=== PATIENT | male | born 1955 | race Caucasian/White ===

== ENCOUNTER 2023-06-10 07:20 | Emergency (ER) | payer MEDICAID, SELFPAY ==
[2023-06-10 07:29] VITALS: BP 186/93; PULSE 102; RESP 18; TEMP 36.7; O2SAT 97
--- NOTE | 2023-06-10 07:30 | ECG_ITS ---
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
--- NOTE | 2023-06-10 07:30 | XR_ITS ---
The [address] [address] Patient Name: TSERING NAVARRO MRN: [id number] date: 1955 Sex: M Assigned Patient Location: ER Current Patient Location: ED.MAIN Accession/Order Number: [id number] Exam Date: 06/10/2023 07:36 Report Date: 06/10/2023 07:55 At the request of: MAGI COFFEY Procedure: XR chest 1V Exam: Radiographs: XR chest 1V Reason for exam: Chest pain Comparison: Chest CT dated 04/20/2021 XR/XR chest 1V IMPRESSION: Bilateral shoulder arthroplasties. Chest is otherwise unremarkable. Electronically authenticated by: ABDELRAHMAN MACDONALD Date: 06/10/2023 07:55
--- NOTE | 2023-06-10 07:30 | ED.CHESTPAI1 ---
HPI - Chest Pain General Chief Complaint: Chest Pain Stated Complaint: chest pain Time Seen by Provider: 06/10/23 07:30 History of Present Illness HPI narrative: pt presents emergency department complaining of chest pain for the last 3 days. He states his been waking up in a sweat in the last 2 nights and started vomiting last night. He denies any hematemesis. He denies any abdominal pain, shortness of breath, diarrhea, constipation. He denies any cough, runny nose, or sore throat. Patient states he feels very thirsty and just wants some Thing for her nausea. He states he has vomited 2 times. He is a poor historian. He denies any trauma. Related Data Home Medications Medication Instructions Recorded Confirmed atorvastatin 80 mg tablet 80 mg PO DAILY 06/10/23 06/10/23 diclofenac sodium 75 mg 75 mg PO BID 06/10/23 06/10/23 tablet,delayed release fenofibrate 160 mg tablet 160 mg PO DAILY 06/10/23 06/10/23 metformin 500 mg tablet 500 mg PO BID 06/10/23 06/10/23 pioglitazone 30 mg tablet 30 mg PO BID 06/10/23 06/10/23 Previous Rx's Medication Instructions Recorded hydrocodone 5 mg-acetaminophen 325 1 tab PO Q6H PRN pain 5 days #10 06/10/23 mg tablet tabs ondansetron HCl 4 mg tablet 4 mg PO Q8H PRN nausea and 06/10/23 vomiting 4 days #10 tabs Allergies Allergy/AdvReac Type Severity Reaction Status Date / Time No Known Drug Allergies Allergy Verified 06/10/23 07:32 Review of Systems ROS Status of ROS 10 or more systems reviewed and unremarkable except as noted in history and below PFSH [facility] Social History Smoking status: Former smoker Exam Narrative Exam Narrative: Nurses notes and vital signs reviewed and patient is not hypoxic. General: Nontoxic, in pain, no distress. Skin: Warm, dry, no pallor noted. No Rash Head: Normocephalic, atraumatic. Neck: Supple, non-tender. Eye: Pupils are equal, round and EOMI. No scleral icterus. Ears, Nose, Mouth, and Throat: TM clear, no posterior oropharynx erythema or nasal mucosal hypertrophy, uvula is mid-line Oral mucosa is moist Cardiovascular: Regular Rate and Rhythm without murmur, gallop or rub. Respiratory: No accessory muscle use or respiratory distress. Lungs are clear to auscultation, no wheezing, rales or rhonchi Chest Wall: no tenderness Back: No midline thoracic or lumbar vertebral tenderness. No CVA tenderness Musculoskeletal: normal ROM, no calf or popliteal tenderness, no lower extremity edema/swelling GI: Obese,Abdomen is soft, non-distended. Normal bowel sounds. Golf size umbilical hernia. Epigastric tenderness to palpation. No rebound, guarding, or rigidity noted. Neurological: A&O x4. No cranial nerve dysfunction observed. No truncal ataxia. Moves all extremities. Psychiatric: Cooperative and interactive. anxious Constitutional Vital Signs, click to edit/add: Last Vital Signs Temp 98.0 F 06/10/23 07:29 Pulse 78 06/10/23 09:48 Resp 18 06/10/23 09:48 BP 150/71 H 06/10/23 09:48 Pulse Ox 98 06/10/23 09:48 O2 Del Method Room Air 06/10/23 07:47 Course Vital Signs Vital signs: Vital Signs Temperature 98.0 F 06/10/23 07:29 Pulse Rate 102 H 06/10/23 07:29 Respiratory Rate 18 06/10/23 07:29 Blood Pressure 186/93 H 06/10/23 07:29 Pulse Oximetry 97 06/10/23 07:29 Oxygen Delivery Method Room Air 06/10/23 07:29 Temperature 98.0 F 06/10/23 07:29 Pulse Rate 78 06/10/23 09:48 Respiratory Rate 18 06/10/23 09:48 Blood Pressure 150/71 H 06/10/23 09:48 Pulse Oximetry 98 06/10/23 09:48 Oxygen Delivery Method Room Air 06/10/23 07:47 MDM - Chest Pain MDM Narrative Medical decision making narrative: Patient is a poor historian and he cannot provide me with a history other than he has no ALLERGIES. Previous admission records were reviewed and patient was admitted on March 2020 after he was here with the same presentation. At that time he had acute pancreatitis. pt was given morphine, Zofran, and normal saline. Patient's symptoms have completely resolved. He remained asymptomatic. Patient is tolerating by mouth. Given a prescription for Zofran and [place]. The discussed the CT scan findings SO was cystic lesion which the patient states she's had issues with his right hip for years. Patient does not have any signs of infection. He will follow up with Dr. Parish regarding this findings for a referral to ortho. At this time the patient is without objective evidence of an acute process requiring hospitalization or inpatient management. The patient has remained hemodynamically stable. No additional indication for emergent studies at this time. I answered all questions. Discussed discharge instructions including standard anticipatory guidance and what should prompt a return to the emergency department, including if they get worse are not getting better or develops any new or concerning symptoms. I've given them specific time frame in which to follow-up, and who to follow-up with. The patient demonstrates understanding. Patient is nontoxic and stable for discharge with outpatient follow-up. This note was created with the assistance of a speech recognition program. Although the intention is to generate documents that actually reflects the content of the visit, no guarantees can be provided that every mistake has been identified and corrected by editing. Lab Data Attestation: I reviewed the patient's lab results. Labs: Lab Results 06/10/23 06/10/23 06/10/23 Range/Units 07:41 07:42 08:46 WBC 9.9 (4.0-11.0) 10^3/uL RBC 5.28 (4.70-6.10) 10^6/uL Hgb 16.1 (14.0-18.0) g/dL Hct 46.2 (42.0-54.0) % MCV 87.5 (80.0-94.0) fL MCH 30.5 (25.9-34.0) pg MCHC 34.8 (29.9-35.2) g/dL RDW 12.6 (11.0-15.0) % Plt Count 215 (150-450) 10^3/uL MPV 9.8 (9.5-13.5) fL Neut % (Auto) 91.4 H (43.0-75.0) % Lymph % (Auto) 5.0 L (20.5-60.0) % [place] % (Auto) 2.3 (1.7-12.0) % Eos % (Auto) 0.5 L (0.9-7.0) % Baso % (Auto) 0.5 (0.2-2.0) % Neut # (Auto) 9.0 H (1.4-6.5) 10^3/uL Lymph # (Auto) 0.5 L (1.2-3.8) 10^3/uL [place] # (Auto) 0.2 L (0.3-0.8) 10^3/uL Eos # (Auto) 0.1 (0.0-0.7) 10^3/uL Baso # (Auto) 0.1 (0.0-0.1) 10^3/uL Abs Immat Gran (auto) 0.03 (0.00-0.03) 10^3/uL Imm/Tot Granulo (auto) 0.3 (0.0-0.5) % PT 9.8 (9.0-11.6) sec INR <0.93 APTT 23.2 (22.3-36.2) sec Sodium 131 L (136-145) mmol/L Potassium 4.2 (3.5-5.1) mmol/L Chloride 95 L (98-107) mmol/L Carbon Dioxide 23.4 (21.0-32.0) mmol/L Anion Gap 16.8 BUN 17.0 (7.0-18.0) mg/dL Creatinine 1.03 (0.70-1.30) mg/dL Est GFR ( Amer) >60 (>=60) Est GFR (Non-Af Amer) >60 (>=60) BUN/Creatinine Ratio 16.5 Glucose 255 H (74-106) mg/dL Calcium 9.7 (8.5-10.1) mg/dL Total Bilirubin 0.7 (0.2-1.0) mg/dL AST 15 (15-37) U/L ALT 29 (16-63) U/L Alkaline Phosphatase 114 (46-116) U/L Troponin I High Sens 5.6 (4.0-76.1) pg/mL NT-Pro-B Natriuret Pep 87.0 (<=900.0) pg/mL Total Protein 7.5 (6.4-8.2) g/dL Albumin 3.6 (3.4-5.0) g/dL Globulin 3.9 g/dL Albumin/Globulin Ratio 0.9 Lipase 161.0 (73.0-393.0) U/L Urine Color Lt. yellow (YELLOW) Urine Clarity Clear (CLEAR) Urine pH 5.5 (5.0-9.0) Ur Specific [place] 1.015 (1.005-1.025) Urine Protein Negative (NEG/TRACE) mg/dL Urine Glucose (UA) >=1000 A (NEGATIVE) mg/dL Urine Ketones Trace A (NEGATIVE) mg/dL Urine Occult Blood Negative (NEGATIVE) Urine Nitrite Negative (NEGATIVE) Urine Bilirubin Negative (NEGATIVE) Urine Urobilinogen 0.2 (0.2-1.0) EU/dL Ur Leukocyte Esterase Negative (NEGATIVE) Ethanol Quant <3 mg/dL POC Glucose 261 H (74-106) mg/dL 06/10/23 Range/Units 09:45 WBC (4.0-11.0) 10^3/uL RBC (4.70-6.10) 10^6/uL Hgb (14.0-18.0) g/dL Hct (42.0-54.0) % MCV (80.0-94.0) fL MCH (25.9-34.0) pg MCHC (29.9-35.2) g/dL RDW (11.0-15.0) % Plt Count (150-450) 10^3/uL MPV (9.5-13.5) fL Neut % (Auto) (43.0-75.0) % Lymph % (Auto) (20.5-60.0) % [place] % (Auto) (1.7-12.0) % Eos % (Auto) (0.9-7.0) % Baso % (Auto) (0.2-2.0) % Neut # (Auto) (1.4-6.5) 10^3/uL Lymph # (Auto) (1.2-3.8) 10^3/uL [place] # (Auto) (0.3-0.8) 10^3/uL Eos # (Auto) (0.0-0.7) 10^3/uL Baso # (Auto) (0.0-0.1) 10^3/uL Abs Immat Gran (auto) (0.00-0.03) 10^3/uL Imm/Tot Granulo (auto) (0.0-0.5) % PT (9.0-11.6) sec INR APTT (22.3-36.2) sec Sodium (136-145) mmol/L Potassium (3.5-5.1) mmol/L Chloride (98-107) mmol/L Carbon Dioxide (21.0-32.0) mmol/L Anion Gap BUN (7.0-18.0) mg/dL Creatinine (0.70-1.30) mg/dL Est GFR ( Amer) (>=60) Est GFR (Non-Af Amer) (>=60) BUN/Creatinine Ratio Glucose (74-106) mg/dL Calcium (8.5-10.1) mg/dL Total Bilirubin (0.2-1.0) mg/dL AST (15-37) U/L ALT (16-63) U/L Alkaline Phosphatase (46-116) U/L Troponin I High Sens 7.4 (4.0-76.1) pg/mL NT-Pro-B Natriuret Pep (<=900.0) pg/mL Total Protein (6.4-8.2) g/dL Albumin (3.4-5.0) g/dL Globulin g/dL Albumin/Globulin Ratio Lipase (73.0-393.0) U/L Urine Color (YELLOW) Urine Clarity (CLEAR) Urine pH (5.0-9.0) Ur Specific [place] (1.005-1.025) Urine Protein (NEG/TRACE) mg/dL Urine Glucose (UA) (NEGATIVE) mg/dL Urine Ketones (NEGATIVE) mg/dL Urine Occult Blood (NEGATIVE) Urine Nitrite (NEGATIVE) Urine Bilirubin (NEGATIVE) Urine Urobilinogen (0.2-1.0) EU/dL Ur Leukocyte Esterase (NEGATIVE) Ethanol Quant mg/dL POC Glucose (74-106) mg/dL ECG Data Attestation: I personally reviewed and interpreted this ECG as follows: Heart Score History: Slightly/Non-Suspicious ECG: Normal Age: >65 years Risk Factors: 1 or 2 Risk Factors Troponin: <Normal Limit Total Heart Score Recommendations & Risks:: 3 Discharge Plan Discharge Chief Complaint: Chest Pain Clinical Impression: Psoas mass, Chest pain, Vomiting Patient Disposition: Home, Self-Care Time of Disposition Decision: 10:26 Condition: Good Mode of Transportation: Private Vehicle Prescriptions / Home Meds: New ondansetron HCl 4 mg tablet 4 mg PO Q8H PRN (Reason: nausea and vomiting) 4 Days Qty: 10 0RF hydrocodone-acetaminophen 5-325 mg tablet 1 tab PO Q6H PRN (Reason: pain) 5 Days Qty: 10 0RF No Action atorvastatin 80 mg tablet 80 mg PO DAILY fenofibrate 160 mg tablet 160 mg PO DAILY metformin 500 mg tablet 500 mg PO BID pioglitazone 30 mg tablet 30 mg PO BID diclofenac sodium 75 mg tablet,delayed release (DR/EC) 75 mg PO BID Instructions: Chest Pain (ED), Acute Nausea and Vomiting (ED) Stand Alone Forms: Portal Instructions Referrals: Kip Parish MD [Primary Care Provider] - 1 week Discharge Date/Time: 06/10/23 10:46
--- NOTE | 2023-06-10 07:41 | CT_ITS ---
The [address] [address] Patient Name: TSERING NAVARRO MRN: [id number] date: 1955 Sex: M Assigned Patient Location: ER Current Patient Location: .MAIN Accession/Order Number: [id number] Exam Date: 06/10/2023 08:15 Report Date: 06/10/2023 09:04 At the request of: MAGI COFFEY Procedure: CT abdomen pelvis w con EXAM: CT abdomen pelvis w con HISTORY: n/v/abd pain, hernia COMPARISON: PET/CT 10/18/2020. TECHNIQUE: Axial postcontrast CT imaging of the abdomen and pelvis was performed with coronal and sagittal reformats. This CT exam was performed using one or more of the following dose reduction techniques: Automated exposure control, adjustment of the MA and/or kV according to patient size, or use of iterative reconstruction technique. FINDINGS: LOWER CHEST: Mediastinum/ras: Within normal limits. Heart/vessels: Heart size within normal limits. No pericardial effusion. Pleura: No pleural effusions. Lungs: Mild dependent atelectasis. ABDOMEN/PELVIS: Liver: Mild hepatomegaly with diffuse hepatic steatosis. Gallbladder/biliary: Within normal limits. Spleen: Within normal limits. Pancreas: Within normal limits. Adrenals: Within normal limits. Kidneys: No radiopaque calculi or hydronephrosis. Bilateral fluid attenuating cystic lesions are present the largest involving the inferior pole of the left kidney being partially exophytic measuring 3.5 cm with layering hyperdense material which is grossly stable from prior when allowing for differences in technique. No aggressive features are seen. Less than 5 mm nonobstructing left renal stone.. Peritoneum: Within normal limits. Mesentery: Within normal limits. Extraperitoneum: Within normal limits. Gastrointestinal tract: No bowel obstruction. Normal caliber appendix in the right lower quadrant. Colonic diverticulosis without adjacent inflammatory changes. Anterior to the descending/sigmoid colonic junction partially calcified presumed epiploic appendages are present unchanged in appearance from 10/18/2020. Ureters: Within normal limits. Bladder: Within normal limits. Reproductive System: Within normal limits. Vascular: Atherosclerotic calcification of the abdominal aorta and branch vessels without aneurysm. MSK: There is decreasing size of mixed fat and soft tissue attenuating lesion involving the right iliopsoas abscess at the level of the femoral head with the fat-containing portion mildly heterogeneous in appearance measuring approximately 2.3 x 1.4 x 4.3 cm. Slightly more laterally and there is a fluid attenuating collection/lesion measuring approximately 2.5 x 2.3 x 11.2 cm. This was likely present in 2019 but has significantly increased in size or to prior although remains well-circumscribed. No FDG uptake was seen on prior PET/CT. CT/CT abdomen pelvis w con IMPRESSION: 1. No acute intra-abdominal/pelvic process. 2. Abnormality involving the right iliopsoas musculature at the level of the femoral head with area of heterogeneous fat and slightly more laterally elongated fluid attenuating lesion. This was present on prior PET/CT from 10/18/2020 but has significantly increased in size although no overtly aggressive features are seen. Please note there is no FDG uptake in this location on prior PET/CT. Continued attention on follow-up is recommended. If clinically warranted MR of the right hip with wide [id number] with and without contrast could be performed for further evaluation. 3. Colonic diverticulosis. 4. Multiple renal cysts. 5. Nonobstructing left renal calculus. 6. Hepatomegaly with diffuse hepatic steatosis. 7. Electronically authenticated by: JONEL CHEN Date: 06/10/2023 09:04
[2023-06-10 07:44] LABS: Glucometer 261 mg/dL (74-106)
[2023-06-10 07:46] VITALS: PULSE 102
[2023-06-10 07:47] VITALS: O2SAT 96
[2023-06-10 07:51] LABS: Basophils Absolute Auto 0.1 10^3/uL (0.0-0.1); Basophils Percent Auto 0.5 % (0.2-2.0); Eosinophils Absolute Auto 0.1 10^3/uL (0.0-0.7); Eosinophils Percent Auto 0.5 % (0.9-7.0); Hematocrit 46.2 % (42.0-54.0); Hemoglobin 16.1 g/dL (14.0-18.0); Immature Granulocytes Abs Auto 0.03 10^3/uL (0.00-0.03); Immature Granulocytes Pct Auto 0.3 % (0.0-0.5); Lymphocytes Absolute Auto 0.5 10^3/uL (1.2-3.8); Mean Corpuscular HGB Conc 34.8 g/dL (29.9-35.2); Mean Corpuscular Hemoglobin 30.5 pg (25.9-34.0); Mean Corpuscular Volume 87.5 fL (80.0-94.0); Mean Platelet Volume 9.8 fL (9.5-13.5); Monocytes Absolute Auto 0.2 10^3/uL (0.3-0.8); Monocytes Percent Auto 2.3 % (1.7-12.0); Neutrophils Percent Auto 91.4 % (43.0-75.0); Platelet Count 215 10^3/uL (150-450); Red Blood Count 5.28 10^6/uL (4.70-6.10); Red Cell Distribution Width 12.6 % (11.0-15.0); White Blood Count 9.9 10^3/uL (4.0-11.0)
[2023-06-10] MEDS: MORPHINE SULFATE 4 MG/ML VIAL IV (07:57)
[2023-06-10] MEDS: ONDANSETRON PF 4 MG/2 ML VIAL IV (07:57)
[2023-06-10] MEDS: 0.9 % SODIUM CHLORIDE 1,000 ML 1000 ML IV (07:57)
[2023-06-10 08:02] LABS: Alanine Aminotransferase 29 U/L (16-63); Albumin Globulin Ratio 0.9; Albumin Level 3.6 g/dL (3.4-5.0); Alkaline Phosphatase 114 U/L (46-116); Anion Gap 16.8; Aspartate Amino Transferase 15 U/L (15-37); BUN Creatinine Ratio 16.5; Bilirubin Total 0.7 mg/dL (0.2-1.0); Calcium 9.7 mg/dL (8.5-10.1); Carbon Dioxide 23.4 mmol/L (21.0-32.0); Chloride 95 mmol/L (98-107); Estimated GFR (African America >60 (>=60); Estimated GFR (Non-African Ame >60 (>=60); Globulin 3.9 g/dL; Glucose 255 mg/dL (74-106); Potassium 4.2 mmol/L (3.5-5.1); Sodium 131 mmol/L (136-145); Total Protein 7.5 g/dL (6.4-8.2)
[2023-06-10 08:03] LABS: Partial Thromboplastin Time 23.2 sec (22.3-36.2); Prothrombin Time 9.8 sec (9.0-11.6)
[2023-06-10 08:11] LABS: Troponin I High Sensitivity 5.6 pg/mL (4.0-76.1)
[2023-06-10 08:12] LABS: Ethanol <3 mg/dL
--- NOTE | 2023-06-10 08:31 | PC.NURSE ---
In to assess patient, pt out of bed, all chest leads off and patient attempting to drink water from the sink. Education provided to patient numerous times to not eat or drink anything. Patient states uderstanding.
[2023-06-10 08:40] LABS: INR <0.93
[2023-06-10 08:53] LABS: Bilirubin Urine NEGATIVE (NEGATIVE); Blood Urine NEGATIVE (NEGATIVE); Clarity Urine CLEAR (CLEAR); Color Urine LT. YELLOW (YELLOW); Glucose Urine UA >=1000 mg/dL (NEGATIVE); Ketones Urine TRACE mg/dL (NEGATIVE); Leukocyte Esterase Urine NEGATIVE (NEGATIVE); Nitrite Urine NEGATIVE (NEGATIVE); Protein Urine NEGATIVE (NEG/TRACE); Specific Gravity Urine 1.015 (1.005-1.025); Urobilinogen Urine 0.2 EU/dL (0.2-1.0); pH Urine 5.5 (5.0-9.0)
[2023-06-10 08:54] LABS: Urine Microscopic Indicated NO
[2023-06-10 09:48] VITALS: BP 150/71; PULSE 78; RESP 18; O2SAT 98
[2023-06-10 10:09] LABS: Troponin I High Sensitivity 7.4 pg/mL (4.0-76.1)
== END 2023-06-10 10:46 | disposition home or self-care (01) ==
PROVIDERS: Emergency Provider Emergency Medicine; PCP Family Medicine
DX: R07.9 Chest pain, unspecified (principal); R11.10 Vomiting, unspecified; M62.89 Other specified disorders of muscle; Z79.899 Other long term (current) drug therapy; Z79.84 Long term (current) use of oral hypoglycemic drugs; Z87.891 Personal history of nicotine dependence
CPT/HCPCS: 36415; 71045; 74177; 80053; 80320; 81003; 83690; 83880; 84484; 85025; 85610; 85730; 93005; 96374; 96375; 99285; Q9967

== ENCOUNTER 2023-07-30 07:36 | Outpatient (OUT) | payer MEDICARE, MEDICAID, SELFPAY ==
--- NOTE | 2023-07-30 07:42 | MR_ITS ---
The [address] [address] Patient Name: TSERING NAVARRO MRN: [id number] date: 1955 Sex: M Assigned Patient Location: MRI Current Patient Location: MRI Accession/Order Number: [id number] Exam Date: 07/30/2023 08:04 Report Date: 07/30/2023 10:21 At the request of: OSWALDO MARS Procedure: MR hip RT wo con EXAMINATION: MR hip RT wo con HISTORY: Mass R22.9 COMPARISON: CT abdomen pelvis 06/10/2023, 03/23/2020 TECHNIQUE: A comprehensive examination was performed utilizing a variety of imaging planes and imaging parameters to optimize visualization of suspected pathology. Images were performed without contrast. FINDINGS: FEMORAL HEAD: Narrowing of the superior aspect of the right hip joint space with [id number] contact. Degenerative osteophytes along the rim of the right femoral head. No fracture or bone lesion. ACETABULUM: No fracture or significant arthropathy. OTHER BONES: Normal appearance of the visualized portion of the pelvis. LABRUM: No visible tear. EFFUSIONS: None. No synovitis or loose bodies. BURSAE: No evidence of iliopsoas or trochanteric bursitis. TENDONS: Unremarkable gluteus tendons, iliopsoas tendon, and hamstring origin. MUSCLES: Thin-walled elongated fluid collection within the right iliopsoas muscle, 13.5 cm in length by 3.9 cm in diameter which appears to extend from/involve a very thin layer of fluid between the right iliac bone and the iliacus muscle. The distal extent of the fluid collection is at the level of the lesser trochanter of the right femur. A second small similar-appearing fluid collection is present within the medial aspect of the right iliopsoas muscle, 6.3 cm in length by 1.7 cm in diameter. Between the 2 fluid collections is a fatty mass suggestive of a lipoma. OTHER: Moderate size fat filled right inguinal hernia without bowel involvement or strangulation. Slightly prominent prostate. MR/MR hip RT wo con IMPRESSION: 1. Nonspecific thin-walled, overall benign-appearing but atypical simple fluid collections (2) within the right iliopsoas muscle extending from within pelvis into upper thigh of uncertain etiology. The 2 fluid collections are suspected to connect connect at the level of the iliac bone and iliacus muscle and involve the thin layer of fluid between the bone and muscle. 2. 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 3. Marked narrowing of the right hip. Joint space compatible with degenerative joint disease. Electronically authenticated by: IRAJ MENDEZ Date: 07/30/2023 10:21
--- NOTE | 2023-07-30 07:47 | XR_ITS ---
The [address] [address] Patient Name: TSERING NAVARRO MRN: [id number] date: 1955 Sex: M Assigned Patient Location: MRI Current Patient Location: MRI Accession/Order Number: [id number] Exam Date: 07/30/2023 07:55 Report Date: 07/30/2023 08:40 At the request of: OSWALDO MARS Procedure: XR foreign body eye EXAMINATION: XR foreign body eye HISTORY: Foreign Body Eye COMPARISON: No relevant comparison available. FINDINGS: ORBITS: Negative for a metallic foreign body. OTHER: Negative. XR/XR foreign body eye IMPRESSION: 1. No metallic foreign body within the orbits. Electronically authenticated by: IRAJ MENDEZ Date: 07/30/2023 08:40
[2023-07-30 08:00] LABS: Estimated GFR (African America >60 (>=60); Estimated GFR (Non-African Ame >60 (>=60)
== END 2023-07-30 07:37 | disposition home or self-care (01) ==
LOC: MRI 07:37
PROVIDERS: PCP Family Medicine; Visit Provider Family Medicine
DX: R22.9 Localized swelling, mass and lump, unspecified (principal)
CPT/HCPCS: 36415; 70030; 73721; 82565

== ENCOUNTER 2023-08-20 13:35 | Outpatient (OUT) | payer MEDICARE, MEDICAID, SELFPAY ==
--- NOTE | 2023-08-20 13:48 | MR_ITS ---
The [address] [address] Patient Name: TSERING NAVARRO MRN: [id number] date: 1955 Sex: M Assigned Patient Location: MRI Current Patient Location: MRI Accession/Order Number: [id number] Exam Date: 08/20/2023 14:00 Report Date: 08/22/2023 12:54 At the request of: OSWALDO MARS Procedure: MR hip RT wo/w con HISTORY: The patient was found to have a large ovoid signal abnormality in the region of the right iliopsoas bursa/iliopsoas muscle of the right hip on prior studies. Evaluate for possible mass. MRI RIGHT HIP WITHOUT AND WITH CONTRAST 08/20/2023. COMPARISON: PET/CT scan 10/18/2020, CT scan abdomen and pelvis 06/10/2023 and MRI right hip without contrast 07/30/2023. TECHNIQUE: Multiplanar, multisequence MRI images of the pelvis and right hip were obtained prior to and following the intravenous administration of gadolinium. FINDINGS: There are degenerative changes again seen of the visualized lower lumbar spine and severe degenerative changes of the sacroiliac joints. There are also moderate degenerative changes again seen of the pubic symphysis and mild to moderate degenerative changes of the left hip joint. There is a stable small right inguinal hernia containing fat. There are severe degenerative changes again seen of the right hip joint with high-grade chondromalacia, severe joint space narrowing and a [id number] appearance. There is moderate subchondral bone marrow edema again seen in the anterosuperior aspect of the acetabulum and the superolateral aspect of the right femoral head. There is an associated large right hip joint effusion again seen with a probable moderate underlying synovitis. No trochanteric or iliopsoas bursitis is seen. There is a similar appearance of a large amount of mildly loculated fluid signal intensity throughout the right iliopsoas bursa along the anterior aspect of the right hip extending deep to the iliacus muscle when compared to the prior MRI of 07/30/2023. There is evidence of mild peripheral and septal enhancement of this fluid. However, there is no focal nodular soft tissue enhancement in this region. There is a similar appearance of a small amount of fatty infiltration involving the iliopsoas muscles along the anterior aspect of the hip joints bilaterally. MR/MR hip RT wo/w con IMPRESSION: 1. 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 2. When compared to the recent MRI of the right hip of 07/30/2023 there is a similar appearance of a large amount of fluid signal intensity throughout the right iliopsoas bursa and there is mild peripheral and septal enhancement of this fluid. This is most compatible with a large iliopsoas bursitis and is probably secondary to communication of the right hip joint fluid with the iliopsoas bursa. This does not represent a mass. 3. There are degenerative changes again seen of the visualized lower lumbar spine and severe degenerative changes of the sacroiliac joints. Electronically authenticated by: OSWALDO TORIBIO Date: 08/22/2023 12:54
== END 2023-08-20 13:36 | disposition home or self-care (01) ==
LOC: MRI 13:36
PROVIDERS: PCP Family Medicine; Visit Provider Family Medicine
DX: R22.9 Localized swelling, mass and lump, unspecified (principal); M16.11 Unilateral primary osteoarthritis, right hip; M25.451 Effusion, right hip
CPT/HCPCS: 73723; A9575

== ENCOUNTER 2023-10-09 13:11 | Outpatient (OUT) | payer MEDICARE, MEDICAID, SELFPAY ==
--- NOTE | 2023-10-09 | CONS_ITS ---
CONSULTATION DATE: ??10/09/2023 TO:? Dr. Parish and Dr. Rowley CHIEF COMPLAINT:? Includes severe right hip pain. HISTORY OF PRESENT ILLNESS:? Review of systems, past medical/surgical history were obtained and documented on the health questionnaire and is available upon request. Patient is a 67-year-old male, reports having this pain for many years; however, over the last five months, he reports his pain has dramatically increased to the point it has altered his quality of life, level of functioning and at times his sleep pattern.? He rates the pain as being exacerbated with standing and walking and performing transitioning maneuvers.? He feels most comfortable in the semi- recumbent position.? He denies any change in bowel or bladder habits or new sensorimotor change in the lower extremities.? 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 Currently, the patient?s pain regimen includes Tylenol Arthritis medicine and the use of marijuana to help control some of his symptomatology from his pain. EXAMINATION:? Notable for patient having no clinical radiculopathy or myelopathy involving his lower extremities.? Patient has exquisitely positive right sided FABERs sign and a fair amount of myofascial spasm involving the adductor muscles of his right lower extremity, as well as a myofascial spasm of the lumbar paravertebral muscles.? IMPRESSION:? Our impression is patient appears to have chronic pain secondary to osteoarthrosis, degenerative joint disease of the right hip.? At the current time, he wants to avoid hip replacement. RECOMMENDATIONS:? I have asked him to reconsider and, in the interim, I have placed him on baclofen, 10 mg pills, one pill t.i.d. as tolerated and to initiate aquatic therapy.? We will not be in a position to prescribe the patient any type of opioid therapy secondary to his concomitant marijuana use.? He is to follow up via telephone in one week?s time to update us on his response to our change in medication.? We will see the patient back in the office in approximately 4-6 weeks? time. As part of providing excellent, safe, comprehensive care, the following was completed at our patient's visit: 1. A medication reconciliation and review to ensure accurate knowledge of current/active medications, including asking our patients to inform us about any [id number] medications or herbal remedies/nutritional supplements/alternative remedies. 2. A review to specifically ensure our patients have had annual screening for: elevated body mass index (BMI, see intake chart for exact total), tobacco use, screening for depression, and screening for unhealthy alcohol use.? When screening is concerning, patients are provided with education and the specific recommendation to discuss the concerning health issue and treatment options with their primary care provider. MINI
== END 2023-10-09 13:12 | disposition home or self-care (01) ==
LOC: PM 13:11
PROVIDERS: PCP Family Medicine; Visit Provider Anesthesiology Pain Medicine
DX: M16.11 Unilateral primary osteoarthritis, right hip (principal); M25.551 Pain in right hip
CPT/HCPCS: G0463

== ENCOUNTER 2023-10-16 13:11 | Outpatient (RCR) | payer MEDICARE, MEDICAID, SELFPAY | END 2023-11-04 09:00 | disposition home or self-care (01) | LOC: PT 13:11 | PROVIDERS: PCP Family Medicine; Visit Provider Anesthesiology Pain Medicine | DX: M25.551 Pain in right hip (principal) | CPT/HCPCS: 97110; 97113; 97140; 97161 ==

== ENCOUNTER 2023-11-05 09:24 | Outpatient (RCR) | payer MEDICARE, MEDICAID, SELFPAY | END 2024-02-09 11:57 | disposition home or self-care (01) | LOC: PT 09:24 | PROVIDERS: PCP Family Medicine; Visit Provider Anesthesiology Pain Medicine | DX: M25.551 Pain in right hip (principal) | CPT/HCPCS: 97110; 97112; 97113; 97116; 97140 ==

== ENCOUNTER 2023-11-20 09:01 | Outpatient (OUT) | payer MEDICARE, MEDICAID, SELFPAY ==
--- OUTSIDE RECORDS SUMMARY | 2023-11-20 09:07 | XMS_ITS | CCD ---
Author Name Unknown Address [address] [place] [address] Organization [facility] Care Team Providers Care [employer] Name Role Phone MADISYN, DR CHACON Admitting Unavailable HOY, DR CHACON Attending Unavailable HOY, DR CHACON Primary Care Unavailable HOY, DR CHACON Admitting Unavailable HOY, DR CHACON Attending Unavailable HOY, DR CHACON Primary Care Unavailable HOY, DR CHACON Consulting Unavailable HOY, DR CHACON Admitting Unavailable HOY, DR CHACON Attending Unavailable HOY, DR CHACON Primary Care Unavailable HOLDENY, DR CHACON Consulting Unavailable Problems Active Problems Problem Classification Problem Date Documented Da te Episodic/Chronic Diabetes mellitus without complication (1 source) Type 2 diabetes mellitus without complications; Translations: [TYPE 2 DM WITHOUT COMPLICATIONS] Onset: 01-05-2022 Chronic Disorders of lipid metabolism (1 source) Hyperlipidemia, unspecified; Translations: [HYPERLIPIDEMIA UNSPECIFIED] Onset: 01-05-2022 Chronic Viral infection (4 sources) COVID-19; Translations: [COVID-19] Onset: 10-13-2021 Past or Other Problems Problem Classification Problem Date Documented Da te Episodic/Chronic Immunizations and screening for infectious disease (1 source) Encounter for immunization; Translations: [ENCOUNTER FOR IMMUNIZATION] Onset: 10-18-2021 Episodic Malaise and fatigue (1 source) Other fatigue; Translations: [OTHER FATIGUE] Onset: 01-05-2022 Episodic Other screening for suspected conditions (not mental disorders or infectious disease) (1 source) Encounter for screening for malignant neoplasm of prostate; Translations: [ENC SCREEN MALIG NEOPLASM PROSTATE] Onset: 01-05-2022 Episodic Results Test Name Value Interpretation Reference Range Facility CBC AUTO DIFFon 12-28-2021 BASO # 0.1 103/ul Normal 0.0-0.1 [facility] Comment on above: Performed By: #### C #### [facility] [address] [place] [address] Dr. Talia Davalos Basophils/100 WBC (Bld) 0.9 % Normal 0.2-2.0 [facility] Comment on above: Performed By: #### C BC #### [facility] [address] [place] [address] Dr. Talia Davalos EO # 0.2 103/ul Normal 0.0-0.7 [facility] Comment on above: Performed By: #### C BC #### [facility] [address] [place] [address] Dr. Talia Davalos Eosinophils/100 WBC (Bld) 2.9 % Normal 0.9-7.0 [facility] Comment on above: Performed By: #### C BC #### [facility] [address] [place] [address] Dr. Talia Davalos Erythrocyte distribution width (RBC) [Ratio] 13.8 % Normal 11.0-15.0 [facility] Comment on above: Performed By: #### C BC #### [facility] [address] [place] [address] Dr. Talia Davalos Hematocrit (Bld) [Volume fraction] 41.7 % Critically low 42.0-54.0 [facility] Comment on above: Performed By: #### C BC #### [facility] [address] [place] [address] Dr. Talia Davalos Hemoglobin (Bld) [Mass/Vol] 14.2 g/dL Normal 14.0-18.0 [facility] Comment on above: Performed By: #### C BC #### [facility] [address] [place] [address] Dr. Talia Davalos IG # 0.03 10e3/ul Normal 0.00-0.03 [facility] Comment on above: Performed By: #### C BC #### [facility] [address] [place] [address] Dr. Talia Davalos IG % 0.4 % Normal 0.0-0.5 [facility] Comment on above: Performed By: #### C BC #### [facility] [address] [place] [address] Dr. Talia Davalos LYMPH # 1.7 103/ul Normal 1.2-3.8 [facility] Comment on above: Performed By: #### C BC #### [facility] [address] [place] [address] Dr. Talia Davalos Lymphocytes/100 WBC (Bld) 25.7 % Normal 20.5-60.0 [facility] Comment on above: Performed By: #### C BC #### [facility] [address] [place] [address] Dr. Talia Davalos MANUAL DIFF REQ NO Normal [facility] Comment on above: Performed By: #### C BC #### [facility] [address] [place] [address] Dr. Talia Davalos MCH (RBC) [Entitic mass] 30.5 pg Normal 25.9-34.0 [facility] Comment on above: Performed By: #### C BC #### [facility] [address] [place] [address] Dr. Talia Davalos MCHC (RBC) [Mass/Vol] 34.1 g/dL Normal 29.9-35.2 [facility] Comment on above: Performed By: #### C BC #### [facility] [address] [place] [address] Dr. Talia Davalos MCV (RBC) [Entitic vol] 89.7 fL Normal 80.0-94.0 [facility] Comment on above: Performed By: #### C BC #### [facility] [address] [place] [address] Dr. Talia Davalos MONO # 0.4 103/ul Normal 0.3-0.8 [facility] Comment on above: Performed By: #### C BC #### [facility] [address] [place] [address] Dr. Talia Davalos Monocytes/100 WBC (Bld) 6.2 % Normal 1.7-12.0 [facility] Comment on above: Performed By: #### C BC #### [facility] [address] [place], [place] [id number] Dr. Talia Davalos NEUT # 4.3 103/ul Normal 1.4-6.5 [facility] Comment on above: Performed By: #### C BC #### [facility] [address] [place] [address] Dr. Talia Davalos Neutrophils/100 WBC (Bld) 63.9 % Normal 43.0-75.0 [facility] Comment on above: Performed By: #### C BC #### [facility] [address] [place] [address] Dr. Talia Davalos Platelet mean volume (Bld) [Entitic vol] 9.6 fL Normal 9.5-13.5 [facility] Comment on above: Performed By: #### C BC #### [facility] [address] [place] [address] Dr. Talia Davalos PLT 257 103/ul Normal 150-450 [facility] Comment on above: Performed By: #### C BC #### [facility] [address] [place] [address] Dr. Talia Davalos RBC 4.65 106/ul Critically low 4.70-6.10 [facility] Comment on above: Performed By: #### C BC #### [facility] [address] [place] [address] Dr. Talia Davalos WBC 6.8 103/ul Normal 4.0-11.0 [facility] Comment on above: Performed By: #### C BC #### [facility] [address] [place] [address] Dr. Talia Davalos DIRECT LDLon 12-28-2021 Cholesterol in LDL [Mass/Vol] 73 mg/dL Normal [facility] Comment on above: Performed By: #### D LDL, T7, TSH, CMP, LIPID #### [facility] [address] [place] [address] Dr. Talia Davalos DLDL NORMAL SEE BELOW Normal [facility] Comment on above: Result Comment: <100 mg/dl OPTIMAL 100 - 129 mg/dl NEAR OR ABOVE OPTIMAL 130 - 159 mg/dl BORDERLINE HIGH 160 - 189 mg/dl HIGH >190 mg/dl VERY HIGH Performed By: #### D LDL, T7, TSH, CMP, LIPID #### [facility] [address] [address] [address] Talia Davalos FREE THYROXINE INDEX T7on FTI 1.97 Normal [facility] Comment on above: Performed By: #### D LDL, T7, TSH, CMP, LIPID #### [facility] [address] [address] [address] Talia Davalos T3U 34.0 % Normal 23.5-40.5 [facility] Comment on above: Performed By: #### D LDL, T7, TSH, CMP, LIPID #### [facility] [address] [address] [address] Talia Davalos T4 [Mass/Vol] 5.80 ug/dL Normal 5.53-11.00 [facility] Comment on above: Performed By: #### D LDL, T7, TSH, CMP, LIPID #### [facility] [address] [address] [address] Talia Davalos LIPID PROFILEon 12-28-2021 CHOL-HDL RATIO NORM SEE BELOW Normal [facility] Comment on above: Result Comment: 3.3 - 4.4 LOW RISK 4.4 - 7.1 AVERAGE RISK 7.1 - 11.0 MODERATE RISK >11.0 HIGH RISK Performed By: #### D LDL, T7, TSH, CMP, LIPID #### [facility] [address] [address] [address] Talia Davalos Cholesterol [Mass/Vol] 254 mg/dL Critically high <=200 [facility] Comment on above: Performed By: #### D LDL, T7, TSH, CMP, LIPID #### [facility] [address] [address] [address] Talia Davalos Cholesterol in HDL [Mass/Vol] 32 mg/dL Normal [facility] Comment on above: Performed By: #### D LDL, T7, TSH, CMP, LIPID #### [facility] [address] [address] [address] Talia Davalos Cholesterol.total/Cho lesterol in HDL [Mass ratio] 7.9 {ratio} Normal [facility] Comment on above: Performed By: #### D LDL, T7, TSH, CMP, LIPID #### [facility] [address] [address] [address] Talia Davalos HDL NORMAL > or = 60 mg/dl - LO W CARDIOVASCULAR RISK <40 mg/dl - HIGH CARDIOVASCULAR RISK Normal [facility] Comment on above: Performed By: #### D LDL, T7, TSH, CMP, LIPID #### [facility] [address] [address] [address] Talia Davalos Triglyceride [Mass/Vol] 1026 mg/dL Critically high <=150 [facility] Comment on above: Performed By: #### D LDL, T7, TSH, CMP, LIPID #### [facility] [address] [place] [address] Dr. Talia Davalos PROF 14(COMP METB)on 022 Albumin [Mass/Vol] 3.5 g/dL Normal 3.5-5.0 [facility] Comment on above: Performed By: #### D LDL, T7, TSH, CMP, LIPID #### [facility] [address] [place] [address] Dr. Talia Davalos Albumin/Globulin [Mass ratio] 0.9 {ratio} Normal [facility] Comment on above: Performed By: #### D LDL, T7, TSH, CMP, LIPID #### [facility] [address] [place] [address] Dr. Talia Davalos ALP [Catalytic activity/Vol] 125 U/L Normal 38-126 [facility] Comment on above: Performed By: #### D LDL, T7, TSH, CMP, LIPID #### [facility] [address] [place] [address] Dr. Talia Davalos ALT [Catalytic activity/Vol] 33 U/L Normal 21-72 [facility] Comment on above: Performed By: #### D LDL, T7, TSH, CMP, LIPID #### [facility] [address] [address] [address] Talia Davalos Anion gap [Moles/Vol] 15.3 mmol/L Normal [facility] Comment on above: Performed By: #### D LDL, T7, TSH, CMP, LIPID #### [facility] [address] [place] [address] Dr. Talia Davalos AST [Catalytic activity/Vol] 15 U/L Critically low 17-59 [facility] Comment on above: Performed By: #### D LDL, T7, TSH, CMP, LIPID #### [facility] [address] [place] [address] Dr. Talia Davalos Bilirubin [Mass/Vol] 0.7 mg/dL Normal 0.2-1.3 [facility] Comment on above: Performed By: #### D LDL, T7, TSH, CMP, LIPID #### [facility] [address] [place] [address] Dr. Talia Davalos Calcium [Mass/Vol] 8.9 mg/dL Normal 8.4-10.2 [facility] Comment on above: Performed By: #### D LDL, T7, TSH, CMP, LIPID #### [facility] [address] [place] [address] Dr. Talia Davalos Chloride [Moles/Vol] 103 mmol/L Normal 98-107 [facility] Comment on above: Performed By: #### D LDL, T7, TSH, CMP, LIPID #### [facility] [address] [place] [address] Dr. Talia Davalos CO2 [Moles/Vol] 24.1 mmol/L Normal 22.0-30.0 [facility] Comment on above: Performed By: #### D LDL, T7, TSH, CMP, LIPID #### [facility] [address] [place] [address] Dr. Talia Davalos Creatinine [Mass/Vol] 0.84 mg/dL Normal 0.66-1.25 [facility] Comment on above: Performed By: #### D LDL, T7, TSH, CMP, LIPID #### [facility] [address] [place] [address] Dr. Talia Davalos EGFR-AF EMIRATI >60 Normal >=60 [facility] Comment on above: Performed By: #### D LDL, T7, TSH, CMP, LIPID #### [facility] [address] [address] [address] Talia Davalos EGFR-NON AF EMIRATI >60 Normal >=60 [facility] Comment on above: Performed By: #### D LDL, T7, TSH, CMP, LIPID #### [facility] [address] [address] [address] Talia Davalos Globulin (S) [Mass/Vol] 3.9 g/dL Normal [facility] Comment on above: Performed By: #### D LDL, T7, TSH, CMP, LIPID #### [facility] [address] [address] [address] Talia Davalos Glucose [Mass/Vol] 199 mg/dL Critically high 74-106 T [facility] Comment on above: Performed By: #### D LDL, T7, TSH, CMP, LIPID #### [facility] [address] [address] [address] Talia Davalos Potassium [Moles/Vol] 4.4 mmol/L Normal 3.4-5.0 [facility] Comment on above: Performed By: #### D LDL, T7, TSH, CMP, LIPID #### [facility] [address] [address] [address] Talia Davalos Protein [Mass/Vol] 7.4 g/dL Normal 6.1-8.2 [facility] Comment on above: Performed By: #### D LDL, T7, TSH, CMP, LIPID #### [facility] [address] [address] [address] Talia Davalos Sodium [Moles/Vol] 138 mmol/L Normal 137-145 [facility] Comment on above: Performed By: #### D LDL, T7, TSH, CMP, LIPID #### [facility] [address] [address] [address] Talia Davalos Urea nitrogen [Mass/Vol] 12.0 mg/dL Normal 9.0-20.0 [facility] Comment on above: Performed By: #### D LDL, T7, TSH, CMP, LIPID #### [facility] [address] [address] [address] Talia Davalos Urea nitrogen/Creatinine [Mass ratio] 14.3 mg/mg Normal [facility] Comment on above: Performed By: #### D LDL, T7, TSH, CMP, LIPID #### [facility] [id number] Talia Davalos TSHon 12-28-2021 TSH 0.785 uIU/mL Normal 0.470-4.680 [facility] Comment on above: Performed By: #### D LDL, T7, TSH, CMP, LIPID #### [facility] [address] [address] [address] Talia Davalos TSH RANGE SEE BELOW Normal [facility] Comment on above: Result Comment: <0.3 4 UIU/ml HYPERTHYROID 0.34-5.60 UIU/ml EUTHYROID >5.60 UIU/ml HYPOTHYROID Performed By: #### D LDL, T7, TSH, CMP, LIPID #### [facility] [address] [address] [address] Talia Davalos Coding Summary.on 07-04-2021 Coding Summary. CD:[id number] Gh 0bWw+PGhlYWQ+FU0NIJJxL 80giSIokW0QS6yUBK8GLRG HTJTAKL9NIA9dvFL9QGqoV 2VybiAv LsykgSHkFJ91STs7GAI6lV rvVKojxB3ykCEoD6j0VuWt WI38tA45HKalUGPaLlD5Kh ZpbjsgbWFy D6cwOyKfpPPpWfa+PHRhYm xlIHdpZHRoPScxMDAlJyBz hMjoAW3fQq9qOVBbEVUuoF xhcHNlOiBj g7nxQFWfONqmME8cpVnhV6 QiuXN7MOEae1k0Tw61eJW+ QUHiYVE2nLwgLOgnf904Fy Rdi7kuQVC8 iAIdLWqzXFL6O98nn1G9DK LoCWUtOHX5cWH7tT5geMtl owjjG1YvcFJpXmR3KQN1rH WmiQ5snUzh difcbI7lGep+R21OVX9NHX JFBL4WSkz4B4DzXxidgAA+ QM21NZMxXH83gPFbrFOdf1 jyrMm8JrDe CDFiNSX5lNqzHFhsy4WnWA LhS08ogUFxp2R0ZQTgvUpf vLNqHkLffUO7bF1rSXbqbc tqb8nevvei Bncra3xaur36rV38J46lLK mdZYFlTIL8AIIvCRSumOkm zh7htP7rQr7+IXzam0cvt0 qiqWk6LtUd TZRhqmTmeCpvBNG0o9QuUt 49V9XqiUdmc6CrSbj6jo19 nESgb7B9dNZ9MBhzBSCdnH 9bBAedNhS6 DCKuIqDtaS29dPSfSHqvBq 6ktMtpiCodDT9qXRJqvsyf RRTbmC0vIAInjHXikSstXP 4wNTBpbjtm x744ZdBmFYS3OKPldDVrE3 ResY9cCsUxQWZoWKYfA7Sy jLJyBTvuC234YPjpTbL3JA NxojFzY3Kb MCCmpOrmGdK5g8P2Ad0Ak6 BhnguzSIT2GIlrCRG7TyUv JrPaFoC6B6DwOwl6ZTPaeD hwHY0oF3Lv AQZcwyxeptlrdNU6TRJfPU JugN74cSOhDNudHe6xs9X6 j267ZSSxOXSvgH98Qt6cxJ ogMTBwdCBU nQ0rankrx8jzvhfrJhSfIT GmNFz2ZEf6SVRpxQghNxEb XAP3WrY8UIM1mGVibB5naP leqgbhcR5b Oyc+Y37noN1eTYG3FLD0my peODBslpAnEB58GN96W2Le PjwvdGFibGU+PGRpdiBzdH nqBS6lFjQk i6wpb3PgKVetI3XzNJAlKJ ktXum4XRQbOYB9wSH9bY3y QZZqNAaat9I4kTG5Z9Vsis Ivmg7qn2xh RMUnLIfaG87efPUrm7T6LY QtmQM1UEPauDjjHnMhgG61 Oyc+OLYmrSksl3EiLhagn9 ksz5bewIn6 TnMxLLFqqzCmqWniJKZ3w8 MgJa36E45pJXorTXCmSXIf AQGdNZAnsRhxex7alZ1fJj 8+PGNvbCB3 jER1dP1fZWVzZtS4LXzwT5 46IhOtvWHhHpddt1hfd8ej vTa0ZnEcNQQfvmMpbSgkSK Q6d2VdXj13 P41gDRzgMVPjWFDoCDRpBB BfdWfhso4hyZ9mIv0+PC9j p4vdxw71wZ28oMB+PHRkIH N6pMcfUYgu YPRvxT8mXNaaIiH2PUNxCr SumP06wMObGFomCh0muZip aVdxUM6zGGLtmcgcl144Ta Rmp3ezRXNu oPAfHFslBKL2E91kq2L6VI EsRKQjFZD7kXW3aF1ebBai bjogbGVmdDsgdmVydGljYW oiDLdvK061 IHRvcDsnPlBhdGllbnQgTm VgIIh1N0UvBed2NGIdlEdl KC6omYDaFYebBy0qdHyekG wqFB1pPIXv uchha381TyLhg5pmUUBpkF TpVDchSRA7Z13it5S8NCMq LTZqSLG8yOI7iW3kaEyaan ogbGVmdDsg ofDkwVyuIMwiTTtyF478DW RvcDsnPkJpcnRoIERhdGU6 BB46BP97rBJpw6U7mNS9U9 BhZGRpbmct fqvbyGQ2SVHoKRAizZ97Ye 7jiQdmUc6bZHMtBSN6OWJz pUPyD7ZccN9eEvCqFNGkOU IoO0MyiVOl JNhvE289EOccKrB8XSEbbb XgP7NiYEFizYrnBhE9r5P1 Co9FZ0F1VX32SS28dGTjj0 D4tLK6F2Ra WVOokmsgqljkuXB4AIOdDQ OhjZ24Ba1zzBnrSi3fSNQy OUU2BZJrgIYaO0MvxY6vPz AjMDAwMDAw J1EokVHtVUvcE480LCjiSe H7JTJycfXjP7VuUREqsDpx MdR4s6M3Es0WHCq5IQ31FE 18sVIjo8X0 fGO1E2JwCYAbcjeukahyqE N7RIHdLGGhqF44Wi0vnHcy Aj0pCWFjPEF6BFFjmDJwE7 BowY5oIgLj EXYbYXPyQ9PikXSeVEhqU7 00LYclFlT9MYPdxtSlG7Jx BBTlwUcxCbH9x1T9Se1XKA OyRK15FWC4 kMF5VQ53XN82T2AqStyhlO FibGU+PHRhYmxlIHdpZHRo ULxqHFQlLmKifPfwIK5dRu 9yZGVyLWNv gVxmyCWpCbXfp6xwDBTxXU wiOX6raUshD9GslWR8TFCs l0w8Lo62H13kQ1RgzCT+PG IxkWB7kHC8 dQ2sDzRxJsN5PGnjA027Iz SfeCZjIwtjx3pab4wpiBx2 RuV0RFKyjnCyyXbeIJT0l1 NgOb40X16m IHdpZHRoPSIxNSUiIHZhbG dhzm4isB5tHf7+PGNvbCB3 vTY5lG2eZhPkOdQ6SWsfY2 49InRvcCIv Qajgh0cuf4lujYl5XnVqCX BkdtHfnSoxWRD1g0PbWy60 P9NnpUebt9RjZul7cu03tY Ufo1E4vEH1 L4SkRXKrflznvUNyaDpxPB 4tBYGetttoXHXipB6rZKQr I8b4VmGnIiP2XVyfO3Vabw R7XNDloXHt WGafZDI5F94kx2S3NTTdLV BiKOI8zFQ1lX5ttFctnfqw bGVmdDsgdmVydGljYWwtYW hoD806OOBy tObkJQShiN2eJLEqqJZptJ ouKG9vYMEdwkhhLuJEHKCY IIkbRzYWHX1YWJjbtPF+PH IrJZG0wWgk CBqqEGHibH2eVYKzD0f4Oj XlVxD2CAwkP4MgNTNgkvmr Cb40bI9tTnMtZwP8HNweL1 IxztX8BCFe aTTkSGwyOAW5K40qk1J0XB UwMVVgLQM7iAC0mH8grBel bjogbGVmdDsgdmVydGljYW xfWQbcC699 LJFwjQajErKrFwMpPcB9MN c7V6PaGwx8UYRsjPmnDH1t zNLlHVwfMz0lbZuyhMufNG 4wNTBpbjtw ITVuzU0wGIUkbZZlrAljXC 8sUOKkrxzjp406PlAyRFE1 RZVwlBGnG6AseS6sSeTcPO PxAXVpK8Ci aHDoFAgoM809PAggCiT8AN ZnbdTqB5NnSSUrwZltHsZ3 z2J1Bo03PyMFJJOzurclqY Q+PHRkIHN0 tIsvYYwpAPGztU1cCAXkN4 z5MrFvHmZ7ZVxmU1PuTCYa dsprCi37rN2kMhXkNaC3YG zcB3GkddU0 RJZlyHWlVDhcAHK9G48au7 N3PCRoJODcJPR4tEX6dR9w bGlnbjogbGVmdDsgdmVydG ljYWwtYWxp M123PVTftBccJe0rePD1B4 EyVig3ZHPwoFptXL1tbONa XHrmMh4izBocnTroDW9eOM BpbjtwYWRk rV4eJOVroYAkrNwyRG0kZU Dllcnwb547RcViUQK8HZXe qLCrP5RkrT0qKzYuSEJpDM VpF7VeiXAy UXgfE587CRldWzL5SXZzfr LuR7EaBPCzlPahSmB6a9E1 Fx4ZnrSokDeyfqQ3W0XdBc wvdHI+PC90 PIZlKI80zNIqsYAsm9kraE t5GvTjAGEqGKM4wImbOGxa o9KlGACgG75nqDVcx5R4ZB NvbGxhcHNl BbKdaIG4tJ9vEEjezksmp1 bouogaUslct6zhad91tH15 T66rAIihBLQeIZVzABSnBH NkhYkkox3q uT7yLq7+YWSwwXO4mOO1qF 2ePxApSeG9KDwlE268MsNk rDAoXkylj4qor8bpvFb2Mw IwJSIgdmFs fVxjAHT1k1AdNa79C20qSF dpZHRoPSIyMCUiIHZhbGln jy1fsN5eZe8+PK5bk9xbqe 43jM93dNI+ NJFgKIZ4vNevTJczVISqfI 7cYRbvAkW0ZAEqFoCpwI16 uLYuEGfrEc2ixQztoFrnLE 4wNTBpbjtm v926ZxLwe0ylQJXjaSIkIR bbRMY1P52nn7J4YZXyDBMt VKU3eDG5dS7qiMmjinpotL VmdDsgdmVy oHlwKGgnIPosC522MNLpcQ ykPxGbkLPhH9rmaoWPAR6j OjwvdGQ+QYLtAVU5bIouCC wzMSCadF7k MIDjE4l9DwVeEbR0DTjoH7 PoncP2XRHfxXGkRXOcuIHO tX7cpssol1cqvoxuInNaZM MdBBs7TGj8 EFKpqDfqUlCpPNL8ZyQ8WY F6tUWlcK1ujVrpvhxxtE0j Oyc+RklOOjwvdGQ+PHRkIH Z3zCpgTSeg OIFnrK3lDIQyZ7c2SgTgSv F1LFwbA7SdlkX9BFQzoHDr HCXvfAFLkI3yaorap3zdal ogIzAwMDAw SOr4GIk5BOVkbMtiUmKhWY P6AaE0CGF4bJCbcH3obBzl owclgR3fSgr+TVJOOjwvdG Q+PHRkIHN0 wQpwETjpTDItzR5uBHReG3 l3PbXjOtT1TNjdQ9CbklI5 MFSxoENtCDPcuHEAzR1mwr pya9gnvjmw EtWxROYrZPx6OYp3WAPzmO qhXtJdQOT3JwR8ITX0oVYv aF7rfKuqjkgjhX7cIsx+UG W5ZHG7VL37 WS08O0GcNbykeVRywYA+PH RhYmxlIHdpZHRoPScxMDAl NxBpvUejFI3hJx3pDIKhRQ NvbGxhcHNl OiBj (more content not included)... Normal [facility] IntraOperative Documentson 0 07-01-2021 IntraOperative Documents [id number] Normal [facility] Main OR Intraoperative Recor don 06-29-2021 Main OR Intraoperative Record IntraOp Document Type FT Summary Primary Physician: Rafa Macedo DO Finalized Date/Time: 06/29/21 09:25:56 Pt. Name: RIGO NAVARRO/Sex: 1955 Male Med Rec #: [id number] Physician: Rafa Macedo DO Financial #: [id number] Pt. Type: I Room/Bed: Admit/Disch: 06/22/21 10:51:15 - 06/23/21 12:40:00 Institution: Case Times FT Entry 1 Patient Times In Room 06/22/21 12:43:00 Out Room 06/22/21 15:47:00 Procedure Times Start 06/22/21 13:25:00 Stop 06/22/21 15:35:00 Anesthesia Times Start 06/22/21 12:43:00 Stop 06/22/21 15:47:00 Block Timeout w/ 06/22/21 12:30:00 Anesthesia Last Modified By: Danika RN, Mckenna Mercado 06/22/21 15:51:41 General Comments: 06/29/21 chart opened for charge review per Murphy Magallon RN. [place] Case Attendance FT Entry 1 Entry 2 Entry 3 Case Attendee Mikey DIRECTOR EMERGENCY, Shad Macedo DO, Rafa Oliver [employer]TAIN, FA, Menssandra K Role Performed Anesthesiologist Surgeon - Primary SA - Clerk Carrier Account Support Rep Time In 06/22/21 12:43:00 06/22/21 12:43:00 06/22/21 12:43:00 Time Out 06/22/21 15:32:00 06/22/21 15:47:00 06/22/21 15:47:00 Procedure SHOULDER TOTAL SHOULDER TOTAL SHOULDER TOTAL ARTHROPLASTY(Left) ARTHROPLASTY(Left) ARTHROPLASTY(Left) Comments Supervised by Dr Boo Last Modified By: Danika RN, Mckenna Garnica RN, Mckenna Garnica RN, Mckenna Mercado 06/22/21 15:51:44 06/22/21 15:51:44 06/22/21 15:51:44 Entry 4 Entry 5 Entry 6 Case Attendee Lidia [employer], Imani Pereira RN, Sandhya Role Performed Scrub - Primary Staff - Other Staff - Other Time In 06/22/21 12:43:00 06/22/21 12:43:00 06/22/21 12:43:00 Time Out 06/22/21 15:47:00 06/22/21 15:47:00 06/22/21 14:57:00 Procedure SHOULDER TOTAL SHOULDER TOTAL SHOULDER TOTAL ARTHROPLASTY(Left) ARTHROPLASTY(Left) ARTHROPLASTY(Left) Comments Third scrub Second scrub Last Modified By: Danika RN, Mckenna D Mckenna Garnica RN, RN, Tracy D 06/22/21 15:51:44 06/22/21 15:51:44 06/22/21 15:51:44 Entry 7 Entry 8 Case Attendee Mckenna Garnica RN, JR, DO, Nicholas J Role Performed Glass Cutter Hand - Primary Anesthesiologist of Record Time In 06/22/21 12:43:00 06/22/21 15:30:00 Time Out 06/22/21 15:47:00 06/22/21 15:47:00 Procedure SHOULDER TOTAL SHOULDER TOTAL ARTHROPLASTY(Left) ARTHROPLASTY(Left) Comments Last Modified By: Mckenna Garnica RN, RN, Tracy D 06/22/21 15:51:44 06/22/21 15:51:44 General Comments: Enmanuel Maldonado and Rehana Monteiro Arthrex Reps were present for the procedure./Dani Murcia and Willard Uriaser Reps were present for the procedure./Dani TRIMBLEgear lapper Protocols FT Pre-Care Text: Implements protective measures prior to operative or invasive procedure, confirms identity before the operative or invasive procedure, verifies operative procedure, surgical site, and laterality Entry 1 Procedure(s) SHOULDER TOTAL Patient Identity Birthday, ID Band ARTHROPLASTY(Left) Verified (select at Check, Patient least 2): Participation Consents / H and P Anesthesia Consent, Operative Site Present Verified HandP, Surgery/Procedure Marking Verified Consent Surgical Site Yes Laterality Verified Yes Verified Procedure Verified Yes Correct Patient Yes Position Verified Availability Equipment, Implant, Prep Dry Yes Verified (If Medication Applicable) PreOp Antibiotic Yes Time Out Shad Jensen CRNA, Given Participants Rafa Macedo DO, [place] [employer], FA, Peter K, Lidia [employer]TAIN, Jarod Foster Rachel L, Hord RN, Danika Arthur RN, Tracy D Time Out Complete 06/22/21 13:24:00 Outcomes Met? Yes Last Modified By: Mckenna Garnica RN 06/22/21 13:25:15 Post-Care Text: The patient is free from signs and symptoms of injury caused by extraneous objects Allergy Information FT Pre-Care Text: Verifies allergies Entry 1 Allergies Reviewed? Yes Allergies Reviewed Self/Patient With Outcomes Met? Yes Last Modified By: Mckenna Garnica RN 06/22/21 12:23:32 Post-Care Text: The patient received appropriate medication(s) safely administered during the perioperative period Surgical Procedures FT Entry 1 Procedure Description Procedure SHOULDER TOTAL Modifiers Left ARTHROPLASTY Surgeon Description LEFT TOTAL SHOULDER ARTHROPLASTY Primary Procedure Yes Primary Surgeon Rafa Macedo DO Start 06/22/21 13:25:00 Stop 06/22/21 15:35:00 Anesthesia Type General Surgical Service Orthopedics Wound Class 1 - Clean Last Modified By: Mckenna Garnica RN 06/22/21 15:52:11 General Case Data FT Pre-Care Text: Classifies surgical wound, implements aseptic technique, initiates traffic control Entry 1 Case Information OR OR 4 FT Case Level Level 6 Wound Class 1 - Clean Specialty Orthopedics ASA Class 3 Preop Diagnosis DEGENERATIVE JOINT Postop Same As Preop Yes DISEASE LEFT SHOULDER Postop Diagnosis DEGENERATIVE JOINT Outcomes Met? Yes DISEASE LEFT SHOULDER Last Modified By: Mckenna Garnica RN 08 (more content not included)... [facility] Consent for Anesthesiaon Consent for Anesthesia [id number]#1. 00CD:127 [facility] Consent for Procedure/Surger yon 06-24-2021 Consent for Procedure/Surgery [id number]#1. 00CD:127 [facility] Discharge Instructionson Discharge Instructions [id number]#1. 00CD:127 [facility] IntraOperative Documentson 0 06-24-2021 IntraOperative Documents [id number]#1. 00CD:127 [facility] IntraOperative Documents [id number]#1. 00CD:127 [facility] Preoperative Documentson Preoperative Documents [id number]#1. 00CD:127 [facility] Preoperative Documents [id number]#1. 00CD:127 [facility] Auto Diffon 06-23-2021 Basophils/100 WBC (Bld) 0.2 % Normal 0.0-2.0 [facility] Comment on above: Order Comment: Order Added by Discern Expert. Performed By: #### 2 738331, 44589629, 1015350, 8488705, 1404893, 5581745 ####[facility] [address] [place] [address] Basophils/Leukocytes Auto (Bld) [Pure # fraction] 0.0 E9/L Normal 0.0-0.2 [facility] Comment on above: Order Comment: Order Added by Duane Expert. Performed By: #### 2 223281, 50346221, 9215563, 7255536, 3241233, 7931925 ####[address] [place] [address] Eosinophils/100 WBC (Bld) 0.2 % Normal 0.0-8.0 [facility] Comment on above: Order Comment: Order Added by Discern Expert. Performed By: #### 2 359937, 48323068, 7410853, 1253694, 7485182, 1407631 ####[address] [address] Eosinophils/Leukocyte s Auto (Bld) [Pure # fraction] 0.0 E9/L Normal 0.0-0.5 [facility] Comment on above: Order Comment: Order Added by Duane Expert. Performed By: #### 2 325893, 24935422, 7953680, 3387051, 9086844, 3898858 ####[facility] [address] [place] [address] Lymphocytes/100 WBC (Bld) 11.6 % Low 14.0-50.0 [facility] Comment on above: Order Comment: Order Added by Duane Expert. Performed By: #### 2 546014, 87689610, 8747382, 9154857, 9137125, 5366747 ####[address] [address] Lymphocytes/Leukocyte s Auto (Bld) [Pure # fraction] 1.4 E9/L Normal 1.0-4.0 [facility] Comment on above: Order Comment: Order Added by Discern Expert. Performed By: #### 2 088225, 99544287, 5538078, 8347697, 6499037, 5528798 ####[facility] [address] [place] [address] Monocytes/100 WBC (Bld) 7.6 % Normal 4.0-14.0 [facility] Comment on above: Order Comment: Order Added by Discern Expert. Performed By: #### 2 135143, 42545328, 7949362, 2200262, 3453959, 6014243 ####[address] [place] [address] Monocytes/Leukocytes Auto (Bld) [Pure # fraction] 0.9 E9/L Normal 0.2-1.0 [facility] Comment on above: Order Comment: Order Added by Discern Expert. Performed By: #### 2 552614, 68300568, 2418854, 4603528, 4170965, 5842642 ####[address] [place] [address] Neutrophils/100 WBC (Bld) 80.4 % High 36.0-75.0 [facility] Comment on above: Order Comment: Order Added by Discern Expert. Performed By: #### 2 150085, 21586599, 3362672, 2687218, 1307244, 7449265 ####[facility] [address] [place] [address] Neutrophils/Leukocyte s Auto (Bld) [Pure # fraction] 9.6 E9/L High 2.0-7.5 [facility] Comment on above: Order Comment: Order Added by Discern Expert. Performed By: #### 2 783366, 35837374, 9091673, 6595480, 1651218, 7502329 ####[facility] [address] [place] [address] BUNon 06-23-2021 Urea nitrogen [Mass/Vol] 17 mg/dL Normal 5-21 [facility] Comment on above: Performed By: #### 2 748442, 12829858, 3725064, 6010592, 8080268, 2398907 #### [facility] [address] [place] [address] CBC w/ Auto Diffon Erythrocyte distribution width (RBC) [Ratio] 13.7 % Normal 10.9-14.2 [facility] Comment on above: Performed By: #### 2 323206, 38675952, 6782712, 7233656, 5434005, 2821299 ####[facility] [address] [place] [address] Hematocrit (Bld) [Volume fraction] 39.6 % Normal 37.7-49.0 [facility] Comment on above: Performed By: #### 2 036978, 40519860, 0564484, 9291040, 7937610, 5789468 ####[address] [place] [address] Hemoglobin (Bld) [Mass/Vol] 13.4 g/dL Low 13.5-17.5 [facility] Comment on above: Performed By: #### 2 507685, 81172388, 0695722, 8294932, 0404706, 3034794 ####[facility] [address] [place] [address] MCH (RBC) [Entitic mass] 30.6 pg Normal 27.0-34.0 [facility] Comment on above: Performed By: #### 2 624238, 48889644, 2466385, 9523673, 8866668, 6964802 ####[facility] [address] [place] [address] MCHC (RBC) [Mass/Vol] 33.8 g/dL Normal 31.4-36.0 [facility] Comment on above: Performed By: #### 2 245270, 30574559, 8987209, 0049528, 7254808, 7157721 ####[facility] [address] [place] [address] MCV (RBC) [Entitic vol] 90.7 fL Normal 80.0-100.0 [facility] Comment on above: Performed By: #### 2 821212, 65938161, 1857418, 6633712, 1855611, 5400767 ####[facility] [address] [place] [address] Platelet mean volume (Bld) [Entitic vol] 8.5 fL Normal 6.4-10.8 [facility] Comment on above: Performed By: #### 2 839316, 22710385, 2479313, 9654884, 6091032, 2234389 ####[facility] [address] [place] [address] Platelets (Bld) [#/Vol] 275.0 E9/L Normal 150.0-500.0 [facility] Comment on above: Performed By: #### 2 403948, 66205694, 0741214, 9370416, 7118505, 4058892 ####[address] [address] RBC (Bld) [#/Vol] 4.4 E12/L Normal 4.3-5.9 [facility] Comment on above: Performed By: #### 2 308872, 18694032, 8084879, 7434941, 7153403, 0958832 ####[address] [address] WBC corrected for nucl RBC Auto (Bld) [#/Vol] 11.9 E9/L High 4.0-11.0 [facility] Comment on above: Performed By: #### 2 914548, 78927825, 8789734, 5831454, 1794059, 9525197 ####[address] [place] [address] Capillary Glucose POCon - Glucose [Mass/Vol] 174 mg/dL High 55-99 [facility] Comment on above: Result Comment: Yoly lashanda Meter Performed By: #### 2 [id number] #### [facility] [address] [place] [address] Glucose [Mass/Vol] 221 mg/dL High 55-99 [facility] Comment on above: Result Comment: Yoly lashanda Meter Performed By: #### 2 52392547 #### [facility] [address] [place] [address] Glucose [Mass/Vol] 173 mg/dL High 55-99 [facility] Comment on above: Result Comment: Yoly lashanda Meter Performed By: #### 2 15588237 ####[facility] [address] [place] [address] Creatinineon 06-23-2021 Creatinine [Mass/Vol] 0.9 mg/dL Normal 0.5-1.3 [facility] Comment on above: Performed By: #### 2 795628, 35150378, 1480023, 9262093, 2267277, 2597368 #### [facility] [address] [place] [address] Inpatient Patient Summaryon 06-23-2021 Inpatient Patient Summary [id number] [facility] Clinical Discharge Instructions PERSON INFORMATION Name: RIGO NAVARRO [facility]#:[id number] PHYSICIANS Admitting Physician: Rafa Macedo DO Attending Physician: Rafa Macedo DO PCP: Oswaldo Parish MD Discharge Diagnosis: Degenerative arthritis of left shoulder region Comment: PATIENT EDUCATION INFORMATION Instructions: Post Op Patient Instructions - FT (CUSTOM); Deshawn Macedo - Shoulder Replacement (Custom) Medication Leaflets: Follow up: With: Address: When: Rafa Macedo [id number] [facility] (1) 07/05/2021 2:30 PM Type Location Start [facility] Cardiology Follow Up (FT) FT.Cardiology Clinic 12/20/2021 1:30 PM 12/20/2021 1:45 PM Confirmed MEDICATION LIST New Medications [id number], [address], [place] [id number], [phone] acetaminophen-oxycodon e (Percocet 325 mg-5 mg Tab) 1-2 tab(s) Oral q4hr; as needed as needed for pain. Refills: 0. docusate (Colace 100 mg Cap) 1 Capsules By Mouth 2 times a day as needed for constipation. Refills: 0. Medications to Continue with No Changes Other Medications aspirin (aspirin 81 mg oral tablet) 1 Tablets By Mouth every day. atorvastatin (atorvastatin 80 mg Tab) 1 Tablets By Mouth every day. diclofenac (Diclofenac 75mg Tab-DR) 75 Milligram By Mouth every day. insulin detemir (Levemir 100 units/mL Injection-Insulin) 18 Units Subcutaneous every day. metformin (metformin 500 mg oral tablet) 1 Tablets By Mouth 2 times a day. pioglitazone (pioglitazone 30 mg Tab) 1 Tablets By Mouth every day. Comment: [facility] Interdisciplinary Note - Remington e Manageron 06-23-2021 Interdisciplinary Note - Silviculturist Elective surgery H/P: deshawn macedo Profit: done PIS (OBS/IN): IP 06/22 1100 Chgs: D/C: VTE: 5 lovenox - done MCG: +IP total shoulder arthroplasty Tele: private ICU: na >2mn: >23hrs <72hrs Insurance: tejal ROONEY (tests): na Readmit: na MM: done: travis, dc, mm [facility] Comment on above: Result Comment: Elec tronically Signed By: John LEN, Za\.br\Date and Time Signed: 06/23/21 16:20 EDT Interdisciplinary Note - Silviculturist CRM spoke with patient in room. Patient is alert and oriented and participates in discharge planning. No family in room. Patient white board updated, and CRM contact information provided. Discussed CRM read Dr Remington flores who saw patient earlier today and he will be discharged home today. Patient verified PCP, insurance and DME. Patient lives with and children and denies any needs at discharge. will transport at discharge. RN was in room and aware of plan. [facility] Comment on above: Result Comment: Elec tronically Signed By: Delilah Mcfarland RN\.br\Date and Time Signed: 06/23/21 09:58 EDT Lytes[place] 06-23-2021 Anion gap [Moles/Vol] 14 mmol/L Normal 6-16 [facility] Comment on above: Performed By: #### 2 554207, 51987944, 6242118, 2872323, 5814711, 4050842 #### [facility] [address] [place] [address] Chloride [Moles/Vol] 102 mmol/L Normal 101-111 [facility] Comment on above: Performed By: #### 2 717085, 37898431, 5093233, 4772125, 5493386, 3190791 #### [facility] [address] [place] [address] CO2 [Moles/Vol] 22 mmol/L Normal 21-31 [facility] Comment on above: Performed By: #### 2 509250, 82626037, 9179496, 3506941, 7311941, 5682770 #### [facility] [address] [place] [place] [address] Potassium [Moles/Vol] 3.9 mmol/L Normal 3.5-5.3 [facility] Comment on above: Performed By: #### 2 975667, 50952545, 5086760, 1134188, 1861753, 7083690 #### [facility] [address] [place] [place] [address] Sodium [Moles/Vol] 134 mmol/L Low 135-145 [facility] Comment on above: Performed By: #### 2 592261, 24447320, 7505737, 7672433, 2309213, 9045441 #### [facility] [address] [place] [address] Main OR PACU II Recordon Main OR PACU II Record PACU Phase II Document Type FT Summary Primary Physician: Rafa Macedo DO Finalized Date/Time: 06/23/21 13:49:30 Pt. Name: RIGO NAVARRO/Sex: 1955 Male Med Rec #: [id number] Physician: Rafa Macedo DO Financial #: [id number] Pt. Type: I Room/Bed: [address] [address] [address] Admit/Disch: 06/22/21 10:51:15 - 06/23/21 12:40:00 Institution: Case Times PACU II FT Pre-Care Text: Identifies barriers to communication and implements measures to provide psychological support and determines knowledge level Develops individualized plan of care, and ensures continuity of care Maintains patient's dignity and privacy, and maintains patient confidentiality Identifies and reports philosophical, cultural, and spiritual beliefs and values Identifies individual values and wishes concerning care administers prescribed antibiotic therapy and immunizing agents as ordered, Evaluates postoperative tissue perfusion Implements thermoregulation measures, and monitors body temperature Evaluates postoperative respiratory status Evaluates postoperative cardiac status Evaluates postoperative neurological status Assesses pain control, collaborated in initiating patient-controlled analgesia and implements alternative methods of pain control Verifies allergies, administers prescribed medications and solutions, evaluates response to medications Entry 1 In PACU II 06/22/21 16:30:00 Discharge from PACU 06/23/21 12:40:00 II Outcomes Met? Yes Last Modified By: Yeni Edmonds RN 06/23/21 13:49:29 Post-Care Text: The patient demonstrates knowledge of the expected response to the operative or invasive procedure The patient's care is consistent with the individualized perioperative plan of care The patient's right to privacy is maintained The patient's value system, lifestyle, ethnicity, and culture are considered, respected, and incorporated into the perioperative plan of care The patient participates in decisions affecting his or her perioperative plan of care. The patient is free from signs and symptoms of infection The patient has wound/tissue perfusion consistent with or improved from baseline levels established preoperatively The patient is at or returning to normothermia at the conclusion of the immediate postoperative period The patient's respiratory function is consistent with or improved from baseline levels established preoperatively The patient's cardiovascular status is consistent with or improved from baseline levels established preoperatively The patient's neurological status is consistent with or improved from baseline levels established preoperatively The patient demonstrates and/or reports adequate pain control throughout the perioperative period The patient received appropriate medication(s), safely administered during the perioperative period Finalized By: Yeni Edmonds RN Document Signatures Signed By: Yeni Edmonds RN 06/23/21 13:49 Normal [facility] Outpatient Surgery Discharge Instructionon 06-23-2021 Outpatient Surgery Discharge Instruction [address] [address] Patient Discharge Instructions PERSON INFORMATION Name: RIGO NAVARRO Date of : 1955 Current Date: 06/23/2021 07:31:17 PHYSICIANS Admitting Physician: Rafa Macedo DO Discharge Diagnosis: Degenerative arthritis of left shoulder region RIGO NAVARRO has been given the following list of follow-up instructions, prescriptions, and patient education materials: Wound Care Instructions: Remove dressing as instructed Additional Instructions: May remove dressing 7-10 days after surgery and apply new bandage IF UNABLE TO CONTACT YOUR PHYSICIAN AND YOU FEEL IT IS AN EMERGENCY, GO TO THE NEAREST EMERGENCY ROOM OR CALL 911 I, RAMONRIGO BURGER, have received the attached patient education materials/instructions and have verbalized understanding: May we do a follow up call? Yes No I was present when discharge instructions were given Patient Signature Date Clinican/Nurse Signature ___ Date Follow up: With: Address: When: Rafa Macedo [address] [place] [address] Business (1) 07/05/2021 2:30 PM Type Location Start [facility] Cardiology Follow Up (FT) FT.Cardiology Clinic 12/20/2021 1:30 PM 12/20/2021 1:45 PM Confirmed Pharmacy Information: You may receive a survey from [employer] asking you to rate your care experience. Your feedback is important and will help us understand what we do well and how we can improve the quality of care we provide to you, your loved ones and our community. It?s an honor to serve you. Thank you for choosing [facility] HERE ARE THE MEDICATION CHANGES THAT OCCURRED DURING YOUR HOSPITAL STAY New Medications [id number], [address], [place] [id number], [phone] acetaminophen-oxycodon e (Percocet 325 mg-5 mg Tab) 1-2 tab(s) Oral q4hr; as needed as needed for pain. Refills: 0. docusate (Colace 100 mg Cap) 1 Capsules By Mouth 2 times a day as needed for constipation. Refills: 0. Medications to Continue with No Changes Other Medications aspirin (aspirin 81 mg oral tablet) 1 Tablets By Mouth every day. atorvastatin (atorvastatin 80 mg Tab) 1 Tablets By Mouth every day. diclofenac (Diclofenac 75mg Tab-DR) 75 Milligram By Mouth every day. insulin detemir (Levemir 100 units/mL Injection-Insulin) 18 Units Subcutaneous every day. metformin (metformin 500 mg oral tablet) 1 Tablets By Mouth 2 times a day. pioglitazone (pioglitazone 30 mg Tab) 1 Tablets By Mouth every day. PATIENT EDUCATION INFORMATION Instructions: [place], [place] [facility] DISCHARGE INSTRUCTIONS: SHOULDER REPLACEMENT MEDICATIONS You will be given a prescription for pain medication. This should be taken with food as needed. This may cause stomach upset, dizziness, and possible constipation. Please notify the office if you have any medication allergies to this type of medication or if any problems develop with the medication. DRESSING CHANGES Leave your bandage in place until your follow up visit. The bandage is waterproof, so you may shower it home. Any increase in pain, temperature over 101 degrees, redness, or drainage should be reported to the office prior to your first office visit. ACTIVITY You may continue to progress activity as comfortably tolerated with your opposite arm. You may begin to use your elbow, wrist, and hand as directed in physical therapy. You should only remove your sling for bathing and to perform range of motion exercises for the hand, wrist, and elbow. Do not actively move your shoulder Continue to ice the shoulder several times per day until follow up. ANESTHESIA PRECAUTIONS You should not operate a vehicle, automobile, bicycle or motorcycle, machinery, or power tools, make any important decisions, or drink alcohol for 24 hours. It may be beneficial to have a responsible adult remain with you for your first 24 hours after surgery. You may be drowsy and light-headed. DRIVING Driving is legal, however, if you are involved in an accident, you must be able to prove that you maintained full control of your vehicle. For this reason, it is advised that you do not drive until your strength returns. PROBLEMS You should notify the office for any persistent or heavy bleeding, temperature above 101, redness, swelling, or drainage from the operative site, severe pain at the operative site, or the development of persistent vomiting. Rafa Macedo, DO [facility] (more content not included)... Normal [facility] Patient Education - Texton 0 06-23-2021 Patient Education - Text [place], [place] [facility] DISCHARGE INSTRUCTIONS: SHOULDER REPLACEMENT MEDICATIONS You will be given a prescription for pain medication. This should be taken with food as needed. This may cause stomach upset, dizziness, and possible constipation. Please notify the office if you have any medication allergies to this type of medication or if any problems develop with the medication. DRESSING CHANGES Leave your bandage in place until your follow up visit. The bandage is waterproof, so you may shower it home. Any increase in pain, temperature over 101 degrees, redness, or drainage should be reported to the office prior to your first office visit. ACTIVITY You may continue to progress activity as comfortably tolerated with your opposite arm. You may begin to use your elbow, wrist, and hand as directed in physical therapy. You should only remove your sling for bathing and to perform range of motion exercises for the hand, wrist, and elbow. Do not actively move your shoulder Continue to ice the shoulder several times per day until follow up. ANESTHESIA PRECAUTIONS You should not operate a vehicle, automobile, bicycle or motorcycle, machinery, or power tools, make any important decisions, or drink alcohol for 24 hours. It may be beneficial to have a responsible adult remain with you for your first 24 hours after surgery. You may be drowsy and light-headed. DRIVING Driving is legal, however, if you are involved in an accident, you must be able to prove that you maintained full control of your vehicle. For this reason, it is advised that you do not drive until your strength returns. PROBLEMS You should notify the office for any persistent or heavy bleeding, temperature above 101, redness, swelling, or drainage from the operative site, severe pain at the operative site, or the development of persistent vomiting. Rafa Macedo DO [facility] [address] [place] [address] Reviewed: [facility] Progress Note-Physicianon Progress Note-Physician Patient: RIGO NAVARRO Age: 65 years Sex: Male : 1955 Associated Diagnoses: None Author: Rafa Macedo DO POD 1 s/p L TSA pain controlled, dajuan po, no CP/SOB, no dizziness L UE: dressing dry, flex/ext fingers/thumb/wrist well, brisk cap refill post op xrays reviewed yesterday, prosthesis in satisfactory position WBC 11.9 Hgb 13.4 Hct 39.6 Plt 275 Plan: - D/C home Objective Vital Signs 06/23/2021 6:56 EDT Heart Rate Monitored 76 bpm Respiratory Rate 18 br/min Systolic Blood Pressure 133 mmHg Diastolic Blood Pressure 82 mmHg SpO2 94 % Normal [facility] Comment on above: Result Comment: Elec tronically Signed By: Rafa Macedo DO\.br\Date and Time Signed: 06/23/21 07:27 EDT eGFRon 06-23-2021 GFR/1.73 sq M.predicted among blacks MDRD (S/P/Bld) [Vol rate/Area] mL/min/{1.73_m2} Normal >=59 [facility] Comment on above: Order Comment: Order added by Discern Expert. Result Comment: eGFR is race adjusted. AA=. Performed By: #### 2 654365, 85953200, 5273508, 8233856, 2616744, 7153286 ####[facility] [address] [place] [address] GFR/1.73 sq M.predicted among non-blacks MDRD (S/P/Bld) [Vol rate/Area] mL/min/{1.73_m2} Normal >=59 [facility] Comment on above: Order Comment: Order added by Discern Expert. Result Comment: Cleaning Attendant melina kidney disease could be indicated at eGFR's of less than 60 mL/min/1.73m2. Kidney failure is indicated at less than 15 mL/min/1.73m2. Performed By: #### 2 680750, 90701833, 4835864, 7408590, 4427835, 9429738 ####[facility] [address] [place] [address] Capillary Glucose POCon 06-05 Glucose [Mass/Vol] 214 mg/dL High 55-99 [facility] Comment on above: Result Comment: Kali hood RN/ Performed By: #### 2 [id number] #### [facility] [address] [place] [address] Glucose [Mass/Vol] 228 mg/dL High 55-99 [facility] Comment on above: Result Comment: No C overage Given Notified RN/ Performed By: #### 2 [id number] ####[facility] [address] [place] [address] Glucose [Mass/Vol] 153 mg/dL High 55-99 [facility] Comment on above: Result Comment: Yoly pyle Meter Performed By: #### 2 [id number] #### [facility] [address] [place] [address] Consent for Treatmenton 06-05 Consent for Treatment [id number] 0CD:127 Normal [facility] H&P Updateon 06-22-2021 H&P Update [id number] 0CD:127 Normal [facility] Main OR PACU I Recordon 06-05 Main OR PACU I Record PACU Phase I Docum ent Type FT Summary Primary Physician: Rafa Macedo DO Finalized Date/Time: 06/22/21 16:55:00 Pt. Name: RIGO NAVARRO./Sex: 1955 Male Med Rec #: [id number] Physician: Rafa Macedo DO Financial #: [id number] Pt. Type: A Room/Bed: [facility] Admit/Disch: 06/22/21 10:51:15 - Institution: Case Times PACU I FT Pre-Care Text: Identifies barriers to communication and implements measures to provide psychological support Develops individualized plan of care, and ensures continuity of care Maintains patient's dignity and privacy, and maintains patient confidentiality Identifies and reports philosophical, cultural, and spiritual beliefs and values Identifies individual values and wishes concerning care Implements aseptic technique, and administers prescribed antibiotic therapy and immunizing agents as ordered Evaluates postoperative tissue perfusion Implements thermoregulation measures, and monitors body temperature Evaluates postoperative respiratory status Evaluates postoperative cardiac status Evaluates postoperative neurological status Assesses pain control, collaborated in initiating patient-controlled analgesia and implements alternative methods of pain control Verifies allergies, administers prescribed medications and solutions, evaluates response to medications Entry 1 In PACU I 06/22/21 15:49:00 Discharge from PACU 06/22/21 16:28:00 I Outcomes Met? Yes Last Modified By: Sangita TRIMBLE, Iza 06/22/21 16:50:09 Post-Care Text: The patient demonstrates knowledge of the expected response to the operative or invasive procedure The patient's care is consistent with the individualized perioperative plan of care The patient's right to privacy is maintained The patient's value system, lifestyle, ethnicity, and culture are considered, respected, and incorporated into the perioperative plan of care The patient participates in decisions affecting his or her perioperative plan of care The patient is free from signs and symptoms of infection The patient has wound/tissue perfusion consistent with or improved from baseline levels established preoperatively The patient is at or returning to normothermia at the conclusion of the immediate postoperative period The patient's respiratory function is consistent with or improved from baseline levels established preoperatively The patient's cardiovascular status is consistent with or improved from baseline levels established preoperatively The patient's cardiovascular status is consistent with or improved from baseline levels established preoperatively The patient demonstrates and/or reports adequate pain control throughout the perioperative period The patient received appropriate medication(s), safely administered during the perioperative period Acuity Level PACU I FT Entry 1 Start Time 06/22/21 15:49:00 Stop Time 06/22/21 16:28:00 Acuity Level Acuity Level I Last Modified By: Iza Quesada RN 06/22/21 16:50:24 Finalized By: Iza Quesada RN Document Signatures Signed By: Iza Quesada RN 06/22/21 16:55 Normal [facility] Main OR Preoperative Recordo n 06-22-2021 Main OR Preoperative Record PreOp Document Type FT Summary Primary Physician: Rafa Macedo DO Finalized Date/Time: 06/22/21 13:52:43 Pt. Name: RIGO NAVARRO/Sex: 1955 Male Med Rec #: [id number] Physician: Rafa Macedo DO Financial #: [id number] Pt. Type: A Room/Bed: [place] [address] Admit/Disch: 06/22/21 10:51:15 - Institution: Case Times PreOp FT Pre-Care Text: Verifies consent for planned procedure, identifies individual values and wishes concerning care, includes family members in perioperative teaching Entry 1 Patient Times. In Pre Surgery 06/22/21 11:00:00 Out Pre Surgery 06/22/21 12:30:00 Outcomes Met? Yes Last Modified By: Mckenna Garnica RN 06/22/21 13:52:33 Post-Care Text: The patient participates in decisions affecting his or her perioperative plan of care Finalized By: Mckenna Garnica RN Document Signatures Signed By: Mckenna Garnica RN 06/22/21 13:52 Normal [facility] Monitor Recordon 06-22-2021 Monitor Record [id number]. 00CD:127 Normal [facility] Operative Reporton Operative Report Patient: RIGO NAVARRO Age: 65 years Sex: Male : 1955 Associated Diagnoses: None Author: Rafa Macedo DO DATE OF SURGERY: 06/22/2021 SURGEON: Rafa Macedo D.O. DRAGGER: Peter Oliver CFA PREOPERATIVE DIAGNOSES: Advanced glenohumeral osteoarthrosis, left shoulder POSTOPERATIVE DIAGNOSIS: Advanced glenohumeral osteoarthrosis, left shoulder OPERATION: 1. Left anatomic total shoulder arthroplasty 2. Biceps tenodesis, left shoulder ANESTHESIA: General + regional block ANESTHESIOLOGIST: Rico Boo D.O. and Shad Jensen CRNA IMPLANTS USED: 1. Eclipse humeral head 49/18 with size 47 trunion and large cage screw 2. Tornier Aequalis cortiloc 25 degree augmented glenoid, size medium 3. Arthrex Eclipse SpeedScap repair system with FiberTak anchors x 3 and 3.9 mm PEEK Swivelock anchors x 2 OPERATIVE INDICATIONS: Rigo is a 65-year-old fzdvx-secc-mrxlfwwg male who has had persistent pain in his left shoulder despite numerous conservative measures. His pain affects his ADLs, ability to sleep at night, and quality of life. He was initially scheduled to undergo arthroplasty last year, however, surgery had to be delayed due to poorly controlled diabetes. His hemoglobin A1c has decreased over time and he was deemed to be a much better surgical candidate. He agreed to proceed with the above procedure after discussion of risks, benefits, complications, alternatives and expectations. Please see office notes for further details. PROCEDURE: The correct operative site was identified and marked in the Preoperative Holding Area. The patient was administered intravenous antibiotics in accordance with SCIP protocol. He was also given 1 gm of intravenous tranexamic acid approximately fifteen minutes prior to the incision. He was transported to the Regional Block Room and administered a regional anesthetic nerve block by the anesthesiologist. He was then taken to the Operating Room and placed supine on the operating room table. He was administered general anesthetic. After adequate anesthesia was obtained, he was placed into the beach chair position with the head of the table elevated approximately 45 degrees. The head was secured in the padded michel and all bony prominences were well padded. Cesar catheter was inserted by the nursing staff prior to positioning. Pneumatic sequential stockings were placed on the legs. Surgical time-out was performed with all required personnel present. The left upper extremity was then prepped and draped in the usual sterile fashion. The arm was draped free and placed on a sterile padded Olguin stand. A deltopectoral approach was utilized. Incision was made beginning at the tip of the coracoid process extending distally towards the deltoid insertion. The incision was well away from her previous surgical incision at the mid arm. Dissection was carried down through the subcutaneous layers. Hemostasis was achieved along the way with Bovie electrocautery and Aquamantys. The cephalic vein was identified and perforating branches into the pectoralis were cauterized with the Bovie. The deltopectoral interval was then opened and the cephalic vein was retracted laterally with the deltoid muscle. The conjoined tendon was identified and the fascia just lateral to the tendon was opened. A retractor was then placed to gently retract the conjoined tendon. A Singleton elevator was used to release subdeltoid adhesions. A Garcia retractor was then placed superiorly to retract the deltoid. The upper portion of the pectoralis major was released with the Bovie for approximately 1 cm to improve exposure. The bicipital groove was localized and the sheath was opened. The biceps tendon was sutured to the upper portion of the pectoralis major tendon with #2 fiberwire suture to complete the tenodesis. The tendon was transected above the tenodesis site and released proximally. The circumflex vessels at the inferior border of the subscapularis were cauterized with the Bovie and the Aquamantys. A subscapularis peel was then performed by releasing the subscapularis directly off the lesser tuberosity with the Bovie electrocautery. The subscapularis was then tagged with a #2 FiberWire suture. The arm was externally rotated and adducted as capsule was released inferiorly along the humeral neck. There was a large glenohumeral joint effusion present and the fluid was suctioned. The fluid appeared benign. Large osteophytes at the inferior aspect of the humeral head were then resected with an osteotome and a rongeur. The greater tuberosity was inspected and the supraspinatus and infraspinatus were intact. The humeral head resection guide was then placed and a munira was made with the Bovie along the position for the desired cut. The guide was set at 132.5 degrees. This was along the anatomic neck of the humerus. The humeral head cut was then made (more content not included)... Normal [facility] Comment on above: Result Comment: Elec tronically Signed By: Rafa Macedo DO\.br\Date and Time Signed: 06/22/21 16:46 EDT Operative Report Patient: RIGO NAVARRO Age: 65 years Sex: Male : 1955 Associated Diagnoses: None Author: Rico Boo Jr., DO Postoperative Information Date/ Time: 06/22/2021 12:30:00 Preoperative Diagnosis: Acute postoperative pain.. Postoperative Diagnosis: Acute postoperative pain. Procedure: Left interscalene nerve block. Anesthesia Method: Local, Monitored anesthesia care. Performed by: Rico Boo Jr., DO. Medications: Midazolam 2 mg. Complications: None. Notes: The patient was interviewed and examined prior to the planned operation. Anesthesia options were discussed including peripheral nerve block of the brachial plexus in the interscalene region for postoperative analgesia. This discussion included a description of the procedure, risks and benefits, as well as alternatives to the block. The patients questions were addressed and the patient elected to proceed with preoperative interscalene administration of local anesthetic agent. After receiving sedative medication, the patient remained awake and able to interact in a meaningful way throughout the procedure in spite of sedation. The patient was placed in the inclined recumbent position and monitored with continuous pulse oximetry, non-invasive blood pressure, and electrocardiography. Following time-out, the patient's pertinent anatomic landmarks were identified before the procedure. The lateral neck and upper shoulder were prepped with ChloraPrep and sterilely draped. A 22 gauge x 50 mm Stimuplex needle was introduced under ultrasonic gudance with the stimulator attached and operating. The patient was questioned intermittently and reported no paresthesias. Loss of twitch was observed at 0.3 mA. With intermittent attempts for aspiration of blood, a total of 17 cc 0.25% Bupivacaine with epinephrine was slowly introduced around the nerve. No signs or symptoms of intravascular injection were elicited during the procedure. The injection demonstrated a positive Nilesh test. The patient tolerated the procedure well. The patient was then induced for general anesthesia and preparations for the proposed operation continued.. Normal [facility] Comment on above: Result Comment: Elec tronically Signed By: Rico Boo Jr., DO\.br\Date and Time Signed: 06/22/21 13:11 EDT Progress Note-Physicianon Progress Note-Physician Patient: RIGO NAVARRO Age: 65 years Sex: Male : 1955 Associated Diagnoses: None Author: Rico Boo Jr., DO Postoperative Information Post Operative Note: Post Anesthesia Care Unit. Anesthetic utilized: General. Health Status Allergies: Allergic Reactions (Selected) No Known Allergies Problem list: All Problems OA (osteoarthritis) of shoulder / SNOMED CT 532402660 / Confirmed Diabetes / SNOMED CT 653195295 / Confirmed Smoker / SNOMED CT 854574448 / Confirmed Added secondary to documentation in Social History. Resolved: Hypercholesteremia / SNOMED CT 91660620 Physical Examination Vital Signs 06/22/2021 16:42 EDT Temperature Oral 36.4 DegC Heart Rate Monitored 77 bpm Respiratory Rate 18 br/min Systolic Blood Pressure 169 mmHg HI Diastolic Blood Pressure 93 mmHg HI Blood Pressure Location Right arm Mean Arterial Pressure, Monitered 119 mmHg SpO2 96 % BP/Pulse Patient Position Supine 06/22/2021 16:28 EDT Temperature Temporal Artery 36.1 DegC LOW Heart Rate Monitored 59 bpm LOW Respiratory Rate Monitored 15 br/min Systolic Blood Pressure 156 mmHg HI Diastolic Blood Pressure 85 mmHg Blood Pressure Location Right arm SpO2 93 % 06/22/2021 16:19 EDT Heart Rate Monitored 58 bpm LOW Respiratory Rate Monitored 14 br/min Systolic Blood Pressure 147 mmHg HI Diastolic Blood Pressure 79 mmHg Blood Pressure Location Right arm SpO2 90 % 06/22/2021 16:10 EDT SpO2 94 % 06/22/2021 16:04 EDT Heart Rate Monitored 56 bpm LOW Respiratory Rate Monitored 19 br/min Systolic Blood Pressure 149 mmHg HI Diastolic Blood Pressure 79 mmHg Blood Pressure Location Right arm SpO2 95 % 06/22/2021 15:59 EDT Heart Rate Monitored 55 bpm LOW Respiratory Rate Monitored 25 br/min Systolic Blood Pressure 167 mmHg HI Diastolic Blood Pressure 82 mmHg Blood Pressure Location Right arm SpO2 95 % 06/22/2021 15:54 EDT Heart Rate Monitored 54 bpm LOW Respiratory Rate Monitored 16 br/min Systolic Blood Pressure 167 mmHg HI Diastolic Blood Pressure 86 mmHg Blood Pressure Location Right arm SpO2 93 % 06/22/2021 15:49 EDT Temperature Temporal Artery 36 DegC LOW Heart Rate Monitored 57 bpm LOW Respiratory Rate Monitored 18 br/min Systolic Blood Pressure 168 mmHg HI Diastolic Blood Pressure 84 mmHg Blood Pressure Location Right arm SpO2 93 % Pain assessment: Pain Assessment 06/22/2021 16:42 EDT Preliminary Pain Scale 0 06/22/2021 16:42 EDT Pain Symptoms Self Report No, able to self report Patient Preferred Pain Tool Numeric rating Numeric Pain Scale 0 = No pain Numeric Pain Score 0 06/22/2021 16:26 EDT Pain Symptoms Self Report No, able to self report 06/22/2021 16:04 EDT Pain Symptoms Self Report No, able to self report , Controlled. General: Alert and oriented, No acute distress, No nausea. Adequate hydration.. Respiratory: Adequate air exchange.. Cardiovascular: stable. Neurologic: Normal sensory. Review / Management Condition: Stable. Assessment Anesthetic outcome No anesthetic complications noted. Plan Transfer/ Discharge: Condition stable. Normal [facility] Comment on above: Result Comment: Elec tronically Signed By: Rico Boo Jr., DO\.br\Date and Time Signed: 06/22/21 19:01 EDT Progress Note-Physician Patient: RIGO NAVARRO Age: 65 years Sex: Male : 1955 Associated Diagnoses: None Author: Rico Boo Jr., DO Preoperative Information Time patient last ate or drank:=== (NPO since midnight) Anesthesia history: Patient History: No prior problems with anesthesia.. Re-eval prior to induction: Inital eval reviewed: No significant interval change, Surgical H&P documented and on chart. Surgical consent signed and on chart.. Anesthesia results Review of Systems Cardiovascular: Negative except as documented in history of present illness. Respiratory: Negative. Neurologic: Negative. Health Status Allergies: Allergic Reactions (Selected) No Known Allergies, Allergies (1) Active Reaction No Known Allergies None Documented Current medications: (Selected) Inpatient Medications Ordered HYDROmorphone 1 mg/mL injectable solution: 0.4 mg = 0.4 mL, Injection, IV Push, q4min PRN Pain for 5 dose(s), Stop date Limited # of times, Routine, Start date 06/22/21 10:48:00 EDT, 06/22/21 10:48:00 EDT Lactated Ringers IV Nellie 1000 mL 1,000 mL: 1,000 mL, IV, 100 mL/hr, Routine, Start date 06/22/21 10:48:00 EDT, 10 hour(s), Total volume (mL): 1,000, 113 kg, 2.38, m2 Lactated Ringers IV Nellie 1000 mL 1,000 mL: 1,000 mL, IV, 150 mL/hr, Routine, Start date 06/22/21 11:00:00 EDT, 6.7 hour(s), Total volume (mL): 1,000, 113 kg, 2.38, m2 Phenergan 25 mg/mL Injection: 12.5 mg = 0.5 mL, Injection, IV Push, q2min PRN Other (see comment) for 2 dose(s), Stop date Limited # of times, Routine, Start date 06/22/21 10:48:00 EDT, 06/22/21 10:48:00 EDT cefazolin additive + premix generic diluent 100 mL: 2 gram = 100 mL, Soln-IV, IV Piggyback, PREOP, Routine, Start date 06/22/21 11:00:00 EDT, 200 mL/hr, Infuse over 30 minute(s) tranexamic acid additive + premix generic diluent 100 mL: 1,000 mg = 100 mL, Soln-IV, IV Piggyback, Once, Stop date 06/22/21 11:00:00 EDT, Routine, Start date 06/22/21 11:00:00 EDT, 400 mL/hr, Infuse over 15 minute(s) Documented Medications Documented Diclofenac 75mg Tab-DR: 75 mg, Oral, Daily, Inflammation Levemir 100 units/mL Injection-Insulin: 18 unit(s), SubCutaneous, Daily, Blood glucose aspirin 81 mg oral tablet: 81 mg = 1 tab(s), Oral, Daily, Blood Thinner atorvastatin 80 mg Tab: 80 mg = 1 tab(s), Oral, Daily, High cholesterol metformin 500 mg oral tablet: 500 mg = 1 tab(s), Oral, BID, Blood glucose pioglitazone 30 mg Tab: 30 mg = 1 tab(s), Oral, Daily, High blood sugar Histories Past Medical History: No active or resolved past medical history items have been selected or recorded. Family History: Liver cancer Sister Procedure history: Arthroplasty of right shoulder (2455133035). Retention of foreign object in a patient after surgery or other procedure ([id number]). Comments: 06/28/2020 11:33 EDT - Joel TRIMBLE, Brenda foreign object out of neck and left upper arm Stripping of vein left lower leg to left arm ([id number]). Social History Social & Psychosocial Habits Alcohol 06/28/2020 Risk Assessment: Denies Alcohol Use Substance Abuse 06/09/2021 Risk Assessment: High Risk 06/09/2021 Use: Current Type: Marijuana Frequency: Several times per day Comment: to help with pain. Marijuana Gummie per patient - 06/09/2021 12:52 - Yeni Edmonds RN Tobacco 06/09/2021 Risk Assessment: Denies Tobacco Use Comment: former - 06/09/2021 12:52 - Yeni Edmonds RN Physical Examination Airway: Mallampati classification: II (soft palate, fauces, uvula visible). Respiratory: Lungs are clear to auscultation. Cardiovascular: Regular rhythm. Review / Management Results review: Lab results 06/09/2021 13:11 EDT WBC 9.5 E9/L RBC 4.9 E12/L Hgb 15.1 gm/dL Hct 43.7 % MCV 89.2 fL MCH 30.7 pg MCHC 34.4 gm/dL RDW 13.4 % Platelet 301.0 E9/L MPV 8.3 fL Glucose Random 171 mg/dL BUN 14 mg/dL Creatinine 0.9 mg/dL eGFR >60 mL/min/1.73 m2 eGFR AA >60 mL/min/1.73 m2 Sodium Lvl 139 mmol/L Potassium Lvl 4.3 mmol/L Chloride 105 mmol/L CO2 23 mmol/L AGAP 15 mEq/L UA Spec Desc Clean Catch UA Color Yellow UA Clarity Clear UA Spec Grav >=1.030 UA pH 5.5 UA Protein 1+ UA Glucose 3+ UA Ketones Negative UA Bili Negative UA Blood Negative UA Nitrite Negative UA Urobilinogen 0.2 EU/dL UA Leuk Est Negative UA RBC 0-3 /HPF UA Squam Epithelial 0-2 /HPF UA WBC 0-5 /HPF UA Bacteria 1+ /HPF UA Mucous 2+ . Chest x-ray results * Final Report * Reason For Exam PST POWERSCRIBE REPORT IMPRESSION: NO ACTIVE LUNG DISEASE. EXAM: XR Chest 2 Views CLINICAL HISTORY: Shortness of breath PST COMPARISONS: 10/07/2020 FINDINGS: The heart, mediastinum and pulmonary vasculature are within normal limits. Visualized lung lee are clear. Bones unremarkable. Signature Line FINAL REPORT Dictated: 06/10/2021 3:49 pm Jennifer MAXWELL, Mundo Kaiser Signed (Electronic Signature): 06/10/2021 3:49 pm Signed by: Maddie (more content not included)... Normal [facility] Comment on above: Result Comment: Elec tronically Signed By: Rico Boo Jr., DO\.br\Date and Time Signed: 06/22/21 10:50 EDT UA With Cult Reflexon 2020 Bacteria LM Ql (Urine sed) TRACE Normal Trace [facility] Comment on above: Performed By: #### 1 [id number] ####[facility] [address] [place] [address] Bilirubin Ql (U) Negative Normal Negative [facility] Comment on above: Performed By: #### 1 [id number] ####[facility] [address] [place] [address] Clarity (U) CLEAR Normal Clear [facility] Comment on above: Performed By: #### 1 [id number] ####[facility] [address] [place] [address] Color (U) YELLOW Normal Yellow [facility] Comment on above: Performed By: #### 1 [id number] ####[facility] [address] [place] [address] Crystals LM Ql (Urine sed) Present Normal [facility] Comment on above: Performed By: #### 1 [id number] ####[place] [address] [place] [address] Epithelial cells.squamous LM.HPF (Urine sed) [#/Area] 0-2 Normal 0-2 [facility] Comment on above: Performed By: #### 1 [id number] ####[facility] [address] [place] [address] Glucose Test strip (U) [Mass/Vol] 1+ Abnormal Negative [facility] Comment on above: Performed By: #### 1 [id number] ####[address] [address] Hemoglobin Ql (U) 1+ Abnormal Negative [facility] Comment on above: Performed By: #### 1 [id number] ####[address] [address] Ketones (U) [Mass/Vol] Negative Normal Negative [facility] Comment on above: Performed By: #### 1 [id number] ####[address] [address] Belt.plasma/Lithiu m.RBC (Bld) [Mass ratio] 0-3 Normal 0-3 [facility] Comment on above: Performed By: #### 1 [id number] ####[facility] [address] [place] [address] Nitrite Ql (U) Negative Normal Negative [facility] Comment on above: Performed By: #### 1 [id number] ####[address] [address] pH (U) 6.0 [pH] Invalid Interpretation Code 5.0-9.0 [facility] Comment on above: Performed By: #### 1 [id number] ####[address] [address] Protein (U) [Mass/Vol] 2+ Abnormal Negative [facility] Comment on above: Performed By: #### 1 [id number] ####[facility] [address] [place] [address] Specific gravity (U) [Rel density] >=1.030 Invalid Interpretation Code 1.005-1.030 [facility] Comment on above: Performed By: #### 1 [id number] ####[facility] [address] [place] [address] Type of Urine collection method Cesar Normal [facility] Comment on above: Performed By: #### 1 [id number] ####[address] [place] [address] Urobilinogen Qn (U) 0.2 {Redd'U}/dL Normal 0.0-1.0 [facility] Comment on above: Performed By: #### 1 [id number] ####[place] [address] WBC Auto Ql (U) Negative Normal Negative [facility] Comment on above: Performed By: #### 1 [id number] ####[address] [address] WBC LM.HPF (Urine sed) [#/Area] 0-5 Normal 0-5 [facility] Comment on above: Performed By: #### 1 [id number] ####[address] [address] XR Shoulder Complete Lefton 06-22-2021 XR Shoulder Complete Left Exam Date/Time: 06/22/2021 16:19 EDT Reason for Exam: Post Op Report IMPRESSION: STATUS POST HUMERAL HEAD REPLACEMENT. CLINICAL HISTORY: Post Op COMPARISON: NONE. FINDINGS: 2 views of the left shoulder demonstrate the patient to be status post humeral head replacement. The bones are in anatomic alignment. There is no acute fracture or subluxation. There are expected postoperative changes including air in the subcutaneous soft tissues. FINAL REPORT Dictated: 06/22/2021 4:31 pm Hugo Bo MD, V. Signed (Electronic Signature): 06/22/2021 4:31 pm Signed by: Hugo Bo MD, V. Transcribed by: PONCHO Technologist: VICENTE Chapman [facility] Coding Summary.on 06-21-2021 Coding Summary. CD:[id number] Gh 0bWw+PGhlYWQ+WO8YIHAkJ 31rjRUzhM1RY1tECZ2KWAK WQJXEGI9VYV2zoDJ8XBjfJ 2VybiAv EwjgmLGfVM78DNh9ZGJ9bA dbORfctI5bdVJaU0g7IbKg GH61rV96HVmwPORoOpO4Rd ZpbjsgbWFy J5juOmZjnBPqShr+PHRhYm xlIHdpZHRoPScxMDAlJyBz bTqcUL3zEp6yCOEhBPDonE xhcHNlOiBj n9hhNTKaJPhzKM7mwOpiH0 WwbFR5OGZdj6f4Hv11rJY+ JQIjIWN5uGyoKUhcb327Hg Rzg1mzEUM4 vPRpIMnxACH7T32eq5B5BH YdNWMfAHF8wCC9dL1csYck dubzH3FslHCsYxC8BXI1kZ IzoI1qwHql inrkgJ7hAix+J92GHA2NYA VFXV7MGqo1W1AaImctxHD+ MS31PFOjOH87vKKqgGZso0 weeWz3MeMv VYYeJNX4aHtnQBgdh6NvWH YsV01dmGKns4K0LYEwqKwb bXStDkPyrGI2jQ7fYHaovs qhm4cyzobz Cbddb5dnhg99oN71Z81cJQ oaVKDyWWM8IOIhVPSvlQub dg9scM4vQu0+RIioz1xwh2 xhsHx1LrNz QWHburWprEckRIZ0v2MeHw 61S2XesHmmf2HfNxo6cv98 uICps1F1iYQ3TBrpCOHdaH 1jUJqmTtJ9 ESXrVuKqxV53sSOfXVqbEy 8byPakvOsiIL6xFURoxjgh VXQjpX1dCHVcrUIbbDmwZH 4wNTBpbjtm y424KhGbBWI4MIQfjLZmA0 UluO7aArSjANJgTMXdX7Gk nLMhBBgaA768RUvoHoP9QA GdywBtC8Li SAJriVuyXpV0i5L6Oz9Wt9 QtgcisOTS5VLlgHBY6MyB6 CmYaDhQ7M2PqNnn5MTXimN ijLQ2gV4Tb PVDonvjnxkyysDJ1COSsVC RslA91kFEcXGfnGm8qk8F4 k159CEJdBPYvzV67Lo9icJ ogMTBwdCBU qP8phzcaq2dnqaosUmGyQX RxXXz0KNe0CBPzoAfoYyFc LIB3NwT3EUB8uFYgmL2vcX vkojcdrK2d Oyc+K49flR8bKCA7XBJ8mz xaTYYmylSbMM93SF68J5Lh PjwvdGFibGU+PGRpdiBzdH opVH8fUnJi g0nsz2OwMXvhO5TiKOHyYW ouZkp0LULhDOL9vZR0pJ6s WGXnCQxfn9O3fTD8K3Oawo Gbpd2en1zc CTDlFCwzY79etTLdr5R9QZ HzsFB8JVXirAhwFlTwfC06 Oyc+SECuzTrgl9UiWjxsx0 jdh7famWo1 BxKzESCqxqKcjSviBNN7h4 BmGg88K37eIHkmROTaXDEm ERAjZDPwmDfzag2guF3oQr 8+PGNvbCB3 kQP2gV8iTUOnWmS0ZQmlA2 11RvVjbLUuTektj3guc3om qXo3ThQpDITpojQbjCeyMM Y9s1NcDw40 S69sVTjdKAOsTKJdOQIqMK SrwQujir2zbM0uJg9+PC9j x7bdgj19eC43vBB+PHRkIH P3nSvkGBcu KPXrfQ2tTEdoVwO6FGTnJr TfyU92yTWfACrtNc2vbWyn wLymMP3jJZMgofyea926Mx Lrb1anPUMa pMSzKMbfZFH8Y72pb0X4RL EqEASbPPQ3dVP0iW0jmZuh bjogbGVmdDsgdmVydGljYW jfTTotO518 IHRvcDsnPlBhdGllbnQgTm QiKTb4P5RvMjl1OTRahKhd BN9btMLrXGfeHh4ykZtciW mkEY8zOWHj qkwzo484LnMsr2kgLUNzyR VgOTqbDAV1N68sx2Y0SGAu ULByZPH5fDV3vA7cuQwtfe ogbGVmdDsg bnHwwHbcOCcfWCosA647KO RvcDsnPkJpcnRoIERhdGU6 NY47UE58zPMie2P5qNU9M2 BhZGRpbmct yaqowKE8ZOUuLFQzzO15Qf 9joCkaCm7uIWVkMSB2LHNu mTLjS7KhbC7mPuDuOJMxZS PfF7KgmKAx HYmcX431ZObvKqZ8JXFczo EiE5DlJXDjnKnfBfL1o1X4 Cx8MT2V2GP10XM89oTMnx6 I1rUC1A4Wo BOGorzryidhsrOV2OTJcSD PitX13Ai4inPntLl3zGAXg HPD8HCTchGQnD4EyvM9iFx AjMDAwMDAw V6CfuIAeFAohR022WPcqKw C0AXLsyhZpT5OkUIUvcDpi PlL9e2I1Wp3XFWm1JD24RC 89bSZuc7X2 qQF7K9SxJPMqrdezpvpelQ N6MFZqMCBpjR40Sj4qdJdq Fb0gHYOuBLE7HSLqaJUgX4 CrjB6vJwNt VLTeLCAkZ9CeqJXkWLwlZ5 62RCmyMrO8SWOlohDdX1Ss GRWepCatJkO9b8F4Td0XPZ FgBJ38NGO7 zKC6DA23YH42R9EeXmfarL FibGU+PHRhYmxlIHdpZHRo MRjqZDCyByRwxSwyBG9gSb 9yZGVyLWNv yEhwtLYjGzIpr3wwEQApHG khNH2puCcfY5LkuZA7FPFv d1m4Dp61Q52fK5RgmSO+PG GqgNS7nNK0 hK9rZhHcToL4WPdcX057Fc AycMEzTwvoe1hpi8oxbQp8 DvH3QHSbyfJkeGjdCUS2q2 FdJj00X26w IHdpZHRoPSIxNSUiIHZhbG ncwn9shI8lSk7+PGNvbCB3 sGW5jM7cKiKbIcU0CKsyM4 49InRvcCIv Xudsx7lrv3uaeAr7RpUtMB TneqRevCgvTKK9h7KfLi42 K2TpyTdlo8AqAjq4wg64gH Ogt7G0bFH4 T6FzFSCqlwcfpEIhkDdbZB 1iPJEryqgxDOHouU8hALDq G2l0LzTjRgH7GJuzM9Hcep G7WTJqvDYs UDufWEU5C34fi0U0IHUdWC JzQHM9cUP4lE4hxOmdxero bGVmdDsgdmVydGljYWwtYW dqD806KSIg kPrrAXIiqY4zOGGjpKFxfT gmGO7aKFBlzgqnBpGSDEFU IZgdFaOFGI3ZMMsauZE+PH XuOJZ9bNmw EKzwBDOweJ7sUTVoT8s2Hj ZiDbG0SHyrK3JfEEMginyr Mw32pP9oFrFuUrN3FXfkF5 ScawI1MHYa eRMgRVdyJWB1K03gu9P9PS KrSPZhFJA7nVU1pS3fgBqi bjogbGVmdDsgdmVydGljYW hbSLvrT085 ZLFmpVucHjZjMdTsEtO9BN y1F1BcBov6UERbkRbiRF3a hDTsBPemAg3rbEaioKwwSI 4wNTBpbjtw YYYzsV1gGXDwtZJkaJusRX 2pLKTgkpaci464VuIpNJC9 GAHoyQRyP0ZupK7oOaGfXF RgKYRaZ9Hq vXQrWQijN144UJgkEfE2AC KlfsRcS9YuEELcdCcdZmS2 q9R1Zb70RlCBFETlfzszbH Q+PHRkIHN0 mGhnITptWFMmuZ2kNAFfS6 x1XbPwAlJ5SUpdT5EfSXOa txtkXf13hI0yAiKaDrC9IX wfG9EgfoM8 RTQcmLGoLChbKBK9Z98vv4 B4PCKdDHGcEGX9vJE3qT9b bGlnbjogbGVmdDsgdmVydG ljYWwtYWxp C361HBHmcThoXv7zcVD2A3 YlCka4BFPvhBmlSY5muRYh PMxqAa3uqCpncMgzYM1cAO BpbjtwYWRk qQ3vLLImhFDfkLuxGA9jAT Uaxlplt983OhOxKKV5YMWz hRIcK6BqiQ3gBxWcAICzIJ YpC9KkfXCn KGbyH286DUolGbR7VUCgbp HgH9CpNILztZyuFjO0u0H5 Ii6PeDSqELPtQC70MI00BG 23O2SbMgzf dGFibGU+PHRhYmxlIHdpZH OaQOzeYHRiCoMyrOlzUT6d Cm3sNRYnFQIpdYcbmVLtXq Par2wjFEIt YDtfWM7oyAusI5YxsIZ0PX Vkp7b5Sh49S85wJ5FrpBM+ LIMmnJF9oOA8iL1hZvXvEn U0ZLgeX748 GiHhhQHaRemao8ewp0djyR r1RuMuCBLyluBpzVwcVRK1 j8SuZm67B71kARoqZFNaKM IyMCUiIHZh aSfhmh6ftE6wWb8+PGNvbC V4fBO6cL2gZsTtArF0KGjp Y233VpEupAFnWyqiX04oG8 JvdXA+PHRy Zoo0MRFjmOmjKX7akNErOE rlIy9kEHW2FkGfMgKmGHvg O2LpUFHjxjentqzqkQG4FX PqPTSyfJ73 Jj3fsGdrOc3tNXAtTKX7SH AsdXHkP9PvqB8bLfZrYVAy XTRsN6TmzIAsFWjfM459GU wfExS4GZFa fdPmF0PdQODouLvtYoI1s0 E1Pg5DsQhytDGoJA6mDaZg AHf3K3LbAuz2FFHxcJkfVF 0ncGFkZGlu Yn1ojTphgStrDY1nVFMfjn gtj875BiLox2xpTQNigZEt CPhnRRX4X09bv5S5TBDnTC ErBVN6cQK7 nN1qgDlwpyqnwBOnyEbwhk SxzNseBLoyBWyoQ796CCWo aXulNqOINye7C2FvSia0JP HhzKnxRE9g vBGoGDurLi5nuIzkfMugTM 3rHSIbttfwi153MmDbr5wk ZITizTCwGJlpZAK6T30yj6 P4QVPqMFWl QPX5fQT8mP8cfAtpuqtypB VmdDsgdmVydGljYWwtYWxp O141HBIbcRnsPr4ROrg8Q3 PlTap5GRUt tDzcXA4thZBrZPfhBo8znJ lfkIacUB8pOTOjhhefr187 OfMbu7moISTvcCChZJeeNX T0T32ny9V1 ZHMsBLJrRLF1yEK7fP7cuZ lnbjogbGVmdDsgdmVydGlj SRbzETnqM048OYWclQbdUx BheWVyOjwv dGQ+WM60af49P6JuXbwbPn x1QANuMCN3kNQ3vR4cPNNo MQmlr7K2pTY1V0RgqaTplj 5mc3evIZDv ZTog (more content not included)... Normal [facility] Consent for Procedure/Surger yon 06-21-2021 Consent for Procedure/Surgery [id number]#[id number]:127 [facility] Outside Recordson 06-21-2021 Outside Records [id number]#1. 00CD:127 [facility] Coding Summary.on 06-16-2021 Coding Summary. CD:[id number] Gh 0bWw+PGhlYWQ+XG1SVATiS 72eiOAjtL9DQ3oPKI6DBOY IKWIOHH5JFY1avXP3SJdsR 2VybiAv YgvpzRDcBV38PGc1QMC0wP agTYuwvD0vrFDwP5p2AvYe GF18xH16LYduYUAjLvC5Aa ZpbjsgbWFy N1qaGyCwyVKxEcl+PHRhYm xlIHdpZHRoPScxMDAlJyBz sHymHI3lRo7uPWFvIQUjaA xhcHNlOiBj t5xyRUToRItzRW9qmNitH9 ZhgUE1WDJmv3o9Fo96yRH+ CYLyXSR4mZdrUHppj774Fg Wqy6pqYZE7 pSVdVMaaJUN0K54wm2A8IY UzQOAdXBA1dPQ0wC8udBlb lahzD2MviJCmVlS6ESE4oD WplJ0qbSac whkklY1fGat+K79FKD6GTE YSPR1NSzg7O0ToGxcsqZS+ BO31EHGlWP42cTJaaHPim9 cirCa4HdZb NCJbLWW9dQjqGZybv9PoSB LaP49tvBEbr0X5LDYuvWkg rYSpDwYqiFS7vX6cEPcpja rin8uwxpky Icmtm0uuxc21qU52T37uUM prAORlJIP0DOLeCINlpRly zi2ovP1wNj1+QJces3vka8 xllAy3BfCg USUodlBrqTccRYB0n5IiJg 44L8LksVrnf6WaHmh9pv55 yZMcw0V1rJZ6VWvhQSUenO 3bXQvfSsJ1 GPPxFaSgqC25qDDjLMovPi 4lbHcmpAvlMQ5oGZMwaecl FYFuuA3zMHMxdMClyGblAE 4wNTBpbjtm e406KxFgSIU3CQWtcYEdG4 VxkP4xNwEtDMLgEAEgP1Cj dNHtADomA512ICahNkM8TQ QtulIqH4Vu FUFdsAwhUjA3s6Y4Me5Rv2 ClgkfxXBT2JVzxJPU7CmOj WjBtJhP3M8XqRtj5BZGsuV pnVK4iT5Iz IPVajdfsztjawOE1QUZiKQ KmzC32kEAfHNuzUb9yr7G7 z933LGKcHJQfqY22It8gdH ogMTBwdCBU jU8zgdogr7awjrpuShQwHQ LpFVm3NZw3DRHkoCfaKgCb UWV2XuL1JYN7sAMgrZ0irU qfbhkvfJ7i Oyc+M04yiM5eJGH8FSI8ia pyYYJtjeHhAI84SH49S0Zj PjwvdGFibGU+PGRpdiBzdH ofUR6sKfIi n4uah3LaNDumW6IyAPLgJY jeMrg2XSFhGKD0qAQ6eJ8h WYLmECzpf6G5kDV1W6Ckdp Jpcp3sy2gp NWMlTSwwN49dhLEzh6Z7GT PciKD9XWZicLttAjNwaU10 Oyc+QXYkiMrhx0PhHfbzg3 qql8nqtRf3 RoGqPMFdoaZrqAtoPMY9b4 KwOt01U73eJXvrWHOsTSFz BGZjBYQerQnwyt6qjI9hEu 8+PGNvbCB3 rLW4oK3jSSQyMtC5HDlnH7 57MoHahZYrXlyaz6zrx0ci pZs1BpDiSTDaeoLzsMluIW L1w6CiId84 K16eETikDNFaUPEpGVTfKI SpaKfxdi2qnP5wZi8+PC9j b9oywk29tO25fRU+PHRkIH L9cCqzXXio LFJcyF7gPAhhQlM9FTCgMa UnhM78sSRtYJmpKj6ktJin uZlkKP1mJQWfcbhse762Li Pwf7ktSKHd dTQdFDcgDYQ1X51pj0Y8UY OxWFKfZKY2sGA7mL1leVze bjogbGVmdDsgdmVydGljYW nwIPkfH443 IHRvcDsnPlBhdGllbnQgTm MdOFp4J2DbUpd0VFGjyLpo SH5icOTqRXfbXa1psBmrxP qeTT8gRYRa wyfey752WyQvm9paPRVqbW IoZYxsRSG0R22uz2W2DDHv TOVvDZQ3sCH8nX5zoFueif ogbGVmdDsg ifOftDezSOjjHTnxR542II RvcDsnPkJpcnRoIERhdGU6 II04EQ87tCHmx6S6kLT3E8 BhZGRpbmct qxepsBO8MNFhCXDceQ64Ff 4mnFnzJm0aSEErACB2UJHt gVXaO8JmsH5wVlYbEJVgMF OhS9QasXFe VXqjH806HGznIrA1HAQgca EkH0BzOTBdoEswBvM9b3A7 Kt8AH2R5BY69FC35oLYga3 Y0vZZ1E4To OXYvfxcjebjurGP2XEKjEF WlbR85Zo3xtTcaRf1pMEOf IMO7HULdaOBlF8TzvW9lTl AjMDAwMDAw D7PasFMzPByvK769URbjYk I1TPZnzgIrE7YjKLEvvQuy SsZ6n1G8Sh7YZQe7NM56JB 51zFYiu7X6 bNO9V3XiNRBudhruhiaweX Z8UPYaUPEwaS74Iv7qkUsh Qd5uFTQwMHC7ZRWibXAnA3 FqaZ1lXhXb UTHbRRCwS1EnzZDaBWvyD9 35REkoUaX9TOCevbWtK0Wl VIYsiIbyXwK3i8A4Go6TZZ QjYF02LAE7 rQU4LQ59PG73L6DhMoinhC FibGU+PHRhYmxlIHdpZHRo DOcoDRXxYtCeuSuvPL3uSt 9yZGVyLWNv iRgreFLeOvGdt0eiSHVoWE iuYW8sdHfzD9XstEQ6ZJIz p6g9Jo15R25xA9BmxXW+PG StoUQ6nXA0 sL2qCsIyJpP0ACtxB582Hs PemQNqAzafs9owm9bxkZx9 SjF2IRPefhEooJxiDYW0t8 AlMl84V89c IHdpZHRoPSIxNSUiIHZhbG wxff0xiY8oXe8+PGNvbCB3 qLD0eQ4nDjUfQnT8LWlrO0 49InRvcCIv Rfvhs9ocv7sqzUx4WmGnVJ PrijQxlUonBFF5r2VmMj75 X0XcsXaos2KzDfk4cq62qZ Gva7M7bZW0 B4NuRWPfjttneVAywQoiCZ 5dKYTdxdcwKDCcuT3aCXSl N4f2RmSdVkV1ITghG4Tlui B2CQRokPGq GXkwCWX0F33sa5C0QGOpGA RuKMF5xKQ7mX9mhGkwmadz bGVmdDsgdmVydGljYWwtYW lqG463WDNs tEnlVLWdjI1rOJLxgXQhwZ myJE9zGSHogzucPcVMSBPF HMazCrGBZN3SYUaibXE+PH QqZHH5yOdu KSdlNYGhzS2cJEAmV0p9Wm PkUpN3YQzqD8BgSZOosmul Di92zB8kGoPkWuK4VFdxJ4 PzdnW5LFSm kGUiRTjbOXI8T05sw2Q9VI QuBEFbCPM2mME5qQ5jeAdc bjogbGVmdDsgdmVydGljYW swWUeaZ456 RZBihJvzAnLzXsRsVgO2HM t6I6JwFek4BURzpZdhKR0q jZHeNFslSm9znMfolDjtPX 4wNTBpbjtw PPTxdI2tDMNvaAQmaIheTT 5kAICqzxfvl576YsJdSVY7 XJYarSQjQ8ReuT0uFmTeHZ MhDTVaI5Mb mSCgLWrbJ874UQxkRbJ6DT MqvdPmS6YjHOGhhCceNmO4 m9C2Ou95FhPNYLFlwsiwnY Q+PHRkIHN0 cCohVHclEBLbqX4gLBXyN2 b9LcImAmR6CMjyY4QjEEKc zobxVp32mS9zFfStSwY6TO yoQ5RqtzK1 MKFsjLWqYUrdSYT7S70rb9 P0RELlYOLaUDB2pVD4xA3a bGlnbjogbGVmdDsgdmVydG ljYWwtYWxp L071GYFbdMnvLm2roPH7R1 JiPja6VGKmoLtoXE6kxBTk UIltXf5qxBgdfXmqNH9dPA BpbjtwYWRk cY5kBVMrnAYiiWvgNM5uPV Kkmuwdm470FeOyZLO9BBEu kQCnY6QmpW9wBiEiUYPjPT SmX4AlgNOz SJmrK961ANjhDsG8JLNbpc TsM1WlVQFqnMfrPeQ1k9W1 Dx7RmWPxSHAhRA35NR90PD 68X1AsQujl dGFibGU+PHRhYmxlIHdpZH LoAQofDWEzYoUjxLqqPZ3g Ko5qFRAeSIMsaBxznWCeFy Fct9ppMYYe WLsuOD9lwJjnZ2YnpXZ8VV Ock7s5Vf81G09uM0XcmHM+ DFGsvKI2sXR5wG4tCvAhYr H1JBqhQ819 JuKnsMIbPfhqq4cxq1wxdC p4LcEoLEReqoPkhBxsABL0 s0LhIc21X36jRWhiKBHcYA IyMCUiIHZh sIhorq8gvU1pLp7+PGNvbC N5vRZ6pV0nJaFiEcS2ZCvd F293KqMipEAqEanxM55lS2 JvdXA+PHRy Mvo4KHQwoZswYU9vmFJnGT akLb0rQEK3BlHnVjIfGWqr U9WuDWBuspiuvfapnRB6GU HnOHCwbQ56 Ge2yzNaiIp4xWVDxWLJ6ZE CqaDQpT8PsyN4uCgFaDYQy YDVjT2GinLFgCAynY830HG vbRsL7GFWq tjLlD2AbMZMxyPffPyD3b6 J3Tb9JvIqjkLQsNR3sEcGg OTo9S5GmIqx9YVCfnEbaZA 0ncGFkZGlu Pt9ukBqpfTaxXL5mCGZcxq tri985YmRug1xcXFEmeTRt VYohQPP3G36mp6H5ZQYeWE YmVZL6gPE3 lL7yvGnfgcfsiHJyrUnyln VecYlaKIqzKYtfR353LGTr vVcpPvPIJew9Z5UgWew2BR ZynMchZC1c xLRaZPsoLs7icNkmcPnvXC 9nPQFbpxgoq488QnWrl5vq LLAajJThFSxaCZB3U94lt6 P0WOOrOVUb TLK4aXD9kK3roSfsnhvpdU VmdDsgdmVydGljYWwtYWxp P929YXCvuLwqGy3LXqs9U5 ZjJaf0HBXn jIdkOI2chVYjRXjtBw6ezT ifmJfkVI4kNORysqhvb533 TeZog7hwJFWdyWMjFQopJL L5K55zm3F4 AIOxSOTsGKZ9mJE0tQ0bxG lnbjogbGVmdDsgdmVydGlj YEplVMbkO369NCZvoNptFu BheWVyOjwv dGQ+WD09aq30C9OxAavbNq b4OEWmLNF3kRN5wH3iIOKs UHeab0D1dTP3N4SssyBlsu 9ea6xfXVAg ZTog (more content not included)... Normal [facility] Consent for Treatmenton 06-05 Consent for Treatment [id number]#[id number] 0CD:127 Normal [facility] Heart and Vascular Office/Cl inic Noteon 06-15-2021 Heart and Vascular Office/Clinic Note History of Present Illness Patient is a very pleasant 65-year-old gentleman with a history of hyperlipidemia, diabetes, previous [id number] smoker quit around 5 years ago, referred to us by Dr. Parish (PCP) from [place] for preoperative stratification for upcoming left shoulder surgery on 06/22/2021. Apparently his PCP had ordered an echo, lipids and a stress test at another facility, however they have not been done yet. Patient reports that he had a heart catheterization done at [facility] he believes several years ago around 2019 and was told he had nonobstructive coronary disease but no stents. He denies any chest pain, angina, shortness of breath or dyspnea on exertion. He underwent right shoulder surgery without any preoperative stratification and did well. He now needs left shoulder surgery and is here for preoperative stratification. In our office today his blood pressure was 113/76 and pulse is 90 and regular. Physical exam is as below. Previous EKG dated 06/28/2020 shows normal sinus rhythm, normal axis, normal intervals, no evidence of previous myocardial infarction. EKG dated 06/15/2021 shows normal sinus rhythm, normal axis, normal intervals, no evidence of previous myocardial infarction. Review of Systems Constitutional: no fever, no sweats, no weakness Skin: no rash, no lesions, nobruising/petechiae ENMT: no sore throat, no congestion, no hoarseness Respiratory: no shortness of breath, no cough, no orthopnea, no wheezing Cardiovascular: no chest pain, no palpitations, no edema Gastrointestinal: no nausea, no vomiting, no diarrhea, no GI bleeding Genitourinary: no anuria/oliguria no hematuria Musculoskeletal: no back pain, no trauma Neurologic: no headache, no dizziness, no numbness, no weakness Psychiatric: no sleeping problems, no irritability, no anxiety/depression. Heme/Lymph: no bleeding tendency, no bruising tendency Allergy/Immunologic: no recurrent infections, no impaired immunity Additional ROS info: Except as noted in the above Review of Systems and in the History of Present Illness all other systems have been reviewed and are negative or noncontributory. Physical Exam General: alert, no acute distress Skin: warm, dry intact Head: atraumatic, normocephalic Neck: Trachea midline, no JVD, no bruit Eye: normal conjunctiva, sclera clear ENMT: oral mucosa moist Cardiovascular: regular rate and rhythm, nomurmur normal peripheral perfusion Respiratory: Lungs CTA, respirations non labored Chest wall: no deformity. Gastrointestinal: soft, non distended, no tenderness, no guarding. Back: No tenderness, Normal ROM, Normal alignment. Extremities: no edema, no deformity, no trauma Neurological: oriented x 4, LOC appropriate for agesensation equal & normal bilaterally, speech normal Psychiatric: cooperative, affect appropriate for age, normal judgement, normal psychiatric thoughts. Assessment/Plan 1. Preoperative for stratification: Patient has several risk factors for coronary occlusive disease including his age, previous smoking, diabetes, and hyperlipidemia. He reportedly had a catheterization done at [facility] in 2019 and had no stents placed and has remained asymptomatic since that time. I recommended obtaining those records from [facility] to go over those results. In addition up it appears the patient has been set up to undergo an echocardiogram and a stress test at [facility] by his PCP, but this has not yet taken place. Unfortunately without reviewing his stress test or his echocardiogram prior to his surgery scheduled for 06/22/2021, I am unable to render an opinion as to the risk for surgery. I am somewhat confused as to why his preoperative stratification has taken place in this somewhat convoluted way. I will defer to his PCP Dr. Parish to go over his stress test and his echocardiogram and render an opinion about his cardiac or stratification. We look forward to reviewing his echo and stress test which may be evaluated by one of my colleagues prior to his surgery, but without seeing the patient, it is difficult to render a low risk designation. Would recommend the patient's LDL be less than 70 given his diabetes. He will continue his Lipitor. 2. Return office in 6 months with Sonal and in [address] Loo. Thank you very much for the opportunity to participate in the cardiac care of your patient. Follow-up No qualifying data available Problem List/Past Medical History Ongoing Smoker Historical No qualifying data Procedure/Surgical History Arthroplasty of right shoulder, Retention of foreign object in a patient after surgery or other procedure, Stripping of vein. Medications aspirin 81 mg oral tablet, 81 mg= 1 tab(s), Oral, Daily atorvastatin 80 mg Tab, 80 mg= 1 tab(s), Oral, Daily Diclofenac 75mg Tab-DR, 75 mg, Oral, Daily Levemir 100 units/mL Injection-Insulin, 18 unit(s), SubCutaneous, Daily metformin 500 mg oral tablet, 500 mg= 1 tab(s), Oral, BID pioglitazon (more content not included)... Normal [facility] Comment on above: Result Comment: Elec tronically Signed By: Eze MAXWELL, Faisal Kaiser\.br\Date and Time Signed: 06/15/21 15:34 EDT [facility] 06-13-2021 Outside Labs [id number] CD:127 Normal [facility] CT Upper Extremity w/o Contr ast Lefton 06-10-2021 CT Upper Extremity w/o Contrast Left Exam Date/Time: 06/09/2021 13:48 EDT Reason for Exam: DJD LEFT SHOULDER Report IMPRESSION: ADVANCED GLENOHUMERAL OSTEOARTHRITIS. STABLE 8 MM PULMONARY NODULE. FOLLOW-UP CT OF THE CHEST IN 6 MONTHS RECOMMENDED. EXAMINATION: CT Upper Extremity w/o Contrast Left HISTORY: Degenerative joint disease of the left shoulder TECHNIQUE: Multiple contiguous axial images were obtained of the left shoulder without contrast utilizing Tornier protocol . Multiplanar reformats were obtained. COMPARISON: CT chest 10/07/[address] shoulder 06/28/2020 FINDINGS: Advanced degenerative changes of the glenohumeral joint including areas of full-thickness cartilage loss, subcortical cyst formation, remodeling of the glenoid, and marginal osteophyte formation of the medial humeral head. Mild degenerative changes of the acromioclavicular joint. No large full-thickness rotator cuff tear identified by CT. Trace joint effusion. 8 mm left lung apex pulmonary nodule. This is stable when compared to prior CT chest from March 28, 2020. All CT scans at this facility use dose modulation, iterative reconstruction, and/or weight based dosing when appropriate to reduce radiation dose to as low as reasonably achievable. FINAL REPORT Dictated: 06/10/2021 4:51 pm Art Magaña DO Signed (Electronic Signature): 06/10/2021 4:51 pm Signed by: Art Magaña DO Transcribed by: PONCHO Technologist: RAMONA Normal [facility] XR Chest 2 Viewson XR Chest 2 Views Exam Date/Time: 06/09/2021 13:29 EDT Reason for Exam: PST Report IMPRESSION: NO ACTIVE LUNG DISEASE. EXAM: XR Chest 2 Views CLINICAL HISTORY: Shortness of breath PST COMPARISONS: 10/07/2020 FINDINGS: The heart, mediastinum and pulmonary vasculature are within normal limits. Visualized lung lee are clear. Bones unremarkable. FINAL REPORT Dictated: 06/10/2021 3:49 pm Mundo Rodriguez MD Signed (Electronic Signature): 06/10/2021 3:49 pm Signed by: Mundo Rodriguez MD Transcribed by: PONCHO Technologist: KETAN Normal [facility] BUNon 06-09-2021 Urea nitrogen [Mass/Vol] 14 mg/dL Normal 5-21 [facility] Comment on above: Performed By: #### 2 [id number] #### [facility] [address] [place] [address] CBC w/Indiceson 06-09-2021 Erythrocyte distribution width (RBC) [Ratio] 13.4 % Normal 10.9-14.2 [facility] Comment on above: Performed By: #### 2 [id number] #### [facility] [address] [place] [address] Hematocrit (Bld) [Volume fraction] 43.7 % Normal 37.7-49.0 [facility] Comment on above: Performed By: #### 2 [id number] #### [facility] [address] [place] [address] Hemoglobin (Bld) [Mass/Vol] 15.1 g/dL Normal 13.5-17.5 [facility] Comment on above: Performed By: #### 2 [id number] #### [facility] [address] [place] [address] MCH (RBC) [Entitic mass] 30.7 pg Normal 27.0-34.0 [facility] Comment on above: Performed By: #### 2 [id number] #### [facility] [address] [place] [address] MCHC (RBC) [Mass/Vol] 34.4 g/dL Normal 31.4-36.0 [facility] [place] Comment on above: Performed By: #### 2 [id number] #### [facility] [address] [place] [address] MCV (RBC) [Entitic vol] 89.2 fL Normal 80.0-100.0 [facility] Comment on above: Performed By: #### 2 [id number] #### [facility] [address] [place] [address] Platelet mean volume (Bld) [Entitic vol] 8.3 fL Normal 6.4-10.8 [facility] Comment on above: Performed By: #### 2 [id number] #### [facility] [address] [place] [address] Platelets (Bld) [#/Vol] 301.0 E9/L Normal 150.0-500.0 [facility] Comment on above: Performed By: #### 2 [id number] #### [facility] [address] [place] [address] RBC (Bld) [#/Vol] 4.9 E12/L Normal 4.3-5.9 [facility] Comment on above: Performed By: #### 2 [id number] #### [facility] [address] [place] [address] WBC corrected for nucl RBC Auto (Bld) [#/Vol] 9.5 E9/L Normal 4.0-11.0 [facility] Comment on above: Performed By: #### 2 [id number] #### [facility] [address] [place] [address] Consent for Treatmenton Consent for Treatment [id number] 1080 [id number] Normal [facility] Creatinineon 06-09-2021 Creatinine [Mass/Vol] 0.9 mg/dL Normal 0.5-1.3 [facility] [place] Comment on above: Performed By: #### 2 [id number] #### [facility] [address] [place] [address] Glucoseon 06-09-2021 Glucose [Mass/Vol] 171 mg/dL Normal 55-199 [facility] Comment on above: Performed By: #### 2 [id number] #### [facility] [address] [place] [address] Lyteson 06-09-2021 Anion gap [Moles/Vol] 15 mmol/L Normal 6-16 [facility] [place] Comment on above: Performed By: #### 2 [id number] #### [facility] [address] [place] [address] Chloride [Moles/Vol] 105 mmol/L Normal 101-111 [facility] Comment on above: Performed By: #### 2 [id number] #### [facility] [address] [place] [address] CO2 [Moles/Vol] 23 mmol/L Normal 21-31 [facility] Comment on above: Performed By: #### 2 [id number] #### [facility] [address] [place] [address] Potassium [Moles/Vol] 4.3 mmol/L Normal 3.5-5.3 [facility] [place] Comment on above: Performed By: #### 2 [id number] #### [facility] [address] [place] [address] Sodium [Moles/Vol] 139 mmol/L Normal 135-145 [facility] Comment on above: Performed By: #### 2 [id number] #### [facility] [address] [place] [address] UA With Cult Reflexon 2020 Bacteria LM Ql (Urine sed) 1+ /HPF Abnormal Trace [facility] Comment on above: Performed By: #### 1 [id number] ####[facility] [address] [place] [address] Bilirubin Ql (U) Negative Normal Negative [facility] Comment on above: Performed By: #### 1 [id number] ####[facility] [address] [place] [address] Clarity (U) CLEAR Normal Clear [facility] Comment on above: Performed By: #### 1 [id number] ####[facility] [address] [place] [address] Color (U) YELLOW Normal Yellow [facility] Comment on above: Performed By: #### 1 [id number] ####[facility] [address] [place] [address] Epithelial cells.squamous LM.HPF (Urine sed) [#/Area] 0-2 Normal 0-2 [facility] Comment on above: Performed By: #### 1 [id number] ####[facility] [address] [place] [address] Glucose Test strip (U) [Mass/Vol] 3+ Abnormal Negative [facility] Comment on above: Performed By: #### 1 [id number] ####[address] [address] Hemoglobin Ql (U) Negative Normal Negative [facility] Comment on above: Performed By: #### 1 [id number] ####[address] [address] Ketones (U) [Mass/Vol] Negative Normal Negative [facility] Comment on above: Performed By: #### 1 [id number] ####[address] [address] Belt.plasma/Lithiu m.RBC (Bld) [Mass ratio] 0-3 Normal 0-3 [facility] Comment on above: Performed By: #### 1 [id number] ####[address] [address] Mucus Ql (Urine sed) 2+ Normal [facility] Comment on above: Performed By: #### 1 [id number] ####[address] [address] Nitrite Ql (U) Negative Normal Negative [facility] Comment on above: Performed By: #### 1 [id number] ####[address] [address] pH (U) 5.5 [pH] Invalid Interpretation Code 5.0-9.0 [facility] Comment on above: Performed By: #### 1 [id number] ####[address] [address] Protein (U) [Mass/Vol] 1+ Abnormal Negative [facility] Comment on above: Performed By: #### 1 [id number] ####[facility] [address] [place] [address] Specific gravity (U) [Rel density] >=1.030 Invalid Interpretation Code 1.005-1.030 [facility] Comment on above: Performed By: #### 1 [id number] ####[facility] [address] [place] [address] Type of Urine collection method Clean Catch Normal [facility] Comment on above: Performed By: #### 1 [id number] ####[facility] [address] [place] [address] Urobilinogen Qn (U) 0.2 {Redd'U}/dL Normal 0.0-1.0 [facility] Comment on above: Performed By: #### 1 [id number] ####[facility] [id number] [place] [id number] WBC Auto Ql (U) Negative Normal Negative [facility] Comment on above: Performed By: #### 1 [id number] ####[facility] [address] [place] [address] WBC LM.HPF (Urine sed) [#/Area] 0-5 Normal 0-5 [facility] Comment on above: Performed By: #### 1 [id number] ####[facility] [address] [place] [address] eGFRon 06-09-2021 GFR/1.73 sq M.predicted among blacks MDRD (S/P/Bld) [Vol rate/Area] mL/min/{1.73_m2} Normal >=59 [facility] Comment on above: Order Comment: Order added by Discern Expert. Result Comment: eGFR is race adjusted. AA=. Performed By: #### 2 [id number] #### [facility] [address] [place] [address] GFR/1.73 sq M.predicted among non-blacks MDRD (S/P/Bld) [Vol rate/Area] mL/min/{1.73_m2} Normal >=59 [facility] Comment on above: Order Comment: Order added by Discern Expert. Result Comment: Cleaning Attendant melina kidney disease could be indicated at eGFR's of less than 60 mL/min/1.73m2. Kidney failure is indicated at less than 15 mL/min/1.73m2. Performed By: #### 2 [id number] #### [facility] [address] [place] [address] Physician Orderon 06-01-2021 Physician Order [id number]#1. 00CD:127 Normal [facility] Pre-Certification Formon Pre-Certification Form [id number]#1. 00CD:127 [facility] Physician Orderon 05-31-2021 Physician Order [id number]#1. 00CD:127 [facility] Encounters Encounter Date Encounter Type Care Provider Facility Start: 01-07-[address] OSWALDO PARISH Facility :[facility] Start: 01-05-2022 Encounter for genera l adult medical examination without abnormal findings DR OSWALDO PARISH [facility] Start: 12-28-2021 End: 12-28-[address] OSWALDO PARISH Facility:[facility] Start: 12-28-2021 End: 12-28-2021 Encounter for general adult medical examination without abnormal findings DR OSWALDO PARSIH Facility:[facility] Start: 10-13-2021 End: 10-13-[address] OSWALDO PARISH Facility:[facility] Procedures Date Procedure Procedure Detail Performing Clinician Start: 12-28-[address] LINNETTE PARISH Comment on above: Performed By: #### P SAD #### [facility] [place] [facility] [address] [place], [place] [address] Dr. Talia Davalos Payers Date Payer Category Payer Medicaid [id number] 1957 Self-pay 1957 Unknown [id number] 1957 Unknown [id number] 1955 Unknown [id number] 1955 Unknown [id number] [id number] 1955 Unknown [id number] [id number] [id number] Clinical Note 05-24-2022 Note Date & Type Note Facility 05-24-2022 Note - From: Rose Sandhu To: HV - Administrative; Sent: 06/15/2021 15:35:32 EDT Show up: 05/15/2022 15:35:00 EDT Subject: 12 mnonth follow up Due Date/Time: 06/15/2022 15:35:00 EDT Reminder/Recall 12 month follow up with Dr. Loo (June 2022) Attempted to call patient to schedule annual follow up, no answer and unable to leave message. [facility] Discharge summary note 06-23-2021 Note Date & Type Note Facility 06-23-2021 Note Patient: TUNG NAVARRO Age: 65 years Sex: Male : 1955 Associated Diagnoses: None Author: Rafa Macedo DO Discharge Information Discharge Summary Information: Admit Date/Time: 06/22/21 10:51 Discharge Date/Time: 06/23/21 07:29 Admitting Physician: Rafa Macedo DO Referring Physician for Admission: Rafa Macedo DO Consulting Physicians: none Admitting Diagnoses: DJD left shoulder procedure: LTSA discharge disposition: home Discharge Diagnoses: Primary osteoarthritis, left shoulder Prescription and Home Meds: acetaminophen-oxycodone (Percocet 325 mg-5 mg Tab) See Instructions, 1-2 tab(s) Oral q4hr, PRN: as needed for pain, 50 tab(s), 0 Refill(s) aspirin (aspirin 81 mg oral tablet) 81 mg, 1 tab(s), Oral, Daily atorvastatin (atorvastatin 80 mg Tab) 80 mg, 1 tab(s), Oral, Daily diclofenac (Diclofenac 75mg Tab-DR) 75 mg, Oral, Daily docusate (Colace 100 mg Cap) 100 mg, 1 cap(s), Oral, BID, PRN: for constipation, 20 cap(s), 0 Refill(s) insulin detemir (Levemir 100 units/mL Injection-Insulin) 18 unit(s), SubCutaneous, Daily metformin (metformin 500 mg oral tablet) 500 mg, 1 tab(s), Oral, BID pioglitazone (pioglitazone 30 mg Tab) 30 mg, 1 tab(s), Oral, Daily [facility] Comment on above: Result Comment: Elec tronically Signed By: Rafa Macedo DO\.br\Date and Time Signed: 06/23/21 07:29 EDT History and physical note 06-21-2021 Note Date & Type Note Facility 06-21-2021 Note [id number]#1.00CD:127 [facility] Summary Purpose Family History No Family History Records FoundNo Family History Records Found Advance Directives No Advanced Directives Records FoundNo Advanced Directives Records Found Additional Source Comments (unrecognized sect ion and content) No Status Records FoundNo Status Records Found INFORMATION SOURCE (unrecogn ized section and content) DATE CREATED AUTHOR 05/27/2022 [facility] DATE CREATED AUTHOR AUTHOR'S ORGANIZ ATION 10/11/2022 [facility] FOR RECORDS PERTAINING TO PATIENTS WHO ARE OR HAVE BEEN ENROLLED IN A CHEMICAL DEPENDENCY/SUBSTANCEABUSE PROGRAM, SOME INFORMATION MAY BE OMITTED. This clinical summary was aggregated from multiple sources. Caution should be exercised in using it in the provision of clinical care. This summary normalizes information from multiple sources, and as a consequence, information in this document may materially change the coding, format and clinical context of patient data. In addition, data may be omitted in some cases. CLINICAL DECISIONS SHOULD BE BASED ON THE PRIMARY CLINICAL RECORDS. [employer] [facility]. provides no warranty or guarantee of the accuracy or completeness of information in this document.
[2023-11-20 10:25] LABS: Basophils Absolute Auto 0.1 10^3/uL (0.0-0.1); Basophils Percent Auto 1.5 % (0.2-2.0); Eosinophils Absolute Auto 0.2 10^3/uL (0.0-0.7); Eosinophils Percent Auto 3.1 % (0.9-7.0); Hematocrit 41.4 % (42.0-54.0); Hemoglobin 14.1 g/dL (14.0-18.0); Immature Granulocytes Abs Auto 0.05 10^3/uL (0.00-0.03); Immature Granulocytes Pct Auto 0.7 % (0.0-0.5); Lymphocytes Absolute Auto 2.1 10^3/uL (1.2-3.8); Lymphocytes Percent Auto 28.2 % (20.5-60.0); Mean Corpuscular HGB Conc 34.1 g/dL (29.9-35.2); Mean Corpuscular Hemoglobin 30.7 pg (25.9-34.0); Mean Corpuscular Volume 90.2 fL (80.0-94.0); Mean Platelet Volume 10.4 fL (9.5-13.5); Monocytes Absolute Auto 0.5 10^3/uL (0.3-0.8); Monocytes Percent Auto 6.2 % (1.7-12.0); Neutrophils Absolute Auto 4.5 10^3/uL (1.4-6.5); Neutrophils Percent Auto 60.3 % (43.0-75.0); Platelet Count 301 10^3/uL (150-450); Red Blood Count 4.59 10^6/uL (4.70-6.10); Red Cell Distribution Width 12.8 % (11.0-15.0); White Blood Count 7.5 10^3/uL (4.0-11.0)
[2023-11-20 11:18] LABS: Estimated Average Glucose 189 mg/dL; Glycohemoglobin A1C 8.2 % (4.5-6.2)
[2023-11-20 11:39] LABS: Prostate Specific Antigen Scrn 0.92 ng/mL (<=4.00)
[2023-11-20 11:40] LABS: Alanine Aminotransferase 25 U/L (16-63); Albumin Globulin Ratio 0.9; Albumin Level 3.3 g/dL (3.4-5.0); Alkaline Phosphatase 84 U/L (46-116); Anion Gap 15.4; Aspartate Amino Transferase 15 U/L (15-37); BUN Creatinine Ratio 13.2; Bilirubin Total 0.3 mg/dL (0.2-1.0); Calcium 8.6 mg/dL (8.5-10.1); Carbon Dioxide 23.7 mmol/L (21.0-32.0); Chloride 105 mmol/L (98-107); Chol HDL Ratio 10.4; Cholesterol 311 mg/dL (<=200); Estimated GFR (African America >60 (>=60); Estimated GFR (Non-African Ame >60 (>=60); Globulin 3.7 g/dL; Glucose 160 mg/dL (74-106); HDL Cholesterol 30 mg/dL (40-60); Potassium 4.1 mmol/L (3.5-5.1); Sodium 140 mmol/L (136-145); Triglycerides 746 mg/dL (<=150)
[2023-11-20 12:03] LABS: LDL Cholesterol Direct 147 mg/dL
== END 2023-11-20 09:02 | disposition home or self-care (01) ==
LOC: LAB 09:04
PROVIDERS: PCP Family Medicine; Visit Provider Family Medicine
DX: Z79.899 Other long term (current) drug therapy (principal); E78.00 Pure hypercholesterolemia, unspecified; E78.1 Pure hyperglyceridemia; Z12.5 Encounter for screening for malignant neoplasm of prostate; R53.83 Other fatigue; E11.9 Type 2 diabetes mellitus without complications
CPT/HCPCS: 36415; 80053; 80061; 83036; 83721; 85025; G0103

== ENCOUNTER 2024-06-24 11:28 | Outpatient (OUT) | payer MEDICARE, MEDICAID, SELFPAY ==
--- NOTE | 2024-06-24 | CONS_ITS ---
CONSULTATION DATE: 06/24/2024 TO: Kip Parish M.D. HISTORY: Patient returns today complaining of right hip pain. He has undergone physical therapy. He continues to use diclofenac despite the patient having had a history of a GI bleed, and his MATTHEW on today?s visit is 24. He still reports 5-7/10 pain, sharp in character, increased with activity such as standing, walking and performing transitioning maneuvers. He feels most comfortable in the semi-recumbent position. EXAMINATION: Notable for patient having no clinical radiculopathy or myelopathy involving his lower extremities. Patient did have a positive right sided FABERs sign. IMPRESSION: Our impression is patient reports having right hip joint pain secondary to degenerative joint disease. RECOMMENDATIONS: I have recommended he consider proceeding with a right hip joint injection under fluoroscopic guidance and to reconsider his right total hip replacement surgery, under the care of Dr. Rowley. He appears to be a little hesitant at the time. I have encouraged him to reconsider. In the interval, we will monitor his response to a right hip joint injection under fluoroscopic guidance. As part of providing excellent, safe, comprehensive care, the following was completed at our patient's visit: 1. A medication reconciliation and review to ensure accurate knowledge of current/active medications, including asking our patients to inform us about any [id number] medications or herbal remedies/nutritional supplements/alternative remedies. 2. A review to specifically ensure our patients have had annual screening for: elevated body mass index (BMI, see intake chart for exact total), tobacco use, screening for depression, and screening for unhealthy alcohol use. When screening is concerning, patients are provided with education and the specific recommendation to discuss the concerning health issue and treatment options with their primary care provider. MINI
== END 2024-06-24 11:29 | disposition home or self-care (01) ==
LOC: PM 11:29
PROVIDERS: PCP Family Medicine; Visit Provider Anesthesiology Pain Medicine
DX: M25.551 Pain in right hip (principal); M16.11 Unilateral primary osteoarthritis, right hip
CPT/HCPCS: G0463

== ENCOUNTER 2024-07-14 08:27 | Day surgery (SDC) | payer MEDICARE, MEDICAID, SELFPAY ==
--- OUTSIDE RECORDS SUMMARY | 2024-07-14 08:40 | XMS_ITS | CCD ---
Author Organization [facility] Care Team Providers Care Cupola Tapper Name Role Phone MADISYN, DR CHACON Admitting Unavailable HOY, DR CHACON Attending Unavailable HOY, DR CHACON Primary Care Unavailable HOY, DR CHACON Admitting Unavailable HOY, DR CHACON Attending Unavailable HOLDENY, DR CHACON Primary Care Unavailable HOLDENY, DR CHACON Consulting Unavailable HOY, DR CHACON Admitting Unavailable HOY, DR CHACON Attending Unavailable HOLDENY, DR CHACON Primary Care Unavailable HOLDENY, DR [...] 12-28-2021 BASO # 0.1 103/ul Normal 0.0-0.1 [facility] Comment on above: Performed By: #### C BC #### [facility] [address] [place], [place] [address] Dr. Talia Davalos Basophils/100 WBC (Bld) 0.9 % Normal 0.2-2.0 [facility] Comment on above: Performed By: #### C BC #### [facility] [address] [place] [address] Dr. Talia Davalos EO # 0.2 103/ul Normal 0.0-0.7 [facility] Comment on above: Performed By: #### C BC #### [facility] [address] [place] [address] Dr. Talia Davalos Eosinophils/100 WBC (Bld) 2.9 % Normal 0.9-7.0 [facility] Comment on above: Performed By: #### C BC #### [facility] [address] [place] [address] Dr. Talia Davalos Erythrocyte distribution width (RBC) [Ratio] 13.8 % Normal 11.0-15.0 [facility] Comment on above: Performed By: #### C BC #### [facility] [address] [place] [address] Dr. Talia Davalos Hematocrit (Bld) [Volume fraction] 41.7 % Critically low 42.0-54.0 [facility] Comment on above: Performed By: #### C BC #### [facility] [address] [place] [address] Dr. Talia Davalos Hemoglobin (Bld) [Mass/Vol] 14.2 g/dL Normal 14.0-18.0 [facility] Comment on above: Performed By: #### C BC #### [facility] [address] [place] [address] Dr. Talia Davalos IG # 0.03 10e3/ul Normal 0.00-0.03 [facility] Comment on above: Performed By: #### C BC #### [facility] [address] [place] [address] Dr. Talia Davalos IG % 0.4 % Normal 0.0-0.5 [facility] Comment on above: Performed By: #### C BC #### [facility] [address] [place] [address] Dr. Talia Davalos LYMPH # 1.7 103/ul Normal 1.2-3.8 [facility] Comment on above: Performed By: #### C BC #### [facility] [address] [place] [address] Dr. Talia Davalos Lymphocytes/100 WBC (Bld) 25.7 % Normal 20.5-60.0 [facility] Comment on above: Performed By: #### C BC #### [facility] [address] [place] [address] Dr. Talia Davalos MANUAL DIFF REQ NO Normal [facility] Comment on above: Performed By: #### C BC #### [facility] [address] [place] [address] Dr. Talia Davalos MCH (RBC) [Entitic mass] 30.5 pg Normal 25.9-34.0 [facility] Comment on above: Performed By: #### C BC #### [facility] [address] [place] [address] Dr. Talia Davalos MCHC (RBC) [Mass/Vol] 34.1 g/dL Normal 29.9-35.2 [facility] Comment on above: Performed By: #### C BC #### [facility] [address] [place] [address] Dr. Talia Davalos MCV (RBC) [Entitic vol] 89.7 fL Normal 80.0-94.0 [facility] Comment on above: Performed By: #### C BC #### [facility] [address] [place] [address] Dr. Talia Davalos MONO # 0.4 103/ul Normal 0.3-0.8 [facility] Comment on above: Performed By: #### C BC #### [facility] [address] [place] [address] Dr. Talia Davalos Monocytes/100 WBC (Bld) 6.2 % Normal 1.7-12.0 [facility] Comment on above: Performed By: #### C BC #### [facility] [address] [place] [address] Dr. Talia Davalos NEUT # 4.3 103/ul Normal 1.4-6.5 [facility] Comment on above: Performed By: #### C BC #### [facility] [address] [place] [address] [address] Talia Davalos Neutrophils/100 WBC (Bld) 63.9 % Normal 43.0-75.0 [facility] Comment on above: Performed By: #### C BC #### [facility] [address] [place] [address] [address] Talia Davalos Platelet mean volume (Bld) [Entitic vol] 9.6 fL Normal 9.5-13.5 [facility] Comment on above: Performed By: #### C BC #### [facility] [address] [place] [address] Dr. Talia Davalos PLT 257 103/ul Normal 150-450 [facility] Comment on above: Performed By: #### C BC #### [facility] [address] [place] [address] Dr. Talia Davalos RBC 4.65 106/ul Critically low 4.70-6.10 [facility] Comment on above: Performed By: #### C BC #### [facility] [address] [place] [address] Dr. Talia Davalos WBC 6.8 103/ul Normal 4.0-11.0 [facility] Comment on above: Performed By: #### C BC #### [facility] [address] [place] [address] Dr. Talia Davalos DIRECT LDLon 12-28-2021 Cholesterol in LDL [Mass/Vol] 73 mg/dL Normal [facility] Comment on above: Performed By: #### D LDL, T7, TSH, CMP, LIPID #### [facility] [address] [place] [address] Dr. Talia Davalos DLDL NORMAL SEE BELOW Normal [facility] Comment on above: Result Comment: <100 mg/dl OPTIMAL 100 - 129 mg/dl NEAR OR ABOVE OPTIMAL 130 - 159 mg/dl BORDERLINE HIGH 160 - 189 mg/dl HIGH >190 mg/dl VERY HIGH Performed By: #### D LDL, T7, TSH, CMP, LIPID #### [facility] [address] [place] [address] [address] Talia Davalos FREE THYROXINE INDEX T7on FTI 1.97 Normal [facility] Comment on above: Performed By: #### D LDL, T7, TSH, CMP, LIPID #### [facility] [address] [address] [address] Talia Davalos T3U 34.0 % Normal 23.5-40.5 [facility] Comment on above: Performed By: #### D LDL, T7, TSH, CMP, LIPID #### [facility] [address] [place] [address] [address] Talia Davalos T4 [Mass/Vol] 5.80 ug/dL Normal 5.53-11.00 [facility] Comment on above: Performed By: #### D LDL, T7, TSH, CMP, LIPID #### [facility] [address] [place] [address] Dr. Talia Davalos LIPID PROFILEon 12-28-2021 CHOL-HDL RATIO NORM SEE BELOW Normal [facility] Comment on above: Result Comment: 3.3 - 4.4 LOW RISK 4.4 - 7.1 AVERAGE RISK 7.1 - 11.0 MODERATE RISK >11.0 HIGH RISK Performed By: #### D LDL, T7, TSH, CMP, LIPID #### [facility] [address] [place] [address] [address] Talia Davalos Cholesterol [Mass/Vol] 254 mg/dL Critically high <=200 [facility] Comment on above: Performed By: #### D LDL, T7, TSH, CMP, LIPID #### [facility] [address] [place] [address] [address] Talia Davalos Cholesterol in HDL [Mass/Vol] 32 mg/dL Normal [facility] Comment on above: Performed By: #### D LDL, T7, TSH, CMP, LIPID #### [facility] [address] [place] [address] [address] Talia Davalos Cholesterol.total/Cho lesterol in HDL [Mass ratio] 7.9 {ratio} Normal [facility] Comment on above: Performed By: #### D LDL, T7, TSH, CMP, LIPID #### [facility] [address] [place] [address] [address] Talia Davalos HDL NORMAL > or = 60 mg/dl - LO W CARDIOVASCULAR RISK <40 mg/dl - HIGH CARDIOVASCULAR RISK Normal [facility] Comment on above: Performed By: #### D LDL, T7, TSH, CMP, LIPID #### [facility] [address] [place] [address] [address] Talia Davalos Triglyceride [Mass/Vol] 1026 mg/dL Critically high <=150 [facility] Comment on above: Performed By: #### D LDL, T7, TSH, CMP, LIPID #### [facility] [address] [place] [address] [address] Talia Davalos PROF 14(COMP METB)on 022 Albumin [Mass/Vol] 3.5 g/dL Normal 3.5-5.0 [facility] Comment on above: Performed By: #### D LDL, T7, TSH, CMP, LIPID #### [facility] [address] [place] [address] Dr. Talia Davalos Albumin/Globulin [Mass ratio] 0.9 {ratio} Normal [facility] Comment on above: Performed By: #### D LDL, T7, TSH, CMP, LIPID #### [facility] [address] [place] [address] Dr. Talia Davalos ALP [Catalytic activity/Vol] 125 U/L Normal 38-126 [facility] Comment on above: Performed By: #### D LDL, T7, TSH, CMP, LIPID #### [facility] [address] [place] [address] Dr. Talia Davalos ALT [Catalytic activity/Vol] 33 U/L Normal 21-72 [facility] Comment on above: Performed By: #### D LDL, T7, TSH, CMP, LIPID #### [facility] [address] [place] [address] Dr. Talia Davalos Anion gap [Moles/Vol] 15.3 mmol/L Normal [facility] Comment on above: Performed By: #### D LDL, T7, TSH, CMP, LIPID #### [facility] [address] [place] [address] [address] Talia Davalos AST [Catalytic activity/Vol] 15 U/L Critically low 17-59 [facility] Comment on above: Performed By: #### D LDL, T7, TSH, CMP, LIPID #### [facility] [address] [place] [address] [address] Talia Davalos Bilirubin [Mass/Vol] 0.7 mg/dL Normal 0.2-1.3 [facility] Comment on above: Performed By: #### D LDL, T7, TSH, CMP, LIPID #### [facility] [address] [place] [address] Dr. Talia Davalos Calcium [Mass/Vol] 8.9 mg/dL Normal 8.4-10.2 [facility] Comment on above: Performed By: #### D LDL, T7, TSH, CMP, LIPID #### [facility] [address] [place] [address] Dr. Talia Davalos Chloride [Moles/Vol] 103 mmol/L Normal 98-107 [facility] Comment on above: Performed By: #### D LDL, T7, TSH, CMP, LIPID #### [facility] [address] [place] [address] Dr. Talia Davalos CO2 [Moles/Vol] 24.1 mmol/L Normal 22.0-30.0 [facility] Comment on above: Performed By: #### D LDL, T7, TSH, CMP, LIPID #### [facility] [address] [place] [address] Dr. Talia Davalos Creatinine [Mass/Vol] 0.84 mg/dL Normal 0.66-1.25 [facility] Comment on above: Performed By: #### D LDL, T7, TSH, CMP, LIPID #### [facility] [address] [place] [address] Dr. Talia Davalos EGFR-AF TUVALUAN >60 Normal >=60 [facility] Comment on above: Performed By: #### D LDL, T7, TSH, CMP, LIPID #### [facility] [address] [place] [address] Dr. Talia Davalos EGFR-NON AF TUVALUAN >60 Normal >=60 [facility] Comment on above: Performed By: #### D LDL, T7, TSH, CMP, LIPID #### [facility] [address] [place] [address] [address] Talia Davalos Globulin (S) [Mass/Vol] 3.9 g/dL Normal [facility] Comment on above: Performed By: #### D LDL, T7, TSH, CMP, LIPID #### [facility] [address] [place] [address] [address] Talia Davalos Glucose [Mass/Vol] 199 mg/dL Critically high 74-106 [facility] Comment on above: Performed By: #### D LDL, T7, TSH, CMP, LIPID #### [facility] [address] [place] [address] Dr. Talia Davalos Potassium [Moles/Vol] 4.4 mmol/L Normal 3.4-5.0 [facility] Comment on above: Performed By: #### D LDL, T7, TSH, CMP, LIPID #### [facility] [address] [place] [address] Dr. Talia Davalos Protein [Mass/Vol] 7.4 g/dL Normal 6.1-8.2 [facility] Comment on above: Performed By: #### D LDL, T7, TSH, CMP, LIPID #### [facility] [address] [place] [address] Dr. Talia Davalos Sodium [Moles/Vol] 138 mmol/L Normal 137-145 [facility] Comment on above: Performed By: #### D LDL, T7, TSH, CMP, LIPID #### [facility] [address] [place] [address] Dr. Talia Davalos Urea nitrogen [Mass/Vol] 12.0 mg/dL Normal 9.0-20.0 [facility] Comment on above: Performed By: #### D LDL, T7, TSH, CMP, LIPID #### [facility] [address] [place] [address] Dr. Talia Davalos Urea nitrogen/Creatinine [Mass ratio] 14.3 mg/mg Normal [facility] Comment on above: Performed By: #### D LDL, T7, TSH, CMP, LIPID #### [facility] [address] [place] [address] [address] Talia Davalos TSHon 12-28-2021 TSH 0.785 uIU/mL Normal 0.470-4.680 [facility] Comment on above: Performed By: #### D LDL, T7, TSH, CMP, LIPID #### [facility] [address] [place] [id number] [address] Talia Davalos TSH RANGE SEE BELOW Normal [facility] Comment on above: Result Comment: <0.3 4 UIU/ml HYPERTHYROID 0.34-5.60 UIU/ml EUTHYROID >5.60 UIU/ml HYPOTHYROID Performed By: #### D LDL, T7, TSH, CMP, LIPID #### [facility] [address] [address] [address] Talia Davalos Coding Summary.on 07-04-2021 Coding Summary. CD:[id number] Gh 0bWw+PGhlYWQ+AA8IBAFzA 54fuATujD3MF1jFGT6JBQD ROANFFY1MBI6gfAK6IJcdC 2VybiAv DzegePAkHW59OUd0HTS2cX alRNeydU9ewGXmL1w5BiXo JW18nL41KTwuHGSrUaD9As ZpbjsgbWFy Z5pzEgEonSYyUkr+PHRhYm xlIHdpZHRoPScxMDAlJyBz wJafDA0kJg1yJNNqNVPspA xhcHNlOiBj f1ttJBArDGtaVM5vaAxzF9 TbeEK1PFNaq8m5Pp07gGS+ BFLuXRC5pYtcKUypl868Ej Mfn4vtFUE2 uNGuCNrxUKV6B92xd0D7HQ BgFDObTDL0kNY6zB2bpIrs zpfqY4WwaRIiHgS6YOR9kQ ZlzD4prCfm vibfuY7kVsj+K97SAF5RSJ LKSM9CCop6E6BfIjkoiUZ+ EZ19AOXbIZ12fVVtaZDyk0 pesJa1VfEv LBCvKWA3xVfkKKykl8AqGI KiV51ypQVau8Y6WBQfwXko cABfHuRkvDY6mC6fGUsptq evj8dwwolg Tmguy2tnvf43wK07Z09qMS euVLPhBAU9EEChXVWcsYig fv5fmN8cRi8+WOxuc0mmh7 imwDx2TvDl FMXyzeGltVywQNG1a4NdWg 23A0NnsMuih7GcXtk3jv92 wWTxy9E5mOL2ROiuRUTyzP 5qRSvjWdX3 RDXtWyPnqK34iVRcTXogCe 2bkBxgxIvtKL7sPGJoeugk QYUiqS8pZQXfnSMhtIofAE 4wNTBpbjtm t850GyHvNLB1JDXuhRQuH7 WufP9aZqZzGUWqVZBeB1Hq aHBvTTasO126EFxdBiA3YN RwfnZoF1Or XYGgfKsvMwI3g1F1Xg6Av6 DizhrqFPK6QFrdCZY5UnHn HpKyGrT2O8EbXup2VVRwsU nyNO4jL6Er WVJdivwetbboqUC9EXMbXY CwtU77cJOaAFbkYk1yo1K3 q330MHYiGHYttD67Ij8pvM ogMTBwdCBU bD9hwppiz8qumpkiQlSdWX HgYIi9ECa7JMYndKcjMnSf RHU9OjP6WNO5nDFvpO0inQ ebhppjtV1l Oyc+B44etI6oYMU8PCX0uu sjZUNtukCvIG56LS03G4Ij PjwvdGFibGU+PGRpdiBzdH sgMU7uCmNg a2jqw9SqBRnzR0WjOHXxCQ iwWza2DCXgBTY4fHV4uM7u ETMmQNhtw3Y8sRB1L7Aeue Skhx5ix2sf FKAfZEbzV61mwILyx8N9GA TtzBE1RXWkwIvzBwSejK46 Oyc+ZBWyxQpbs3KlOpdkn9 ult7egrFh0 XvBnKDHoonDznJnaDRC2m3 OsZd73H62bKOzhMUMhTVSd GFIuLIWbxFcbzm4tlF8rOs 8+PGNvbCB3 bXO0sS3hZRGzEnU1YAouT3 11PcVukSDrBnpdc2npi6uq aTf3OxMrSKBqflUgjHqjCR V1a3NjUo78 F37oMYapKTLgSQViRSQlHX ZhfAdyct3goK0cOa3+PC9j h6qxpi23dK63xTO+PHRkIH X3oDlcGGtb TSUukW7rUNlgFyW2TPJmAw EskZ15iZPlSBfmKj7hoWxj yFntSR5sRADmrldqt109Rd Zsz0mdQWKo nYZjTDnbEYB5Y69sl8Q2ES WeDWUkHJD6wPB3jX1dtQbs bjogbGVmdDsgdmVydGljYW rkLZmsA545 IHRvcDsnPlBhdGllbnQgTm PxWNq1O6HhVnt9POIgtFyn AS0uuPQtNFfjIh9oyTnwiT ulET1zKYOh dybtd062GxXzo5kbKUIzzR LaSBxlLPS1N69ob3Q5QFKl FTCmMDZ4ySK1fN3suRlstm ogbGVmdDsg qaCnoNvqOVonZEitG056XD RvcDsnPkJpcnRoIERhdGU6 DK96NS63zEIer9C5yMY5B7 BhZGRpbmct qxpdfLJ3DLCfBMHyuL31Ft 7jhFsyIl0sACHzIFB0XWIv cKQrU3AycO1wVeIeAHQlRC CvU9KtgWQm KEalJ784LMgnRzM3SMLffo KvC6MjYMWxyYxgOxH7t8X5 Fv0UP5P1UT59VL39cMLdq5 L6vGQ4O2Ub AYMfpaxsdllebAS8GQUeLV WmgQ87Ll3cyTjcXr4iRTBs AVQ6WLQxvKVtC2XfqH7cFn AjMDAwMDAw G8RenGBqNBjkI744OLapXj U3SIOpjyCdJ7IlRRVeuTrn ZtC5u6U6Ma9SYXp2ZS75GL 85jHNyq1T0 xAP1C6FzOKTsimskuawznW T0BZIeYBHoaG92Dc4ogYyz Yy6kCAIsYQX3DAQllLXoG4 IdnK7iJvSs MNLaHRBtM3NdlJQeMTebB2 36BCugJxM6GOAcbsZhX2Po SEMpeEbuYeX3f1E2Of1CTH TsMF85KDD2 gFY4PI30JK82Z1RxUtauuT FibGU+PHRhYmxlIHdpZHRo HRrqVWPaJtFvkRxsZE8oSz 9yZGVyLWNv dXjtyFNnSvBhe2vgIIJcYQ qaOS4qlAuhP5EkzES9QPKs h7a5Kz75N54gI6YvlHI+PG JoyHA9iQR9 cP2eUtBkAcB4NWpwS490Fg OlyQJjDyfps3ehr6skqBt6 NkQ4ZBDhqeMpvYylRHH3o1 DkNt12N03k IHdpZHRoPSIxNSUiIHZhbG eayq2qkS4wAf0+PGNvbCB3 fVG4xM9bLlAyOtG4WQvkX5 49InRvcCIv Hmfpc5exw3olhOi8TqXbGM UtxwYkcYxtFGJ8w8DvOa77 Y5PerLhdh6ZqEny6wp04aY Iaq7M2mOY6 Q7SmXNRkswmhpNKmpBvtBT 4dHZPjjzetYSFwyR9wFGNx H6h2BxPhUsU0GIniM5Elhq C3GBZgoMKd PDflHKM2A68gj7C3GGDhBZ GjSWK0rZE3uR5qzGgxlxnv bGVmdDsgdmVydGljYWwtYW llJ154UGHc kPxqUGLobJ7eXMAkvVUpzI doST4kXAEhekcpIpLWUJJV UMraOvZUVW7EMLrvnQA+PH OgCNY2wSkb AMbtIGSexZ4iQIZiT8v6Tg XiUtI5DOoxF8OwTORzygxf Ke28rS1sIiPpNjM2EPuvS0 LaqrM7HOCj uVQaJQnkWXA4N75sr8S5AI FfHJRxPKM1dVB8jA4niRjt bjogbGVmdDsgdmVydGljYW xqZJsgM724 TLIfcRpvNuTbNqLyDrD7PR b9G6BdBvq3YVXuuRlmYD7r hCMwOFheTq9voVkxrGvgWL 4wNTBpbjtw SHRxfG5pONWilRWxgZthMZ 5xCEDgqpqwg572SiCnOID1 CGLfkANmM9PtfF7uJuVvXQ KhOPQpN4Lr vPWnVEstN909QZhrRnC8KT FqphAqO4KvZRPbeAezUrY9 y4T3Sb45CpDINLVveppljS Q+PHRkIHN0 vFwhGEraFEIekX3pUJUlP7 q1NkJdTlE5PYfpC8PbOLJo ckamJl69zC5aOgSaBdQ9QK dpT5YmtxV5 TQTejVOcTErrYTQ5Q97ez1 U9BRJeTGRwFKL4gMO9vD9l bGlnbjogbGVmdDsgdmVydG ljYWwtYWxp E376MVRpqDwjBb0gvOB8F1 BgTsk3PTYbrSjwGF7rjJFp WRgyDu6ybWcgvJrhGF3oEX BpbjtwYWRk xD6qDQCnvZJwpJtmBA3xEA Yjtqytw112DiUtNXD1HEDa dCWcG4KoxL8bWtOhHSUlGP NwI3AtdTZq TVucO542IEzbMdK9ZYGqha MmP1KvOYEmwNwsFfU0t6A3 Nz3UbsSajUnwolB0W5IiMl wvdHI+PC90 YECkUL19yKNwnRWxn8dynC p9BkZgJWXuKLT6bCqtYNoh p0GhXMZgQ90evUQyy0Z1SV NvbGxhcHNl GzAscYI3yV2kLIvydbfoz3 erlyqlHzkdi7alri78vU14 U00xVBipQTLzSSZrKNGrVS CqpDxjmm8p wG1dOg0+ATFehZX4aTL3cD 0pUrLqTuS9UWptK968DaOh sDXvHiidn2rhz7oigYj5Yn IwJSIgdmFs iQlfOEJ3f9ByEq19G37yXT dpZHRoPSIyMCUiIHZhbGln um1cvF5ySi6+LK1xc1znzb 75nM09tYW+ VRTcPJY4rRujQZtrJJBppX 1rLCmiNcV6KQPbUkQfvO54 uXBnVYcnYi4rmPkoyCwpIP 4wNTBpbjtm n309ByEvd2dlJMNcyEOoKN ddAUA3F93ly1N7BAPtDMSd VXJ4jMB5iV4mlEkzmgmtaW VmdDsgdmVy wXqbLTgoZLlnB799ZCHxgB tpFwFqcYBbR6psyfXMBK4z OjwvdGQ+BKGhHRF5bSmxEE ylVMEkfV4l KZTnJ0c7QqXqHaT4HGinX1 CaafE9LVJifAKxETJqaOBI tT3okuedx0qppocrWaZhOW XmHZl0SCd6 VSTzeUdgEyIdIRS2FkI2AP V9hWMxzB8oxNmcomxalW2e Oyc+RklOOjwvdGQ+PHRkIH Y8qTcmNMrr CWXbcH1xRTKiM1q8UeMuGm S2AFnmB6HtuzU3HBQwlHQy AGOepSQSuO8vqurjp1imyr ogIzAwMDAw ENr0JLm8CCCrdXplPqHrDD Z3ZpB0LRW7wRUcxU9tiIja jvzyzB3vGxu+TVJOOjwvdG Q+PHRkIHN0 fEurCPgeENSlgP4sBVXyK8 d5RbTtKbI9GJzcV4BaksY9 TAJdlZVtIJAlaPQBqD4thp qgf3mecudf YmEzTKEtROb9MTk9FJOfcK nsWxCsHKJ4DtM1BRN1gVVs jQ8hmZaqsnwzhW7hRrp+UG P1NMG3AR61 WT79R6JrJymrsCTkvSL+PH RhYmxlIHdpZHRoPScxMDAl RcZofKqvPA5sXs8mQMIdYN NvbGxhcHNl OiBj (more content not included)... Normal [facility] IntraOperative Documentson 0 07-01-2021 IntraOperative Documents [id number] Normal [facility] Main OR Intraoperative Recor don 06-29-2021 Main OR Intraoperative Record IntraOp Document Type FT Summary Primary Physician: Rafa Macedo DO Finalized Date/Time: 06/29/21 09:25:56 Pt. Name: RIGO NAVARRO/Sex: 1955 Male Med Rec #: [id number] Physician: Rafa Macedo DO Financial #: [id number] Pt. Type: I Room/Bed: [facility]11/05 Admit/Disch: 06/22/21 10:51:15 - 06/23/21 12:40:00 Institution: Case Times FT Entry 1 Patient Times In Room 06/22/21 12:43:00 Out Room 06/22/21 15:47:00 Procedure Times Start 06/22/21 13:25:00 Stop 06/22/21 15:35:00 Anesthesia Times Start 06/22/21 12:43:00 Stop 06/22/21 15:47:00 Block Timeout w/ 06/22/21 12:30:00 Anesthesia Last Modified By: Danika TRIMBLE, Mckenna Mercado 06/22/21 15:51:41 General Comments: 06/29/21 chart opened for charge review per Murphy Magallon RN. [place] Case Attendance FT Entry 1 Entry 2 Entry 3 Case Attendee Mikey COATS, Shad Macedo DO, Rafa Oliver STRIPE MARKER, FA, Peter K Role Performed Anesthesiologist Surgeon - Primary SA - [employer] Mercerizer Operator Time In 06/22/21 12:43:00 06/22/21 12:43:00 06/22/21 12:43:00 Time Out 06/22/21 15:32:00 06/22/21 15:47:00 06/22/21 15:47:00 Procedure SHOULDER TOTAL SHOULDER TOTAL SHOULDER TOTAL ARTHROPLASTY(Left) ARTHROPLASTY(Left) ARTHROPLASTY(Left) Comments Supervised by Dr Boo Last Modified By: Danika RN, Mckenna Garnica RN, Mckenna Garnica RN, Mckenna Mercado 06/22/21 15:51:44 06/22/21 15:51:44 06/22/21 15:51:44 Entry 4 Entry 5 Entry 6 Case Attendee Lidia SRIVASTAVA, Imani Pereira RN, Sandhya Role Performed Scrub - Primary Staff - Other Staff - Other Time In 06/22/21 12:43:00 06/22/21 12:43:00 06/22/21 12:43:00 Time Out 06/22/21 15:47:00 06/22/21 15:47:00 06/22/21 14:57:00 Procedure SHOULDER TOTAL SHOULDER TOTAL SHOULDER TOTAL ARTHROPLASTY(Left) ARTHROPLASTY(Left) ARTHROPLASTY(Left) Comments Third scrub Second scrub Last Modified By: Danika RN, Mckenna Garnica RN, Mckenna Garnica RN, Mckenna Mercado 06/22/21 15:51:44 06/22/21 15:51:44 06/22/21 15:51:44 Entry 7 Entry 8 Case Attendee Mckenna Garnica RN, JR, DO, Nicholas J Role Performed Commutator V Ring Assembler - Primary Anesthesiologist of Record Time In 06/22/21 12:43:00 06/22/21 15:30:00 Time Out 06/22/21 15:47:00 06/22/21 15:47:00 Procedure SHOULDER TOTAL SHOULDER TOTAL ARTHROPLASTY(Left) ARTHROPLASTY(Left) Comments Last Modified By: Mckenna Garnica RN, RN, Tracy D 06/22/21 15:51:44 06/22/21 15:51:44 General Comments: Enmanuel Maldonado and Rehana Monteiro [place] Reps were present for the procedure./Dani Mucria and Willard Barrow [place] Reps were present for the procedure./Dani TRIMBLEweekend receptionist Protocols FT Pre-Care Text: Implements protective measures [...] CRNA, Given Participants Rafa Macedo DO, Muata STRIPE MARKER, FA, Peter K, Lidia STRIPE MARKER, Jarod Foster Rachel L, Hord RN, Danika [...] Garnica RN 08 (more content not included)... [facility] Consent for Anesthesiaon Consent for Anesthesia [id number]#1. 00CD:127 [facility] Consent for Procedure/Surger yon 06-24-2021 Consent for Procedure/Surgery [id number]#1. 00CD:127 [facility] Discharge Instructionson Discharge Instructions [id number]#1. 00CD:127 [facility] IntraOperative Documentson 0 06-24-2021 IntraOperative Documents [id number]#1. 00CD:127 [facility] IntraOperative Documents [id number]#1. 00CD:127 [facility] Preoperative Documentson Preoperative Documents [id number]#1. 00CD:127 [facility] Preoperative Documents [id number]#1. 00CD:127 [facility] Auto Diffon 06-23-2021 Basophils/100 WBC (Bld) 0.2 % Normal 0.0-2.0 [facility] Comment on above: Order Comment: Order Added by Discern Expert. Performed By: #### 2 [id number], [id number], [id number], [id number], [id number] ####[facility] [address] [place] [address] Basophils/Leukocytes Auto (Bld) [Pure # fraction] 0.0 E9/L Normal 0.0-0.2 [facility] Comment on above: Order Comment: Order Added by Discern Expert. Performed By: #### 2 688221, 81592576, 1224240, 8414706, 1808893, 6164176 ####[address] [place] [address] Eosinophils/100 WBC (Bld) 0.2 % Normal 0.0-8.0 [facility] Comment on above: Order Comment: Order Added by Discern Expert. Performed By: #### 2 001961, 42492635, 7273621, 1088584, 8905777, 9354023 ####[address] [address] Eosinophils/Leukocyte s Auto (Bld) [Pure # fraction] 0.0 E9/L Normal 0.0-0.5 [facility] Comment on above: Order Comment: Order Added by Discern Expert. Performed By: #### 2 952333, 29172652, 3429544, 2941971, 8384483, 2344022 ####[address] [place] [address] Lymphocytes/100 WBC (Bld) 11.6 % Low 14.0-50.0 [facility] Comment on above: Order Comment: Order Added by Discern Expert. Performed By: #### 2 154768, 26145245, 3832557, 0546449, 6563969, 0722711 ####[facility] [address] [place] [address] Lymphocytes/Leukocyte s Auto (Bld) [Pure # fraction] 1.4 E9/L Normal 1.0-4.0 [facility] Comment on above: Order Comment: Order Added by Discern Expert. Performed By: #### 2 962826, 42728782, 1048751, 4922594, 4704472, 8431635 ####[facility] [address] [place] [address] Monocytes/100 WBC (Bld) 7.6 % Normal 4.0-14.0 [facility] Comment on above: Order Comment: Order Added by Discern Expert. Performed By: #### 2 364821, 63381123, 3850801, 0949444, 3569197, 2777987 ####[facility] [address] [place] [address] Monocytes/Leukocytes Auto (Bld) [Pure # fraction] 0.9 E9/L Normal 0.2-1.0 [facility] Comment on above: Order Comment: Order Added by Discern Expert. Performed By: #### 2 646808, 43471104, 5279909, 5554690, 5592352, 9487208 ####[facility] [address] [place] [address] Neutrophils/100 WBC (Bld) 80.4 % High 36.0-75.0 [facility] Comment on above: Order Comment: Order Added by Discern Expert. Performed By: #### 2 839659, 72950396, 9884717, 8274215, 6760160, 3505931 ####[facility] [address] [place] [address] Neutrophils/Leukocyte s Auto (Bld) [Pure # fraction] 9.6 E9/L High 2.0-7.5 [facility] Comment on above: Order Comment: Order Added by Discern Expert. Performed By: #### 2 027217, 03464849, 4781776, 2054032, 8565838, 6778163 ####[facility] [address] [place] [address] BUNon 06-23-2021 Urea nitrogen [Mass/Vol] 17 mg/dL Normal 5-21 [facility] Comment on above: Performed By: #### 2 573478, 32472433, 8771120, 9139518, 9145885, 7253291 #### [facility] [address] [place] [address] CBC w/ Auto Diffon 1 Erythrocyte distribution width (RBC) [Ratio] 13.7 % Normal 10.9-14.2 [facility] Comment on above: Performed By: #### 2 366045, 98206156, 8409846, 7379718, 8784082, 7981068 ####[facility] [address] [place] [address] Hematocrit (Bld) [Volume fraction] 39.6 % Normal 37.7-49.0 [facility] Comment on above: Performed By: #### 2 467643, 46658394, 2102756, 6799905, 5783216, 9851294 ####[address] [place] [address] Hemoglobin (Bld) [Mass/Vol] 13.4 g/dL Low 13.5-17.5 [facility] Comment on above: Performed By: #### 2 463968, 50612062, 3317038, 4554058, 5933479, 7964518 ####[facility] [address] [place] [address] MCH (RBC) [Entitic mass] 30.6 pg Normal 27.0-34.0 [facility] Comment on above: Performed By: #### 2 992430, 05776383, 8257265, 8950923, 5795480, 8101593 ####[facility] [address] [place] [address] MCHC (RBC) [Mass/Vol] 33.8 g/dL Normal 31.4-36.0 [facility] Comment on above: Performed By: #### 2 248857, 48163192, 8132120, 4271324, 3508392, 3744535 ####[address] [place] [address] MCV (RBC) [Entitic vol] 90.7 fL Normal 80.0-100.0 [facility] Comment on above: Performed By: #### 2 676438, 75109264, 2432346, 1776821, 3118445, 6631521 ####[facility] [address] [place] [address] Platelet mean volume (Bld) [Entitic vol] 8.5 fL Normal 6.4-10.8 [facility] Comment on above: Performed By: #### 2 870042, 15775110, 3786032, 7003746, 1280040, 2890829 ####[address] [place] [address] Platelets (Bld) [#/Vol] 275.0 E9/L Normal 150.0-500.0 [facility] Comment on above: Performed By: #### 2 596191, 94907610, 5126617, 2774491, 9194146, 6662605 ####[facility] [address] [place] [address] RBC (Bld) [#/Vol] 4.4 E12/L Normal 4.3-5.9 [facility] Comment on above: Performed By: #### 2 322320, 36647530, 9376892, 9203170, 6886330, 1932820 ####[address] [place] [address] WBC corrected for nucl RBC Auto (Bld) [#/Vol] 11.9 E9/L High 4.0-11.0 [facility] Comment on above: Performed By: #### 2 764191, 78290704, 6097337, 3685428, 8399352, 6680785 ####[address] [place] [address] Capillary Glucose POCon 06-05 Glucose [Mass/Vol] 174 mg/dL High 55-99 [facility] Comment on above: Result Comment: Yoly lashanda Meter Performed By: #### 2 17840666 #### [facility] [address] [place] [address] Glucose [Mass/Vol] 221 mg/dL High 55-99 [facility] Comment on above: Result Comment: Yoly lashanda Meter Performed By: #### 2 24550339 #### [facility] [address] [place] [address] Glucose [Mass/Vol] 173 mg/dL High 55-99 [facility] Comment on above: Result Comment: Yoly lashanda Meter Performed By: #### 2 53734688 ####[facility] [address] [place] [address] Creatinineon 06-23-2021 Creatinine [Mass/Vol] 0.9 mg/dL Normal 0.5-1.3 [facility] Comment on above: Performed By: #### 2 983188, 47515051, 6068364, 5427007, 7838422, 1686533 #### [facility] [address] [place] [address] Inpatient Patient Summaryon 06-23-2021 Inpatient Patient Summary [address] [address] [facility] Clinical Discharge Instructions PERSON INFORMATION Name: RIGO NAVARRO [facility]#:[id number] PHYSICIANS Admitting Physician: Rafa Macedo DO Attending Physician: Rafa Macedo DO PCP: Oswaldo Parish MD Discharge Diagnosis: Degenerative arthritis of left shoulder region Comment: PATIENT EDUCATION INFORMATION Instructions: Post Op Patient Instructions - FT (CUSTOM); Deshawn Macedo - Shoulder Replacement (Custom) Medication Leaflets: Follow up: With: Address: When: Rafa Macedo [address] [place] [address] Business (1) 07/05/2021 2:30 PM Type Location Start [facility] Cardiology Follow Up (FT) FT.Cardiology Clinic 12/20/2021 1:30 PM 12/20/2021 1:45 PM Confirmed MEDICATION LIST New Medications [id number], [address], [place] [id number], [phone] acetaminophen-oxycodon e (Percocet 325 mg-5 mg Tab) [...] 1 Tablets By Mouth every day. Comment: [facility] Interdisciplinary Note - Remington e Manageron 06-23-2021 Interdisciplinary Note - Division Head Elective surgery H/P: deshawn macedo Profit: done PIS (OBS/IN): IP 06/22 1100 Chgs: D/C: VTE: 5 lovenox - done MCG: +IP total shoulder arthroplasty Tele: private ICU: na >2mn: >23hrs <72hrs Insurance: tejal PAT (tests): na Readmit: na MM: done: chgs, dc, mm [facility] Comment on above: Result Comment: Elec tronically Signed By: John TRIMBLE BSN, Za\.br\Date and Time Signed: 06/23/21 16:20 EDT Interdisciplinary Note - Division Head CRM spoke with patient in room. Patient [...] was in room and aware of plan. [facility] Comment on above: Result Comment: Elec tronically Signed By: Bartolo TRIMBLE, Delilah\.br\Date and Time Signed: 06/23/21 09:58 EDT Lyteson 06-23-2021 Anion gap [Moles/Vol] 14 mmol/L Normal 6-16 [facility] Comment on above: Performed By: #### 2 562124, 60193850, 2703192, 3587623, 9387040, 4992355 #### [facility] [address] [place] [address] Chloride [Moles/Vol] 102 mmol/L Normal 101-111 [facility] Comment on above: Performed By: #### 2 241081, 74831401, 4552422, 0604810, 8570464, 0409036 #### [facility] [address] [place] [address] CO2 [Moles/Vol] 22 mmol/L Normal 21-31 [facility] Comment on above: Performed By: #### 2 581651, 69343043, 0700071, 9456407, 5594526, 5541823 #### [facility] [address] [place] [address] Potassium [Moles/Vol] 3.9 mmol/L Normal 3.5-5.3 [facility] Comment on above: Performed By: #### 2 770709, 51211182, 9501252, 1152502, 6252360, 9671956 #### [facility] [address] [place] [address] Sodium [Moles/Vol] 134 mmol/L Low 135-145 [facility] Comment on above: Performed By: #### 2 302165, 63204393, 3250489, 8862875, 7461024, 2967241 #### [facility] [address] [place] [address] Main OR PACU II Recordon Main OR PACU II Record PACU Phase II Document Type FT Summary Primary Physician: Rafa Macedo DO Finalized Date/Time: 06/23/21 13:49:30 Pt. Name: RIGO NAVARRO/Sex: 1955 Male Med Rec #: [id number] Physician: Rafa Macedo DO Financial #: [id number] Pt. Type: I Room/Bed: AS11/01 Admit/Disch: 06/22/21 10:51:15 - 06/23/21 12:40:00 Institution: [...] By: Yeni Edmonds RN 06/23/21 13:49 Normal [facility] Outpatient Surgery Discharge Instructionon 06-23-2021 Outpatient Surgery Discharge Instruction [address] [address] Patient Discharge Instructions PERSON INFORMATION Name: RIGO [...] NEAREST EMERGENCY ROOM OR CALL 911 I, IRGO NAVARRO, have received the attached patient education materials/instructions and have verbalized understanding: May we do a follow up call? Yes No I was present when discharge instructions were given Patient Signature Date Clinican/Nurse Signature ___ Date Follow up: With: Address: When: Rafa Macedo [address] [place] [address] Business (1) 07/05/2021 2:30 PM Type Location Start [facility] Cardiology Follow Up (FT) FT.Cardiology Clinic 12/20/2021 1:30 PM 12/20/2021 1:45 PM Confirmed Pharmacy Information: You may receive a survey from [employer] asking you to rate your care experience. Your feedback is important and will help us understand what we do well and how we can improve the quality of care we provide to you, your loved ones and our community. It?s an honor to serve you. Thank you for choosing [facility] HERE ARE THE MEDICATION CHANGES THAT OCCURRED DURING YOUR HOSPITAL STAY New Medications [id number], [address], [place] [address], [phone] acetaminophen-oxycodon e (Percocet 325 mg-5 mg Tab) [...] Mouth every day. PATIENT EDUCATION INFORMATION Instructions: [place], [place] [facility] DISCHARGE INSTRUCTIONS: SHOULDER REPLACEMENT [...] [facility] (more content not included)... Normal [facility] Patient Education - Texton 0 06-23-2021 Patient Education - Text [place] [facility] DISCHARGE INSTRUCTIONS: SHOULDER REPLACEMENT [...] persistent vomiting. Rafa Macedo DO [facility] [address] [place] [address] Reviewed: Normal [facility] Progress Note-Physicianon Progress Note-Physician Patient: RIGO NAVARRO [...] Pressure 82 mmHg SpO2 94 % Normal [facility] Comment on above: Result Comment: Elec tronically Signed By: Rafa Macedo DO\.br\Date and Time Signed: 06/23/21 07:27 EDT eGFRon 06-23-2021 GFR/1.73 sq M.predicted among blacks MDRD (S/P/Bld) [Vol rate/Area] mL/min/{1.73_m2} Normal >=59 [facility] Comment on above: Order Comment: Order added by Discern Expert. Result Comment: eGFR is race adjusted. AA=. Performed By: #### 2 044992, 51291485, 5787825, 9744118, 5968459, 5158982 ####[facility] [address] [place] [address] GFR/1.73 sq M.predicted among non-blacks MDRD (S/P/Bld) [Vol rate/Area] mL/min/{1.73_m2} Normal >=59 [facility] Comment on above: Order Comment: Order added by Discern Expert. Result Comment: Second Watch Sergeant melina kidney disease could be indicated at eGFR's of less than 60 mL/min/1.73m2. Kidney failure is indicated at less than 15 mL/min/1.73m2. Performed By: #### 2 363148, 20993198, 8726044, 2372451, 6964797, 5596970 ####[facility] [address] [place] [address] Capillary Glucose POCon 06-05 Glucose [Mass/Vol] 214 mg/dL High 55-99 [facility] Comment on above: Result Comment: Kali hood RN/MD Performed By: #### 2 21587376 #### [facility] [address] [place] [address] Glucose [Mass/Vol] 228 mg/dL High 55-99 [facility] Comment on above: Result Comment: No C overage Given Notified RN/MD Performed By: #### 2 71604142 ####[facility] [address] [place] [address] Glucose [Mass/Vol] 153 mg/dL High 55-99 [facility] Comment on above: Result Comment: Yoly lashanda Meter Performed By: #### 2 86002170 #### [facility] [address] [place] [address] Consent for Treatmenton 06-05 Consent for Treatment [id number] 0CD:127 Normal [facility] H&P Updateon 06-22-2021 H&P Update [id number] 0CD:127 Normal [facility] Main OR PACU I Recordon 06-05 Main OR PACU I Record PACU Phase I Docum ent Type FT Summary Primary Physician: Rafa Macedo DO Finalized Date/Time: 06/22/21 16:55:00 Pt. Name: RIGO NAVARRO/Sex: 1955 Male Med Rec #: [id number] Physician: Rafa Macedo DO Financial #: [id number] Pt. Type: A Room/Bed: [place] [address] Admit/Disch: 06/22/21 10:51:15 - Institution: Case Times [...] By: Iza Quesada RN 06/22/21 16:55 Normal [facility] Main OR Preoperative Recordo n 06-22-2021 Main OR Preoperative Record PreOp Document Type FT Summary Primary Physician: Rafa Macedo DO Finalized Date/Time: 06/22/21 13:52:43 Pt. Name: RIGO NAVARRO /Sex: 1955 Male Med Rec #: [id number] Physician: Rafa Macedo DO Financial #: [id number] Pt. Type: A Room/Bed: [facility] Admit/Disch: 06/22/21 10:51:15 - Institution: Case Times [...] By: Mckenna Garnica RN 06/22/21 13:52 Normal [facility] Monitor Recordon 06-22-2021 Monitor Record [id number]:127 Normal [facility] Operative Reporton Operative Report Patient: RIGO NAVARRO Age: 65 years Sex: Male : 1955 Associated Diagnoses: None Author: Rafa Macedo DO DATE OF SURGERY: 06/22/2021 SURGEON: Rafa Macedo D.O. DIRECTOR OF LOSS PREVENTION: Peter Oliver CFA PREOPERATIVE DIAGNOSES: Advanced glenohumeral [...] 2 OPERATIVE INDICATIONS: Rigo is a 65-year-old cwwlm-isze-vergyiiu male who has had persistent pain in [...] then made (more content not included)... Normal [facility] Comment on above: Result Comment: Elec [...] preparations for the proposed operation continued.. Normal [facility] Comment on above: Result Comment: Elec [...] OA (osteoarthritis) of shoulder / SNOMED CT 031660263 / Confirmed Diabetes / SNOMED CT 620768444 / Confirmed Smoker / SNOMED CT 739222928 / Confirmed Added secondary to documentation in Social History. Resolved: Hypercholesteremia / SNOMED CT 52666316 Physical Examination Vital Signs 06/22/2021 16:42 EDT [...] noted. Plan Transfer/ Discharge: Condition stable. Normal [facility] Comment on above: Result Comment: Elec [...] Sister Procedure history: Arthroplasty of right shoulder (9394582501). Retention of foreign object in a patient after surgery or other procedure (8224919515). Comments: 06/28/2020 11:33 EDT - Joel TRIMBLE, Brenda foreign object out of neck and left upper arm Stripping of vein left lower leg to left arm (109758745). Social History Social & Psychosocial Habits Alcohol 06/28/2020 Risk Assessment: Denies Alcohol Use Substance Abuse 06/09/2021 Risk Assessment: High Risk 06/09/2021 Use: Current Type: Marijuana Frequency: Several times per day Comment: to help with pain. Marijuana Gummie per patient - 06/09/2021 12:52 - Yeni Edmonds RN Tobacco 06/09/2021 Risk Assessment: Denies Tobacco Use Comment: former - 06/09/2021 12:52 - Yeni Edmonds RN . Physical Examination Airway: Mallampati classification: II (soft [...] Line FINAL REPORT Dictated: 06/10/2021 3:49 pm Mundo Rodriguez MD Signed (Electronic Signature): 06/10/2021 3:49 pm Signed by: Maddie (more content not included)... Normal [facility] Comment on above: Result Comment: Elec tronically Signed By: Rajeev Salgado DO, Rico Burch\.br\Date and Time Signed: 06/22/21 10:50 EDT UA With Cult Reflexon 2020 Bacteria LM Ql (Urine sed) TRACE Normal Trace [facility] Comment on above: Performed By: #### 1 [id number] ####[facility] [address] [place] [address] Bilirubin Ql (U) Negative Normal Negative [facility] Comment on above: Performed By: #### 1 5913966 ####[facility] [address] [place] [address] Clarity (U) CLEAR Normal Clear [facility] Comment on above: Performed By: #### 1 6199209 ####[facility] [address] [place] [address] Color (U) YELLOW Normal Yellow [facility] Comment on above: Performed By: #### 1 3194216 ####[facility] [address] [place] [address] Crystals LM Ql (Urine sed) Present Normal [facility] Comment on above: Performed By: #### 1 7104134 ####[facility] [address] [place] [address] Epithelial cells.squamous LM.HPF (Urine sed) [#/Area] 0-2 Normal 0-2 [facility] Comment on above: Performed By: #### 1 3924434 ####[facility] [address] [place] [address] Glucose Test strip (U) [Mass/Vol] 1+ Abnormal Negative [facility] Comment on above: Performed By: #### 1 5095365 ####[address] [address] Hemoglobin Ql (U) 1+ Abnormal Negative [facility] Comment on above: Performed By: #### 1 4427642 ####[address] [address] Ketones (U) [Mass/Vol] Negative Normal Negative [facility] Comment on above: Performed By: #### 1 7239168 ####[facility] [address] [place] [address] [place].plasma/Lithiu m.RBC (Bld) [Mass ratio] 0-3 Normal 0-3 [facility] Comment on above: Performed By: #### 1 7818571 ####[facility] [address] [place] [address] Nitrite Ql (U) Negative Normal Negative [facility] Comment on above: Performed By: #### 1 2462877 ####[facility] [address] [place] [address] pH (U) 6.0 [pH] Invalid Interpretation Code 5.0-9.0 [facility] Comment on above: Performed By: #### 1 7523815 ####[facility] [address] [place] [address] Protein (U) [Mass/Vol] 2+ Abnormal Negative [facility] Comment on above: Performed By: #### 1 8917259 ####[address] [address] Specific gravity (U) [Rel density] >=1.030 Invalid Interpretation Code 1.005-1.030 [facility] Comment on above: Performed By: #### 1 5383077 ####[address] [address] Type of Urine collection method Cesar Normal [facility] Comment on above: Performed By: #### 1 6698464 ####[address] [address] Urobilinogen Qn (U) 0.2 {Redd'U}/dL Normal 0.0-1.0 [facility] Comment on above: Performed By: #### 1 9655346 ####[address] [address] WBC Auto Ql (U) Negative Normal Negative [facility] Comment on above: Performed By: #### 1 0170800 ####[address] [address] WBC LM.HPF (Urine sed) [#/Area] 0-5 Normal 0-5 [facility] Comment on above: Performed By: #### 1 0972531 ####[address] [address] XR Shoulder Complete Lefton 06-22-2021 XR Shoulder [...] V. Transcribed by: PONCHO Technologist: VICENTE Chapman [facility] Coding Summary.on 06-21-2021 Coding Summary. CD:[id number] Gh 0bWw+PGhlYWQ+RD3XRKPnB 49xcYAxsZ4MK7hAJA0XZWK GGVPQLS8PXN4hqZW6PIswA 2VybiAv GadhgOFkKV90QUo7HIP1hD bcOCzhkH0frXFfX4a6ZtXa NE79hS21QEvbQOEsHbC7Ih ZpbjsgbWFy P5xcNgTbuISxRxs+PHRhYm xlIHdpZHRoPScxMDAlJyBz wQxwHR3eWz9fOQIlTXFppM xhcHNlOiBj s6daZNLuPOvaAD8seJnlB8 EnaDZ1UYXfi7r1Nc63nQG+ TXGsWYX9jCwnHTxwv250Pf Jnu7qrAJP2 bKLhQLveZBY6K01xj9C5VV NrXZQtKOY9dEU5yB6fqHwo zigeG7DgbTMpGkB4LFS4bI OqsI4vnSoj kbneyD9eBkg+D81DCR1DCG VLFL6WIlz4O2JzKwgwzAP+ DQ97MORhOG44fECoxRAla9 isaSx6XaHc ZZDiXVJ0uCaqEQhiy6BvAD NzL73aeWKfj1N2TWKncIjm hXOiQiNshLB5jI7wNPzqov hub1mmufyq Krnij3qybd77jC16L77sPH fgAALaXLG1BUGcBKXtnBro qb8hhX3mMy6+FRuug9lah2 xydCs0HaRi UOUbihOqtAyuKON2r9GsMj 65R2UlsYemi2MrXhw3ih59 uJGlu8R6yRK7HCrxLYNjcM 0hOSdbWuR9 VFUsUkWdnE58bDIpROalHi 8reVgtkPwbKK6gKGEmzlsu VTXeuJ3rQMOaeOKorNvfRT 4wNTBpbjtm b323FvNoJFV8MJMvkUMnY1 NioQ9yKcWyIJOhVLHuK1Ms hVCvKXgxA952PUyaQpT9KB UunvUcM2Nu NUOogYwwMiX7v4F5Ft3Mh0 GynyusQRX1YTqdDGD7EoK3 HwMiCzR4Z1FjBng6FFInqP yfLZ0jI1On HIWrwtplhduheJV1UEEbEO LldJ46bTEnSKhkYu7gs5X7 u409BDTzYJIvnY36Zb3ffR ogMTBwdCBU gA9dgexsz4bdpjoxXvOeNZ TiHOp1ZBf6VCNxnHetJsPv ICJ5MbC8ORT0uNIccB5apY zsmavltA9s Oyc+W03msF9fLTR1TJN9oy mxICUjokPrJN18HW44Q3Py PjwvdGFibGU+PGRpdiBzdH veIO5oBeLn t8tui0MuRRlgN5GdMUSuNT tcXmn5XVFsRBQ2yKK5yQ6w QLUkCFost6A9kXM4F7Cjds Wzko6tz9yd IBZfTTfeJ48qhCGec8W4RQ XxzIT7UPQzsZpeStMxgL55 Oyc+DVRvcKwwn3UxTkxkw4 tlh9khzZu7 ZiTtAEOjsvEuqGfwAZT4w4 ZuMo22W92iBFudLIMjKXOp WUWrAUKlhFdewk2myE8yRs 8+PGNvbCB3 jXS7rX9vUUExWdT8YNyiO4 42IzRjoEXyKrcpd0swn1hc yEa4ZtEsSZWaiiMbyBcrKL T0t2KjGl06 J28kOJruKDLcLTUwKPAdTX DbmXgepr1eqT6hSa5+PC9j j7qizm57rL27nKO+PHRkIH I6wRbcHTgp UVDjxJ9hCQcsRuU3YGMxLa KzxL50vWWzQPdhJe0zlUqa lLkjES3hVPTevypqu347Uh Hns7pfREEa eOYaTGrxDIV6Y37jh6G8XT UmADWuLPD5qUG3vA4phOpx bjogbGVmdDsgdmVydGljYW ulCKwnF819 IHRvcDsnPlBhdGllbnQgTm SdBPf1Z0FmCxq1VIZdjZbf UJ1tnBPrKQfkRe4djZenrS gnDH1kHDVs vxtuw278BgZsg6mpTMUnaB YxNOwnBNH8K91hl2B3FRJj ZJMkMPI1rWN1sE1jcHxvim ogbGVmdDsg nzThfScwDQlrGKgwS800EZ RvcDsnPkJpcnRoIERhdGU6 HX42BW36xIThs3S4pJD8C5 BhZGRpbmct tofqxZZ9FHObKOVdrD42Yd 6mxCatPr0iECFkRCU1RUAt oGMcQ2JzuL0bVeJxSUQcYQ DlL1MpeVSa EYslB425ISveDoX3ESKyyt WcA3NhWKTozVarAaI0v7H0 Ni7UB6J1FN34FU62bOLee1 T4xHB2P3Se SKRxalsecpcmsHU1DOElFO KdzK88Yw6bnYdfRs0aEKPx COS3TWDoeHJuR0UsxS7hSt AjMDAwMDAw Z6LclYNbPWuyF254XHhhIv B2GDXceaCsF8MoYMIizAsq TzT8m5L9Nr7PYMp6SM80HA 00bHXqn4V9 tTL6V4GuIUIfqxsaofcqeN Z5MMWeXFLzyJ70Rs9xjXxo Vy5zVSYqSBL7BCQvkKMaH5 XawS2pQrXa PYHhIOOvF0UdeDPlXVmxB0 86KPukDkQ7MXMxttDhE5Qe MHPuzJmaJvJ0l6S5Ev6HLO JyBH59XRO2 qBI7BP27XZ22H4TwKufqxO FibGU+PHRhYmxlIHdpZHRo HJlpOPTmYcBbkTdeRE4fPr 9yZGVyLWNv hNcmlYMfEfHfo6xbFJTyGA lhBU1ojYvlF9XboLF0LIVi m2e3Ln59W85jS2VxoTX+PG OyoJC9tQV3 zQ8dRpVvKtL6ZOezF938Wf MjaOUcQsuzw6nzh4xbuPo6 LxX4OEDaauWylNcnUGW5p8 JdMi18P61d IHdpZHRoPSIxNSUiIHZhbG hjrq9ahG0xFq1+PGNvbCB3 oVE8uX8wVyWcDkP8QUgwV3 49InRvcCIv Pafhz3fpf0bfsVr7VsTaAR KcjrQoyJapOEB7u3GqFe16 E8DflLydd5CyKxz1jo79kQ Qjj1R1yJF7 F1ZlVRPywgqioMLfyLfaCC 0xIEIcjpblCDDnmR1vGTYk P5w2LcKvRiM0UJnqL9Nhai Z0IXQyyJBq KTyqJUA3M86kh2Y7IEBxPM IaDXN4fPQ2kR1czGsjmhqz bGVmdDsgdmVydGljYWwtYW xaB383DQTl nKdyCREofF9wHILmbUQrsO mpVL9rWBNdxkkiNhEKRKKH MKzpGpUOGR2WWRovpIN+PH RyUSY7fUjk WVpiOOBdvM1rHEHiE9w8Ij OuRnV3QZokQ6IyNGWvgnxq Xx17oG8nCnLcVkE4JMwwI4 YenpI5LCQm mVWxNNcxJDM4F71rg8K8KI HbDDUjCCB1hEH7kP7goMxe bjogbGVmdDsgdmVydGljYW bxDOgiV637 IGCynUslZdQpEfBvMoI7QP m6L9BuIhl2ZNQtcGbzPD5t bMJiYIboFb6aiDdpzIrtZZ 4wNTBpbjtw ILHhaG8hACDncWSoeJncPE 4kBIGbwqhgp043DaBrNRC8 ITUmtHGyT8QazE1tWySvDF QiZBKeQ8Ml nKTyCDetY051CHfgRsM9QK BnrfNmU8DfJQWwuXmeCoF1 m6V3Lo79AoYOTPCzdtukuE Q+PHRkIHN0 oYicOWxmUIDjiS6gXISqO6 a4VrUcRiW8HOcdS7ErQIBx qfqmYq85vU9sXoKcThQ0WG tbR9DpyaB5 ADGjoOGiHNmmQVO6B40gp7 V0FCApZJNuASA7uSG3rC7r bGlnbjogbGVmdDsgdmVydG ljYWwtYWxp X032LKWfpDlyAo6ytPW9R6 XdNiz8FMYqdRojIH7byCNw GFdjFk3ymVguvFjrYE6tDZ BpbjtwYWRk rW3oAPEmtNQxgJqjNO9yHI Wocyheg674ZiOtWJU0GYHf wCTmP8QgaP4sOrZvPIXmYZ HiN0FscKVv STrpQ295KAseEbX4EOXrmo BzC4NfMXEbvOpaNgJ5t0N6 Jc0BlOYiWMMbOR73QQ52ES 68W9UpQyhm dGFibGU+PHRhYmxlIHdpZH VnKVkmLYLtJySykSmlOY3o Lr1zQIIeKCTxvVrpxMQlRo Naw7jbMTWr XKhyHL4kzGyfG2EzmOL5KR Fcz5e0Dq42B60eR6EavRV+ KCAvyQL9fZD6yY2cRySlQy P7HLkxL909 DsMpeGJuFrxgd0hwy2eoyP s5LzRbPLDpzmFxyVokUVG2 d2MxVn40L93xPDirTBBdXM IyMCUiIHZh jKgcpu2cvE9wZy4+PGNvbC Q6gZQ3iZ0yToLjEqM2XGfa C328XnNpiCQpMmdbU71yP1 JvdXA+PHRy Rhs9KQDvtBwsOO6lzCRzGQ owOz0bEXR6YcMzWwFzOGqp E6FeRIBkynoabqfemFE1LX QxHFTsxV71 Iz9cfQsyWe7uERIvHDZ0DP ZurMYbH8HtlW8xOfSjREFw DACwB6ZnhWGsFAcyO900HN weCcC6LGCo fwFjU2JzMNVqxNvjCzO4v3 A5Qg0RzEjcpOOmAH6sOqHg WJw5L4YhAol5QXJyfUiyQQ 0ncGFkZGlu Mk0hfPfqxUzhNN7uXZQica dtl423JpStu2snIWQpdQQd FZkbMGV8Z55uj3H1CQSyAR DhHUX5hEB2 yM2jsHsmbampnLQdmNgtts CboEpdNIzkDBctQ877CFLg fXbbMxHTOtk6G4ZjOkk0SQ VwrFatYB3e iYItKRpkKm4uaScpoEadJW 8qOFXyrpirc126KrBjd3ox BXKkuMBaQFsaGGV2M57nh1 D6DCWcIMGm OBC1qDH7xY8fuDcpgmmggZ VmdDsgdmVydGljYWwtYWxp R654ERXgxRbfMd7SIqt1J2 TcWmt8MSTc bRbqQL5gwDLdERmcJs5lpN tuzVbuCV0dKUJvxktlu161 VmBzx0idUNEjyGLxFPkaQS W5W40wv9K6 UFTuSOTjNBQ4xPS1rF1wxR lnbjogbGVmdDsgdmVydGlj NLqjEIwtA163HAYilMkaZl BheWVyOjwv dGQ+KF14sw59H3MiVknhNd g4FRMcMMQ8vNN7gT9qYAJr EWgho7E5fZQ1F8YwkbOfug 3jc7ivUPIx ZTog (more content not included)... Normal [facility] Consent for Procedure/Surger yon 06-21-2021 Consent for Procedure/Surgery [id number]#1. 00CD:127 Normal [facility] Outside Recordson 06-21-2021 Outside Records [id number]#1. 00CD:127 [facility] Coding Summary.on 06-16-2021 Coding Summary. CD:[id number]:[id number] Gh 0bWw+PGhlYWQ+KH6JYUHrZ 77jvHUbrE3CO0cGPI3QYSM PTGYQDM8CTX5tvZX0JEqnJ 2VybiAv XbxioZMxGV39QTg6TNW9oX fpLWtdwY0zlQGgR6q5GdGt PU79lF90TMdbCSPoZbM2Vk ZpbjsgbWFy S6ncTlXqkSBpXdz+PHRhYm xlIHdpZHRoPScxMDAlJyBz hOisGR9kPj7gQMQpJTPzcW xhcHNlOiBj c5rdCJGrBDpvFS2qbPjsD1 BmzXI0DDFaj5p8Wa11zWY+ CZCzRFH2tAjlOVpek726Ek Ljm5boHXY7 oCByVBxgXON9U83ma5J6JF DlFKOlGZC8pIU8lW5sjXsm yaojM4VxcTLjFmK0CKE3hO KkxW5nfZme sagokR2qWmy+W78JAE3JPD JMYH9UPhb6L9ZsSivlwLD+ KX53BVIfNA76dDUtoZJwx1 clySn7FjFd KVTiRRM8uYyoJXnxg3TdPA WyI96orHNji9M4DGDufOta kLXgCcEscFN9jL6kPDeajb lyg6rbobfu Omqwl1ezfs87vR80D11aQR ekXMKyDIX5KPHxYZBfrTuo zp7kkW0fKg9+TUegb7eee0 cheAa1ZdVq JNQwufKotYyuEZK3o4GiJa 65R9NdpTvss5GvVgp1qq12 hLOkx2Y9lRL6BOorYIQniE 9iTQtySbL8 NOGxMnUhdX87wEPyDButVb 7lfIlcsEmkVC9oPHScxykh ZTGedS6yVJIxpQIdiFtxDU 4wNTBpbjtm a585XoHdHKP9SJJmgLQhJ6 McaQ9xVjTdXYLlAKUoY9Rt mQFgEKkfS215NYwxKuS1IE PmldMgS7Rm BZZqtCyfKhR4s3E2Av8Lf3 TgqmyaZUN1FDoyDJH8XqOn GwHfPjU9A9JpVmk4RNAyrP qkIB7vP5Rg XYEggtzlwjwogRH3IONzGU AmzY93tUIiEPriPn4ue5D9 k808OVOpBYEdcC49Ss8obD ogMTBwdCBU fM8lusmcz7psglqpGuAyAN XqCHt8QSa7MQJlkNhbZmQo WWH6MbY3NOC3dJVrhS6sxP lwjifodK4n Oyc+O58meK2iMNA7LUX8lf jqACQwtyMgZO30RB47M5Do PjwvdGFibGU+PGRpdiBzdH zoVE5fXoUa l3ohw0BoVOtuZ8QaHOZuMR twJsm1GFHcJAY0fOD0cP0c ULSlMWuwr2T8mHG7T0Jkwp Vjdz4hp1qg YSUnYQqiG49fdCAwi7F1DJ WsdKQ4AYOmrTbyRuXhrA29 Oyc+XENusXjgh7UlAugjj4 kwg7jxwPp2 IbDfVLThbxXiuYykLFR4p1 TxRc82L50qSGybZQIwNVQd FTLuUERzyZajos5uyT2yWi 8+PGNvbCB3 rBW5fM1nEVSrIaT4KLsaN8 89RsNjmECvNiqmt8lsq1xh aDn9ObXmSKZohwNujNjtWS R0n9ZvVy50 Q74zFAuqBCQkTXNyJHOsKW WslYjrsl9gsZ3uEx8+PC9j k7xpww09yS31wEH+PHRkIH C8rJxySAhz TBLzaK5jCWdnErQ7MVUiJu XfwK60xZMuUBveDh9prFuk jJfrWA7aMUXgdoqxu718Rj Bij6tvXUXb mLSlLNexKSZ1F58zk1B7UW RrLPFcFBO4iVP0cW0geOsc bjogbGVmdDsgdmVydGljYW fsSMvkF125 IHRvcDsnPlBhdGllbnQgTm ZfTXl9B9CmGrs9TESwvDju GJ6fnGCmCPeoMd5ebAqilQ uuDR1dKSCv eeerb328EpQxy4gzAFCxkL QiCIluHSX9C89oh8C8NXRy PFUoAMA5sVM3mA9mkXkyoq ogbGVmdDsg mrGtpXlzPYolUNjkH136RX RvcDsnPkJpcnRoIERhdGU6 RM68EG03qHQwh7X3sAC3G8 BhZGRpbmct rbccaXT0ECSvINTvgI74Mq 0xaNfxXk8dVAEbOZQ7JTYw pIHmF3YhrA9mWgPrBQGnSC CkN7GinMFt OQswE031QXcmMyO8IVQkss XgL4NyGLFvtJehTzQ5u2V6 Xd3AH7O8JZ50IR38rJJrh8 X6lWV9B0Qw XXSzpgarszqrjZY0PSYlKJ NyaB37Jq6akGjeHr7uPPFg NWE1IVHqbHDhA5LwzU3zVu AjMDAwMDAw G8SgmGSsAWmjN860NVmiNz R8FHWykuGaM7IcLARxkFhm ZiM4u4C2Zl6IHIk4BM38UV 48iUSzx7M6 fNW9Y2NcWRDoenweeocgyU P9ILTuJKIyjX63Qo3brPir Dw6gEFPhEWE3CYZchVJgU3 TmpV0kBpLy IQXhXNPeU9IstIVpYLxrE2 34AWhwYjR5MZOnogLkQ5Hk XGInjRudBlB8l9T2Fc3GAA NdER54HUG9 vXN1KM15MU72O1AcWrgogH FibGU+PHRhYmxlIHdpZHRo TVhtDKUwTtNlyLufGA2sMq 9yZGVyLWNv lIgjeCVdFsTdv7grTDGcHO psJY3cpCvjH9OzuZP7SACd r6n6Nf12P84wH9UjiGJ+PG BvqES3lLK8 zD4hCfDoWyT5BXyxH754Nc AulFXsSpxjy2tcb3fiwQa8 BkS4IJBcasMnrRkuLAA2r6 IsUb42X42v IHdpZHRoPSIxNSUiIHZhbG odng3npX5mEk1+PGNvbCB3 aAA7yG1wNzMiGtI4MJusU5 49InRvcCIv Umsmq6val0mpdLq1UrGkKO FgbuCriGbxVLL8s0ZiId35 R2EipAatr6NqPnu8km89oG Rxe2U5eEG3 T9OvCJTyhpoilQUfzLjiSB 5lKPFcbiobRYJjhP8qVZNx F2f3AcImXcH9QMgqU1Wcoy H5ORExvONf HSujVBZ6E11og0K0EJNbLT TwWJK1wIB7nK3blXxetgea bGVmdDsgdmVydGljYWwtYW ziO811HFFq bXpuBGYcyQ9oCCEjwFUydF ppJN7nVYEscbwiMaKDMCCG YXlnOnZYYF7XKQrpfRW+PH NmCNN5cFen BUrlXNVduG1oNZCvF8k7Wp WmXwG2VKipL8WoQBSgwvjz Lu36jG9cHsVgVnJ5OBkfM5 BqkmQ6TLDh vYUpQOxePAW1R52ze8A8YF VjQUVeZDP3rZO2xQ3fuRmn bjogbGVmdDsgdmVydGljYW qaLEyyC419 QAFmqBssFjOgOmTnDiL3XG s2S0CpKwy4UGHmuLkaDY3p rFGyOLahVv8ojYcjbLadMH 4wNTBpbjtw UMNcmL7oDVAhbIMhjBecFR 9gPFJrawhik074UwZmNWC5 OSIgxLEuR5NuuY7rYyMjOY CyKKFpT1Cu zMBjTIyqZ499VNyjSvV0BQ JqgjJjL7EsGVZnbQwyEpK6 c8F5Lu55XlTZQWLxfliczE Q+PHRkIHN0 oSvfQIhoUBNniE9fXINiX3 p4BpMsHgK7HWeyE1HrJLOq dwhjWh83lI9aJxUhMlA3MJ zwQ1WgxcK8 DGZzxOMdCVkjZVB6U33vp6 P5LWRoHJPhIGE7rBH0gP8u bGlnbjogbGVmdDsgdmVydG ljYWwtYWxp E380RAIfjAsvPr3xfAN6B4 PzMoy3IMCrnUkdFL4cxRLw ZWalSi5hsKduoYzsFL4vUM BpbjtwYWRk rK9mOSEfbALseSrzPU4zZK Mdkrtdx199QbKeCMR3CJIb rRLbU6KhjD4aEfAnESUmXA JhX9WryVTu OZoeD256WWfwLyI2QSZimn IbR9GdRAHovNhpRyP4u1K5 Ex0QsSPcXBEqYJ63TE18UM 16V7TeHcjh dGFibGU+PHRhYmxlIHdpZH WgQJikBEZqNaMadWjlHG5a Xy0mYQUnADPhjNwfyOWhLs Svh3vtMYTy FMfcVJ4igEfyE6KybWI4AV Gft9s4Da38O95uO0OkrPF+ WPWhpSQ1tDI2oQ4cUjKuXq I7WZvkD608 FqQtcCEiDpjwx3egl0qecV h2DvXbBZAzmmPbgZrpCQE3 x2HdDo38A40rBFjtESFxDG IyMCUiIHZh oEvtux7qlY1qBg9+PGNvbC F1kSO3oO8gXbLkUfM6HUyx R000AaIykIObZkrmG42qX8 JvdXA+PHRy Qft9JVLklDhrDP1kqNWlSO deYe8oMOF5DlYlBoXbSPyc W2JpEKCmphbowdaehUB4QO BaLZDvcZ84 Of6bbGgdHo7sQUKcFER4CH WkhYClW5PkqJ0yCfNcZKQa SZPqN4DgzOQlDDtpQ347FP adTvF7BDPc zaBoV1PvUOStdBamZaK9a8 D5Sx8RwQamoOYcBX2lClNp EIr8U7MbQds6WTFyuIwkLA 0ncGFkZGlu Zy9mtUvxiEzoFS7nWHRgeq wdr583OrTvt2kzZRZimIBx LAimGFF5M63yu0U6GBVxVV CaGBX4nBE6 bE8xdSavvofggKSxlIurnh UgbVbfCHhtURqbM885YGPw oZixSgJPVyo0F5OpWdf3IB ThwKfkTO6n cLJdGOceJm8mmWziyOwzNR 4sOQExozvmv954MhCft2zh DXVcpQHyLGaePAR0U26mq3 S0YNWmOOGv TWP1aHU5lD2tmOfskrmfdU VmdDsgdmVydGljYWwtYWxp H216OXLrbCmwTv3PAvf9C6 CtVvn6ZEMd cBoaTJ9qoXJkDCghRz1teF cvdSeyIE2yOAPhvvnem594 QoKjr2hbSPDsqWAqGGutVE C1Y36yw9B2 CIEnFBAyOQL6bZL0lK2lqT lnbjogbGVmdDsgdmVydGlj ICjrXFaqX870KRAcmIfzBo BheWVyOjwv dGQ+QU38fm95Z4FkJwqhIy o4SLMlUVZ2jMO6iW0gBJHf ZKrsv5V6dNI5Z9XhlpWyzo 3vh7zyCGQq ZTog (more content not included)... Normal [facility] Consent for Treatmenton 06-05 Consent for Treatment [id number] [facility] [id number]#1.0 0CD:127 Normal [facility] Heart and Vascular Office/Cl inic Noteon 06-15-2021 Heart and Vascular Office/Clinic Note History of Present Illness Patient is a very pleasant 65-year-old gentleman with a history of hyperlipidemia, diabetes, previous 57-rpth-yjnt smoker quit around 5 years ago, referred to us by Dr. Parish (PCP) from [place] for preoperative stratification for upcoming left shoulder surgery on 06/22/2021. Apparently his PCP had ordered an echo, lipids and a stress test at another facility, however they have not been done yet. Patient reports that he had a heart catheterization done at [facility] he believes several years ago around 2019 [...] He reportedly had a catheterization done at [facility] in 2019 and had no stents placed and has remained asymptomatic since that time. I recommended obtaining those records from [facility] to go over those results. In addition up it appears the patient has been set up to undergo an echocardiogram and a stress test at [facility] by his PCP, but this has not [...] BID pioglitazon (more content not included)... Normal [facility] Comment on above: Result Comment: Elec tronically Signed By: Eze MAXWELL, Faisal Kaiser\.isis\Date and Time Signed: 06/15/21 15:34 EDT Outside Labson 06-13-2021 Outside Labs [id number] CD:127 Normal [facility] CT Upper Extremity w/o Contr ast [...] DO Transcribed by: PONCHO Technologist: RAMONA Normal [facility] XR Chest 2 Viewson XR Chest [...] (Electronic Signature): 06/10/2021 3:49 pm Signed by: Jennifer MAXWELL, Mundo Kaiser Transcribed by: PONCHO Technologist: AO Normal [facility] BUNon 06-09-2021 Urea nitrogen [Mass/Vol] 14 mg/dL Normal 5-21 [facility] Comment on above: Performed By: #### 2 [id number] #### [facility] [address] [place] [address] CBC w/Indiceson 06-09-2021 Erythrocyte distribution width (RBC) [Ratio] 13.4 % Normal 10.9-14.2 [facility] Comment on above: Performed By: #### 2 [id number] #### [facility] [address] [place] [address] Hematocrit (Bld) [Volume fraction] 43.7 % Normal 37.7-49.0 [facility] Comment on above: Performed By: #### 2 [id number] #### [facility] [address] [place] [address] Hemoglobin (Bld) [Mass/Vol] 15.1 g/dL Normal 13.5-17.5 [facility] Comment on above: Performed By: #### 2 [id number] #### [facility] [address] [place] [address] MCH (RBC) [Entitic mass] 30.7 pg Normal 27.0-34.0 [facility] Comment on above: Performed By: #### 2 [id number] #### [facility] [address] [place] [address] MCHC (RBC) [Mass/Vol] 34.4 g/dL Normal 31.4-36.0 [facility] Comment on above: Performed By: #### 2 [id number] #### [facility] [address] [place] [address] MCV (RBC) [Entitic vol] 89.2 fL Normal 80.0-100.0 [facility] Comment on above: Performed By: #### 2 [id number] #### [facility] [address] [place] [address] Platelet mean volume (Bld) [Entitic vol] 8.3 fL Normal 6.4-10.8 [facility] Comment on above: Performed By: #### 2 [id number] #### [facility] [address] [place] [address] Platelets (Bld) [#/Vol] 301.0 E9/L Normal 150.0-500.0 [facility] Comment on above: Performed By: #### 2 [id number] #### [facility] [address] [place] [address] RBC (Bld) [#/Vol] 4.9 E12/L Normal 4.3-5.9 [facility] Comment on above: Performed By: #### 2 [id number] #### [facility] [address] [place] [address] WBC corrected for nucl RBC Auto (Bld) [#/Vol] 9.5 E9/L Normal 4.0-11.0 [facility] Comment on above: Performed By: #### 2 [id number] #### [facility] [address] [place] [address] Consent for Treatmenton Consent for Treatment [id number] [facility] [id number]#1.0 0CD:127 Normal [facility] Creatinineon 06-09-2021 Creatinine [Mass/Vol] 0.9 mg/dL Normal 0.5-1.3 [facility] Comment on above: Performed By: #### 2 [id number] #### [facility] [address] [place] [address] Glucoseon 06-09-2021 Glucose [Mass/Vol] 171 mg/dL Normal 55-199 [facility] Comment on above: Performed By: #### 2 [id number] #### [facility] [address] [place] [address] Lyteson 06-09-2021 Anion gap [Moles/Vol] 15 mmol/L Normal 6-16 [facility] Comment on above: Performed By: #### 2 [id number] #### [facility] [address] [place] [address] Chloride [Moles/Vol] 105 mmol/L Normal 101-111 [facility] Comment on above: Performed By: #### 2 [id number] #### [facility] [address] [place] [address] CO2 [Moles/Vol] 23 mmol/L Normal 21-31 [facility] Comment on above: Performed By: #### 2 [id number] #### [facility] [address] [place] [address] Potassium [Moles/Vol] 4.3 mmol/L Normal 3.5-5.3 [facility] Comment on above: Performed By: #### 2 [id number] #### [facility] [address] [place] [address] Sodium [Moles/Vol] 139 mmol/L Normal 135-145 [facility] Comment on above: Performed By: #### 2 [id number] #### [facility] [address] [place] [address] UA With Cult Reflexon 2020 Bacteria LM Ql (Urine sed) 1+ /HPF Abnormal Trace [facility] Comment on above: Performed By: #### 1 [id number] ####[facility] [address] [place] [address] Bilirubin Ql (U) Negative Normal Negative [facility] Comment on above: Performed By: #### 1 [id number] ####[facility] [address] [place] [address] Clarity (U) CLEAR Normal Clear [facility] Comment on above: Performed By: #### 1 [id number] ####[facility] [address] [place] [address] Color (U) YELLOW Normal Yellow [facility] Comment on above: Performed By: #### 1 [id number] ####[facility] [address] [place] [address] Epithelial cells.squamous LM.HPF (Urine sed) [#/Area] 0-2 Normal 0-2 [facility] Comment on above: Performed By: #### 1 [id number] ####[address] [address] Glucose Test strip (U) [Mass/Vol] 3+ Abnormal Negative [facility] Comment on above: Performed By: #### 1 [id number] ####[address] [address] Hemoglobin Ql (U) Negative Normal Negative [facility] Comment on above: Performed By: #### 1 [id number] ####[address] [address] Ketones (U) [Mass/Vol] Negative Normal Negative [facility] Comment on above: Performed By: #### 1 [id number] ####[address] [address] [place].plasma/Lithiu m.RBC (Bld) [Mass ratio] 0-3 Normal 0-3 [facility] Comment on above: Performed By: #### 1 [id number] ####[address] [address] Mucus Ql (Urine sed) 2+ Normal [facility] Comment on above: Performed By: #### 1 [id number] ####[address] [address] Nitrite Ql (U) Negative Normal Negative [facility] Comment on above: Performed By: #### 1 [id number] ####[facility] [address] [place] [address] pH (U) 5.5 [pH] Invalid Interpretation Code 5.0-9.0 [facility] Comment on above: Performed By: #### 1 [id number] ####[address] [address] Protein (U) [Mass/Vol] 1+ Abnormal Negative [facility] Comment on above: Performed By: #### 1 [id number] ####[facility] [address] [place] [address] Specific gravity (U) [Rel density] >=1.030 Invalid Interpretation Code 1.005-1.030 [facility] Comment on above: Performed By: #### 1 [id number] ####[address] [address] Type of Urine collection method Clean Catch Normal [facility] Comment on above: Performed By: #### 1 [id number] ####[facility] [address] [place] [address] Urobilinogen Qn (U) 0.2 {Redd'U}/dL Normal 0.0-1.0 [facility] Comment on above: Performed By: #### 1 [id number] ####[address] [address] WBC Auto Ql (U) Negative Normal Negative [facility] Comment on above: Performed By: #### 1 [id number] ####[address] [address] WBC LM.HPF (Urine sed) [#/Area] 0-5 Normal 0-5 [facility] Comment on above: Performed By: #### 1 [id number] ####[facility] [address] [place] [address] eGFRon 06-09-2021 GFR/1.73 sq M.predicted among blacks MDRD (S/P/Bld) [Vol rate/Area] mL/min/{1.73_m2} Normal >=59 [facility] Comment on above: Order Comment: Order added by Discern Expert. Result Comment: eGFR is race adjusted. AA=. Performed By: #### 2 [id number] #### [facility] [address] [place] [address] GFR/1.73 sq M.predicted among non-blacks MDRD (S/P/Bld) [Vol rate/Area] mL/min/{1.73_m2} Normal >=59 [facility] Comment on above: Order Comment: Order added by Discern Expert. Result Comment: Second Watch Sergeant melina kidney disease could be indicated at eGFR's of less than 60 mL/min/1.73m2. Kidney failure is indicated at less than 15 mL/min/1.73m2. Performed By: #### 2 [id number] #### [facility] [address] [place] [address] Physician Orderon 06-01-2021 Physician Order [id number]#1. 00CD:127 Normal [facility] Pre-Certification Formon Pre-Certification Form [id number]#1. 00CD:127 Normal [facility] Physician Orderon 05-31-2021 Physician Order [id number]#1. 00CD:127 [facility] Encounters Encounter Date Encounter Type Care Provider Facility Start: 01-07-[address] OSWALDO PARISH Facility :[facility] Start: 01-05-2022 Encounter for genera l adult medical examination without abnormal findings DR OSWALDO PARISH [facility] Start: 12-28-2021 End: 12-28-[address] OSWALDO PARISH Facility:[facility] Start: 12-28-2021 End: 12-28-2021 Encounter for general adult medical examination without abnormal findings DR OSWALDO PARISH Facility:[facility] Start: 10-13-2021 End: 10-13-[address] OSWALDO PARISH Facility:[facility] Procedures Date Procedure Procedure Detail Performing Clinician Start: 12-28-[address] LINNETTE PARISH Comment on above: Performed By: #### P SAD #### [facility] [address] [place], [place] [address] Dr. Talia Davalos Payers Date Payer Category Payer Medicaid [id number] 1957 Self-pay 1957 Unknown [id number] 1957 Unknown [id number] 1957 Unknown [id number] 2.16.84 [id number] 1957 Unknown [id number] 2.16.84 [id number] 1957 Unknown [id number] 2.16.84 [id number] Clinical Note 05-24-2022 Note Date & Type Note Facility 05-24-2022 Note - From: Rose Sandhu To: - Administrative; Sent: 06/15/2021 15:35:32 EDT Show up: 05/15/2022 15:35:00 EDT Subject: 12 mnonth follow up Due Date/Time: 06/15/2022 15:35:00 EDT Reminder/Recall 12 month follow up with Dr. Loo (June 2022) Attempted to call patient to schedule annual follow up, no answer and unable to leave message. [facility] Discharge summary note 06-23-2021 Note Date [...] Tab) 30 mg, 1 tab(s), Oral, Daily [facility] Comment on above: Result Comment: Elec tronically Signed By: Rafa Macedo DO\.br\Date and Time Signed: 06/23/21 07:29 EDT History and physical note 06-21-2021 Note Date & Type Note Facility 06-21-2021 Note [id number] [facility] Summary Purpose Family History No Family History Records FoundNo Family History Records Found Advance Directives No Advanced Directives Records FoundNo Advanced Directives Records Found Additional Source Comments (unrecognized sect ion and content) No Status Records FoundNo Status Records Found INFORMATION SOURCE (unrecogn ized section and content) DATE CREATED AUTHOR 05/27/2022 [facility] DATE CREATED AUTHOR AUTHOR'S ORGANIZ ATION 10/11/[address] [facility] RECORDS PERTAINING TO PATIENTS WHO ARE [...] BE BASED ON THE PRIMARY CLINICAL RECORDS. [employer] [facility]. provides no warranty or guarantee of the accuracy or completeness of information in this document.
[2024-07-14 08:59] VITALS: BP 171/100; PULSE 78; TEMP 36.7; O2SAT 98
[2024-07-14 09:04] LABS: Glucometer 143 mg/dL (74-106)
[2024-07-14 09:31] VITALS: BP 177/83; PULSE 72; O2SAT 96
[2024-07-14 09:33] VITALS: BP 206/89; PULSE 71; O2SAT 95
[2024-07-14] MEDS: BUPIVACAINE HCL 0.25% PF 25 MG/10 ML VIAL 4 ML INJ (09:34)
--- NOTE | 2024-07-14 09:34 | W.PM.PROCNOT ---
Date of procedure: 07/14/24 Pre-op diagnosis: Pain due to right hip osteoarthritis Post-op diagnosis: same as pre-op Procedure: Procedure: Right hip injection Medications: Bupivacaine 0.25% 3cc, kenalog 40mg I explained the details of the procedure to the patient including the risks, benefits and alternatives. We had an informed discussion and the patient verbalized understanding and signed the consent form. All questions were answered appropriately.? A time out was performed.? After obtaining a comfortable supine position, the skin overlying the hip, subtrochanteric region, and joint space were prepped with alcohol. A sterile syringe containing the above medication was attached to a 25 guage, 3.5 inch spinal needle under strict aseptic technique. X ray was used to identify the joint space and the femoral neck on the right side.? The needle was than advanced through the subcutaneous tissue after local injection of 1% lidocaine.? The contents of the syringe were gently injected without any resistance into the joint space after contrast (isovue) outlined the appropriate area. The needle was removed and pressure was applied to the injection site to decrease the incidence of ecchymosis and hematoma formation.? A sterile bandage was applied. Anesthesia: Local Surgeon: Ramses Thorne Pathology: none sent Condition: stable Disposition: no change
[2024-07-14] MEDS: IOHEXOL 240 MG/ML - 10 ML VIAL 12 MG INJ (09:35)
[2024-07-14] MEDS: LIDOCAINE HCL 2% 400 MG/20 ML MDV INJ (09:35)
[2024-07-14] MEDS: TRIAMCINOLONE ACETONIDE 40 MG/ML VIAL IM (09:35)
== END 2024-07-14 09:37 | disposition home or self-care (01) ==
LOC: SURGOUT 08:28
PROVIDERS: PCP Family Medicine; Visit Provider Anesthesiology
DX: M16.11 Unilateral primary osteoarthritis, right hip (principal); Z79.84 Long term (current) use of oral hypoglycemic drugs; Z79.4 Long term (current) use of insulin
CPT/HCPCS: 20610; 36415; 77002; 82948; J0665; J3301; Q9966

== ENCOUNTER 2024-07-24 11:42 | Outpatient (OUT) | payer MEDICARE, MEDICAID, SELFPAY ==
--- NOTE | 2024-07-24 12:05 | P.CN_ITS ---
Consult Note: HPI Data of Consult Patient: known to practice within the last 3 years Requesting Physician: Malathi Hinton NP Primary Care Provider: Kip Parish MD Consult Narrative Reason for consult: f/u Narrative: Rigo Rosario a 68 year old male with chronic right hip and groin pain secondary to OA presents for evaluation after right hip injection. Reporting less than 50% overall improvement, pain previously 5-6 now 3-4, MATTHEW unchanged from prior remaining around 27%. Patient has no interested in surgical intervention at this time. finds mild benefit to diclofenac 75mg BID and baclofen 10 BID-TID PRN without side effects. Overall less bad days than prior to injection, pt finding mild benefit. cc:: CC: Malathi Hinton NP Review of Systems ROS Status of ROS 10 or more systems reviewed and unremark able except as noted in history and below Musculoskeletal Reports: joint pain PFSH PFSH Medical History (Updated 07/24/24 @ 12:08 by Malathi Hinton NP) Osteoarthritis ?M19.90 - Unspecified osteoarthritis, unspecified site (ICD-10) Diabetes ?E11.9 - Type 2 diabetes mellitus without complications (ICD-10) Surgical History H/O neck surgery ?Z98.890 - Other specified postprocedural states (ICD-10) History of surgery on arm ?Z98.890 - Other specified postprocedural states (ICD-10) H/O total shoulder replacement ?Z96.619 - Presence of unspecified artificial shoulder joint (ICD-10) Social History Smoking status: Former smoker Meds Home Medications and Allergies Home Medications ?Medication ?Instructions ?Recorded ?Confirmed ?Type atorvastatin 80 mg tablet 80 mg PO DAILY 06/10/23 07/14/24 History diclofenac sodium 75 mg 75 mg PO BID 06/10/23 07/14/24 History tablet,delayed release fenofibrate 160 mg tablet 160 mg PO DAILY 06/10/23 07/14/24 History metformin 500 mg tablet 500 mg PO BID 06/10/23 07/14/24 History pioglitazone 30 mg tablet 30 mg PO BID 06/10/23 07/14/24 History aspirin 81 mg tablet,delayed 81 mg PO DAILY 06/25/24 07/14/24 History release baclofen 10 mg tablet 10 mg PO TID 06/25/24 07/14/24 History insulin pen DAILY 06/25/24 History Allergies Allergy/AdvReac Type Severity Reaction Status Date / Time No Known Drug Allergies Allergy Verified 07/14/24 08:58 Exam Constitutional Documenting provider has reviewed patient's vital signs: yes Common normals: no apparent distress, oriented x3, healthy appearing, alert and well nourished General appearance: cooperative HENMT Common normals: normocephalic, hearing grossly normal bilaterally and moist oral mucous membranes Head and scalp: normocephalic Eye Common normals: PERRL Pupil: PERRL Neck & C-Spine Common normals: full ROM General: normal visual inspection Chest Common normals: inspection of chest normal Respiratory Common normals: normal respiratory effort, no retractions and no use of accessory muscles Extremity Right lower extremity: hip joint Right hip: special tests Other: positive dominick of right hip, incresaed pain with internal and external log roll Neuro Common normals: oriented x3, CN's II-XII intact bilaterally, moves all extremities, no focal motor deficits, no sensory deficits noted and deep tendon reflexes 2+ bilaterally Sensorium/orientation: alert Motor exam: strength 5/5 throughout and no movement abnormalities noted Psych Common normals: mental status grossly normal, thought process normal, cooperative, affect normal, speech normal and activity/motor behavior normal Speech: normal speech Thought process: normal thought process Results Additional Findings Additional findings: If on a controlled substance or opioids, I have checked an [facility] report on this patient and there are no aberrancies noted in the prescribing history.??If on a controlled substance or opioid a drug screen was completed and reviewed within the last year, and if there has not been a drug screen completed we ordered one today to monitor higher risk, state monitored pain medication use. As part of providing excellent, safe, comprehensive care, the following was completed at our patient's visit: 1. A medication reconciliation and review to ensure accurate knowledge of current/active medications, including asking our patients to inform us about any [id number] medications or herbal remedies/nutritional supplements/alternative remedies. 2. A review to specifically ensure our patients have had annual screening for screening for depression, screening for tobacco use, and screening for unhealthy alcohol use. For concerning screenings had a discussion with the patient, provided patient education, and recommended follow-up with primary care provider when appropriate. If patient noted with a risk of falling, they received education on strength, gait, and balance training to prevent future risk of falling. Assessment and Plan Assessment and Plan (1) Osteoarthritis of right hip: (2) Right hip pain: (3) Generalized weakness: (4) Myofascial pain: Plan continue current medications PT for strengthening as pt reports feeling weaker and deconditioning f/u as needed
== END 2024-07-24 11:43 | disposition home or self-care (01) ==
LOC: PM 11:42
PROVIDERS: PCP Family Medicine; Visit Provider Nurse Practitioner
DX: M16.11 Unilateral primary osteoarthritis, right hip (principal); M25.551 Pain in right hip; R53.1 Weakness; M79.18 Myalgia, other site
CPT/HCPCS: G0463

== ENCOUNTER 2024-09-20 19:23 | Observation (INO) | payer MEDICARE, SELFPAY ==
[2024-09-20] VITALS (36 sets, daily range): BP systolic 112–182; BP diastolic 70–116; PULSE 65–114; TEMP 36.3–36.8; O2SAT 86–97
--- OUTSIDE RECORDS SUMMARY | 2024-09-20 19:28 | XMS_ITS | CCD ---
Author Organization [facility] Care Team Providers Care Bistro Attendant Name Role Phone MADISYN, DR CHACON Admitting Unavailable MADISYN, DR CHACON Attending Unavailable HOY, DR CHACON Primary Care Unavailable HOY, DR CHACON Admitting Unavailable MADISYN, DR CHACON Attending Unavailable MADISYN, DR CHACON Primary Care Unavailable HOLDENY, DR CHACON Consulting Unavailable HOLDENY, DR CHACON Admitting Unavailable MADISYN, DR CHACON Attending Unavailable HOLDENY, DR CHACON Primary Care Unavailable HOLDENY, DR CHACON Consulting Unavailable Mati MAXWELL, Ramses Smiley Attending Unavailable Problems Active Problems Problem Classification Problem [...] 12-28-2021 BASO # 0.1 103/ul Normal 0.0-0.1 [facility] Comment on above: Performed By: #### C BC #### [facility] [address] [place] [address] Dr. Talia Davalos Basophils/100 WBC (Bld) 0.9 % Normal 0.2-2.0 [facility] Comment on above: Performed By: #### C BC #### [facility] [address] [place] [address] Dr. Talia Davalos EO # 0.2 103/ul Normal 0.0-0.7 [facility] Comment on above: Performed By: #### C BC #### [facility] [address] [place] [address] Dr. Talia Davalos Eosinophils/100 WBC (Bld) 2.9 % Normal 0.9-7.0 [facility] Comment on above: Performed By: #### C BC #### [facility] [address] [place] [address] Dr. Talia Davalos Erythrocyte distribution width (RBC) [Ratio] 13.8 % Normal 11.0-15.0 [facility] Comment on above: Performed By: #### C BC #### [facility] [address] [place] [address] Dr. Talia Davalos Hematocrit (Bld) [Volume fraction] 41.7 % Critically low 42.0-54.0 [facility] Comment on above: Performed By: #### C BC #### [facility] [address] [place] [address] Dr. Talia Davalos Hemoglobin (Bld) [Mass/Vol] 14.2 g/dL Normal 14.0-18.0 [facility] Comment on above: Performed By: #### C BC #### [facility] [address] [place] [address] Dr. Talia Davalos IG # 0.03 10e3/ul Normal 0.00-0.03 [facility] Comment on above: Performed By: #### C BC #### [facility] [address] [place] [address] Dr. Talia Davalos IG % 0.4 % Normal 0.0-0.5 [facility] Comment on above: Performed By: #### C BC #### [facility] [address] [place] [address] Dr. Talia Davalos LYMPH # 1.7 103/ul Normal 1.2-3.8 [facility] Comment on above: Performed By: #### C BC #### [facility] [address] [place] [address] Dr. Talia Davalos Lymphocytes/100 WBC (Bld) 25.7 % Normal 20.5-60.0 [facility] Comment on above: Performed By: #### C BC #### [facility] [address] [place] [address] Dr. Talia Davalos MANUAL DIFF REQ NO Normal [facility] Comment on above: Performed By: #### C BC #### [facility] [address] [place] [address] Dr. Talia Davalos MCH (RBC) [Entitic mass] 30.5 pg Normal 25.9-34.0 [facility] Comment on above: Performed By: #### C BC #### [facility] [address] [place] [address] Dr. Talia Davalos MCHC (RBC) [Mass/Vol] 34.1 g/dL Normal 29.9-35.2 [facility] Comment on above: Performed By: #### C BC #### [facility] [address] [place] [address] Dr. Talia Davalos MCV (RBC) [Entitic vol] 89.7 fL Normal 80.0-94.0 [facility] Comment on above: Performed By: #### C BC #### [facility] [address] [place] [address] Dr. Talia Davalos MONO # 0.4 103/ul Normal 0.3-0.8 [facility] Comment on above: Performed By: #### C BC #### [facility] [address] [place] [address] Dr. Talia Davalos Monocytes/100 WBC (Bld) 6.2 % Normal 1.7-12.0 [facility] Comment on above: Performed By: #### C BC #### [facility] [id number] Talia Davalos NEUT # 4.3 103/ul Normal 1.4-6.5 [facility] Comment on above: Performed By: #### C BC #### [facility] [id number] Talia Davalos Neutrophils/100 WBC (Bld) 63.9 % Normal 43.0-75.0 [facility] Comment on above: Performed By: #### C BC #### [facility] [address] [address] [address] Talia Davalos Platelet mean volume (Bld) [Entitic vol] 9.6 fL Normal 9.5-13.5 [facility] Comment on above: Performed By: #### C BC #### [facility] [address] [address] [address] Talia Davalos PLT 257 103/ul Normal 150-450 [facility] Comment on above: Performed By: #### C BC #### [facility] [address] [place] [address] Dr. Talia Davalos RBC 4.65 106/ul Critically low 4.70-6.10 [facility] Comment on above: Performed By: #### C BC #### [facility] [address] [address] [address] Talia Davalos WBC 6.8 103/ul Normal 4.0-11.0 [facility] Comment on above: Performed By: #### C BC #### [facility] [address] [place] [address] Dr. Talia Davalos DIRECT LDLon 12-28-2021 Cholesterol in LDL [Mass/Vol] 73 mg/dL Normal [facility] Comment on above: Performed By: #### D LDL, T7, TSH, CMP, LIPID #### [facility] [address] [place], [place] [address] Dr. Talia Davalos DLDL NORMAL SEE BELOW Normal [facility] Comment on above: Result Comment: <100 mg/dl OPTIMAL 100 - 129 mg/dl NEAR OR ABOVE OPTIMAL 130 - 159 mg/dl BORDERLINE HIGH 160 - 189 mg/dl HIGH >190 mg/dl VERY HIGH Performed By: #### D LDL, T7, TSH, CMP, LIPID #### [facility] [address] [address] [address] Talia Davalos FREE THYROXINE INDEX T7on FTI 1.97 Normal [facility] Comment on above: Performed By: #### D LDL, T7, TSH, CMP, LIPID #### [facility] [address] [address] [address] Talia Davalos T3U 34.0 % Normal 23.5-40.5 [facility] Comment on above: Performed By: #### D LDL, T7, TSH, CMP, LIPID #### [facility] [address] [address] [address] Talia Davalos T4 [Mass/Vol] 5.80 ug/dL Normal 5.53-11.00 [facility] Comment on above: Performed By: #### D LDL, T7, TSH, CMP, LIPID #### [facility] [address] [address] [address] Talia Davalos LIPID PROFILEon 12-28-2021 CHOL-HDL RATIO NORM SEE BELOW Normal [facility] Comment on above: Result Comment: 3.3 - 4.4 LOW RISK 4.4 - 7.1 AVERAGE RISK 7.1 - 11.0 MODERATE RISK >11.0 HIGH RISK Performed By: #### D LDL, T7, TSH, CMP, LIPID #### [facility] [address] [address] [address] Talia Davalos Cholesterol [Mass/Vol] 254 mg/dL Critically high <=200 [facility] Comment on above: Performed By: #### D LDL, T7, TSH, CMP, LIPID #### [facility] [address] [address] [address] Talia Davalos Cholesterol in HDL [Mass/Vol] 32 mg/dL Normal [facility] Comment on above: Performed By: #### D LDL, T7, TSH, CMP, LIPID #### [facility] [address] [address] [address] Talia Davalos Cholesterol.total/Cho lesterol in HDL [Mass ratio] 7.9 {ratio} Normal [facility] Comment on above: Performed By: #### D LDL, T7, TSH, CMP, LIPID #### [facility] [address] [address] [address] Talia Davalos HDL NORMAL > or = 60 mg/dl - LO W CARDIOVASCULAR RISK <40 mg/dl - HIGH CARDIOVASCULAR RISK Normal [facility] Comment on above: Performed By: #### D LDL, T7, TSH, CMP, LIPID #### [facility] [address] [address] [address] Talia Davalos Triglyceride [Mass/Vol] 1026 mg/dL Critically high <=150 [facility] Comment on above: Performed By: #### D LDL, T7, TSH, CMP, LIPID #### [facility] [address] [place] [address] Dr. Talia Davalos PROF 14(COMP METB)on 022 Albumin [Mass/Vol] 3.5 g/dL Normal 3.5-5.0 [facility] Comment on above: Performed By: #### D LDL, T7, TSH, CMP, LIPID #### [facility] [address] [address] [address] Talia Davalos Albumin/Globulin [Mass ratio] 0.9 {ratio} Normal [facility] Comment on above: Performed By: #### D LDL, T7, TSH, CMP, LIPID #### [facility] [address] [place] [address] Dr. Talia Davalos ALP [Catalytic activity/Vol] 125 U/L Normal 38-126 [facility] Comment on above: Performed By: #### D LDL, T7, TSH, CMP, LIPID #### [facility] [address] [address] [address] Talia Davalos ALT [Catalytic activity/Vol] 33 U/L Normal 21-72 [facility] Comment on above: Performed By: #### D LDL, T7, TSH, CMP, LIPID #### [facility] [address] [address] [address] Talia Davalos Anion gap [Moles/Vol] 15.3 mmol/L Normal [facility] Comment on above: Performed By: #### D LDL, T7, TSH, CMP, LIPID #### [facility] [address] [address] [address] Talia Davalos AST [Catalytic activity/Vol] 15 U/L Critically low 17-59 [facility] Comment on above: Performed By: #### D LDL, T7, TSH, CMP, LIPID #### [facility] [address] [address] [address] Talia Davalos Bilirubin [Mass/Vol] 0.7 mg/dL Normal 0.2-1.3 [facility] Comment on above: Performed By: #### D LDL, T7, TSH, CMP, LIPID #### [facility] [address] [place] [address] Dr. Talia Davalos Calcium [Mass/Vol] 8.9 mg/dL Normal 8.4-10.2 [facility] Comment on above: Performed By: #### D LDL, T7, TSH, CMP, LIPID #### [facility] [address] [place] [address] Dr. Talia Davalos Chloride [Moles/Vol] 103 mmol/L Normal 98-107 [facility] Comment on above: Performed By: #### D LDL, T7, TSH, CMP, LIPID #### [facility] [address] [place] [address] Dr. Talia Davalos CO2 [Moles/Vol] 24.1 mmol/L Normal 22.0-30.0 [facility] Comment on above: Performed By: #### D LDL, T7, TSH, CMP, LIPID #### [facility] [address] [place] [address] Dr. Talia Davalos Creatinine [Mass/Vol] 0.84 mg/dL Normal 0.66-1.25 [facility] Comment on above: Performed By: #### D LDL, T7, TSH, CMP, LIPID #### [facility] [address] [place] [address] Dr. Talia Davalos EGFR-AF ANGOLAN >60 Normal >=60 [facility] Comment on above: Performed By: #### D LDL, T7, TSH, CMP, LIPID #### [facility] [address] [address] [address] Talia Davalos EGFR-NON AF ANGOLAN >60 Normal >=60 [facility] Comment on above: Performed By: #### D LDL, T7, TSH, CMP, LIPID #### [facility] [address] [address] [address] Talia Davalos Globulin (S) [Mass/Vol] 3.9 g/dL Normal [facility] Comment on above: Performed By: #### D LDL, T7, TSH, CMP, LIPID #### [facility] [address] [address] [address] Talia Davalos Glucose [Mass/Vol] 199 mg/dL Critically high 74-106 [facility] Comment on above: Performed By: #### D LDL, T7, TSH, CMP, LIPID #### [facility] [address] [place] [address] Dr. Talia Davalos Potassium [Moles/Vol] 4.4 mmol/L Normal 3.4-5.0 [facility] Comment on above: Performed By: #### D LDL, T7, TSH, CMP, LIPID #### [facility] [address] [address] [address] Talia Davalos Protein [Mass/Vol] 7.4 g/dL Normal 6.1-8.2 [facility] Comment on above: Performed By: #### D LDL, T7, TSH, CMP, LIPID #### [facility] [address] [place] [address] Dr. Talia Davalos Sodium [Moles/Vol] 138 mmol/L Normal 137-145 [facility] Comment on above: Performed By: #### D LDL, T7, TSH, CMP, LIPID #### [facility] [address] [place] [address] Dr. Talia Davalos Urea nitrogen [Mass/Vol] 12.0 mg/dL Normal 9.0-20.0 [facility] Comment on above: Performed By: #### D LDL, T7, TSH, CMP, LIPID #### [facility] [address] [place] [address] Dr. Talia Davalos Urea nitrogen/Creatinine [Mass ratio] 14.3 mg/mg Normal [facility] Comment on above: Performed By: #### D LDL, T7, TSH, CMP, LIPID #### [facility] [address] [address] [address] Talia Davalos TSHon 12-28-2021 TSH 0.785 uIU/mL Normal 0.470-4.680 [facility] Comment on above: Performed By: #### D LDL, T7, TSH, CMP, LIPID #### [facility] [address] [address] [address] Talia Davalos TSH RANGE SEE BELOW Normal [facility] Comment on above: Result Comment: <0.3 4 UIU/ml HYPERTHYROID 0.34-5.60 UIU/ml EUTHYROID >5.60 UIU/ml HYPOTHYROID Performed By: #### D LDL, T7, TSH, CMP, LIPID #### [facility] [address] [address] [address] Talia Davalos Coding Summary.on 07-04-2021 Coding Summary. CD:[id number] Gh 0bWw+PGhlYWQ+BS9UYOOyI 34jaNYjkK7SY2tABP9WMUU LGSBOTB8WRF3fbXD5XXfnD 2VybiAv GuxcxCFsRK76DRn1CLE9vR vkELtuuN9raOGfZ8a8KpJd ZJ69yD15UYfqQAFfVwT2Gi ZpbjsgbWFy P2zjQuXdeUYmAyo+PHRhYm xlIHdpZHRoPScxMDAlJyBz mOyyZI9lHh1mOCFuVBKozY xhcHNlOiBj r3mhSGMcIRkpZP3xjIprU7 IxdGW1VETis2i5Iq60bJR+ VBSrQPA3fHmbKTyil988Wu Rlg9rtPVC9 hBWiMAxpIDG5O16si2T4JW ZkKLXrNAQ0iIR7eJ3xgAwc iayeK8OizAZuKzS9KNA2yB GteF7eqNpb xvthnY6yKlb+O26TMJ8ORQ CMLI0QSao5J0MzVlwonAY+ OM55VRTuPI60qDUkuOEas5 rteVd3LtIq NRClSKG6wNcpOZsdg6LnVC SzS23teHVco6I6QIUrgMpb jJKrNiSlbKZ4fS4tPLkkxr wlr8lwqfed Rchog9njqq71gA46N45gBO hxKUHdSLS6ZXPtIRTdoKnc rt0hnH0aTj7+LEcgx9owf4 yftCx4JqSb MQBmkiLrrUvmVYQ1g4BgHc 20Y0HqhRmol1SjOte7ov99 lSOwt5M0hJZ9NYslZFVfhR 1sPXqtNvK4 PNTbFmQtxD01cUYsJJtfCt 3hfXrtiTueJE2mRDRwtnws WYWmqD3qQRObsDOfcEigYM 4wNTBpbjtm c875XpYoJSG8XLXtkHAuR5 QorZ5eDjHoZSJzIPKlC0Sz kPZwHJxrA440QLyrLyB5QO YtosBtJ8Uq HTKaiGqmJaU3s6T6Gg5Oz7 RezeuqZJE5TCsiZIJ2BoJp TtQeEiC3L8ChIex5GZFpqO fkPL0hI9Rw NBSjyzjeiotshRK7WCRpBY KukM04jZVeKOkyNf5ds4M6 n850PEXiFHPckO40Rm3gcJ ogMTBwdCBU uI9hunqyv9dagwouStAnQC LxKRe2SRm6KQPrlFyjBjGo MFG4BtB7ELM6tGKnmO1srE utekyrgU6l Oyc+P19ytO9wZTO1EUQ2lw rbPTQyklKpHU94OF91U9Vi PjwvdGFibGU+PGRpdiBzdH ruTP7lSnZz i3eff8PjPTzyG2AyARZdQP tnXnp7HARkDPD7lQC5tN7d CDEhMNkbh0U1vHL0S5Gwvz Pwvm8cp1lp PANeSNysE29dpHCql0L3HB PjwMJ7DMGzwRwdRiMvvI09 Oyc+LKEfsUuwy0HtOmmgw3 plj7cevIi3 HhLlJEZohuYvlQtpFBX9z1 BoDh89P72yEDifEESnTGMh WGUuUOCuhPkaxn6haX9oKr 8+PGNvbCB3 hTF4eF2sBYYwRcV7HGktY7 76DfJfkZHjJzjyb5jno0sy xMa8UkZpIDQzkxZmjMizYT G0c9QaMg49 L80dHEhdAMWuNUXkFIKiLS KhbKaiuk4mfK3zVv3+PC9j z4wevv45cZ10vWE+PHRkIH S7yKgxFVqy NAZewO1wVQinZzQ3ZZQjCs JjhC30tTLpHSozYk6atPky vSgbQJ1tVBLzcwswi345Gi Svj4ksPCFy eIZdCGusDPK8P69vs4S7LG SaQAOjQMR6qBV7hB2odTjh bjogbGVmdDsgdmVydGljYW tpRYuoY411 IHRvcDsnPlBhdGllbnQgTm BiHVl2Z3VhGzw7QULjkWkg PM2xlDUrCVvgDp8ewLzcqG eiBP2lICOb muggv344BeQrx6qpNOAdhE QiADubUWM5K65ag3B2ROIi GQNlKLT5fXP8vT5hfErkms ogbGVmdDsg iaGvuLjtHMoxYJmuS729YH RvcDsnPkJpcnRoIERhdGU6 OO80LS56vYLfz6M1uHE4O9 BhZGRpbmct imcowPK6SEWdPVWqlK68Be 7vgCywXs7kYQNsOWR0IQAp hDVcX9TbdK6sIgFmNMFcIV DvU3HubFIb JGjvU459JCtgBkM6OLQkgs PxQ2DkGIOvwLpaUcS8f0T9 Wa9VH3F4FV11NO88pEYlv9 N9uMY7B9Ax WLYmqrtdqgxxyZT1PTYkKB TgqQ91Ja1qoFvkPn6rEVLk CFH9YSPoiIGyG0WhpS4fFp AjMDAwMDAw Z1MraAOyDJbiW459XYteDk V1MAWeirTkG8QfPBWqjLew FoS3j5G3Ma4AAFu4AN23RY 55tEUsd3W1 wQK3U7NdYWTglvreoalwfA Q6JQUnNCHivO18Ve7bvByl Vp1fKMJiNPU1NXQerMGpH6 HwyH3bImNy ARAxHLOxH7LfyALzERzsB6 74AWcvCrA0IFOnjcZoS6Mv KEVndGkrXkU8a5K3Co4FGL InSM52FYT3 mGY0TY36KX30R5DsWqgwzV FibGU+PHRhYmxlIHdpZHRo HHmvDBKaKaCevWxwFC6jXf 9yZGVyLWNv tUqyrXMwZaWjb7goROZeBA asEL8qpUzrK3CxrIC8PQBh j9e8Hg74M53fA5ZcbZT+PG SiyPT4qTH6 bJ7oWcUcFvH0AFxpO795Vs SykLDjZardp3ktg3egaIk7 EcE7XXIzvmUcpBddOAN6l1 TqRm86V59v IHdpZHRoPSIxNSUiIHZhbG qdux7cjU5lWn6+PGNvbCB3 bST6xL2kRkUaMgU4RLwmF7 49InRvcCIv Acnae1pxz4dgnPa9PeJwCG FaezXpnOceXMP9n2NvBe31 V3JlkUmqv5UuUxi6vc16gI Fqz1V6kWW2 C0TrSLTdqpxebPWwbTphJC 5sGPRcrnsjZNLbqM9vKPTq N2z1LySjUwB9BDquT0Lbhw S0ZSYysNOd LCwoTJP6Q25bj5S8SKFwCS ShEFM3uHF3sY7qgAxlmmsw bGVmdDsgdmVydGljYWwtYW oiN871XRJn wYmoCQYhjG6aGZOatLFqeO uoEO0bQFFjjuloCgJQZPPX XWqnTkNQCX7CPWunkNP+PH RrTBD8kTjh RPlvXFQukM9wRYWhP4h7Ib QxAlG0PVumB8ByUSIxbtfy Gc23vE4tDzYoTmQ4NWmmR9 IkgmP1ULVf rJVcGEemJAN3B79pl1N3XU TvVHUxBGS4gSV5jJ7gnNzv bjogbGVmdDsgdmVydGljYW fuPVhaP252 NLCtyBdeCvRwJwOwJdS4CV f8Y6QwYwh6NLCaqEotJF6i cMHpTLbrEj2laFvpdUheZK 4wNTBpbjtw LHPveG6iRULpwWYmmAeqON 9zAEGknfyxr363UdGnEXP8 UVBmbGTcW5DpcH1cBiCpYZ SsUTKuG5Mg zXBtNDugJ013MZbfUxA6YS QmpoViC7TkWXSyiAcxFfL5 h7K8Fi15TcRPCNDhaqiywN Q+PHRkIHN0 nVthEYlfGYEkjP8zYMAjD4 n9BoZaJrP8JCyeH8WwZHKo sdhvAt16jC5sCxIpPzZ0TW yqV9JqjbJ2 PBPavOIqPKtbJCD8A56rx1 W2ECDoXXGmRAL6cOE6mH5h bGlnbjogbGVmdDsgdmVydG ljYWwtYWxp D187KVOebLreAs7goHT0X8 XsYuz9WDQrtCocWM6bnYTr QCtnOr4dwZhrmSvlPS8bMG BpbjtwYWRk rQ6gQVJjfACemBjuVA7eSI Swlpyxr551EzFhVHU8VFZf gOMhO1UihJ6nZnSuXYFbLV CpJ1IxeIXu UCwkA079KWyoQxV7KETmph CdE0SwIARjqCsdRoZ3i5C0 Zm3QiuRuqHunomD9D9YaXv wvdHI+PC90 BZDeHF77yTUwkLOga2aisC w2PyEdNBXnBYH1gVugVKwa z1GnXIRkI55yxXRkn0M8DB NvbGxhcHNl EqXjzHG0qV7jTFqnpubbc6 zcrdriRjvlu9gxvt24lI38 M68iLRzsKUBoQDMlEVKgCN GsdPgalt9u eL2xJx4+YAPjePB2lZB5sS 3zFwYpQsG6TVbrG652GjWo uEDbVgrez9ndu9rbxFi3Sg IwJSIgdmFs gRyjOXE2m0WfNb98L48nJY dpZHRoPSIyMCUiIHZhbGln sx4beR3yAa1+YQ5dg1devy 59mS87lPU+ EDWgZNE9tJjmYRlnLCLlvR 7oYIgjNoL2ZFIoPmQwhZ64 hKXqPOpiPd6zjUwmgEioMC 4wNTBpbjtm n800DvAuk8elQTJpaULnIP mrNOG1S97ie9G9RBLrLTWu XNT9cIH0pP9apJkluindwX VmdDsgdmVy pGkuDRmqALjnO779JVXxzI lpWrRnuOCfT8wklhOAKJ3k OjwvdGQ+GFXkBDZ4pRvoMO iiJLCfgE1t YJKuS7m0GmAdDfH5SRqtY5 XbfzP2JKDzfFHgVXMnyKBU qQ2oefkyx7yyuutuVaElVT QfQWe3XAl4 CUXzdVduWdSqRZO5LqN0EO J7zIVrzG2ekZyzopjxyY1m Oyc+RklOOjwvdGQ+PHRkIH U3gDiwSOgv JHPhzQ1wQRJlI7p1XdNkRw J6EArnT5VvxcO3TKUxaCIq ASKxrXNBcX7synhpi7hnou ogIzAwMDAw CLy7YUr0TVExdZbpRaCbJM Z9ZhV5LSY5oKZrdS7neCxb sltozI0eTdo+TVJOOjwvdG Q+PHRkIHN0 uPerTGgeUNFyhM1gTAAbN7 m0PnJtSfA5RInbV0LprrX8 UHSiaQAfVFBeuAOCkR2kwa grx2ghjkbx XeOuQXOgGLh2YNp1RQEvdQ udYrIlTLX0BnN5WLI8aRQx pN9pvOzkcazimQ2hFpa+UG O6CBY9EE95 MZ91P4AsLwljjAVmlBV+PH RhYmxlIHdpZHRoPScxMDAl KoHuqLocNY6oYd4nUKRmJK NvbGxhcHNl OiBj (more content not included)... Normal [facility] IntraOperative Documentson 0 07-01-2021 IntraOperative Documents [id number]#1. 00CD:127 Normal [facility] Main OR Intraoperative Recor don 06-29-2021 Main OR Intraoperative Record IntraOp Document Type FT Summary Primary Physician: Rafa Macedo DO Finalized Date/Time: 06/29/21 09:25:56 Pt. Name: RIGO ROSARIO/Sex: 1955 Male Med Rec #: [id number] Physician: Rafa Macedo DO Financial #: [id number] Pt. Type: I Room/Bed: AS11/01 Admit/Disch: 06/22/21 [...] Mikey COATS, Shad Macedo DO, Rafa Oliver PERSONAL COUNSELOR, FA, Mensa K Role Performed Anesthesiologist Surgeon - Primary SA - [employer] Operations Agent Inspector Poising Time In 06/22/21 12:43:00 06/22/21 12:43:00 06/22/21 12:43:00 Time Out 06/22/21 15:32:00 06/22/21 15:47:00 06/22/21 15:47:00 Procedure SHOULDER TOTAL SHOULDER TOTAL SHOULDER TOTAL ARTHROPLASTY(Left) ARTHROPLASTY(Left) ARTHROPLASTY(Left) Comments Supervised by Dr Boo Last Modified By: Danika RN, Mckenna Garnica RN, Mckenna Chu RN 06/22/21 15:51:44 06/22/21 15:51:44 06/22/21 15:51:44 Entry [...] Third scrub Second scrub Last Modified By: Mckenna Garnica RN, RN, Mckenna Garnica RN, Mckenna Mercado 06/22/21 15:51:44 06/22/21 15:51:44 06/22/21 15:51:44 Entry 7 Entry 8 Case Attendee Mckenna Garnica RN, JR, DO, Nicholas J Role Performed Inpatient Auditor - Primary Anesthesiologist of Record Time In 06/22/21 12:43:00 06/22/21 15:30:00 Time Out 06/22/21 15:47:00 06/22/21 15:47:00 Procedure SHOULDER TOTAL SHOULDER TOTAL ARTHROPLASTY(Left) ARTHROPLASTY(Left) Comments Last Modified By: Mckenna Garnica RN, RN, Tracy D 06/22/21 15:51:44 06/22/21 15:51:44 General Comments: Enmanuel Maldonado and Rehana Monteiro Arthrex Reps were present for the procedure./Dani Murcia and Willard Barrow Marcio Reps were present for the procedure./Dani TRIMBLEphysician assistant certified Protocols FT Pre-Care Text: Implements protective measures [...] Jensen CRNA, Given Participants Rafa Macedo DO, Benito PERSONAL COUNSELOR, FA, Peter K, Lidia PERSONAL COUNSELOR, Ray W, Imani Olivera L, Crissy RN, Danika Arthur RN, Tracy D Time [...] Garnica RN 08 (more content not included)... [facility] Consent for Anesthesiaon Consent for Anesthesia [id number]#1. 00CD:127 [facility] Consent for Procedure/Surger yon 06-24-2021 Consent for Procedure/Surgery [id number]#1. 00CD:127 [facility] Discharge Instructionson Discharge Instructions [id number]#1. 00CD:127 [facility] IntraOperative Documentson 0 06-24-2021 IntraOperative Documents [id number]#1. 00CD:127 [facility] IntraOperative Documents [id number]#1. 00CD:127 [facility] Preoperative Documentson Preoperative Documents [id number]#1. 00CD:127 [facility] Preoperative Documents [id number]#1. 00CD:127 Normal [facility] Auto Diffon 06-23-2021 Basophils/100 WBC (Bld) 0.2 % Normal 0.0-2.0 [facility] Comment on above: Order Comment: Order Added by Discern Expert. Performed By: #### 2 [id number], [id number], [id number], [id number], 3876430, [id number] ####[facility] [id number] [place] [address] Basophils/Leukocytes Auto (Bld) [Pure # fraction] 0.0 E9/L Normal 0.0-0.2 [facility] Comment on above: Order Comment: Order Added by Discern Expert. Performed By: #### 2 [id number], [id number], [id number], 6944129, [id number], [id number] ####[address] [address] Eosinophils/100 WBC (Bld) 0.2 % Normal 0.0-8.0 [facility] Comment on above: Order Comment: Order Added by Discern Expert. Performed By: #### 2 [id number], [id number], 2788306, 5648933, 0595935, [id number] ####[address] [address] Eosinophils/Leukocyte s Auto (Bld) [Pure # fraction] 0.0 E9/L Normal 0.0-0.5 [facility] Comment on above: Order Comment: Order Added by Discern Expert. Performed By: #### 2 [id number], [id number], 9144504, 0598677, 8992174, [id number] ####[facility] [address] [place] [address] Lymphocytes/100 WBC (Bld) 11.6 % Low 14.0-50.0 [facility] Comment on above: Order Comment: Order Added by Discern Expert. Performed By: #### 2 [id number], [id number], 9645902, 0881515, 7838227, 7179610 ####[address] [address] Lymphocytes/Leukocyte s Auto (Bld) [Pure # fraction] 1.4 E9/L Normal 1.0-4.0 [facility] Comment on above: Order Comment: Order Added by Discern Expert. Performed By: #### 2 [id number], [id number], 7696855, 9303465, [id number], [id number] ####[facility] [address] [place] [address] Monocytes/100 WBC (Bld) 7.6 % Normal 4.0-14.0 [facility] Comment on above: Order Comment: Order Added by Discern Expert. Performed By: #### 2 160820, 70940707, 6823525, 7712779, 0608030, 6308965 ####[address] [place] [address] Monocytes/Leukocytes Auto (Bld) [Pure # fraction] 0.9 E9/L Normal 0.2-1.0 [facility] Comment on above: Order Comment: Order Added by Discern Expert. Performed By: #### 2 791376, 40811490, 7274953, 3319177, 3781950, 0598093 ####[address] [place] [address] Neutrophils/100 WBC (Bld) 80.4 % High 36.0-75.0 [facility] Comment on above: Order Comment: Order Added by Discern Expert. Performed By: #### 2 038290, 28398168, 3356959, 8195502, 3705967, 3524979 ####[facility] [address] [place] [address] Neutrophils/Leukocyte s Auto (Bld) [Pure # fraction] 9.6 E9/L High 2.0-7.5 [facility] Comment on above: Order Comment: Order Added by Discern Expert. Performed By: #### 2 538935, 50455721, 6035810, 4979374, 5187577, 0317324 ####[address] [place] [address] BUNon 06-23-2021 Urea nitrogen [Mass/Vol] 17 mg/dL Normal 5-21 [facility] Comment on above: Performed By: #### 2 006474, 61860092, 9853856, 3392249, 8775458, 3559235 #### [facility] [address] [place] [address] CBC w/ Auto Diffon Erythrocyte distribution width (RBC) [Ratio] 13.7 % Normal 10.9-14.2 [facility] Comment on above: Performed By: #### 2 837519, 52042409, 6617090, 1129899, 8501185, 3744960 ####[facility] [address] [place] [address] Hematocrit (Bld) [Volume fraction] 39.6 % Normal 37.7-49.0 [facility] Comment on above: Performed By: #### 2 711333, 25696912, 9018995, 5043776, 3586494, 7975707 ####[facility] [address] [place] [address] Hemoglobin (Bld) [Mass/Vol] 13.4 g/dL Low 13.5-17.5 [facility] Comment on above: Performed By: #### 2 888100, 01956888, 5737943, 7809721, 0959857, 1948762 ####[facility] [address] [place] [address] MCH (RBC) [Entitic mass] 30.6 pg Normal 27.0-34.0 [facility] Comment on above: Performed By: #### 2 279903, 05551785, 6397430, 3546409, 3890026, 9624265 ####[facility] [address] [place] [address] MCHC (RBC) [Mass/Vol] 33.8 g/dL Normal 31.4-36.0 [facility] Comment on above: Performed By: #### 2 300110, 45306217, 8008942, 1663142, 2583069, 8244379 ####[facility] [address] [place] [address] MCV (RBC) [Entitic vol] 90.7 fL Normal 80.0-100.0 [facility] Comment on above: Performed By: #### 2 587560, 11073593, 9278915, 8620040, 7023341, 9137743 ####[address] [address] Platelet mean volume (Bld) [Entitic vol] 8.5 fL Normal 6.4-10.8 [facility] Comment on above: Performed By: #### 2 409502, 38914611, 6399568, 8052887, 8196945, 7007579 ####[address] [address] Platelets (Bld) [#/Vol] 275.0 E9/L Normal 150.0-500.0 [facility] Comment on above: Performed By: #### 2 451369, 95723660, 0222437, 8010798, 6715573, 7065804 ####[address] [address] RBC (Bld) [#/Vol] 4.4 E12/L Normal 4.3-5.9 [facility] Comment on above: Performed By: #### 2 163988, 55283733, 1222672, 4867356, 5615833, 7644082 ####[address] [address] WBC corrected for nucl RBC Auto (Bld) [#/Vol] 11.9 E9/L High 4.0-11.0 [facility] Comment on above: Performed By: #### 2 224144, 33747824, 1802962, 5576357, 9724702, 4555933 ####[address] [place] [address] Capillary Glucose POCon 06-05 Glucose [Mass/Vol] 174 mg/dL High 55-99 [facility] Comment on above: Result Comment: Yoly lashanda Meter Performed By: #### 2 30676180 #### [facility] [address] [place] [address] Glucose [Mass/Vol] 221 mg/dL High 55-99 [facility] Comment on above: Result Comment: Yoly lashanda Meter Performed By: #### 2 98354160 #### [facility] [address] [place] [address] Glucose [Mass/Vol] 173 mg/dL High 55-99 [facility] Comment on above: Result Comment: Yoly lashanda Meter Performed By: #### 2 12467394 ####[facility] [address] [place] [address] Creatinineon 06-23-2021 Creatinine [Mass/Vol] 0.9 mg/dL Normal 0.5-1.3 [facility] Comment on above: Performed By: #### 2 568131, 42916686, 4148643, 2243979, 4746578, 3249001 #### [facility] [address] [place] [address] Inpatient Patient Summaryon 06-23-2021 Inpatient Patient Summary [address] [address] [facility] Clinical Discharge Instructions PERSON INFORMATION Name: RIGO ROSARIO PHYSICIANS Admitting Physician: Rafa Macedo DO Attending Physician: Rafa Macedo DO PCP: Oswaldo Parish MD Discharge Diagnosis: Degenerative arthritis of left shoulder region Comment: PATIENT EDUCATION INFORMATION Instructions: Post Op Patient Instructions - FT (CUSTOM); Deshawn Macedo - Shoulder Replacement (Custom) Medication Leaflets: Follow up: With: Address: When: Rafa Macedo [address] [place] [address] Business (1) 07/05/2021 2:30 PM Type Location Start [facility] Cardiology Follow Up (FT) FT.Cardiology Clinic 12/20/2021 1:30 PM 12/20/2021 1:45 PM Confirmed MEDICATION LIST New Medications [id number], [address], [place] [id number], [phone] acetaminophen-oxycodon e (Percocet 325 mg-5 mg Tab) [...] 1 Tablets By Mouth every day. Comment: [facility] Interdisciplinary Note - Remington e Manageron 06-23-2021 Interdisciplinary Note - Gastrointestinal Technician Elective surgery H/P: deshawn macedo Profit: done PIS (OBS/IN): IP 06/22 1100 Chgs: D/C: VTE: 5 lovenox - done MCG: +IP total shoulder arthroplasty Tele: private ICU: na >2mn: >23hrs <72hrs Insurance: tejal ROONEY (tests): na Readmit: na MM: done: chgs, dc, mm [facility] Comment on above: Result Comment: Elec tronically Signed By: John LEN, Za\.br\Date and Time Signed: 06/23/21 16:20 EDT Interdisciplinary Note - Gastrointestinal Technician CRM spoke with patient in room. Patient [...] was in room and aware of plan. [facility] Comment on above: Result Comment: Elec tronically Signed By: Delilah cMfarland RN\.br\Date and Time Signed: 06/23/21 09:58 EDT Shereen 06-23-2021 Anion gap [Moles/Vol] 14 mmol/L Normal 6-16 [facility] Comment on above: Performed By: #### 2 816612, 64136770, 0958365, 6711466, 5615058, 5310784 #### [facility] [address] [place] [address] Chloride [Moles/Vol] 102 mmol/L Normal 101-111 [facility] Comment on above: Performed By: #### 2 804754, 77068296, 6428298, 8708232, 6413285, 6143276 #### [facility] [address] [place] [address] CO2 [Moles/Vol] 22 mmol/L Normal 21-31 [facility] Comment on above: Performed By: #### 2 735452, 43001249, 3904085, 9037672, 1117540, 8953813 #### [facility] [address] [place] [address] Potassium [Moles/Vol] 3.9 mmol/L Normal 3.5-5.3 [facility] Comment on above: Performed By: #### 2 925512, 95991651, 2896936, 0749723, 4976075, 9778008 #### [facility] [address] [place] [address] Sodium [Moles/Vol] 134 mmol/L Low 135-145 [facility] Comment on above: Performed By: #### 2 288499, 59269648, 6572069, 3189542, 2331821, 0055589 #### [facility] [address] [place] [address] Main OR PACU II Recordon Main OR PACU II Record PACU Phase II Document Type FT Summary Primary Physician: Rafa Macedo DO Finalized Date/Time: 06/23/21 13:49:30 Pt. Name: RIGO ROSARIO/Sex: 1955 Male Med Rec #: [id number] Physician: Rafa Macedo DO Financial #: [id number] Pt. Type: I Room/Bed: [facility]/ Admit/Disch: 06/22/21 10:51:15 - 06/23/21 12:40:00 Institution: [...] Document Signatures Signed By: Yeni Edmonds RN 08/19/21 13:49 [facility] Outpatient Surgery Discharge Instructionon 06-23-2021 Outpatient Surgery Discharge Instruction [address] [address] Patient Discharge Instructions PERSON INFORMATION Name: RIGO ROSARIO Date of : 1955 Current Date: 06/23/2021 07:31:17 PHYSICIANS Admitting Physician: Rafa Macedo DO Discharge Diagnosis: Degenerative arthritis of left shoulder region RIGO ROSARIO has been given the following list of follow-up instructions, prescriptions, and patient education materials: Wound Care Instructions: Remove dressing as instructed Additional Instructions: May remove dressing 7-10 days after surgery and apply new bandage IF UNABLE TO CONTACT YOUR PHYSICIAN AND YOU FEEL IT IS AN EMERGENCY, GO TO THE NEAREST EMERGENCY ROOM OR CALL 911 I, RIGO ROSARIO, have received the attached patient education materials/instructions and have verbalized understanding: May we do a follow up call? Yes No I was present when discharge instructions were given Patient Signature Date Clinican/Nurse Signature ___ Date Follow up: With: Address: When: Rafa Macedo [address] [place] [address] [phone] Business (1) 07/05/2021 2:30 PM Type Location Start [facility] Cardiology Follow Up (FT) FT.Cardiology Clinic 12/20/2021 1:30 PM 12/20/2021 1:45 PM Confirmed Pharmacy Information: You may receive a survey from Theo Lozada asking you to rate your care experience. Your feedback is important and will help us understand what we do well and how we can improve the quality of care we provide to you, your loved ones and our community. It?s an honor to serve you. Thank you for choosing [facility] HERE ARE THE MEDICATION CHANGES THAT OCCURRED DURING YOUR HOSPITAL STAY New Medications [id number], [address], [place] [id number], [phone] acetaminophen-oxycodon e (Percocet 325 mg-5 mg Tab) [...] Mouth every day. PATIENT EDUCATION INFORMATION Instructions: [place], [place] [facility] DISCHARGE INSTRUCTIONS: SHOULDER REPLACEMENT [...] [facility] (more content not included)... Normal [facility] Patient Education - Texton 0 06-23-2021 Patient Education - Text [place], [place] [facility] DISCHARGE INSTRUCTIONS: SHOULDER REPLACEMENT [...] or the development of persistent vomiting. Rafa Maecdo DO [facility] [address] [place] [address] Reviewed: [facility] Progress Note-Physicianon Progress Note-Physician Patient: RIGO ROSARIO Age: 65 years Sex: Male : 1955 [...] Pressure 82 mmHg SpO2 94 % Normal [facility] Comment on above: Result Comment: Elec tronically Signed By: Rafa Macedo DO\.br\Date and Time Signed: 06/23/21 07:27 EDT eGFRon 06-23-2021 GFR/1.73 sq M.predicted among blacks MDRD (S/P/Bld) [Vol rate/Area] mL/min/{1.73_m2} Normal >=59 [facility] Comment on above: Order Comment: Order added by Discern Expert. Result Comment: eGFR is race adjusted. AA=. Performed By: #### 2 883459, 27379285, 7875049, 3725905, 9756521, 2858073 ####[facility] [address] [place] [address] GFR/1.73 sq M.predicted among non-blacks MDRD (S/P/Bld) [Vol rate/Area] mL/min/{1.73_m2} Normal >=59 [facility] Comment on above: Order Comment: Order added by Discern Expert. Result Comment: Rn Pacu melina kidney disease could be indicated at eGFR's of less than 60 mL/min/1.73m2. Kidney failure is indicated at less than 15 mL/min/1.73m2. Performed By: #### 2 548699, 16704966, 0507946, 9433570, 5830595, 1757602 ####[facility] [address] [place] [address] Capillary Glucose POCon 06-05 Glucose [Mass/Vol] 214 mg/dL High 55-99 [facility] Comment on above: Result Comment: Kali hood RN/ Performed By: #### 2 [id number] #### [facility] [address] [place] [address] Glucose [Mass/Vol] 228 mg/dL High 55-99 [facility] Comment on above: Result Comment: No C overage Given Notified RN/ Performed By: #### 2 79737555 ####[facility] [address] [place] [address] Glucose [Mass/Vol] 153 mg/dL High 55-99 [facility] Comment on above: Result Comment: Yoly lashanda Meter Performed By: #### 2 75517857 #### [facility] [address] [place] [address] Consent for Treatmenton 06-05 Consent for Treatment [id number] 0CD:127 Normal [facility] H&P Updateon 06-22-2021 H&P Update [id number]#1.0 0CD:127 Normal [facility] Main OR PACU I Recordon 06-05 Main OR PACU I Record PACU Phase I Docum ent Type FT Summary Primary Physician: Rafa Macedo DO Finalized Date/Time: 06/22/21 16:55:00 Pt. Name: RIGO ROSARIO./Sex: 1955 Male Med Rec #: [id number] Physician: Rafa Macedo DO Financial #: [id number] Pt. Type: A Room/Bed: [facility]11/05 Admit/Disch: 06/22/21 10:51:15 - Institution: Case Times [...] I Outcomes Met? Yes Last Modified By: Iza Quesada RN 06/22/21 16:50:09 Post-Care Text: The patient demonstrates [...] By: Iza Quesada RN 06/22/21 16:55 Normal [facility] Main OR Preoperative Recordo n 06-22-2021 Main OR Preoperative Record PreOp Document Type FT Summary Primary Physician: Rafa Macedo DO Finalized Date/Time: 06/22/21 13:52:43 Pt. Name: RIGO ROSARIO/Sex: 1955 Male Med Rec #: [id number] Physician: Rafa Macedo DO Financial #: [id number] Pt. Type: A Room/Bed: [facility]11/05 Admit/Disch: 06/22/21 10:51:15 - Institution: Case Times [...] By: Mckenna Garnica RN 06/22/21 13:52 Normal [facility] Monitor Recordon 06-22-2021 Monitor Record [id number]. [id number]:127 Normal [facility] Operative Reporton Operative Report Patient: RIGO ROSARIO Age: 65 years Sex: Male : 1955 Associated Diagnoses: None Author: Rafa Macedo DO DATE OF SURGERY: 06/22/2021 SURGEON: Rafa Macedo D.O. MANAGER [employer]: [employer] CFA PREOPERATIVE DIAGNOSES: Advanced glenohumeral [...] 2 OPERATIVE INDICATIONS: Rigo is a 65-year-old tjqpu-dbbp-osdiqivb male who has had persistent pain in [...] then made (more content not included)... Normal [facility] Comment on above: Result Comment: Elec tronically Signed By: Rafa Macedo DO\.br\Date and Time Signed: 06/22/21 16:46 EDT Operative Report Patient: RIGO ROSARIO Age: 65 years Sex: Male : 1955 [...] preparations for the proposed operation continued.. Normal [facility] Comment on above: Result Comment: Elec tronically Signed By: Rico Boo Jr., DO\.br\Date and Time Signed: 06/22/21 13:11 EDT Progress Note-Physicianon Progress Note-Physician Patient: RIGO ROSARIO Age: 65 years Sex: Male : 1955 Associated Diagnoses: None Author: Rico Boo Jr., DO Postoperative Information Post Operative Note: Post Anesthesia Care Unit. Anesthetic utilized: General. Health Status Allergies: Allergic Reactions (Selected) No Known Allergies Problem list: All Problems OA (osteoarthritis) of shoulder / SNOMED CT 379438192 / Confirmed Diabetes / SNOMED CT 305685384 / Confirmed Smoker / SNOMED CT 275185503 / Confirmed Added secondary to documentation in Social History. Resolved: Hypercholesteremia / SNOMED CT 50729899 Physical Examination Vital Signs 06/22/2021 16:42 EDT [...] noted. Plan Transfer/ Discharge: Condition stable. Normal [facility] Comment on above: Result Comment: Elec tronically Signed By: Rico Boo Jr., DO\.br\Date and Time Signed: 06/22/21 19:01 EDT Progress Note-Physician Patient: RIGO ROSARIO Age: 65 years Sex: Male : 1955 [...] Sister Procedure history: Arthroplasty of right shoulder (9989549408). Retention of foreign object in a patient after surgery or other procedure (5080220697). Comments: 06/28/2020 11:33 EDT - Joel TRIMBLE, Brenda foreign object out of neck and left upper arm Stripping of vein left lower leg to left arm (179326031). Social History Social & Psychosocial Habits Alcohol [...] by: Maddie (more content not included)... Normal [facility] Comment on above: Result Comment: Elec tronically Signed By: Rico Boo Jr., DO\.br\Date and Time Signed: 06/22/21 10:50 EDT UA With Cult Reflexon 2020 Bacteria LM Ql (Urine sed) TRACE Normal Trace [facility] Comment on above: Performed By: #### 1 6080983 ####[facility] [address] [place] [address] Bilirubin Ql (U) Negative Normal Negative [facility] Comment on above: Performed By: #### 1 3153754 ####[facility] [address] [place] [address] Clarity (U) CLEAR Normal Clear [facility] Comment on above: Performed By: #### 1 1974549 ####[facility] [address] [place] [address] Color (U) YELLOW Normal Yellow [facility] Comment on above: Performed By: #### 1 9889135 ####[facility] [address] [place] [address] Crystals LM Ql (Urine sed) Present Normal [facility] Comment on above: Performed By: #### 1 3255915 ####[address] [place] [address] Epithelial cells.squamous LM.HPF (Urine sed) [#/Area] 0-2 Normal 0-2 [facility] Comment on above: Performed By: #### 1 9980136 ####[facility] [address] [place] [address] Glucose Test strip (U) [Mass/Vol] 1+ Abnormal Negative [facility] Comment on above: Performed By: #### 1 9658341 ####[address] [address] Hemoglobin Ql (U) 1+ Abnormal Negative [facility] Comment on above: Performed By: #### 1 2581207 ####[address] [address] Ketones (U) [Mass/Vol] Negative Normal Negative [facility] Comment on above: Performed By: #### 1 6365640 ####[address] [address] [place].plasma/Lithiu m.RBC (Bld) [Mass ratio] 0-3 Normal 0-3 [facility] Comment on above: Performed By: #### 1 4147484 ####[facility] [address] [place] [address] Nitrite Ql (U) Negative Normal Negative [facility] Comment on above: Performed By: #### 1 9659834 ####[address] [address] pH (U) 6.0 [pH] Invalid Interpretation Code 5.0-9.0 [facility] Comment on above: Performed By: #### 1 6889701 ####[address] [address] Protein (U) [Mass/Vol] 2+ Abnormal Negative [facility] Comment on above: Performed By: #### 1 0755216 ####[facility] [address] [place] [address] Specific gravity (U) [Rel density] >=1.030 Invalid Interpretation Code 1.005-1.030 [facility] Comment on above: Performed By: #### 1 1004073 ####[place] [address] Type of Urine collection method Cesar Normal [facility] Comment on above: Performed By: #### 1 5353792 ####[address] [place] [address] Urobilinogen Qn (U) 0.2 {Redd'U}/dL Normal 0.0-1.0 [facility] Comment on above: Performed By: #### 1 0217987 ####[place] [address] WBC Auto Ql (U) Negative Normal Negative [facility] Comment on above: Performed By: #### 1 5014213 ####[address] WBC LM.HPF (Urine sed) [#/Area] 0-5 Normal 0-5 [facility] Comment on above: Performed By: #### 1 9712873 ####[address] XR Shoulder Complete Lefton 06-22-2021 XR Shoulder [...] V. Transcribed by: PONCHO Technologist: VICENTE Chapman [facility] Coding Summary.on 06-21-2021 Coding Summary. CD:[id number]:[id number] Gh 0bWw+PGhlYWQ+SJ2WATMxW 52dyCLyuD5QS4sHJB3XLRT ZDUYPKM0YNA8rmHJ5WDewM 2VybiAv SqwbwMNvYC31AOb9BDB0rD cuQIeywH3kkCUkG9v1QhCx NS25zE88JYhkTYHkOcF3Aq ZpbjsgbWFy C3mgMaEduLOqGea+PHRhYm xlIHdpZHRoPScxMDAlJyBz uPphTE1gCj9vRLKiUBHpiJ xhcHNlOiBj y6xkRCIfOLynXY3gsHgpW4 MndPW3VIUyn7d9Bg50vQR+ IQVmTJY9oAmdXOimm705Yk Zqr1zfRTE0 bBJcAJycRBA0W66rr7N0NQ YdBWFyRFE0qBO8oS8oeUfz raccR8XtsEGwVtN7KEU5xS MntS5emZbl ardssS7dLok+X72QZE1XNO UCSV5DLhd2W4PuYwcyvVI+ OO01JTEnCY24cHOwmGRtq3 ojlKm4UwGz UCVyEBY3hGweZOgut4YvNH GeQ34aqKPgf8A8ZDPzmPtb iDFxHwPsnFN7xB7zHVomtt ogd0gvhlxp Jnasm8osfc54rG78G08yMJ jdYLUrJAE1BMJvKNMdlTum hw2ogX2lJc8+UAknw8gkn3 sviHi3MrEr CMGyizTrvIczHFM6k2DyTt 31D3FejXgao4TuZfc8zz21 aGPod7W8jYH3RQxfZOCbfL 4qFClzXdM8 VQMaUkVxxS30uWCsDLpqGz 4dhKlmpEeaXD3xLAAyvcob MXQkaU2sFLNbkSDqnNmlBU 4wNTBpbjtm u772GkXqLCG0FYCkcEAmM1 TtmX0hPnFqQBJhKDRcQ4Vw bYYwMCmzN546MIejTsY8BB ZqpzVgW1Ll PEQnpEsjSvI5x1L2Lf1Tc3 FnllzdTWP7YPepDIJ4DiW4 PuDmPuQ6A4BrHyk3NFCwuY atEX4fZ4Ew OCRqpkwayuoxrYV0KNKrSG MtmA06pPYfZVtoOo7mj0C7 d851VWAeVSZaaP65Lb2uvP ogMTBwdCBU lX5zjvtmc2cokbnxTsPbAO JjXQr8SHt2LTOeeMclJvGy RWT2NwZ1KTZ6cIXlxT0zcH miisyqtU8v Oyc+O49ugY4aIAO9QCV3cf qiHGIldiCvFG77UN68A6Tf PjwvdGFibGU+PGRpdiBzdH tnVP6eZvSx a9moy2DpHLzjP7DzEGIzEU rlLym8CDXgJJH7dMG5tB4t FSReLAzbm4E1mXY3J2Nlhq Ysfv5nj2bc BLNnPOjwM13iyGBhf1K6JF IifEZ0ZZMteGjoAeFvvW21 Oyc+WNNitEwby6YpVrgad0 jdo5gwbNd0 GfLkIMIgsbEuhYftOCG5v7 DyQz90L52vTJmwBAPhQNDm DLLxPGPkiIugcm0goT1hMi 8+PGNvbCB3 iSW0nJ6gSYXuVzB9JTvyO3 73TlFvcPPdLbxli0kgg3lh tWk2UyYwTZCgrcOokCjmGH G4e3EjUy89 W99qHXwrKXHiNZZcWHAbAM UvjNoxlm5mpX7fYp2+PC9j s4bbdi84cD01oMS+PHRkIH Q6kIzpISsg ISRahH2fTFkuOdI0SEJuQz RilC71bZKaNJoxWs2adAky qEcuSL0aAOUdiugws451Ie Fco3yiDXPy kHLyKZiaKIJ0S81xk9U0PZ OvDDBwYBA7fYT3fU4feHtt bjogbGVmdDsgdmVydGljYW itEOsdF619 IHRvcDsnPlBhdGllbnQgTm PrFKm5N3GpZwp7XOJqvUea ZF2mxQCnTQddIl7hyVlguZ nlPX4aRDGw jbizd775MzItv2dtUPPrdZ PrCKflTXI6O89vb8X3JTBm KKZwEYN7bGV6rV1euDxqzw ogbGVmdDsg fgHjfOtmAGvfASrzR562UX RvcDsnPkJpcnRoIERhdGU6 LL04LH43wULoi0Y4kEL1M8 BhZGRpbmct itwvdWH2JMJrCYFleE42Tu 2bcIiiVl6hWYYtUKT2TJIa kZPjY3HkwT3dEeBqORCjZU QeK8LenLAa IZzpS986ETymDpQ0DRHxze AfW1CsIGCknOhjCbK4x1X2 Zq6BI7V1BZ33VS40aIGof3 B1fUH1O4Ro BSYyumtfjupzxRT3ENVaKH UdhD89Kn0onCuxSq7mZOUs XDK7QBClnLVgD4OtmT7kNp AjMDAwMDAw P4JrjYAoMDebC144CBkxLk A4FFOlmbTzK3ThEJDjdYfi HgD1y4O1Ov1XRKi7UH00MF 81mZTym8D1 lEL3X3NnDBUulfjxldhpgH W8FIFcKGZdhO40Bi1oxHhl Of8eVJUmJYP6UJWbdBQcA6 EzfC1aYnVs CAKnUGXmA2NkmZSdSKccF3 63MLxxUyD5FNZwbkWtC5Jy RYXsqWseFxP9b6W3Ku3IRX UpKQ70RIT9 kGO6VX45NA80S1ZpQnmftX FibGU+PHRhYmxlIHdpZHRo WOhzJLYjMmWcgSxpTT5xPz 9yZGVyLWNv iJvndSEpVnZje9qyWFMtVK pdUY3cuOeeY3SuaML0EEAy l7u5Vo83R01cD8QbrGU+PG NfjZD4bPT5 jV4pSqMuVbA0OFjrH162Lp UmlBRjXuytf1lxh3lazVg7 CdB8SNQelbMrgCebZZZ5b9 HoTq97Z19u IHdpZHRoPSIxNSUiIHZhbG jelu8duM0iMi7+PGNvbCB3 nAW1hG8dTcBwQeE5SKnsI2 49InRvcCIv Jewoc9ejt8exoEs6PcXeIX PodbLxyNwhXPL2d1SiCf58 Z1UylLzoa8GfQzl5hi96uJ Ykz8K2uCM4 P8YdTPAwqckbdWZkeYmtTJ 8sLHObiryfBQNacS8mVQPm B3v4RlVbZwX7EVysM9Afax T5OYEepAIp KXlgRPW3R78dv2V7FQDcFT AoJNI2cYU2jO2nnSflfafr bGVmdDsgdmVydGljYWwtYW ezF776ZFXh mMtzKLIvcP0nJZUocQXynQ qjPW6zYUGrxtcuBpXXETGW VWnnTiKKDT1NGXmlaOH+PH QeBRN9gNbr YSapNTXugN8tATLmF8t1Dy IwYrJ5FDcvX3KvEMLvsqlf Ju67kS5mYvIlYwH0PDlaT1 BusmD2BNTb iNPvHDlmNBX2V77er9R7NT JrNOLdLSS1gEO7eD5sgPdb bjogbGVmdDsgdmVydGljYW aeNWwiD033 JFDroBpbCaWcIcOyYvW0XD z6P6XgCtw2TXZhqWtzBY4f xHOiTEmjNr9pmDzauLmvGL 4wNTBpbjtw JEXbbW3tGRQisXErhRyaBQ 1zQGEujxkyu886PkTfRKG0 ZFFshQZiN1UwpJ1tDwLmFG RtAEUiP4Hz eINkTIkwU625AMpaGjC9GH LrgqUrG6XnGHBirYxtCkI5 f5P2Ck59RrUMJQLrcucveZ Q+PHRkIHN0 tCsbUDckUUJqhE9zOVRlX3 a7FkAcJtL8RWqnA8WfKSPo xubpBx06wR8xVdXpXsW5ZD yqQ5HxrlL2 MVMdqUMsRLowVYM3Z57cy3 H7SVTjACAnLIT6qGD3vL7b bGlnbjogbGVmdDsgdmVydG ljYWwtYWxp U758XDLrmEahId2erQK3S8 PbGvm8LJPzbGykWO1nlZCl NMxgQp2vdTtkePwgXD1gAI BpbjtwYWRk pS2vUHYlvFLghRuzCV5nXQ Roikywv121UhVsHJD8UTYp hLQpK6ImgP6zLzKeWRRjFF AlH5KnhNWp ENxcG949SRglTlX4YTTopk WrI6RuQRObiTotVsJ2c4S6 Ko6UdSWiTLDeTZ84OM57KC 58C7UcMghf dGFibGU+PHRhYmxlIHdpZH MpWLtkYBWfXtNiaJtwWN5o Yn5oJSTqFKLdgBckcLQlHa Rij8khKBQw UYvnVN2fiUxzG8LcdRK5EX Kei6l0Ol89U83sX6SccJL+ HQSwoWH8pTV1wW9mLiMqMx N4ZIagQ831 NnKxeRQhQyyhy7rbw3eesK t8GhSlTGHhqoFtvGkhFIO4 i7YxSq10A92sXSksIIYiVL IyMCUiIHZh tPgjrd7mcI4cVq9+PGNvbC Y1xJL2dA1rKdWeNiB3PEzo B711GhLrsTYnErjmS71tN6 JvdXA+PHRy Tvj3CPLbrLfhWF3pxQLxBD fcJb3bIZC7PgJcVnElGFun J4EgTWSdugrupsukdCL2YT JrWKPzlA48 Ew1wsAiiUp4vDOPrNUK4TB UptEZfB8NikG1dHbRhBTOi HVNlY9YveTBnDHxlB064GP thWcQ4GFMr auKhE2IgRVRbkBlcLyQ8f9 B1Ai0DfYjpxKBvAR0tLaCe HIf1E0HcLjm2GSBhmEygJG 0ncGFkZGlu Ge3prYarhYdpMH3wQLKfmr gab031BkDgu1xsUNMsaNDd CLsaKKI2M09en0S9BGZdYL EcCPB9mPT8 sB2haQuxdnexxTDvrJtbnd AgzSunGUmyBUqlS001XZUd pYsbVeLDCjx3V8ZdXnl5BM EciIrxQI3c xGPgFNcaRe5gnMxuqWvuIP 0rZSGufppar822PxLrg0pb KHBrbTToMVxyAZE4P64wt3 A7BZLcCAWc XAR9wEK2lQ2ttBtuypfmtK VmdDsgdmVydGljYWwtYWxp M573GRDveUudFj2QWpd4M1 WuTsk5VICn hBnuJY7kiXSjWNuiPc8vnA bsuSqjCO6kHABdxsewj905 IgGqn7gfSXDehRWlLHtqOH T8M75po0J8 AIYrUIMvTPL6yAJ5oA4akA lnbjogbGVmdDsgdmVydGlj JRphEIisO012FUWcfBcyLa BheWVyOjwv dGQ+JI97zr75U0IbHuakDj e3SECjFDB2fNE2oT0aQQWl CKhzj9M0eCL3N9WcchMbov 3io0zeBJHz ZTog (more content not included)... Normal [facility] Consent for Procedure/Surger yon 06-21-2021 Consent for Procedure/Surgery [id number]#1. 00CD:127 [facility] Outside Recordson 06-21-2021 Outside Records [id number]#1. 00CD:127 [facility] Coding Summary.on 06-16-2021 Coding Summary. CD:[id number] Gh 0bWw+PGhlYWQ+MF1HEYFeY 43gkWFzlQ0ZU2xRKR1IQND DZKCRFC0KDC9qwFS7CMzvT 2VybiAv GqzekVWyLS99SNg0UOV3cS saUNeenW9vpNIlF3t4QvYq BF83cG81SUwfSSWmYkR8Nl ZpbjsgbWFy R7voVjLsnLUxBsq+PHRhYm xlIHdpZHRoPScxMDAlJyBz wNltRI4oWi1mKHScFZSjiL xhcHNlOiBj w3ahXDIxKPtoJU2nrPthR5 VyfZP6TCHwz7c0Mc98jTR+ YKSuBIB8hCfvKKdnr400Wj Uvg9xoISW4 oIEnCSkrKPE8B11sg9Y8SK YrEBDwQQV6xSN3cO9yfBto zowwR7WbsAWxMrK9RAI3bA JtbU5tfMlq xnrmcF9iOjt+D28IQR1DIE NRAP6OXcz3B9MeJeaplQF+ VV54FYFkHB55jUUlqPUdp8 jifDi1RsVe WHAeMLZ5bQuhGMqtp7ZfSN RhH25rvWSkg0S0EUYsvWdy mPFtKrUucAT6eZ3nJRprjd ttv5qieqry Doaqj4tdxu43tM50W91dHA zqFXCxLTZ7TIRaJCEngBco wz6mrV4oQu4+PQina6vti4 xpdGg8QjPt YGGygiNpcLiuCER1f9VuXb 45G6HvdBwxn6JwUgl7ah78 yKGlq6O1aVR5FQfzCYLyjV 4bPVdlKsN5 ICFbUxWzuC02wUYdHFbbBl 6nkMqguXruNW6sLBKxtiuk INBmtP7cMCCbpISswUjzBN 4wNTBpbjtm h799ErHoDRQ5ALMwsSEnZ7 UzjM8pNqIvTYYoYDQhX6Rl qOBfPIokW190CKulVcC3KY XumeVvQ3Ee BFNsoAnyYrM9g6S4Nu1Lo5 VupgyjYJM3RWkwKSM7UlGj FpCiPsQ5B4ViPpm6CKPjnE xoJP5kT9Az VYLvxwmpxfmnmRW3BFLqGU BivO11fDTtZAtuDc3as5H4 s330BJUtRPSzwV30Bh9hzR ogMTBwdCBU tX5cexouj2hizhvpIrAgZS HiNOb7AVh4HYAahUcoTdHx SJJ7XeL6EKE6xOQuuP5nlR eilbkxqT0l Oyc+Z17brX1cKLW7GBN2sq vmQGQpivZsFE85HT23O6Db PjwvdGFibGU+PGRpdiBzdH poOX8sEhBw p5lbj2PcWHcyP8MrEDCnTL qcXrf7QKXaUTP8qPV7bW6j WSEyDVyox4C1bGY3D5Nage Hqzo7zf7wx LIVzKKmsB90mbLZmi4R2GF ZlbNN4HZXpzWgxDiXrmK21 Oyc+HKFncGxcw8HcOiewn8 wxt8johKv4 TeCiZGXcqeAqwKojRLG7a7 SsOa38V40pMXtwQRKzBGCi BZBmQBGwfDzoev3zqB6tUu 8+PGNvbCB3 eDJ7jU6lIDZjAhH8EWkpV6 34TwMzmDYrOgsye5vvq0uy pMy6ZvUjUBMuxdTxnYulQQ F2f7JiKs20 G16jGVbnWCYhYOVuKIOhFM BnlYbvmt2phM7cDu6+PC9j r9yrwi51lO37iUJ+PHRkIH Q2aCvlWMfq EWMcuZ9fBKerRiX2ORAnOw QngH68zWLeDZgoCf8fhSag aRbdVW4jVJOcmoymu903Tc Ycd0khDQTa zLRgPFljJWB0B86nq2W1YC DnAYMuZXJ3jRS3yI7lrXtk bjogbGVmdDsgdmVydGljYW bgGLvlO644 IHRvcDsnPlBhdGllbnQgTm HdABl5N8BbXqo1QMUxyBir YV3ahVCrRKpvOs9boHjftA qaFI4kMEPn hnnma151UxAss7zeSYTyuM IsRStfZTV3N28ty6R4TYVa RYLzVEF9sNT6fI8jiTuylk ogbGVmdDsg qgKqhMwqLSnnIVzuZ769PZ RvcDsnPkJpcnRoIERhdGU6 DU86XZ13tOWan5E7uTX3S6 BhZGRpbmct etetpTO4NEUvQKIpnD99Rx 1obHorWg1zCOJkEWR0AZPj xVPyZ7SqhG9aMpHiSIFwQH OnK3QjuPYo LKxcA950PKqgAbM2FTGsdp ZhF6MiMCZboCbuByD4e8U2 Fx6NM0E3UN62PN06uNCmd9 D0iQA5E6Vo FMCdiphpnkapvJI6TDXrZS WuiM74Cq0nqPdkDk2oFSDy XSK7HVEkqBJfB7YagT0aQj AjMDAwMDAw A9QwgWBpJQwoV678HLwoYt H4LKKztnZjS1CkXENgaDec PhI6d8U8Yx7VTWp2XJ40HK 26oHEju5W2 uMP9G2UaNQEprxkxbtbkzH H0CKScHXXmiH41Pz0vrHji Ch3eJSMzGWQ1GXDbsZItV9 EteN3lGtYl SFZrAZNrP2FwhOXbABdoL9 88LAmwWeU9PRVpuvZvV3Yi PBXcfUyxCzQ9k3H5Gr0CCH ScBC03VDK3 qCJ3JL36XX35D9KtYmdjjH FibGU+PHRhYmxlIHdpZHRo BVdrWBYrVeHtxBneCM7kZf 9yZGVyLWNv kZquaEGpBuAhe7pgPSEqBB wdAO9bpTqxH2WvpSK9TMAm y2b2Fx59T17hD7UmvZR+PG XovIV0zVN4 wG6fPpUzFaX4OTxtD667Es YunIMuZivhi4yxl1aboLb8 ZhM0LMOnpqCpuXytMSM6a5 XwXu01N77c IHdpZHRoPSIxNSUiIHZhbG jtaq4bzU7xSk5+PGNvbCB3 pHM0jI5qMxRoXgC2VZctV1 49InRvcCIv Pjgyk5tye1qavQz8VoOyAF ZfypRwrVtsOJF9z2RgKs08 D7HxqCwle2FjMmr8dh01lG Cyz3Y6aQM1 I3UsAFWxlsqzsMSitJzuZF 0iMAZyfluxKRZkuU1vFNYi O1j7ApIkNcE0MZieJ1Adeu I7KYSywRXh BDoxOSK9M23dw5H4MAStSK MaSHA3oOT2wL9ixSvfosls bGVmdDsgdmVydGljYWwtYW neF643FSIs tOifPTVolB1nZJDjbBZgvR axPL2aQQZgcthgHjYAKRSF TAmjWbSOVL6VVCmjpFK+PH OmTXG6wIdn DHxfUYPudM8zAHNzD5h8Uo YkUmS2GZxqP1OaESAzxsuh Oj07mU1rQnHgVoC3JHnpQ0 RrjyJ9UGWj qEFrSNhsLXS0D56yz4W6WU BsKBElSCJ7wIG8jO8xrWbe bjogbGVmdDsgdmVydGljYW ucUPxoE384 RNXshLgzNtCwUzDgKwU9PA y6H9FbVvh9EEBrhNudJD6u rWIxBOpyXe4jrGrybLonQX 4wNTBpbjtw RUDqhB9dGCPsjDAhdOqnCY 7uSELzqokaz597TyQtCLC0 XHGocCYlG6PsmY0sSzMaMJ LvIDYaS4Um vJOeIInpU599TIhuBkJ7SP UzdnRdF1ZpSKYwoKysMmH8 r0X1Th45YiQIAYLjrmfsiH Q+PHRkIHN0 bDvtVLdbVQSfcV8wFCMgD3 p9XvFrOcL4WYkuH5DeTMKc hkqhPo80cX0vNpVcNrU7UV ygP8ZbaxJ3 QBFzmMBxATjaIFE0V69qx9 X3ANLzMKYwAPV3tIX0lH1c bGlnbjogbGVmdDsgdmVydG ljYWwtYWxp V565PTMfxDajQu6fzGO1M0 GkNtx2UOYjvDnaVI2zrQSh AHeaBg0yrEywrYfgAZ4qCY BpbjtwYWRk iY1fOGKntVTaiTzlIQ5xNX Azcbxrw821EfTxDFJ5KKIc eETcV6UwuH6bIjJwGPNyNP NiQ7ZabZLf VFghX030EBmjYzF4UEEvfz YvS1NuJWVilPguLmP5d6C5 Na9ChYJrBZSnZA68GC55QC 67J9UdZsro dGFibGU+PHRhYmxlIHdpZH BpVWinSJSsFzNliXgaPJ1m Zt6zGYNuIKPjlAiuhQEaQn Nxn9oaGCHi MKzdYW4jeHumV1AglAB9JX Lfh3u5Rc38N94qU8UgiPK+ DVWwcOJ8tRS6bV8fRpClVs H0PKkhY683 NmChaJCzJphib5nsi5luhK c4QuZcELTsndQdlRjkKZU7 r1AjYp14O43qSJdwNKVsMO IyMCUiIHZh mFxvgp1dhF2bEu1+PGNvbC L3fFE0oW6rRcHrVhX7ETno W935DyRywQZkYggbS53jD5 JvdXA+PHRy Dhf7DZNjaUzeGI5kxSFrZV jxYt0kJAE8AwFlTiPtDWnr N3JvYXQusnqdbwibnHB9IK UyUXYwaJ89 Dm5zwPhqAu5rHEKlKFO1YO DxkPWrM7RreY2rXwDmLBXg ASSsX9IkrLCxPNamK775TX luZqD1FBHx jkItA7VcBADkmRxzIvL6n4 T6Ps0YuQnlyJFhVF3vArVd TRl3T2CgIce7VUQnjUsqJP 0ncGFkZGlu Fk4uhNnwfNjqQV4uUEIvnt zen717RuTbt0haVOBrmUNl NAusKVB5I36ln7A8WMFwGP WfCHN3fOI1 xR5zsOnwihqvnBTgoExtek EktZnlVQdkRTamT228YYAr wPzeZuGFFru2F0IlFuc9OB ShmZdvVE3i iKHtQIllSt7wfWqllSggOO 8tLPXahhjyj643YiGql9vw CZShyKRmEFmpPMR4C71nf3 G1KDAjXWTo TAM7iJG7iW8zoUexoktevJ VmdDsgdmVydGljYWwtYWxp L598VKLjuWzdUq5HNvc5B6 JrVux1TIAa dHqaJW4poNJjQYejQs2mzI qfzSjcCF8fEEFxjjqze651 CfEjs3dyXBFeyXFcSBrkOR L8L74ow5X4 XCMsZQQbOXO2qRP5xK0umT lnbjogbGVmdDsgdmVydGlj NGtxFDsoS502IEBneFdrAf BheWVyOjwv dGQ+CA07zk36I6VaNvhjBz n0UEEsFQZ9vXI0oW8qZQSq YIrnl4L8sZW7H4SkqiTvzc 5yj5uyCYDv ZTog (more content not included)... Normal [facility] Consent for Treatmenton 06-05 Consent for Treatment [id number]#1.0 0CD:127 Normal [facility] Heart and Vascular Office/Cl inic Noteon 06-15-2021 Heart and Vascular Office/Clinic Note History of Present Illness Patient is a very pleasant 65-year-old gentleman with a history of hyperlipidemia, diabetes, previous 82-btvu-btcu smoker quit around 5 years ago, referred to us by Dr. Parish (PCP) from [facility] for preoperative stratification for upcoming left shoulder surgery on 06/22/2021. Apparently his PCP had ordered an echo, lipids and a stress test at another facility, however they have not been done yet. Patient reports that he had a heart catheterization done at [facility] he believes several years ago around 2019 [...] He reportedly had a catheterization done at [facility] in 2019 and had no stents placed and has remained asymptomatic since that time. I recommended obtaining those records from [facility] to go over those results. In addition up it appears the patient has been set up to undergo an echocardiogram and a stress test at [facility] by his PCP, but this has [...] BID pioglitazon (more content not included)... Normal [facility] Comment on above: Result Comment: Elec tronically Signed By: Eze MAXWELL, Faisal Kaiser\.br\Date and Time Signed: 06/15/21 15:34 EDT Outside Labson 06-13-2021 Outside Labs [id number]#[id number] CD:127 Normal [facility] CT Upper Extremity w/o Contr ast Lefton [...] DO Transcribed by: PONCHO Technologist: RAMONA Normal [facility] XR Chest 2 Viewson XR Chest 2 [...] MD Transcribed by: PONCHO Technologist: KETAN Normal [facility] BUNon 06-09-2021 Urea nitrogen [Mass/Vol] 14 mg/dL Normal 5-21 [facility] Comment on above: Performed By: #### 2 [id number] #### [facility] Laboratory [address] [place] [address] CBC w/Indiceson 06-09-2021 Erythrocyte distribution width (RBC) [Ratio] 13.4 % Normal 10.9-14.2 [facility] Comment on above: Performed By: #### 2 [id number] #### [facility] [address] [place] [address] Hematocrit (Bld) [Volume fraction] 43.7 % Normal 37.7-49.0 [facility] Comment on above: Performed By: #### 2 [id number] #### [facility] [address] [place] [address] Hemoglobin (Bld) [Mass/Vol] 15.1 g/dL Normal 13.5-17.5 [facility] Comment on above: Performed By: #### 2 [id number] #### [facility] [address] [place] [address] MCH (RBC) [Entitic mass] 30.7 pg Normal 27.0-34.0 [facility] Comment on above: Performed By: #### 2 [id number] #### [facility] [address] [place] [address] MCHC (RBC) [Mass/Vol] 34.4 g/dL Normal 31.4-36.0 [facility] Comment on above: Performed By: #### 2 [id number] #### [facility] [address] [place] [address] MCV (RBC) [Entitic vol] 89.2 fL Normal 80.0-100.0 [facility] Comment on above: Performed By: #### 2 [id number] #### [facility] [address] [place] [address] Platelet mean volume (Bld) [Entitic vol] 8.3 fL Normal 6.4-10.8 [facility] Comment on above: Performed By: #### 2 [id number] #### [facility] [address] [place] [address] Platelets (Bld) [#/Vol] 301.0 E9/L Normal 150.0-500.0 [facility] Comment on above: Performed By: #### 2 [id number] #### [facility] [address] [place] [address] RBC (Bld) [#/Vol] 4.9 E12/L Normal 4.3-5.9 [facility] Comment on above: Performed By: #### 2 [id number] #### [facility] [address] [place] [address] WBC corrected for nucl RBC Auto (Bld) [#/Vol] 9.5 E9/L Normal 4.0-11.0 [facility] Comment on above: Performed By: #### 2 [id number] #### [facility] [address] [place] [address] Consent for Treatmenton Consent for Treatment [id number] [facility] [id number]#1.0 0CD:127 Normal [facility] Creatinineon 06-09-2021 Creatinine [Mass/Vol] 0.9 mg/dL Normal 0.5-1.3 [facility] Comment on above: Performed By: #### 2 [id number] #### [facility] [address] [place] [address] Glucoseon 06-09-2021 Glucose [Mass/Vol] 171 mg/dL Normal 55-199 [facility] Comment on above: Performed By: #### 2 [id number] #### [facility] [address] [place] [address] Lyteson 06-09-2021 Anion gap [Moles/Vol] 15 mmol/L Normal 6-16 [facility] Comment on above: Performed By: #### 2 [id number] #### [facility] [address] [place] [address] Chloride [Moles/Vol] 105 mmol/L Normal 101-111 [facility] Comment on above: Performed By: #### 2 [id number] #### [facility] [address] [place] [address] CO2 [Moles/Vol] 23 mmol/L Normal 21-31 [facility] Comment on above: Performed By: #### 2 [id number] #### [facility] [address] [place] [address] Potassium [Moles/Vol] 4.3 mmol/L Normal 3.5-5.3 [facility] Comment on above: Performed By: #### 2 [id number] #### [facility] [address] [place] [address] Sodium [Moles/Vol] 139 mmol/L Normal 135-145 [facility] Comment on above: Performed By: #### 2 [id number] #### [facility] [address] [place] [address] UA With Cult Reflexon 2020 Bacteria LM Ql (Urine sed) 1+ /HPF Abnormal Trace [facility] Comment on above: Performed By: #### 1 [id number] ####[facility] [address] [place] [address] Bilirubin Ql (U) Negative Normal Negative [facility] Comment on above: Performed By: #### 1 [id number] ####[facility] [address] [place] [address] Clarity (U) CLEAR Normal Clear [facility] Comment on above: Performed By: #### 1 [id number] ####[facility] [address] [place] [address] Color (U) YELLOW Normal Yellow [facility] Comment on above: Performed By: #### 1 [id number] ####[facility] [address] [place] [address] Epithelial cells.squamous LM.HPF (Urine sed) [#/Area] 0-2 Normal 0-2 [facility] Comment on above: Performed By: #### 1 [id number] ####[facility] [address] [place] [address] Glucose Test strip (U) [Mass/Vol] 3+ Abnormal Negative [facility] Comment on above: Performed By: #### 1 [id number] ####[facility] [address] [place] [address] Hemoglobin Ql (U) Negative Normal Negative [facility] Comment on above: Performed By: #### 1 [id number] ####[address] [address] Ketones (U) [Mass/Vol] Negative Normal Negative [facility] Comment on above: Performed By: #### 1 [id number] ####[address] [address] [place].plasma/Lithiu m.RBC (Bld) [Mass ratio] 0-3 Normal 0-3 [facility] Comment on above: Performed By: #### 1 [id number] ####[address] [address] Mucus Ql (Urine sed) 2+ Normal Fish [facility] Comment on above: Performed By: #### 1 [id number] ####[facility] [address] [place] [address] Nitrite Ql (U) Negative Normal Negative [facility] Comment on above: Performed By: #### 1 [id number] ####[address] [address] pH (U) 5.5 [pH] Invalid Interpretation Code 5.0-9.0 [facility] Comment on above: Performed By: #### 1 [id number] ####[address] [address] Protein (U) [Mass/Vol] 1+ Abnormal Negative [facility] Comment on above: Performed By: #### 1 [id number] ####[facility] [address] [place] [address] Specific gravity (U) [Rel density] >=1.030 Invalid Interpretation Code 1.005-1.030 [facility] Comment on above: Performed By: #### 1 [id number] ####[facility] [address] [place] [address] Type of Urine collection method Clean Catch Normal [facility] Comment on above: Performed By: #### 1 [id number] ####[facility] [address] [place] [address] Urobilinogen Qn (U) 0.2 {Redd'U}/dL Normal 0.0-1.0 [facility] Comment on above: Performed By: #### 1 [id number] ####[facility] [address] [place] [address] WBC Auto Ql (U) Negative Normal Negative [facility] Comment on above: Performed By: #### 1 [id number] ####[facility] [address] [place] [address] WBC LM.HPF (Urine sed) [#/Area] 0-5 Normal 0-5 [facility] Comment on above: Performed By: #### 1 [id number] ####[facility] [address] [place] [address] eGFRon 06-09-2021 GFR/1.73 sq M.predicted among blacks MDRD (S/P/Bld) [Vol rate/Area] mL/min/{1.73_m2} Normal >=59 [facility] Comment on above: Order Comment: Order added by Discern Expert. Result Comment: eGFR is race adjusted. AA=. Performed By: #### 2 [id number] #### [facility] [address] [place] [address] GFR/1.73 sq M.predicted among non-blacks MDRD (S/P/Bld) [Vol rate/Area] mL/min/{1.73_m2} Normal >=59 [facility] Comment on above: Order Comment: Order added by Discern Expert. Result Comment: Rn Pacu melina kidney disease could be indicated at eGFR's of less than 60 mL/min/1.73m2. Kidney failure is indicated at less than 15 mL/min/1.73m2. Performed By: #### 2 [id number] #### [facility] [address] [place] [address] Physician Orderon 06-01-2021 Physician Order [id number]#1. 00CD:127 Normal [facility] Pre-Certification Formon Pre-Certification Form [id number]#1. 00CD:127 Normal [facility] Physician Orderon 05-31-2021 Physician Order [id number]#1. 00CD:127 Normal [facility] Encounters Encounter Date Encounter Type Care Provider Facility Start: 07-14-2024 End: 07-14-2024 ambulatory Ramses Thorne MD Facility:[facility] Start: 01-07-[address] OSWALDO PARISH Facility :[facility] Start: 01-05-2022 Encounter for genera l adult medical examination without abnormal findings DR OSWALDO PARISH [facility] Start: 12-28-2021 End: 12-28-[address] OSWALDO PARISH Facility:[facility] Start: 12-28-2021 End: 12-28-2021 Encounter for general adult medical examination without abnormal findings DR OSWALDO PARISH Facility:[facility] Start: 10-13-2021 End: 10-13-[address] OSWALDO PARISH Facility:[facility] Procedures Date Procedure Procedure Detail Performing Clinician Start: 12-28-[address] LINNETTE PARISH Comment on above: Performed By: #### P SAD #### [facility] [address] [address] [address] Talia Davalos Payers Date Payer Category Payer Medicaid 2023 Medicare 1957 Medicaid [id number] 1957 Self-pay 1957 Unknown [id number] 1959 Unknown [id number] 1955 Unknown [id number] [id number] 1955 Unknown [id number] [id number] [id number] 1955 Unknown [id number] [id number] [id number] 1955 Unknown [id number] Clinical Note 05-24-2022 Note Date & Type [...] no answer and unable to leave message. [facility] Discharge summary note 06-23-2021 Note Date & Type Note Facility 06-23-2021 Note Patient: TUNG ROSARIO Age: 65 years Sex: Male : 1955 Associated Diagnoses: None Author: Rafa Macedo DO Discharge Information Discharge Summary Information: Admit Date/Time: 06/22/21 10:51 Discharge Date/Time: 06/23/21 07:29 Admitting Physician: Rafa Macedo DO Referring Physician for Admission: Raaf Macedo DO Consulting Physicians: none Admitting Diagnoses: [...] Tab) 30 mg, 1 tab(s), Oral, Daily [facility] Comment on above: Result Comment: Elec tronically Signed By: Rafa Macedo DO\.br\Date and Time Signed: 06/23/21 07:29 EDT History and physical note 06-21-2021 Note Date & Type Note Facility 06-21-2021 Note [id number]#1.00CD:127 [facility] Summary Purpose Family History No Family History Records FoundNo Family History Records FoundNo Family History Records Found Advance Directives No Advanced Directives Records FoundNo Advanced Directives Records FoundNo Advanced Directives Records Found Additional Source Comments (unrecognized sect ion and content) No Status Records FoundNo Status Records FoundNo Status Records Found INFORMATION SOURCE (unrecogn ized section and content) DATE CREATED AUTHOR 05/27/2022 [facility] DATE CREATED AUTHOR AUTHOR'S ORGANIZ ATION 10/11/2022 [facility] DATE CREATED AUTHOR AUTHOR'S ORGANIZ ATION 07/20/2024 [facility] FOR RECORDS PERTAINING TO PATIENTS WHO [...] BE BASED ON THE PRIMARY CLINICAL RECORDS. [facility] provides no warranty or guarantee of the accuracy or completeness of information in this document.
--- NOTE | 2024-09-20 19:29 | XR_ITS ---
The [address] [address] Patient Name: TSERING NAVARRO MRN: [id number] date: 1955 Sex: M Assigned Patient Location: ER Current Patient Location: ED.MAIN Accession/Order Number: [id number] Exam Date: 09/20/2024 20:06 Report Date: 09/20/2024 21:33 At the request of: MARGARITA MACHUCA Procedure: XR chest 1V EXAM: XR chest 1V HISTORY: Hyperglycemia, vomiting COMPARISON: 06/10/2023 and earlier. TECHNIQUE: AP semierect upright chest x-ray. FINDINGS: Lungs are stable prominent markings right lung base but no new or increasing density, consolidation or edema. Cardiac prominence accentuated by magnification felt to be unchanged. No pleural effusion or pneumothorax. Bilateral shoulder hardware partially imaged. XR/XR chest 1V IMPRESSION: Stable chest x-ray without new or acute appearing abnormality. Electronically authenticated by: EWELINA MOURA Date: 09/20/2024 21:33
--- NOTE | 2024-09-20 19:29 | ECG_ITS ---
The [facility] Test Date: 2024-09-20 Pat Name: TSERING NAVARRO Department: Room: - Gender: Male Medical Claims Specialist: : 1955 Requested By: OSWALDO MARS Order Number: [id number] Reading MD: OSWALDO MARS Measurements Intervals [place] Rate: 103 P: -[id number] NE: -[id number] QRS: 25 QRSD: 92 T: 109 QT: 338 QTc: 398 Interpretive Statements 98048 Atrial fibrillation with rapid ventricular response 25017 Nonspecific Twave abnormality, probably digitalis effect 9140 abnormal rhythm ECG Compared to ECG 06/10/2023 07:32:06 Sinus rhythm no longer present Electronically Signed On 09-22-2024 7:27:16 EST by OSWALDO MARS
[2024-09-20 19:45] LABS: Glucometer 310 mg/dL (74-106)
--- NOTE | 2024-09-20 19:46 | ED_ITS ---
HPI HPI - General Adult General Chief complaint: Nausea/Vomiting/Diarrhea Stated complaint: Nausea/Vomiting Time Seen by Provider: 09/20/24 19:25 Mode of arrival: ambulance History of Present Illness HPI narrative: 68-year-old male presents to the emergency department for apparent nausea and vomiting. He is a reluctant historian. It appears that he started vomiting about 5:00 tonight. He has diabetes and he states he took his medicine today. He was transported here by paramedics and he was uncooperative for them. He was uncooperative upon arrival here as well. No further history is obtainable from this patient initially. Related Data Home Medications ?Medication ?Instructions ?Recorded ?Confirmed diclofenac sodium 75 mg 75 mg PO BID 06/10/23 09/20/24 tablet,delayed release fenofibrate 160 mg tablet 160 mg PO DAILY 06/10/23 09/20/24 metformin 500 mg tablet 500 mg PO BID 06/10/23 09/20/24 pioglitazone 30 mg tablet 30 mg PO BID 06/10/23 09/20/24 aspirin 81 mg tablet,delayed 81 mg PO DAILY 06/25/24 09/20/24 release baclofen 10 mg tablet 10 mg PO TID 06/25/24 09/20/24 insulin pen DAILY 06/25/24 rosuvastatin 10 mg tablet 10 mg PO DAILY 09/20/24 09/20/24 Allergies Allergy/AdvReac Type Severity Reaction Status Date / Time No Known Drug Allergies Allergy Verified 07/14/24 08:58 Opioid HPI Opioid Management Most Recent Opioid Data: Last Pain Scale 6 07/14/24 08:59 07/14/24 Ur Phencyclidine Scrn Negative (NEGATIVE) 09/20/24 19:45 09/05 04/28 Review of Systems ROS Narrative Not obtainable, uncooperative patient [facility] Medical History (Updated 09/20/24 @ 22:27 by Shen Harding MD) Osteoarthritis ?M19.90 - Unspecified osteoarthritis, unspecified site (ICD-10) Diabetes ?E11.9 - Type 2 diabetes mellitus without complications (ICD-10) Surgical History H/O neck surgery ?Z98.890 - Other specified postprocedural states (ICD-10) History of surgery on arm ?Z98.890 - Other specified postprocedural states (ICD-10) H/O total shoulder replacement ?Z96.619 - Presence of unspecified artificial shoulder joint (ICD-10) Social History Smoking status: Former smoker Exam Narrative Exam Narrative: Nurses note and vital signs reviewed and patient is not hypoxic. General: The patient appears in no apparent distress. He is laying flat on the cart. Skin: Warm, dry, no pallor noted. There is no rash noted. Head: Normocephalic, atraumatic Eye: Normal conjunctiva, no drainage Ears, Nose, Mouth, and Throat: oral mucosa is somewhat dry. Nares patent. Cardiovascular: Regular Rate and Rhythm Respiratory: Patient is in no distress, no accessory muscle use, lungs are clear to auscultation, no wheezing, rales or rhonchi Back: non-tender GI: Soft and nondistended. Mild tenderness on palpation Musculoskeletal: The patient has no evidence of calf tenderness, no pitting edema, symmetrical pulses noted bilaterally Neurological: A&O, moves all 4 extremities well Psychiatric: Cooperative Constitutional Vital Signs, click to edit/add: Last Vital Signs Temp 97.3 F L 09/20/24 19:26 Pulse 77 09/20/24 22:16 Resp 14 09/20/24 22:16 BP 165/93 H 09/20/24 22:16 Pulse Ox 94 L 09/20/24 21:50 O2 Del Method Nasal Cannula 09/20/24 20:36 O2 Flow Rate 2 09/20/24 20:36 Course Vital Signs Vital signs: Vital Signs Temperature 97.3 F L 09/20/24 19:26 Pulse Rate 113 H 09/20/24 19:26 Respiratory Rate 22 H 09/20/24 19:26 Blood Pressure 164/102 H 09/20/24 19:26 Pulse Oximetry 90 L 09/20/24 19:26 Oxygen Delivery Method Room Air 09/20/24 19:26 Temperature 97.3 F L 09/20/24 19:26 Pulse Rate 77 09/20/24 22:16 Respiratory Rate 14 09/20/24 22:16 Blood Pressure 165/93 H 09/20/24 22:16 Pulse Oximetry 94 L 09/20/24 21:50 Oxygen Delivery Method Nasal Cannula 09/20/24 20:36 Oxygen Delivery Flow Rate 2 09/20/24 20:36 Medical Decision Making MDM Narrative Medical decision making narrative: Blood work shows a mildly elevated glucose. Otherwise his workup is negative. He continues to be quite nauseous though he has not had more vomiting here. He feels weak and will be keeping him in the hospital overnight for observation. Findings are discussed with the patient and his . He has no fever cough chest pain or shortness of breath or abdominal pain. Differential Diagnosis Differential Diagnosis: Dehydration, gastroenteritis, food poisoning Lab Data Lab results reviewed: Yes I reviewed the patient's lab results Labs: Lab Results 09/20/24 09/20/24 09/20/24 Range/Units 19:27 19:45 19:50 WBC 15.8 H (4.0-11.0) 10^3/uL RBC 4.91 (4.70-6.10) 10^6/uL Hgb 14.9 (14.0-18.0) g/dL Hct 44.3 (42.0-54.0) % MCV 90.2 (80.0-94.0) fL MCH 30.3 (25.9-34.0) pg MCHC 33.6 (29.9-35.2) g/dL RDW 12.7 (11.0-15.0) % Plt Count 328 (150-450) 10^3/uL MPV 9.9 (9.5-13.5) fL Neut % (Auto) 83.0 H (43.0-75.0) % Lymph % (Auto) 10.9 L (20.5-60.0) % Sargent % (Auto) 4.1 (1.7-12.0) % Eos % (Auto) 0.8 L (0.9-7.0) % Baso % (Auto) 0.8 (0.2-2.0) % Neut # (Auto) 13.2 H (1.4-6.5) 10^3/uL Lymph # (Auto) 1.7 (1.2-3.8) 10^3/uL Sargent # (Auto) 0.7 (0.3-0.8) 10^3/uL Eos # (Auto) 0.1 (0.0-0.7) 10^3/uL Baso # (Auto) 0.1 (0.0-0.1) 10^3/uL Abs Immat Gran (auto) 0.07 H (0.00-0.03) 10^3/uL Imm/Tot Granulo (auto) 0.4 (0.0-0.5) % Sodium 139 (136-145) mmol/L Potassium 4.5 (3.5-5.1) mmol/L Chloride 103 (98-107) mmol/L Carbon Dioxide 22.5 (21.0-32.0) mmol/L Anion Gap 18.0 BUN 24.0 H (7.0-18.0) mg/dL Creatinine 1.20 (0.70-1.30) mg/dL Est GFR ( Amer) >60 (>=60 mL/min/1.73m^2) Est GFR (Non-Af Amer) >60 (>=60 mL/min/1.73m^2) BUN/Creatinine Ratio 20.0 Glucose 294 H (74-106) mg/dL Calcium 10.2 H (8.5-10.1) mg/dL Total Bilirubin 0.3 (0.2-1.0) mg/dL Direct Bilirubin 0.1 (0.0-0.2) mg/dL AST 16 (15-37) U/L ALT 23 (16-63) U/L Alkaline Phosphatase 98 (46-116) U/L Troponin I High Sens 10.0 (4.0-76.1) pg/mL Total Protein 7.6 (6.4-8.2) g/dL Albumin 3.8 (3.4-5.0) g/dL Globulin 3.8 g/dL Albumin/Globulin Ratio 1.0 Amylase 94 (25-115) U/L Lipase 40.0 (16.0-77.0) U/L Urine Color Lt. yellow (YELLOW) Urine Clarity Clear (CLEAR) Urine pH 5.5 (5.0-9.0) Ur Specific Veteran 1.025 (1.005-1.025) Urine Protein 100 A (NEG/TRACE) mg/dL Urine Glucose (UA) >=1000 A (NEGATIVE) mg/dL Urine Ketones Negative (NEGATIVE) mg/dL Urine Occult Blood Negative (NEGATIVE) Urine Nitrite Negative (NEGATIVE) Urine Bilirubin Negative (NEGATIVE) Urine Urobilinogen 0.2 (0.2-1.0) EU/dL Ur Leukocyte Esterase Negative (NEGATIVE) Urine RBC 0-2 (0-2) #/HPF Urine WBC 0-2 A (NONE SEEN) #/HPF Ur Squamous Epith Cells None seen (NONE/RARE) #/LPF Urine Crystals Seen A (None Seen) #/HPF Calcium Oxalate Crystal Rare Urine Bacteria None seen (NONE SEEN) #/HPF Urine Casts None seen (NONE SEEN) #/LPF Urine Mucus None seen (NONE SEEN) Ur Culture Indicated? No Urine Opiates Screen Negative (NEGATIVE) Ur Buprenorphine Scrn Negative (NEGATIVE) Ur Oxycodone Screen Negative (NEGATIVE) Urine Methadone Screen Negative (NEGATIVE) Ur Barbiturates Screen Negative (NEGATIVE) U Tricyclic Antidepress Negative (NEGATIVE) Ur Phencyclidine Scrn Negative (NEGATIVE) Ur Amphetamines Screen Negative (NEGATIVE) U Methamphetamines Scrn Negative (NEGATIVE) U Benzodiazepines Scrn Negative (NEGATIVE) Urine Cocaine Screen Negative (NEGATIVE) U Cannabinoids Screen Positive A (NEGATIVE) Ethanol Quant <3 mg/dL Acetone, Qual Negative (NEGATIVE) POC Glucose 310 H (74-106) mg/dL Imaging Data Chest x-ray: Radiologist's impression: ITS Impressions Chest X-Ray 09/20/24 19:29 IMPRESSION: Stable chest x-ray without new or acute appearing abnormality. Electronically authenticated by: EWELINA MOURA Date: 09/20/2024 21:33 ECG Data Attestation: I personally reviewed and interpreted this ECG as follows: (EKG on my interpretation shows atrial fibrillation with a rate of 103) Discharge Plan Discharge Chief Complaint: Nausea/Vomiting/Diarrhea Clinical Impression: Nausea & vomiting Patient Disposition: Admitted as Observation Time of Disposition Decision: 22:27 Condition: Good
[2024-09-20] MEDS: ONDANSETRON PF 4 MG/2 ML VIAL IV ×2 (20:05→21:57)
[2024-09-20] MEDS: 0.9 % SODIUM CHLORIDE 1,000 ML 1000 ML IV (20:05)
[2024-09-20 20:11] LABS: Basophils Absolute Auto 0.1 10^3/uL (0.0-0.1); Basophils Percent Auto 0.8 % (0.2-2.0); Eosinophils Absolute Auto 0.1 10^3/uL (0.0-0.7); Eosinophils Percent Auto 0.8 % (0.9-7.0); Hematocrit 44.3 % (42.0-54.0); Hemoglobin 14.9 g/dL (14.0-18.0); Immature Granulocytes Abs Auto 0.07 10^3/uL (0.00-0.03); Immature Granulocytes Pct Auto 0.4 % (0.0-0.5); Lymphocytes Absolute Auto 1.7 10^3/uL (1.2-3.8); Lymphocytes Percent Auto 10.9 % (20.5-60.0); Mean Corpuscular HGB Conc 33.6 g/dL (29.9-35.2); Mean Corpuscular Hemoglobin 30.3 pg (25.9-34.0); Mean Corpuscular Volume 90.2 fL (80.0-94.0); Mean Platelet Volume 9.9 fL (9.5-13.5); Monocytes Absolute Auto 0.7 10^3/uL (0.3-0.8); Monocytes Percent Auto 4.1 % (1.7-12.0); Neutrophils Absolute Auto 13.2 10^3/uL (1.4-6.5); Platelet Count 328 10^3/uL (150-450); Red Blood Count 4.91 10^6/uL (4.70-6.10); Red Cell Distribution Width 12.7 % (11.0-15.0); White Blood Count 15.8 10^3/uL (4.0-11.0)
[2024-09-20 20:14] LABS: Bilirubin Urine NEGATIVE (NEGATIVE); Blood Urine NEGATIVE (NEGATIVE); Clarity Urine CLEAR (CLEAR); Color Urine LT. YELLOW (YELLOW); Glucose Urine UA >=1000 mg/dL (NEGATIVE); Ketones Urine NEGATIVE (NEGATIVE); Leukocyte Esterase Urine NEGATIVE (NEGATIVE); Nitrite Urine NEGATIVE (NEGATIVE); Protein Urine 100 mg/dL (NEG/TRACE); Specific Gravity Urine 1.025 (1.005-1.025); Urobilinogen Urine 0.2 EU/dL (0.2-1.0); pH Urine 5.5 (5.0-9.0)
[2024-09-20 20:24] LABS: Bacteria Urine NONE SEEN #/HPF (NONE SEEN); Mucus Urine NONE SEEN (NONE SEEN); RBC Urine 0-2 #/HPF (0-2); Squamous Epithelial Cell Urine NONE SEEN #/LPF (NONE/RARE); WBC Urine 0-2 #/HPF (NONE SEEN)
[2024-09-20 20:25] LABS: Amphetamine Screen Urine NEGATIVE (NEGATIVE); Barbiturates Screen Urine NEGATIVE (NEGATIVE); Benzodiazepines Screen Urine NEGATIVE (NEGATIVE); Buprenorphine Screen Urine NEGATIVE (NEGATIVE); Calcium Oxalate Crystals Urine RARE; Cannabinoid Screen Urine POSITIVE (NEGATIVE); Cast Seen? NONE SEEN #/LPF (NONE SEEN); Cocaine Screen Urine NEGATIVE (NEGATIVE); Crystals Seen? Seen #/HPF (None Seen); Methadone Screen Urine NEGATIVE (NEGATIVE); Methamphetamines Screen Urine NEGATIVE (NEGATIVE); Opiate Screen Urine NEGATIVE (NEGATIVE); Oxycodone Screen Urine NEGATIVE (NEGATIVE); Phencyclidine Screen Urine NEGATIVE (NEGATIVE); Tricyclic Antidepressant Urine NEGATIVE (NEGATIVE); Urine Culture Indicated NO
[2024-09-20 20:27] LABS: Acetone NEGATIVE (NEGATIVE)
[2024-09-20 20:33] LABS: Alanine Aminotransferase 23 U/L (16-63); Albumin Level 3.8 g/dL (3.4-5.0); Alkaline Phosphatase 98 U/L (46-116); Amylase 94 U/L (25-115); Aspartate Amino Transferase 16 U/L (15-37); Bilirubin Direct 0.1 mg/dL (0.0-0.2); Bilirubin Total 0.3 mg/dL (0.2-1.0); Calcium 10.2 mg/dL (8.5-10.1); Carbon Dioxide 22.5 mmol/L (21.0-32.0); Chloride 103 mmol/L (98-107); Estimated GFR (African America >60 (>=60 mL/min/1.73m^2); Estimated GFR (Non-African Ame >60 (>=60 mL/min/1.73m^2); Globulin 3.8 g/dL; Glucose 294 mg/dL (74-106); Potassium 4.5 mmol/L (3.5-5.1); Sodium 139 mmol/L (136-145); Total Protein 7.6 g/dL (6.4-8.2)
[2024-09-20 20:36] LABS: Ethanol <3 mg/dL
--- NOTE | 2024-09-20 20:36 | PC.NURSE ---
Pt's spo2 87-88% on room air, placed on 2L NC
--- OUTSIDE RECORDS SUMMARY | 2024-09-20 23:27 | XMS_ITS | CCD ---
Author Organization [facility] Care Team Providers Care Medical Claims Manager Name Role Phone MADISYN, DR CHACON Admitting [...] 12-28-2021 BASO # 0.1 103/ul Normal 0.0-0.1 [facility] Comment on above: Performed By: #### C BC #### [facility] [address] [place] [address] Dr. Talia Davalos Basophils/100 WBC (Bld) 0.9 % Normal 0.2-2.0 [facility] Comment on above: Performed By: #### C BC #### [facility] [address] [place] [address] Dr. Talia Davalos EO # 0.2 103/ul Normal 0.0-0.[address] [facility] Comment on above: Performed By: #### C BC #### [facility] [address] [place] [address] Dr. Talia Davalos Eosinophils/100 WBC (Bld) 2.9 % Normal 0.9-7.0 [facility] Comment on above: Performed By: #### C BC #### [facility] [address] [place] [address] Dr. Talia Davalos Erythrocyte distribution width (RBC) [Ratio] 13.8 % Normal 11.0-15.0 [facility] Comment on above: Performed By: #### C BC #### [facility] [address] [place] [address] Dr. Talia Davalos Hematocrit (Bld) [Volume fraction] 41.7 % Critically low 42.0-54.0 [facility] Comment on above: Performed By: #### C BC #### [facility] [address] [place] [address] Dr. Talia Davalos Hemoglobin (Bld) [Mass/Vol] 14.2 g/dL Normal 14.0-18.0 [facility] Comment on above: Performed By: #### C BC #### [facility] [address] [place] [address] Dr. Talia Davalos IG # 0.03 10e3/ul Normal 0.00-0.03 [facility] Comment on above: Performed By: #### C BC #### [facility] [address] [place] [address] Dr. Talia Davalos IG % 0.4 % Normal 0.0-0.[address] [facility] Comment on above: Performed By: #### C BC #### [facility] [address] [place] [address] Dr. Talia Davalos LYMPH # 1.7 103/ul Normal 1.2-3.8 [facility] Comment on above: Performed By: #### C BC #### [facility] [address] [place] [address] Dr. Talia Davalos Lymphocytes/100 WBC (Bld) 25.7 % Normal 20.5-60.0 [facility] Comment on above: Performed By: #### C BC #### [facility] [address] [place] [address] Dr. Talia Davalos MANUAL DIFF REQ NO Normal [facility] Comment on above: Performed By: #### C BC #### [facility] [address] [place] [address] Dr. Talia Davalos MCH (RBC) [Entitic mass] 30.5 pg Normal 25.9-34.0 [facility] Comment on above: Performed By: #### C BC #### [facility] [address] [place] [address] Dr. Talia Davalos MCHC (RBC) [Mass/Vol] 34.1 g/dL Normal 29.9-35.[address] [facility] Comment on above: Performed By: #### C BC #### [facility] [address] [place] [address] Dr. Talia Davalos MCV (RBC) [Entitic vol] 89.7 fL Normal 80.0-94.0 [facility] Comment on above: Performed By: #### C BC #### [facility] [address] [place] [address] Dr. Talia Davalos MONO # 0.4 103/ul Normal 0.3-0.[address] [facility] Comment on above: Performed By: #### C BC #### [facility] [address] [place] [address] Dr. Talia Davalos Monocytes/100 WBC (Bld) 6.2 % Normal 1.7-12.0 [facility] Comment on above: Performed By: #### C BC #### [facility] [id number] Talia Davalos NEUT # 4.3 103/ul Normal 1.4-6.[address] [facility] Comment on above: Performed By: #### C BC #### [facility] [id number] Talia Davalos Neutrophils/100 WBC (Bld) 63.9 % Normal 43.0-75.[address] [facility] Comment on above: Performed By: #### C BC #### [facility] [address] [address] [address] Talia Davalos Platelet mean volume (Bld) [Entitic vol] 9.6 fL Normal 9.5-13.[address] [facility] Comment on above: Performed By: #### C BC #### [facility] [address] [address] [address] Talia Davalos PLT 257 103/ul Normal 150-[address] [facility] Comment on above: Performed By: #### C BC #### [facility] [address] [place] [address] Dr. Talia Davalos RBC 4.65 106/ul Critically low 4.70-6.[address] [facility] Comment on above: Performed By: #### C BC #### [facility] [address] [address] [address] Talia Davalos WBC 6.8 103/ul Normal 4.0-11.[address] [facility] Comment on above: Performed By: #### C BC #### [facility] [address] [place] [address] Dr. Talia Davalos DIRECT LDLon 12-28-2021 Cholesterol in LDL [Mass/Vol] 73 mg/dL Normal [facility] Comment on above: Performed By: #### D LDL, T7, TSH, CMP, LIPID #### [facility] [address] [place], [place] [id number] Dr. Talia Davalos DLDL NORMAL SEE BELOW Normal [facility] Comment on above: Result Comment: <100 mg/dl OPTIMAL 100 - 129 mg/dl NEAR OR ABOVE OPTIMAL 130 - 159 mg/dl BORDERLINE HIGH 160 - 189 mg/dl HIGH >190 mg/dl VERY HIGH Performed By: #### D LDL, T7, TSH, CMP, LIPID #### [facility] [address] [address] [address] Talia Davalos FREE THYROXINE INDEX T7on FTI 1.97 Normal [facility] Comment on above: Performed By: #### D LDL, T7, TSH, CMP, LIPID #### [facility] [address] [address] [address] Talia Davalos T3U 34.0 % Normal 23.5-40.5 [facility] Comment on above: Performed By: #### D LDL, T7, TSH, CMP, LIPID #### [facility] [address] [address] [address] Talia Davalos T4 [Mass/Vol] 5.80 ug/dL Normal 5.53-11.00 [facility] Comment on above: Performed By: #### D LDL, T7, TSH, CMP, LIPID #### [facility] [address] [address] [address] Talia Davalos LIPID PROFILEon 12-28-2021 CHOL-HDL RATIO NORM SEE BELOW Normal [facility] Comment on above: Result Comment: 3.3 - 4.4 LOW RISK 4.4 - 7.1 AVERAGE RISK 7.1 - 11.0 MODERATE RISK >11.0 HIGH RISK Performed By: #### D LDL, T7, TSH, CMP, LIPID #### [facility] [address] [address] [address] Talia Davalos Cholesterol [Mass/Vol] 254 mg/dL Critically high <=[address] [facility] Comment on above: Performed By: #### D LDL, T7, TSH, CMP, LIPID #### [facility] [address] [address] [address] Talia Davalos Cholesterol in HDL [Mass/Vol] 32 mg/dL Normal [facility] Comment on above: Performed By: #### D LDL, T7, TSH, CMP, LIPID #### [facility] [address] [address] [address] Talia Davalos Cholesterol.total/Cho lesterol in HDL [Mass ratio] 7.9 {ratio} Normal [facility] Comment on above: Performed By: #### D LDL, T7, TSH, CMP, LIPID #### [facility] [address] [address] [address] Talia Davalos HDL NORMAL > or = 60 mg/dl - LO W CARDIOVASCULAR RISK <40 mg/dl - HIGH CARDIOVASCULAR RISK Normal [facility] Comment on above: Performed By: #### D LDL, T7, TSH, CMP, LIPID #### [facility] [address] [address] [address] Talia Davalos Triglyceride [Mass/Vol] 1026 mg/dL Critically high <=150 [facility] Comment on above: Performed By: #### D LDL, T7, TSH, CMP, LIPID #### [facility] [address] [place] [address] Dr. Talia Davalos PROF 14(COMP METB)on 022 Albumin [Mass/Vol] 3.5 g/dL Normal 3.5-5.0 [facility] Comment on above: Performed By: #### D LDL, T7, TSH, CMP, LIPID #### [facility] [address] [address] [address] Talia Davalos Albumin/Globulin [Mass ratio] 0.9 {ratio} Normal [facility] Comment on above: Performed By: #### D LDL, T7, TSH, CMP, LIPID #### [facility] [address] [place] [address] Dr. Talia Davalos ALP [Catalytic activity/Vol] 125 U/L Normal 38-126 [facility] Comment on above: Performed By: #### D LDL, T7, TSH, CMP, LIPID #### [facility] [address] [address] [address] Talia Davalos ALT [Catalytic activity/Vol] 33 U/L Normal 21-72 [facility] Comment on above: Performed By: #### D LDL, T7, TSH, CMP, LIPID #### [facility] [address] [address] [address] Talia Davalos Anion gap [Moles/Vol] 15.3 mmol/L Normal [facility] Comment on above: Performed By: #### D LDL, T7, TSH, CMP, LIPID #### [facility] [address] [address] [address] Talia Davalos AST [Catalytic activity/Vol] 15 U/L Critically low 17-[address] [facility] Comment on above: Performed By: #### D LDL, T7, TSH, CMP, LIPID #### [facility] [address] [address] [address] Talia Davalos Bilirubin [Mass/Vol] 0.7 mg/dL Normal 0.2-1.[address] [facility] Comment on above: Performed By: #### D LDL, T7, TSH, CMP, LIPID #### [facility] [address] [place] [address] Dr. Talia Davalos Calcium [Mass/Vol] 8.9 mg/dL Normal 8.4-10.[address] [facility] Comment on above: Performed By: #### D LDL, T7, TSH, CMP, LIPID #### [facility] [address] [place] [address] Dr. Talia Davalos Chloride [Moles/Vol] 103 mmol/L Normal 98-[address] [facility] Comment on above: Performed By: #### D LDL, T7, TSH, CMP, LIPID #### [facility] [address] [place] [address] Dr. Talia Davalos CO2 [Moles/Vol] 24.1 mmol/L Normal 22.0-30.[address] [facility] Comment on above: Performed By: #### D LDL, T7, TSH, CMP, LIPID #### [facility] [address] [place] [address] Dr. Talia Davalos Creatinine [Mass/Vol] 0.84 mg/dL Normal 0.66-1.[address] [facility] Comment on above: Performed By: #### D LDL, T7, TSH, CMP, LIPID #### [facility] [address] [place] [address] Dr. Talia Davalos EGFR-AF BRUNEIAN >60 Normal >=[address] [facility] Comment on above: Performed By: #### D LDL, T7, TSH, CMP, LIPID #### [facility] [address] [address] [address] Talia Davalos EGFR-NON AF BRUNEIAN >60 Normal >=60 [facility] Comment on above: Performed By: #### D LDL, T7, TSH, CMP, LIPID #### [facility] [address] [address] [address] Talia Davalos Globulin (S) [Mass/Vol] 3.9 g/dL Normal [facility] Comment on above: Performed By: #### D LDL, T7, TSH, CMP, LIPID #### [facility] [address] [address] [address] Talia Davalos Glucose [Mass/Vol] 199 mg/dL Critically high 74-106 [facility] Comment on above: Performed By: #### D LDL, T7, TSH, CMP, LIPID #### [facility] [address] [place] [address] Dr. Talia Davalos Potassium [Moles/Vol] 4.4 mmol/L Normal 3.4-5.0 [facility] Comment on above: Performed By: #### D LDL, T7, TSH, CMP, LIPID #### [facility] [address] [address] [address] Talia Davalos Protein [Mass/Vol] 7.4 g/dL Normal 6.1-8.2 [facility] Comment on above: Performed By: #### D LDL, T7, TSH, CMP, LIPID #### [facility] [address] [place] [address] Dr. Talia Davalos Sodium [Moles/Vol] 138 mmol/L Normal 137-145 [facility] Comment on above: Performed By: #### D LDL, T7, TSH, CMP, LIPID #### [facility] [address] [place] [address] Dr. Talia Davalos Urea nitrogen [Mass/Vol] 12.0 mg/dL Normal 9.0-20.0 [facility] Comment on above: Performed By: #### D LDL, T7, TSH, CMP, LIPID #### [facility] [address] [place] [address] Dr. Talia Davalos Urea nitrogen/Creatinine [Mass ratio] 14.3 mg/mg Normal [facility] Comment on above: Performed By: #### D LDL, T7, TSH, CMP, LIPID #### [facility] [address] [address] [address] Talia Davalos TSHon 12-28-2021 TSH 0.785 uIU/mL Normal 0.470-4.[address] [facility] Comment on above: Performed By: #### D LDL, T7, TSH, CMP, LIPID #### [facility] [address] [address] [address] Talia Davalos TSH RANGE SEE BELOW Normal [facility] Comment on above: Result Comment: <0.3 4 UIU/ml HYPERTHYROID 0.34-5.60 UIU/ml EUTHYROID >5.60 UIU/ml HYPOTHYROID Performed By: #### D LDL, T7, TSH, CMP, LIPID #### [facility] [address] [address] [address] Talia Davalos Coding Summary.on 07-04-2021 Coding Summary. CD:[id number] Gh 0bWw+PGhlYWQ+FT4KZWDwQ 96wgIEyiI5JV6qLYZ8KGWK LWOYZAB4YNE4lqLR7QDjmE 2VybiAv DgdwjZUhDI03YJy8UHY0nC rkJFyitO3iwQIoO4e5DjJn UP53cF89LOyxYJFvDcQ2Yd ZpbjsgbWFy N4nhFpPpnGJtIyj+PHRhYm xlIHdpZHRoPScxMDAlJyBz cHyrSR6wRd0sGAWbKILppG xhcHNlOiBj i0djDIDuSHkbGP3ovMbzF9 LziLX0OSHoq6x3Pp85xSJ+ YDIhZDF0lCmiCVzfw812Lo Uaz4tkKSX8 kSSvKApiLKU8U00ae9S9YC OfMQHzYBV8nIJ1tS9jvMgx qghtE1GraHEyXaP7RJQ4tI GdbZ0cpEpj umexeP7dKhy+M66QPJ9GCC GIVG7HTcj8X9DoIviqxQX+ HL84QRNaQN76uHSwsFAbq9 yyaOh0LqKr TWKrIIM6yEtlLIhpo1SdQE XdD24yzAUss7L6LGSgvDwb jNHwEjZusWW7tO2nCYbtso kyb7hwdijg Kgtsc4robg22zR80Z25bNF myQIXkOAP4RIVaRIJmtIiw jk1roI9rKx5+UGgiy1tdz9 dtnYn1GlNb IXTvjyTcoQmtZPD1s0SrCe 47R3AzjYygv9SfKob5qi92 wAOby3F0nTU1SLtxYQSdyV 2gGDgcSaU0 WULwXmObqG94iWDxGJtdIn 0heQvauYdgRZ2qMBSawizc LVHuuT4rRYTyoGIuvDmbWJ 4wNTBpbjtm r427TxBePGC4HYNqkFMmT0 WsfA0pUsUyIBJaAKHuP1Kh jPOfGBbpP977JKcsCnI2FX ZhfaGrR8Bu PLFxdTlnPvT1g1K6Xd7Ag2 WkgajbUPI6QPycEVD4DnMa GpMwEnU4K0XxFxu3SMAsdU jxKG3mV5Zg RDCyemvxajwbjHT5TPRwHD RmsZ40lCGmRXckDp6ax2Z4 x333AEZsZCXdcA62Bw1jzP ogMTBwdCBU eL5ftvudm3oimqzqHsXkKU QkARh0BAi9QNSwyXkzXqNe EBP5RrF7JBG5yOFiyP3leL uaugrpaI3m Oyc+V66cpP7gHWO5TUE3qu qhIMGzdqKjLB80GQ55Q0Ig PjwvdGFibGU+PGRpdiBzdH pqZU4bPwTf v4mnp8GaAZrcA5PdFVEeVE pnCjv3XYQmNGI2vOH2eL1u FBIcIWcgm7J4nWI5T1Abuv Zhii5ux7if WSHeSSdwS51sgDPnf2I2ZC XdbQI7GXCnyMlwFkWgsV92 Oyc+DPXqzCmtr8FjQedhp6 ldq4resQh3 DdWsLRIfxxBgtRwzRBF4a2 CaSy71S08jAYdqZXNjJKTx HSQmDHHpyXeniz4rzE1wDa 8+PGNvbCB3 sSW6cS0bSWMaZhL2QChaX5 18JxSoyCXzPuwwx5ffx8vh pYh8NfCqMPXpxoEknJrfDP J9x6QeTz22 L38rQTxeTYZoAOGnARLnHN XseLcruq8ypA2gZo6+PC9j x4xkfl50rZ19uCF+PHRkIH S1wOktQNjk XMOywL7mLCuqUfO7POLtCu YyqL62yNUrLJaeOf3tbNdl tKsfFH2kUJPkdnrzk883Gy Fcj9ooNBBe lQWcLMlgCYD3M01ic3Y2DF WvAFCaSFA6lRE8mW2pcYgj bjogbGVmdDsgdmVydGljYW zpFJoeE582 IHRvcDsnPlBhdGllbnQgTm RsUNh4F2AvBam1SEYlsGhv HQ3obRNnGYgeWu6ykLkgiJ saCD7gAAPp ointg181PhYby1lqIPRdlC NfKDjbWUT9E70yu6W9RCTt KZOcONI6dGK2oU4jgLgdzu ogbGVmdDsg teHypHahHPlfLNweO419LI RvcDsnPkJpcnRoIERhdGU6 BM81DY70pKLje2P5oJL9T0 BhZGRpbmct ccowfES3RQToTDMocV31Ps 6haHsvJl3tXMSuIQV9BSBc cOUdA7EcrA4qTaFzUQWpUW DyH9JocNFa ILxpO066PHrsOuR6RLFkcq XlH7DeAAXqaFdmZzS9z9F9 Ca6QQ5I0SJ67CC58nVCku8 A8wTU8E9Dq YVZmsnjmzurrcXS6GCXgJM TacU90Dz5ifApnIa8jMACa TPV6YTWbzUVrG6LsfT2bBj AjMDAwMDAw J9CbaNFpMOdiB243LFkcOq U3TBRsvvUrI2YlXDKeeGfn NtS4t6X2Iy2RHHu0AX33QQ 77jGTaj3R7 bIB3B3BzGGVvqipqfmyiaT B4YOJuWJUugA76Vd0xkQjr Bl8xEWCaQLY0ULHowPGjL6 QdwP1vIuHa RWMnEZIgO3NtyEUrQJrtQ8 07YRmrAyC9BPMvrpCiD2Ld IZUwiCkzHmR2w8P1Ex1NSN PqHX96PDR9 tTE8GN27RV38A6FwLhffaK FibGU+PHRhYmxlIHdpZHRo VGnpLYPqUoHplOofLG4bPe 9yZGVyLWNv yBpkdESkTnSrw9urKGQsNW qkGL7dcYsmK3BllIC5EPQv c2f0Fi73K23aT9VekCW+PG EkkAK4kGO6 xA9bFsCdEzR8OQeuN581Lh IzkGWpUokit4aux6xtdHb7 JxL1MNJoafUulVqfXUZ5r0 HpVr14O83t IHdpZHRoPSIxNSUiIHZhbG hban4baC3zYo0+PGNvbCB3 vXO1aT9lXpCkCnU5HEwuG7 49InRvcCIv Xycmq8enw2mgqWv9NlAiLY LzbmEswNizPZT0a3LfYr37 G8XcuYbcs2QvMdg0wy16vN Nyu2R7wWF3 Q9OsYDBqcjaftGWtlBdkFB 3pVSHlbqlvPLZchL5pIKTw K1i2YoOwEvB3DTomH2Ikqd H5YQUjzZIh TCirVEV0Y39nn0M2MNSyYX DdDDN3cUP0sI1rzAdwhqug bGVmdDsgdmVydGljYWwtYW nxT388VVLi tLnhSPMxlI2zCTCfrACxfO baAB0sFVQuamabMgORYKNL WItyMxVGYE2LCSplwTZ+PH KnRYG8uUoi IIdmYVEziR1oCJQuA8x9Ff HqEkA5MGhbC8XfFBZmnexj Jm24pV2nNiRrEzP5ZXgqU4 LyxoF2UTNn sTIfWOfxJLA9Q30bk0V1BM ScCHLfRGW4wSV1tG5leZmw bjogbGVmdDsgdmVydGljYW qwLAzcR267 SDYcmRzaVuDsEfKtVcX8EM t6G4BdZua0AIUykPwoZK8s kLBcSDnfHx5ysMbuzNyjGZ 4wNTBpbjtw YFEuoF1sCQVblCZgfGacMB 2nEYRluiazv449JrLvVZJ2 RGAnoDZxW9KglV8hXqSeZQ AkKXXxG8Ei kVGiXJbfV333XXqcIqW7YM SxrgOpV4BoIJWbxRhmHpW6 g8E6Qp17XhJGILUzppnkfV Q+PHRkIHN0 fMryTOsdQUTowH8oLVVaW1 v8TwZdAtJ9EKmkL6IzNDFv haysJu83fY7iSyOyGvP8YT imJ9YuliS8 WOHvgRUmCTdwPZK6Z72fj3 A4QOXxIAGgNXO6aES7lC7u bGlnbjogbGVmdDsgdmVydG ljYWwtYWxp U448PTVboTzbTm0bgIZ3U5 GkQxr5CVDhzTswVJ7wdRIc TTelIp2ywCowiQftTH5oJA BpbjtwYWRk nC3iRMXsmHYofRxmKC4qXQ Xnogzor278QxHzUCM5TLJr kXYsK9RciD6hRzEgBYHjJN DwA3KoqUOi CXcsV696EWyfGlJ7HNNagq YeH4VjIALdjQdsOnI2b7K9 Mk1ShmCwbSdlesD6A4LzEf wvdHI+PC90 YGEhRP49jGDdyCDya3nghA n7FgZqYJIrCQB5xLnqQTuc b2NeQNUdT86ipWOcn5O2VQ NvbGxhcHNl DsUmkFH1sL5sVUlonocql0 xwfikyTfwtk6lgom65wP84 H86oQIyrKVLjSCNsCFMvLM DvgQlscn7d uR4fVq5+NLZuxHA8nVS4nY 4vTePaUfB7BIdwG195KuOe oITgDnqkx1hos8ttrFz2Kn IwJSIgdmFs pFgjHQM2l8ToWv08I45uWP dpZHRoPSIyMCUiIHZhbGln ep8evT0gMt4+AM5uz3rgut 57jX16pIE+ VDDpWQE0sJtxPYoaTUGxlH 3fTGyfFzE1EMLwXbKtjG84 aPUcXXepUk9foIzutLolRO 4wNTBpbjtm j816BjSis9baHVZzeLIrXA uzJHU7U24vt3V3UYYhCWKr LBS2bUA0gK4leLuxcxndsA VmdDsgdmVy xWqoBPysNQgzW729TAFzhG puKlAtoKGtF4xvbmXLET8y OjwvdGQ+GAUvPQU4mUvgFT dwMAUgaB8l SLGbS5x5PcJtZsL0GHetV3 NgpzL8VIXwjGTaWJXnyJJB gV5ciclvw0kzcgsxPoShOI KiPMs2INa1 RYKzqNkwKmRlAAU6NfK5VR K9lENoxN2xbInjmneezA6l Oyc+RklOOjwvdGQ+PHRkIH H6zPzfPUmq GUJwbY6zOLIlF5n1UhUiGl E3CFcbC8VydjD8ZBVbmALs CJXhoKBWuO2gymewu4ljkq ogIzAwMDAw JXl9ZKg8NJBopPfmJtGmVT B1FgD2QJL3tJXacF0qnJnd pllvkC1fUbk+TVJOOjwvdG Q+PHRkIHN0 jJdrQTjyZYBqcG6zLFZaI7 r6QhJjVwN0HDauD0FluvF7 ICSdqFOfNZTdeAXBgQ4ifh svv0kjmmgs AgEoMFRoXDn6XEe8GQNaxH qtCrPnDLC1EtI4DQS0sHSp rK5tdEmmgeymnC3pQsm+UG P4KYF2JQ19 ZG03I2JoFsunvEFxxWH+PH RhYmxlIHdpZHRoPScxMDAl BwDtqThbAY3pMw3rXCYcBN NvbGxhcHNl OiBj (more content not included)... Normal [facility] IntraOperative Documentson 0 07-01-2021 IntraOperative Documents [id number]. 00CD:127 Normal [facility] Main OR Intraoperative Recor don 06-29-2021 Main OR Intraoperative Record IntraOp Document Type FT Summary Primary Physician: Rafa Macedo DO Finalized Date/Time: 06/29/21 09:25:56 Pt. Name: RIGO ROSARIO/Sex: 1955 Male Med Rec #: [id number] Physician: Rafa Macedo DO Financial #: [id number] Pt. Type: I Room/Bed: AS11/01 Admit/Disch: 06/22/21 [...] Mikey COATS, Shad Macedo DO, Rafa Oliver INDUSTRIAL ACCOUNTANT, FA, Mensa K Role Performed Anesthesiologist Surgeon - Primary SA - Paintings Conservator Echocardiograph Technician Time In 06/22/21 12:43:00 06/22/21 12:43:00 06/22/21 [...] RN, JR, DO, Nicholas J Role Performed Dentofacial Orthopedics Dentist - Primary Anesthesiologist of Record Time In 06/22/21 12:43:00 06/22/21 15:30:00 Time Out 06/22/21 15:47:00 06/22/21 15:47:00 Procedure SHOULDER TOTAL SHOULDER TOTAL ARTHROPLASTY(Left) ARTHROPLASTY(Left) Comments Last Modified By: Mckenna Garnica RN, RN, Tracy D 06/22/21 15:51:44 06/22/21 15:51:44 General Comments: Enmanuel Maldonado and Rehana Monteiro Arthrex Reps were present for the procedure./Dani Murcia and Willard Barrow Marcio Reps were present for the procedure./Dani TRIMBLEfield counsel Protocols FT Pre-Care Text: Implements protective measures [...] CRNA, Given Participants Rafa Macedo DO, Benito INDUSTRIAL ACCOUNTANT, FA, Peter K, Lidia INDUSTRIAL ACCOUNTANT, Ray W, Imani Olivera L, Crissy RN, [...] Garnica RN 08 (more content not included)... [facility] Consent for Anesthesiaon Consent for Anesthesia [id number]#1. 00CD:127 [facility] Consent for Procedure/Surger yon 06-24-2021 Consent for Procedure/Surgery [id number]#1. 00CD:127 [facility] Discharge Instructionson Discharge Instructions [id number]#1. 00CD:127 [facility] IntraOperative Documentson 0 06-24-2021 IntraOperative Documents [id number]#1. 00CD:127 [facility] IntraOperative Documents [id number]#1. 00CD:127 [facility] Preoperative Documentson Preoperative Documents [id number]#1. 00CD:127 [facility] Preoperative Documents [id number]#1. 00CD:127 Normal [facility] Auto Diffon 06-23-2021 Basophils/100 WBC (Bld) 0.2 % Normal 0.0-2.0 [facility] Comment on above: Order Comment: Order Added by Discern Expert. Performed By: #### 2 759635, [id number], 5480072, 9257091, 8189380, 9033201 ####[facility] [address] [place] [address] Basophils/Leukocytes Auto (Bld) [Pure # fraction] 0.0 E9/L Normal 0.0-0.2 [facility] Comment on above: Order Comment: Order Added by Discern Expert. Performed By: #### 2 896685, 00751491, 3323339, 3385769, 7432024, 6437795 ####[address] [address] Eosinophils/100 WBC (Bld) 0.2 % Normal 0.0-8.0 [facility] Comment on above: Order Comment: Order Added by Discern Expert. Performed By: #### 2 746251, 59212958, 8665415, 8627037, 6660039, 7327720 ####[address] [address] Eosinophils/Leukocyte s Auto (Bld) [Pure # fraction] 0.0 E9/L Normal 0.0-0.5 [facility] Comment on above: Order Comment: Order Added by Discern Expert. Performed By: #### 2 703152, 66429935, 7344965, 9475939, 0825336, 2439822 ####[facility] [address] [place] [address] Lymphocytes/100 WBC (Bld) 11.6 % Low 14.0-50.0 [facility] Comment on above: Order Comment: Order Added by Discern Expert. Performed By: #### 2 418651, 53875798, 5979180, 4700483, 4198530, 9301790 ####[address] [address] Lymphocytes/Leukocyte s Auto (Bld) [Pure # fraction] 1.4 E9/L Normal 1.0-4.0 [facility] Comment on above: Order Comment: Order Added by Discern Expert. Performed By: #### 2 347080, 87455104, 1862219, 0316936, 9618875, 5192416 ####[facility] [address] [place] [address] Monocytes/100 WBC (Bld) 7.6 % Normal 4.0-14.0 [facility] Comment on above: Order Comment: Order Added by Discern Expert. Performed By: #### 2 378297, 55788239, 6675990, 1783554, 2801611, 8192783 ####[address] [place] [address] Monocytes/Leukocytes Auto (Bld) [Pure # fraction] 0.9 E9/L Normal 0.2-1.0 [facility] Comment on above: Order Comment: Order Added by Discern Expert. Performed By: #### 2 386300, 28741630, 9614397, 6227928, 0455601, 9787582 ####[address] [place] [address] Neutrophils/100 WBC (Bld) 80.4 % High 36.0-75.0 [facility] Comment on above: Order Comment: Order Added by Discern Expert. Performed By: #### 2 869044, 33572393, 5934591, 2428023, 4917035, 1597989 ####[facility] [address] [place] [address] Neutrophils/Leukocyte s Auto (Bld) [Pure # fraction] 9.6 E9/L High 2.0-7.5 [facility] Comment on above: Order Comment: Order Added by Discern Expert. Performed By: #### 2 477128, 61602528, 4839251, 1734368, 5589141, 6651625 ####[address] [place] [address] BUNon 06-23-2021 Urea nitrogen [Mass/Vol] 17 mg/dL Normal 5-21 [facility] Comment on above: Performed By: #### 2 022265, 41516461, 5669316, 2288597, 3877706, 3617691 #### [facility] [address] [place] [address] CBC w/ Auto Diffon Erythrocyte distribution width (RBC) [Ratio] 13.7 % Normal 10.9-14.2 [facility] Comment on above: Performed By: #### 2 433558, 84198540, 6903600, 6508816, 0461701, 7124887 ####[facility] [address] [place] [address] Hematocrit (Bld) [Volume fraction] 39.6 % Normal 37.7-49.0 [facility] Comment on above: Performed By: #### 2 793712, 82272059, 1532696, 2040332, 6713916, 4025917 ####[facility] [address] [place] [address] Hemoglobin (Bld) [Mass/Vol] 13.4 g/dL Low 13.5-17.5 [facility] Comment on above: Performed By: #### 2 809944, 17012938, 9124706, 9134915, 5259097, 8206609 ####[facility] [facility] [address] [place] [address] MCH (RBC) [Entitic mass] 30.6 pg Normal 27.0-34.0 [facility] Comment on above: Performed By: #### 2 742930, 48077818, 0310347, 7053720, 0790341, 3740007 ####[facility] [address] [place] [address] MCHC (RBC) [Mass/Vol] 33.8 g/dL Normal 31.4-36.0 [facility] Comment on above: Performed By: #### 2 757726, 67046874, 1958449, 1111175, 8059545, 4989039 ####[facility] [address] [place] [address] MCV (RBC) [Entitic vol] 90.7 fL Normal 80.0-100.0 [facility] Comment on above: Performed By: #### 2 040638, 36500575, 2436876, 7121733, 0280537, 1488019 ####[address] [address] Platelet mean volume (Bld) [Entitic vol] 8.5 fL Normal 6.4-10.8 [facility] Comment on above: Performed By: #### 2 571749, 14802250, 1207017, 8476825, 0146748, 4579962 ####[address] [address] Platelets (Bld) [#/Vol] 275.0 E9/L Normal 150.0-500.0 [facility] Comment on above: Performed By: #### 2 461838, 90901211, 7532807, 8274966, 6129254, 2374863 ####[address] [address] RBC (Bld) [#/Vol] 4.4 E12/L Normal 4.3-5.9 [facility] Comment on above: Performed By: #### 2 772277, 19659666, 1274551, 3749686, 7699797, 2275613 ####[address] [address] WBC corrected for nucl RBC Auto (Bld) [#/Vol] 11.9 E9/L High 4.0-11.0 [facility] Comment on above: Performed By: #### 2 951912, 87563490, 9197141, 9138410, 5624683, 9264260 ####[address] [place] [address] Capillary Glucose POCon 06-05 Glucose [Mass/Vol] 174 mg/dL High 55-99 [facility] Comment on above: Result Comment: Yoly lashanda Meter Performed By: #### 2 [id number] #### [facility] [address] [place] [address] Glucose [Mass/Vol] 221 mg/dL High 55-99 [facility] Comment on above: Result Comment: Yoly lashanda Meter Performed By: #### 2 [id number] #### [facility] [address] [place] [address] Glucose [Mass/Vol] 173 mg/dL High 55-99 [facility] Comment on above: Result Comment: Yoly lashanda Meter Performed By: #### 2 [id number] ####[facility] [address] [place] [address] Creatinineon 06-23-2021 Creatinine [Mass/Vol] 0.9 mg/dL Normal 0.5-1.3 [facility] Comment on above: Performed By: #### 2 820434, 88406864, 5003063, 6983982, 8987714, 7970574 #### [facility] [address] [place] [address] Inpatient Patient Summaryon 06-23-2021 Inpatient Patient Summary [address] [address] [facility] Clinical Discharge Instructions PERSON INFORMATION Name: RIGO ROSARIO PHYSICIANS Admitting Physician: Rafa Macedo DO Attending Physician: Rafa Macedo DO PCP: Oswaldo Parish MD Discharge Diagnosis: Degenerative arthritis of left shoulder region Comment: PATIENT EDUCATION INFORMATION Instructions: Post Op Patient Instructions - FT (CUSTOM); Deshawn Macedo - Shoulder Replacement (Custom) Medication Leaflets: Follow up: With: Address: When: Rafa Macedo [address] [place] [address] Business (1) 07/05/2021 2:30 PM Type Location Start [facility] Follow Up (FT) FT.Cardiology Clinic 12/20/2021 1:30 PM 12/20/2021 1:45 PM Confirmed MEDICATION LIST New Medications [id number], [address], [place] [id number], [phone] acetaminophen-oxycodon e (Percocet 325 mg-5 mg Tab) [...] 1 Tablets By Mouth every day. Comment: [facility] Interdisciplinary Note - Remington e Manageron 06-23-2021 Interdisciplinary Note - Petrologist Elective surgery H/P: deshawn macedo Profit: done PIS (OBS/IN): IP 06/22 1100 Chgs: D/C: VTE: 5 lovenox - done MCG: +IP total shoulder arthroplasty Tele: private ICU: na >2mn: >23hrs <72hrs Insurance: tejal ROONEY (tests): na Readmit: na MM: done: chgs, dc, mm [facility] Comment on above: Result Comment: Elec tronically Signed By: John LEN, Za\.br\Date and Time Signed: 06/23/21 16:20 EDT Interdisciplinary Note - Petrologist CRM spoke with patient in room. Patient [...] was in room and aware of plan. [facility] Comment on above: Result Comment: Elec tronically Signed By: Delilah Mcfarland RN\.br\Date and Time Signed: 06/23/21 09:58 EDT Shereen 06-23-2021 Anion gap [Moles/Vol] 14 mmol/L Normal 6-16 [facility] Comment on above: Performed By: #### 2 148806, 06871805, 1620837, 7241589, 5583645, 5102991 #### [facility] [address] [place] [address] Chloride [Moles/Vol] 102 mmol/L Normal 101-111 [facility] Comment on above: Performed By: #### 2 123599, 15058245, 4445889, 5671930, 0420817, 9395829 #### [facility] [address] [place] [address] CO2 [Moles/Vol] 22 mmol/L Normal 21-31 [facility] Comment on above: Performed By: #### 2 599793, 51804990, 6926118, 1293167, 1777515, 8920325 #### [facility] [address] [place] [address] Potassium [Moles/Vol] 3.9 mmol/L Normal 3.5-5.3 [facility] Comment on above: Performed By: #### 2 830722, 92953446, 2211131, 3920523, 7920298, 0168530 #### [facility] [address] [place] [address] Sodium [Moles/Vol] 134 mmol/L Low 135-145 [facility] Comment on above: Performed By: #### 2 619553, 49516944, 2735102, 9439857, 9019076, 1330405 #### [facility] [address] [place] [address] Main OR PACU II Recordon Main OR PACU II Record PACU Phase II Document Type FT Summary Primary Physician: Rafa Macedo DO Finalized Date/Time: 06/23/21 13:49:30 Pt. Name: RIGO ROSARIO/Sex: 1955 Male Med Rec #: [id number] Physician: Rafa Macedo DO Financial #: [id number] Pt. Type: I Room/Bed: [facility]/ Admit/Disch: 06/22/21 10:51:15 - 06/23/21 12:40:00 [...] Signed By: Yeni Edmonds RN 08/19/21 13:49 [facility] Outpatient Surgery Discharge Instructionon 06-23-2021 Outpatient Surgery Discharge Instruction [address] [address] Patient Discharge Instructions PERSON INFORMATION [...] Follow up: With: Address: When: Rafa Macedo [address] [place] [address] [phone] Business (1) 07/05/2021 2:30 PM Type Location Start [facility] Follow Up (FT) FT.Cardiology Clinic 12/20/2021 [...] to serve you. Thank you for choosing [facility] HERE ARE THE MEDICATION CHANGES THAT OCCURRED DURING YOUR HOSPITAL STAY New Medications [id number], [address], [place] [id number], [phone] acetaminophen-oxycodon e (Percocet 325 mg-5 mg Tab) [...] Mouth every day. PATIENT EDUCATION INFORMATION Instructions: [place] [facility] DISCHARGE INSTRUCTIONS: SHOULDER REPLACEMENT [...] [facility] (more content not included)... Normal [facility] Patient Education - Texton 0 06-23-2021 Patient Education - Text [place] [facility] DISCHARGE INSTRUCTIONS: SHOULDER REPLACEMENT [...] persistent vomiting. Rafa Macedo DO [facility] [address] [place] [address] Reviewed: [facility] Progress Note-Physicianon Progress Note-Physician Patient: RIGO ROSARIO [...] Pressure 82 mmHg SpO2 94 % Normal [facility] Comment on above: Result Comment: Elec tronically Signed By: Rafa Macedo DO\.br\Date and Time Signed: 06/23/21 07:27 EDT eGFRon 06-23-2021 GFR/1.73 sq M.predicted among blacks MDRD (S/P/Bld) [Vol rate/Area] mL/min/{1.73_m2} Normal >=59 [facility] Comment on above: Order Comment: Order added by Discern Expert. Result Comment: eGFR is race adjusted. AA=. Performed By: #### 2 518811, 96315383, 3869141, 5810528, 7606851, 3121933 ####[facility] [address] [place] [address] GFR/1.73 sq M.predicted among non-blacks MDRD (S/P/Bld) [Vol rate/Area] mL/min/{1.73_m2} Normal >=59 [facility] Comment on above: Order Comment: Order added by Discern Expert. Result Comment: Timber Framer melina kidney disease could be indicated at eGFR's of less than 60 mL/min/1.73m2. Kidney failure is indicated at less than 15 mL/min/1.73m2. Performed By: #### 2 235487, 65958674, 6380987, 0124660, 3137296, 5766957 ####[facility] [address] [place] [address] Capillary Glucose POCon 06-05 Glucose [Mass/Vol] 214 mg/dL High 55-99 [facility] Comment on above: Result Comment: Kali hood RN/ Performed By: #### 2 [id number] #### [facility] [address] [place] [address] Glucose [Mass/Vol] 228 mg/dL High 55-99 [facility] Comment on above: Result Comment: No C overage Given Notified RN/ Performed By: #### 2 06329659 ####[facility] [address] [place] [address] Glucose [Mass/Vol] 153 mg/dL High 55-99 [facility] Comment on above: Result Comment: Yoly lashanda Meter Performed By: #### 2 [id number] #### [facility] [address] [place] [address] Consent for Treatmenton 06-05 Consent for Treatment [id number]#1.0 0CD:127 Normal [facility] H&P Updateon 06-22-2021 H&P Update [id number]#1.0 0CD:127 Normal [facility] Main OR PACU I Recordon 06-05 Main OR PACU I Record PACU Phase I Docum ent Type FT Summary Primary Physician: Rafa Macedo DO Finalized Date/Time: 06/22/21 16:55:00 Pt. Name: RIGO ROSARIO./Sex: 1955 Male Med Rec #: [id number] Physician: Rafa Macedo DO Financial #: [id number] Pt. Type: A Room/Bed: [facility]11/05 Admit/Disch: 06/22/21 10:51:15 - Institution: Case Times [...] By: Iza Quesada RN 06/22/21 16:55 Normal [facility] Main OR Preoperative Recordo n 06-22-2021 Main OR Preoperative Record PreOp Document Type FT Summary Primary Physician: Rafa Macedo DO Finalized Date/Time: 06/22/21 13:52:43 Pt. Name: RIGO ROSARIO/Sex: 1955 Male Med Rec #: [id number] Physician: Rafa Macedo DO Financial #: [id number] Pt. Type: A Room/Bed: [facility]11/05 Admit/Disch: 06/22/21 10:51:15 - Institution: Case Times [...] By: Mckenna Garnica RN 06/22/21 13:52 Normal [facility] Monitor Recordon 06-22-2021 Monitor Record [id number]. 00CD:127 Normal [facility] Operative Reporton Operative Report Patient: RIGO ROSARIO Age: 65 years Sex: Male : 1955 Associated Diagnoses: None Author: Rafa Macedo DO DATE OF SURGERY: 06/22/2021 SURGEON: Rafa Macedo D.O. SOFTWARE DESIGNER: Peter Oliver CFA PREOPERATIVE DIAGNOSES: Advanced glenohumeral [...] 2 OPERATIVE INDICATIONS: Rigo is a 65-year-old dnfxz-irlq-xxafbixe male who has had persistent pain in [...] then made (more content not included)... Normal [facility] Comment on above: Result Comment: Elec [...] preparations for the proposed operation continued.. Normal [facility] Comment on above: Result Comment: Elec [...] OA (osteoarthritis) of shoulder / SNOMED CT 852321530 / Confirmed Diabetes / SNOMED CT 270622526 / Confirmed Smoker / SNOMED CT 922777759 / Confirmed Added secondary to documentation in Social History. Resolved: Hypercholesteremia / SNOMED CT 00519479 Physical Examination Vital Signs 06/22/2021 16:42 EDT [...] noted. Plan Transfer/ Discharge: Condition stable. Normal [facility] Comment on above: Result Comment: Elec [...] Sister Procedure history: Arthroplasty of right shoulder (0653983357). Retention of foreign object in a patient after surgery or other procedure (6915500868). Comments: 06/28/2020 11:33 EDT - Joel TRIMBLE, Brenda foreign object out of neck and left upper arm Stripping of vein left lower leg to left arm (200588278). Social History Social & Psychosocial Habits Alcohol [...] by: Maddie (more content not included)... Normal [facility] Comment on above: Result Comment: Elec tronically Signed By: Rico Boo Jr., DO\.br\Date and Time Signed: 06/22/21 10:50 EDT UA With Cult Reflexon 2020 Bacteria LM Ql (Urine sed) TRACE Normal Trace [facility] Comment on above: Performed By: #### 1 [id number] ####[facility] [address] [place] [address] Bilirubin Ql (U) Negative Normal Negative [facility] Comment on above: Performed By: #### 1 9320917 ####[facility] [address] [place] [address] Clarity (U) CLEAR Normal Clear [facility] Comment on above: Performed By: #### 1 7990771 ####[facility] [address] [place] [address] Color (U) YELLOW Normal Yellow [facility] Comment on above: Performed By: #### 1 6298800 ####[facility] [address] [place] [address] Crystals LM Ql (Urine sed) Present Normal [facility] Comment on above: Performed By: #### 1 7965352 ####[address] [place] [address] Epithelial cells.squamous LM.HPF (Urine sed) [#/Area] 0-2 Normal 0-2 [facility] Comment on above: Performed By: #### 1 9873274 ####[facility] [address] [place] [address] Glucose Test strip (U) [Mass/Vol] 1+ Abnormal Negative [facility] Comment on above: Performed By: #### 1 4601397 ####[address] [address] Hemoglobin Ql (U) 1+ Abnormal Negative [facility] Comment on above: Performed By: #### 1 5884195 ####[address] [address] Ketones (U) [Mass/Vol] Negative Normal Negative [facility] Comment on above: Performed By: #### 1 6710817 ####[address] [address] [place].plasma/Lithiu m.RBC (Bld) [Mass ratio] 0-3 Normal 0-3 [facility] Comment on above: Performed By: #### 1 3734709 ####[facility] [address] [place] [address] Nitrite Ql (U) Negative Normal Negative [facility] Comment on above: Performed By: #### 1 8300258 ####[address] [address] pH (U) 6.0 [pH] Invalid Interpretation Code 5.0-9.0 [facility] Comment on above: Performed By: #### 1 8419580 ####[address] [address] Protein (U) [Mass/Vol] 2+ Abnormal Negative [facility] Comment on above: Performed By: #### 1 8021345 ####[facility] [address] [place] [address] Specific gravity (U) [Rel density] >=1.030 Invalid Interpretation Code 1.005-1.030 [facility] Comment on above: Performed By: #### 1 3776277 ####[place] [address] Type of Urine collection method Cesar Normal [facility] Comment on above: Performed By: #### 1 4547542 ####[address] [place] [address] Urobilinogen Qn (U) 0.2 {Redd'U}/dL Normal 0.0-1.0 [facility] Comment on above: Performed By: #### 1 2699042 ####[place] [address] WBC Auto Ql (U) Negative Normal Negative [facility] Comment on above: Performed By: #### 1 1864785 ####[address] WBC LM.HPF (Urine sed) [#/Area] 0-5 Normal 0-5 [facility] Comment on above: Performed By: #### 1 8795917 ####[address] XR Shoulder Complete Lefton 06-22-2021 XR Shoulder [...] V. Transcribed by: PONCHO Technologist: VICENTE Chapman [facility] Coding Summary.on 06-21-2021 Coding Summary. CD:[id number] Gh 0bWw+PGhlYWQ+GO4HXBIrJ 83ndODivP3YS5yQDN9YJHI IZQRNDY9HUP8kcJK1GWojL 2VybiAv FdqjcPNbXU80CNf8TWB1nP mmRNugqU8zlWOzY2y6IcEn WR74lI75JJjfVDYmSlW7Il ZpbjsgbWFy L0rmGjPbiRJtFjd+PHRhYm xlIHdpZHRoPScxMDAlJyBz lOkwZC0qPe8iJZGdVKUwiF xhcHNlOiBj u6ruRXUpYIygYY9cwNkoK4 GrtFP9OXHsz2t2Hd62aIK+ JPByPKN6uMwqPDzdm936Gf Qnn2obKVK0 bXHyKMemUZY0P92qm4H8AO LhXLWxOAT8hSK5yD9reHxv dudaZ0PyfUXuHaE4TCA0cM UcjV2sjXfh hhpjkU4bLst+I59NGO5TFT PNAP1XCig2O0RuFtejeEY+ QR56JMWtYU00qVZsdKQrg4 sdvYj3XbRl LKEtQKL7fUfyOUpxr2FhZV KnL97asEDxx4J1KMJdtVus vEPqQkGhqTU2aH6vXMxplt rtv0oqusiq Vyarv4otqu59mE70G41zFG kpJTNtBXH1VLRlIQBcaYtl ii5knE1mAa8+LYuab8cao6 mfbRd1RmJb BRHfehGjbCqyUKR1a4KoJu 62K4IxnKthn5XmWbg0ye19 rTZqs9U9nHY9QIlqUWUimJ 2iITiuLvY1 CWTwYsCckV26dACmRLloXe 4yeEmxtVavJU5wNPBccmeb MDFxkO9rTHCqpWIdaYycHO 4wNTBpbjtm x957KeKmHJN6GOJzpSVoD5 VofU6mDvToCCEgLNIpY9Mk nATlFIqsH421XTzoFqZ8PH ZvsaEoF4Uq TJUlzVkkXgX5s1T6Ot2Jo9 IuzvfxJLP0ZIzlNUD5JpO4 SgPySmH9B7JdScp9IISraR yoAE2aM5Es NGCcqgywwxshsGL3WIPzHY MxlP99lJCgAGenTv3gf2P6 a985GNNjAKQlxA58Fa0uyW ogMTBwdCBU zC2tdtmea6zdbqzyFcIkMA HtGZm7RVt4KUNopIumZhWc SIT4GfC3PJO5hASymV1prH utyudogM2q Oyc+A25nvK3hDFF3QKQ9gn lhFERnphCkJX59PS04J8Ct PjwvdGFibGU+PGRpdiBzdH ixVA2vBfOp z1xdb3AvWXwdK9TfGQYhRS kiVrs3GEEzTZP3eJL8aX5d YVZyFVgsr3U6bTG3P6Dvxp Bukz7jt3oe ZBLjULteF59uqUUqj8N4OQ YohGV9QTRxnMfeKqUdiP43 Oyc+VNCjxYepx9FgVhyep0 ejc0sttPi1 BcAhHJFbweQhmGlcPMW0i7 VpMp42Q74cXWneNLJxCPZs MAQpNUTvzAaejr9liJ9wXl 8+PGNvbCB3 fKD2mO9uRNBaXyJ3MLrnZ5 16RfVoeFAuWkicd5ohl8wj cPh3HiNlESQhiiHneAlnBD O7d7IiTa03 P51wTPrbTWRzFVToFAJhYT LlpNongi6alL2uNy9+PC9j n4zkdl54rS57rSE+PHRkIH X4hCipFUab FSFzoL8rCMvrKzN3GVQaHs LszB77rOMqCIqkQx8noIfu uLsvWT2nULApotvls867Rk Ais4ghRXAc sPMeOIczGBT5W01jl3D5CI OfGPSiOEF9fYW9eI7mkBju bjogbGVmdDsgdmVydGljYW wkYRoiZ717 IHRvcDsnPlBhdGllbnQgTm JaPXt9X4YyUct8QCHsdPhe LT0ttKUkTKcnGs5bjZjxyF xdET5uAJNp vipar873TsScr3noTAWksK LsEJbyWWK4X54md7T5ACIa FTEgROX7iUL8zL9qxDlcik ogbGVmdDsg xvBhcIgfAZtdQAfkW348CF RvcDsnPkJpcnRoIERhdGU6 HP98VC16kALck7Y7rLE5Q5 BhZGRpbmct jbtduML8YZHiRIBrjR02Qg 5mqVpuSo7ySIUgNHB0KIBh jAWmA8QqaA3gEhYtDOTpZF UlW5YzmMTh MTytT169BPjnTnL2WMIunj GsU4FjGLLimPliQgN3u3G6 Xf6UH9T2GH34FA77xLCvr5 B5gNY7K7Bb GCYekfmrqxujfGN3PXLdHY ZxjJ30Ho7vmOuzJe1cNRHy WVK4IKIdaAWrY9UszL0hXf AjMDAwMDAw O5BipMVzGWppS590ZNsfDc H9BROintWgH6IvNKOjoBfi SxG3q0K5Kn6MGNi1LI07PX 92lXPpw9C2 jHR6W9LcWSXofdyeiboqpZ J3EUMdRCBxiM52Gi9utSem Cl6oPVBkNSL9KZNlsFGfX3 BydC4xKuFj JEJcWCFmP0ZuwFGnAMlnH8 92QTsfVqK9VRKcjdDeU5Bn MNZxlMuqKgB3g0N3Dh8POV GtFP95MWC4 bHH7WG55XU60T9YgBmibaY FibGU+PHRhYmxlIHdpZHRo YVypMUEoFqTasBekIG8qTs 9yZGVyLWNv xAjdoGQxDlYqi8rsBODrWN onKQ8xxSkfY5UskPA4LVWn g4u6Cr71W86nG6UuxVN+PG DfyCS7mJV2 tB7eRyItGsT6BHbkU403Rs KdqKVoUyqrz0bne8arhHp1 LtM0NQZqqsVlnKkuBNU4f1 ItOs77I95p IHdpZHRoPSIxNSUiIHZhbG geth5lkP2vTr6+PGNvbCB3 lEZ6oB6dUsDaMeJ8ATzzB7 49InRvcCIv Udidt8vda3emrNo8AhIsIT TuniJmpVjnNJE1w6PfLx63 Q9AcqPdue5RlXal7ao53fE Kag2O2oVY4 J3CuFRIhukjluQSuuVlvLO 7bUSMkfchaJPSrtV7xVJIg H5n7SzOxOqQ2ELpmM6Cieq G6CNRuvUEm BNcxBXE1R85mt1J8SEFfML FnIVB9qBO9dB5hoThauihy bGVmdDsgdmVydGljYWwtYW knX841KWGo oPihAUChlN6bEVAloSJneG blAS5tWKQldnfkVvMDJFHA CGnjSnLZWV1CKZyuuFW+PH UxMLR3hAna RAjxXDNljW6pVIFtH9o7Gv WbUcN2TMsmN0BpVLUavlzy Rn59sK5uSbNnOaO2CLrqF9 GhhkW1BADp rWClBHftNHC0F05ct2H7XT IdOYDzAYK7yDA8oM4teXcq bjogbGVmdDsgdmVydGljYW exHObxK039 NBXagNmbMpFpEvUlMxU2ZO x9H0CqDbe2WCZjrBbpTJ1c cMPtUEuiVg4gfIbbnNphYW 4wNTBpbjtw OSUmjB4bNAMxkBKvdEyxQZ 3eHTBddkzxj124TrEhFSB4 JYWbtGUyL6ShgC5nTsKtPK PdTCWdP9Hz hYKqXEmdD131KBiiMqJ6WK JskrYiB6MeAPGawGyaMgL3 n1F8Fi94WaPHBEUjsczvkL Q+PHRkIHN0 sTojLTleEWRxgY3cCMKcR3 g6KfWvYjE3BPtlY9QiKMQk vvuvVx43pY0dPuUqZyV7VX veJ3OgirK7 EIZidATwGUqdPJQ4A80pe4 P2YGVyVOOaGDQ1xDM0hB2b bGlnbjogbGVmdDsgdmVydG ljYWwtYWxp R983QRBikVtdHc4zeGV5C8 VxUso5AYGbqLdgYJ4dhKMj AMfcJi9wxYlihNmmDC3cYQ BpbjtwYWRk kZ7yQQKvqNPzdMpyHQ6pJW Uphoaib109VpGiXIA7ZFXh iLSeS2FqwV4fBbRcLLJmNR OlP9UpnAQm GVfvM613TLosQeC1UZDbgk PmM4UwRHSqrFbnBqR3h2S2 Gg5DmIBuGMTsEL91ZT76CW 45Y9XoZvkf dGFibGU+PHRhYmxlIHdpZH SkEVkrEUAiQfIhoIggVJ4p Hd9wWGYkCZUcsRcejTUiYb Jvt9ttOXDd MPewTS7eoFxjL5McrBK5IF Rrm2q7Pc71A68lZ1TswFS+ DFOmiKI8tEU7sA1aSgCzYu H4TDjgN067 VlOlsGRfFwuny6xib1oqpP g8QhTzNXFcefYleKjuJIJ0 h4YmKw11T18iTHvxYQPsKB IyMCUiIHZh eDfmid3yhP8uAy6+PGNvbC P6mSC8lX7vOwRzJuY3ZOik P156PwQupEFtYrdeG51hZ7 JvdXA+PHRy Een1UTTjrDwiQY7cqSCfMN cuZo3sHOA7JuWkEqFcFHda G1VbTKLiklkylccurAM3DT ZiABKoiY64 Cx6ttAioPx7oYSXoOPG0VJ LryQFjF5JafE8wEaLkDONe VYEjO1KgtLDdKKfjA458XF liDxP5EQDp xdZqC4KuUNEviPoaIhQ2j0 F5Dl0LsZwvdGAwUX6zMlMq VSz3U0QySvk1IDVaqWcyIU 0ncGFkZGlu Dn3izYpuqYymKO7iSCEgyo jnq783LqVfc9jbKOWaaRDc NIilOCX3Z02dy3P2KGUsHB MfSRS2fXM1 gL7azFdbipjhrSFizQzdbq QoeHclYZlbLJkqW920AOTi mGfaFsOPQfx2V8ZlKmc7AR DbsTkuTU2a jDBrCAraLc4gdAyulGulYW 8cFZXzypsuo436BpCcv6ir UXBnwULnGIpyWOW8Z32yu8 K8BPTlZFPl GRY9lPX7mO2rzXnfpeeoeR VmdDsgdmVydGljYWwtYWxp P091MTTktFsoYl5NXly3W8 LcOwn4IIEc lEgcDI0pkNEdUJsoTz2slV mcxFtePE7bCETgubpgb089 AqGdj9ecVUSogGNaEReyBR F5A77aw5K6 UNSfXCYaQBD6hYS1dY3khX lnbjogbGVmdDsgdmVydGlj PLbrWDljK385HJRwfAdlNp BheWVyOjwv dGQ+RK47iv56L5NxKazgZh j9JUQyVUX3cGO2wD4mWFFa FWqvs5B7lNF9R4GnjdNetz 8al0zxQVAa [employer] (more content not included)... Normal [facility] Consent for Procedure/Surger yon 06-21-2021 Consent for Procedure/Surgery [id number]#1. 00CD:127 [facility] Outside Recordson 06-21-2021 Outside Records [id number]#1. 00CD:127 [facility] Coding Summary.on 06-16-2021 Coding Summary. [id number] Gh 0bWw+PGhlYWQ+DG6NOGXyZ 44lwSAzyD1ZI2uYMM1UKKS BCBCZAY2KPR3auNF7SZteT 2VybiAv ZlcvrLJuCU40FGa0TLT8nQ cqWJagxM1bsSIcH0e0ZpJy NB54fT89MEngFYRdRkD0Cp ZpbjsgbWFy N1ttEkMrcQXeCzv+PHRhYm xlIHdpZHRoPScxMDAlJyBz qIwmCH6zUn2oEEXtCCDpnH xhcHNlOiBj c1hhEMBrGQsbBX8igZkwG3 GunOK0MJMtc8f1Bx67yYM+ MJOeUQC7bWmuFEypl337Dv Owt6swCKH2 eFSzMLsrCCW2M98uh6D3KY PoDKVzTSI7dIN3aH7geRpd uneaZ6NaqGGxWnE5HQC1rG CqqD7zePdo vcwsaT9nRqu+B28PEL9GKL GPGT3ZSyh3S0IyLnuweID+ VK56MIJdDY70tRSblPPpu1 msbTn1ItIm ZDMrPDG2aNwjYJqyz1HkFE WmJ21aiVMky3W4VREggNke pQLzHvVojUO1kO5sQVbpiu ypy6ecsmrx Qmjwa1xrmq96uP04W31qHA oiTYRwOOE6AIIaSGTubNhu xs8oyN5vTh5+PHjcg5uat9 czkQu3EtOi DLYjjaSdcMrpTNA8i2TdXk 39U7EjlGewl0WxRby8la51 gPQyh3Y3vFU5GRywRFFsvV 9vWEtoGvY0 KJTdQfRieR05rOAiXYmgQi 7ioWstnVcgSG2mMLXigmqm MXZtyX9hBYJlwTMouBksKC 4wNTBpbjtm h651BeIwLUT9XONugOZuS3 ElxK6oDjTsAQIiZCHxY9Bf iHRaLGuwI470LXlsKvE2ZK UlqqKcU7Bs WBOknGbwTyZ5j0H7Lu4Mx4 OclxwqSZP8LPdqQFC6LsQw DgAtWrC9I0QeYrs0QALzmY raNM8hA0Zd PLDvjebenweeqHO9IZTgXV EonQ32cWRkVItlBs5yv4X9 q521FGZaTLYteX11Mq3ooI ogMTBwdCBU zI7nojeuo6eogkvhHrZxAU UrBSd2CBu0JRHprUnhNtWu HMW8SpR2SJF9eSKpqP0ksL zzviqkgV7b Oyc+T83yyQ9dNSW4EZP8ji ukRMEzneBpWL67WC71J3Ct PjwvdGFibGU+PGRpdiBzdH thKF7zVpIs l5vfn2FrNAkoH4UyXKLgCE pvIuo1ZCWlTNU7hXE2zK1r ZQDcLMqwo2K1dNV6M3Txjn Nnpz6uk6da MURuUXrmU71otJTpl5H3TW TdpVD9DAJphKacNlPqeV47 Oyc+MUAciOfek9ZcIzuar1 bmc2avoKo2 SdIwVWToarCzbSueSNM3x8 FdCf96I55eCYbzTUHfCHJc GCGzMKLbkWywnu7lxJ4tQx 8+PGNvbCB3 oAU9gZ4yEHYpCgD3UBgsK2 22UuQpoZGeVqyjp7cgn0el xNg6JoUcHFTaiqZxbYvdKU N3m2NvRv27 Y86yCYnpGHIwKDEyYFQaIB DoeMyhuw4toI4xCq7+PC9j q7xdix64pW13aNB+PHRkIH O1sTzeZHvz FMXogG5eUJnsJtK1CSLyHg MzyH71uVUiJLrbNz5fcMdb sGjgIJ7tWDBevtsyb958Uu Fkl8wiBZNv gDJeJAlyWCU9J53up2C7OZ FcPDYxIIT9sAM0qR7xyPqb bjogbGVmdDsgdmVydGljYW waRIewO386 IHRvcDsnPlBhdGllbnQgTm WaVYp8Y3CgPln7AMYxxMbp PB9wnXLmHHgxDf6ocKxhuO fdLY0nHTLj zjbql638HpZix6gbBERwmH WxOYsgWPW5J10il2A0UASk HVPoVIF6bWV3xB3zxBcekm ogbGVmdDsg hlRtxCjvQTiiVDapZ494CP RvcDsnPkJpcnRoIERhdGU6 UJ85XC60vAJmq8U6uTR5N9 BhZGRpbmct staekQI7PVAqFLQegK91Zn 3qcNyoPk0aZXRjDWI2HVVd qSRjE4VndG4kQbXsPTUjOH DrI6SesWIu DRnfY584KZcnQiV0MROopg BjX9JrUYFdsYvtWcH5w3B2 Ka5PD6B7TI70YC04fNRhv3 W4xPR8K9Xm KDPfplhjbrexeHW3MVPdQX BraL00Vh2xaRzwGo8eRTUy LHR4GBKukHLuG0MxmL2bTo AjMDAwMDAw X3YvgVQqJJgyE514VHaoUn W3XNTzgbBpB6LlFHEdnFfs EaV5b0B2Ks7JZRv5IN63WV 52yCXha7E4 uBH4B5FsWHOedkhboxswxS L7OKMjLZLffP82Og5jxZyd Ro4bQDKaOAT6JRRmiHZrG5 YruO0hZsKr YHDnCFVuP1ZwbUJuRBgmM4 44ZEdeWdP8PEWrenIuC4Nf NXUdaXxrIgC8y3G8Tt6YHX LhRI95LMK0 tYB8PO51WS79H7HeOexjcT FibGU+PHRhYmxlIHdpZHRo WMvwPBQxEiGccEczVO7aXq 9yZGVyLWNv lTcuaUGyVpOwd0stJVEcMG ccPD1gsGqkY7VucDJ9XMAu t6x9Pj62B70fV8SpqAP+PG UrfSC1qQA1 nJ2zApVwRvV6CRdoZ574Kn PgiWQeHlztd4bia2dgwAo7 ErE9BAVsspQcpPptGCW2p8 JxMg02K40b IHdpZHRoPSIxNSUiIHZhbG qhzk9sgF1sRw7+PGNvbCB3 pFG4iS0eNmHoXcB8UYimL1 49InRvcCIv Tybyx6emh7yuwOi6WpRnSR OnscQbqHpmNOV8f5XnKo00 S5YpjKnnb3NiRsh9tq73sR Nzp6I3dSF5 H9RxKHKtliggqISziKmnTY 2sRRYfsezbHUVdxL7fJKUy D6o9OeLoWvE9TCzrN5Hykx Q2VTTpsRVh ONrbJLD0I62qe9Q5PSMsZA EtMUT7bAO7aF5rgSoxbclp bGVmdDsgdmVydGljYWwtYW cyK940PYZq wEbpUUGiwH0sBQCbkFDjpD xeDM1oVAGgyqdlLgFFQOFL RUavAmOYDG4FMTxpaHD+PH NpKYX6nWma VMmcVBPagK5kDMHeW0q1Vh ZbZhR9VAqiB3AkXFDnfqmk Hb07iL7dKpSjEtZ9KCwwH8 PkgvT3ITPi rEQlQPgbQOS5D46kx5X5PX MgIHDjVQS0hOO3nQ3dqNjf bjogbGVmdDsgdmVydGljYW dtHOusQ547 XCRdaAtoRlHeAyXrDbX9YA n7T3LbUmr0UHNiwOecJC6h yUGbCJvgIv5raZcjiNeyFG 4wNTBpbjtw XADlqA3aKLTpnFKeaKkpUY 7qHAFduievk831EjFwEZD3 DVNhjWUsT6IvgO4tUiXmTE DfUBKhJ7Ak sMGjEQplK818VDlcEpB0GA VlnnPeM1TrWIBczOivXqB9 p7C2Fa82JoXVDZPzydfydX Q+PHRkIHN0 dObyZBaqBUHjzG6sVYFeH2 b5NyGaUuO1ESvxV0TcDPUs qxtaBu69bW6yGfYmPaT3UL nuG4PdqtZ9 KGSlgJIbTKavAKN5N48jy1 C0NWZiSJAzLHS7tNH8hK5g bGlnbjogbGVmdDsgdmVydG ljYWwtYWxp V592RXBacYztNa6igZA0V1 GpEyk1XZAinYasLM4cxBOe KYhnCt8tcAhotSknUH2xNF BpbjtwYWRk tX2eGSDmqEIcaTwjQA5gBA Sdmseii295RqOcLAO6WSYb tBLqT3NxxD2fGxQaJJNvPR GiN1IyaXAd RFcyD187XPfmJnJ3VVNkjd QeC1IlYWNuxCdwFcR7h3I6 Oe1IbSHoSJDrZH23UC36XH 71L5MdJkml dGFibGU+PHRhYmxlIHdpZH XwETwiZRYsOmOocNzqQO4a Tb6wRVJaQYZrmVcdeWGaCn Gxu3qyJJXh DHnjSZ0aoCksB4EwnXZ7GR Bcu1m5Di37M87rZ9FclET+ SBKbuDP9wOD8kG2gIpJcDt N3NJfaG890 AnZmySArSumlw0xxi4vjnD f1ItTmGCOvzmVnySavNRR0 p8OwUv54R47gSSzlTJZmXW IyMCUiIHZh cEahal7oeP0vOo5+PGNvbC F9bEX8lV3pSlUxOwD6QTlg J893DaOpsPMoKwmnL96lO5 JvdXA+PHRy Mko5CVUgcEfcSG5lhFWeQG fvTx4eZPO2ToBfOkLsKCzc S8OuGXFsuyupprfslYP1VD FmZPZdqM27 Yp4xzPjdRp6pBBAsRMQ2EZ UuoEXkP3LntY4fXjMlBLYs HUOgE0BioRHuIZrnL223DG ykWuI3DJHs fgUwK8FdBFQugLmwYzS0l9 P0Zu4VzEandTJvLH8dRdNg LPg7Y3NrUrs4UOHjgYklKY 0ncGFkZGlu Et6bdFipnPonGD9mECYvbw ukr289BqNue8dgUDMouKVk EFqmNDK3K19zh8Z0CSEiHP QmKWJ3rGK1 lQ1gqSsofasrwAZllYuuuh XxcSqdINsyYYheO750TWHs lMrwRkRMRhz8Z7CtDwi9SI IqeJqrXB3i wXJhUTkxZf1olEjytCyiAV 6pPJIkenlql745WvUyg3su MXCfyHHlCEqbLFB5V00bf8 K3JZIwHPCz BGJ7kXD8zS2gwYrkcmcgiO VmdDsgdmVydGljYWwtYWxp D119OCEnkZebYx8FZei5Q6 BfOan2BJZj kAsoXI8tbFPmKLfmGc1ucH bolAwkIF3qAHIepxbpg239 NcMzr1suUSHwtIIbHPxoZL O5H39gh9Q1 LIUkMOBzJWP9wPD4gI4ckV lnbjogbGVmdDsgdmVydGlj PGdaYYokY491UPHgtWegPw BheWVyOjwv dGQ+BK89lv30X6AyFwkiYc i8CMMrGHD4xZZ8xQ0cEVSx DIuto1Z8nWB1M8SrkfYcfp 8hy1voPCWm ZTog (more content not included)... Normal [facility] Consent for Treatmenton 06-05 Consent for Treatment [id number] 0CD:127 Normal [facility] Heart and Vascular Office/Cl inic Noteon 06-15-2021 Heart and Vascular Office/Clinic Note History of Present Illness Patient is a very pleasant 65-year-old gentleman with a history of hyperlipidemia, diabetes, previous 51-nwam-caog smoker quit around 5 years ago, referred to us by Dr. Parish (PCP) from [place] for preoperative stratification for upcoming left shoulder surgery on 06/22/2021. Apparently his PCP had ordered an echo, lipids and a stress test at another facility, however they have not been done yet. Patient reports that he had a heart catheterization done at [facility] he believes several years ago around 2019 [...] He reportedly had a catheterization done at [facility] in 2019 and had no stents placed and has remained asymptomatic since that time. I recommended obtaining those records from [facility] to go over those results. In addition up it appears the patient has been set up to undergo an echocardiogram and a stress test at [facility] by his PCP, but this has [...] BID pioglitazon (more content not included)... Normal [facility] Comment on above: Result Comment: Elec tronically Signed By: Eze MAXWELL, Faisal Kaiser\.br\Date and Time Signed: 06/15/21 15:34 EDT [facility] 06-13-2021 Outside [facility] [id number]#1.00 CD:[address] [facility] [address] Upper Extremity w/o Contr ast Lefton [...] DO Transcribed by: PONCHO Technologist: RAMONA Normal [facility] XR Chest 2 Viewson XR Chest 2 [...] MD Transcribed by: PONCHO Technologist: KETAN Normal [facility] BUNon 06-09-2021 Urea nitrogen [Mass/Vol] 14 mg/dL Normal 5-21 [facility] Comment on above: Performed By: #### 2 [id number] #### [facility] [address] [place] [address] CBC w/Indiceson 06-09-2021 Erythrocyte distribution width (RBC) [Ratio] 13.4 % Normal 10.9-14.2 [facility] Comment on above: Performed By: #### 2 [id number] #### [facility] [address] [place] [address] Hematocrit (Bld) [Volume fraction] 43.7 % Normal 37.7-49.0 [facility] Comment on above: Performed By: #### 2 [id number] #### [facility] [address] [place] [address] Hemoglobin (Bld) [Mass/Vol] 15.1 g/dL Normal 13.5-17.5 [facility] Comment on above: Performed By: #### 2 [id number] #### [facility] [address] [place] [address] MCH (RBC) [Entitic mass] 30.7 pg Normal 27.0-34.0 [facility] Comment on above: Performed By: #### 2 [id number] #### [facility] [address] [place] [address] MCHC (RBC) [Mass/Vol] 34.4 g/dL Normal 31.4-36.0 [facility] Comment on above: Performed By: #### 2 [id number] #### [facility] [address] [place] [address] MCV (RBC) [Entitic vol] 89.2 fL Normal 80.0-100.0 [facility] Comment on above: Performed By: #### 2 [id number] #### [facility] [address] [place] [address] Platelet mean volume (Bld) [Entitic vol] 8.3 fL Normal 6.4-10.8 [facility] Comment on above: Performed By: #### 2 [id number] #### [facility] [address] [place] [address] Platelets (Bld) [#/Vol] 301.0 E9/L Normal 150.0-500.0 [facility] Comment on above: Performed By: #### 2 [id number] #### [facility] [address] [place] [address] RBC (Bld) [#/Vol] 4.9 E12/L Normal 4.3-5.9 [facility] Comment on above: Performed By: #### 2 [id number] #### [facility] [address] [place] [address] WBC corrected for nucl RBC Auto (Bld) [#/Vol] 9.5 E9/L Normal 4.0-11.0 [facility] Comment on above: Performed By: #### 2 [id number] #### [facility] [address] [place] [address] Consent for Treatmenton Consent for Treatment [id number] [facility] [id number]#1.0 0CD:127 Normal [facility] Creatinineon 06-09-2021 Creatinine [Mass/Vol] 0.9 mg/dL Normal 0.5-1.3 [facility] Comment on above: Performed By: #### 2 [id number] #### [facility] [address] [place] [address] Glucoseon 06-09-2021 Glucose [Mass/Vol] 171 mg/dL Normal 55-199 [facility] Comment on above: Performed By: #### 2 [id number] #### [facility] [address] [place] [address] Lyteson 06-09-2021 Anion gap [Moles/Vol] 15 mmol/L Normal 6-16 [facility] Comment on above: Performed By: #### 2 [id number] #### [facility] [address] [place] [address] Chloride [Moles/Vol] 105 mmol/L Normal 101-111 [facility] Comment on above: Performed By: #### 2 [id number] #### [facility] [address] [place] [address] CO2 [Moles/Vol] 23 mmol/L Normal 21-31 [facility] Comment on above: Performed By: #### 2 [id number] #### [facility] [address] [place] [address] Potassium [Moles/Vol] 4.3 mmol/L Normal 3.5-5.3 [facility] Comment on above: Performed By: #### 2 [id number] #### [facility] [address] [place] [address] Sodium [Moles/Vol] 139 mmol/L Normal 135-145 [facility] Comment on above: Performed By: #### 2 [id number] #### [facility] [address] [place] [address] UA With Cult Reflexon 2020 Bacteria LM Ql (Urine sed) 1+ /HPF Abnormal Trace [facility] Comment on above: Performed By: #### 1 [id number] ####[facility] [address] [place] [address] Bilirubin Ql (U) Negative Normal Negative [facility] Comment on above: Performed By: #### 1 [id number] ####[facility] [address] [place] [address] Clarity (U) CLEAR Normal Clear [facility] Comment on above: Performed By: #### 1 [id number] ####[facility] [address] [place] [address] Color (U) YELLOW Normal Yellow [facility] Comment on above: Performed By: #### 1 [id number] ####[facility] [address] [place] [address] Epithelial cells.squamous LM.HPF (Urine sed) [#/Area] 0-2 Normal 0-2 [facility] Comment on above: Performed By: #### 1 [id number] ####[facility] [address] [place] [address] Glucose Test strip (U) [Mass/Vol] 3+ Abnormal Negative [facility] Comment on above: Performed By: #### 1 [id number] ####[facility] [address] [place] [address] Hemoglobin Ql (U) Negative Normal Negative [facility] Comment on above: Performed By: #### 1 [id number] ####[address] [address] Ketones (U) [Mass/Vol] Negative Normal Negative [facility] Comment on above: Performed By: #### 1 [id number] ####[address] [address] [place].plasma/Lithiu m.RBC (Bld) [Mass ratio] 0-3 Normal 0-3 [facility] Comment on above: Performed By: #### 1 [id number] ####[address] [address] Mucus Ql (Urine sed) 2+ Normal [facility] Comment on above: Performed By: #### 1 [id number] ####[facility] [address] [place] [address] Nitrite Ql (U) Negative Normal Negative [facility] Comment on above: Performed By: #### 1 [id number] ####[address] [address] pH (U) 5.5 [pH] Invalid Interpretation Code 5.0-9.0 [facility] Comment on above: Performed By: #### 1 [id number] ####[address] [address] Protein (U) [Mass/Vol] 1+ Abnormal Negative [facility] Comment on above: Performed By: #### 1 [id number] ####[facility] [address] [place] [address] Specific gravity (U) [Rel density] >=1.030 Invalid Interpretation Code 1.005-1.030 [facility] Comment on above: Performed By: #### 1 [id number] ####[facility] [address] [place] [address] Type of Urine collection method Clean Catch Normal [facility] Comment on above: Performed By: #### 1 [id number] ####[facility] [address] [place] [address] Urobilinogen Qn (U) 0.2 {Redd'U}/dL Normal 0.0-1.0 [facility] Comment on above: Performed By: #### 1 [id number] ####[facility] [address] [place] [address] WBC Auto Ql (U) Negative Normal Negative [facility] Comment on above: Performed By: #### 1 [id number] ####[facility] [address] [place] [address] WBC LM.HPF (Urine sed) [#/Area] 0-5 Normal 0-5 [facility] Comment on above: Performed By: #### 1 [id number] ####[facility] [address] [place] [address] eGFRon 06-09-2021 GFR/1.73 sq M.predicted among blacks MDRD (S/P/Bld) [Vol rate/Area] mL/min/{1.73_m2} Normal >=59 [facility] Comment on above: Order Comment: Order added by Discern Expert. Result Comment: eGFR is race adjusted. AA=. Performed By: #### 2 [id number] #### [facility] [address] [place] [address] GFR/1.73 sq M.predicted among non-blacks MDRD (S/P/Bld) [Vol rate/Area] mL/min/{1.73_m2} Normal >=59 [facility] Comment on above: Order Comment: Order added by Discern Expert. Result Comment: Timber Framer melina kidney disease could be indicated at eGFR's of less than 60 mL/min/1.73m2. Kidney failure is indicated at less than 15 mL/min/1.73m2. Performed By: #### 2 [id number] #### [facility] [address] [place] [address] Physician Orderon 06-01-2021 Physician Order [id number]#1. 00CD:127 Normal [facility] Pre-Certification Formon Pre-Certification Form [id number]#1. 00CD:127 Normal [facility] Physician Orderon 05-31-2021 Physician Order [id number]#1. 00CD:127 Normal [facility] Encounters Encounter Date Encounter Type Care Provider Facility Start: 07-14-2024 End: 07-14-2024 ambulatory Ramses Thorne MD Facility:[facility] Start: 01-07-[address] OSWALDO PARISH Facility :[facility] Start: 01-05-2022 Encounter for genera l adult medical examination without abnormal findings DR OSWALDO PARISH [facility] Start: 12-28-2021 End: 12-28-[address] OSWALDO PARISH Facility:[facility] Start: 12-28-2021 End: 12-28-2021 Encounter for general adult medical examination without abnormal findings DR OSWALDO PARISH Facility:[facility] Start: 10-13-2021 End: 10-13-[address] OSWALDO PARISH Facility:[facility] Procedures Date Procedure Procedure Detail Performing Clinician Start: 12-28-[address] LINNETTE PARISH Comment on above: Performed By: #### P SAD #### [facility] [address] [address] [address] Talia Davalos Payers Date Payer Category Payer Medicaid 2023 Medicare 1957 Medicaid [id number] 1957 Self-pay 1959 Unknown [id number] 1959 Unknown [id number] 1957 Unknown [id number] [id number] [id number] 1957 Unknown [id number] 2.16.84 [id number] 1957 Unknown [id number] 2.16.84 [id number] 1957 Unknown [id number] [id number] Clinical Note 05-24-2022 Note Date & Type [...] no answer and unable to leave message. [facility] Discharge summary note 06-23-2021 Note Date & [...] Tab) 30 mg, 1 tab(s), Oral, Daily [facility] Comment on above: Result Comment: Elec tronically Signed By: Rafa Macedo DO\.br\Date and Time Signed: 06/23/21 07:29 EDT History and physical note 06-21-2021 Note Date & Type Note Facility 06-21-2021 Note [id number]#1.00CD:127 [facility] Summary Purpose Family History No Family History Records FoundNo Family History Records FoundNo Family History Records Found Advance Directives No Advanced Directives Records FoundNo Advanced Directives Records FoundNo Advanced Directives Records Found Additional Source Comments (unrecognized sect ion and content) No Status Records FoundNo Status Records FoundNo Status Records Found INFORMATION SOURCE (unrecogn ized section and content) DATE CREATED AUTHOR 05/27/2022 [facility] DATE CREATED AUTHOR AUTHOR'S ORGANIZ ATION 10/11/2022 [facility] DATE CREATED AUTHOR AUTHOR'S ORGANIZ ATION 07/20/2024 [facility] FOR RECORDS PERTAINING TO PATIENTS WHO [...] BE BASED ON THE PRIMARY CLINICAL RECORDS. [facility] provides no warranty or guarantee of the accuracy or completeness of information in this document.
[2024-09-20] MEDS: 0.9 % SODIUM CHLORIDE 1,000 ML 100 ML IV (23:30)
[2024-09-21 00:47] VITALS: BP 136/70; PULSE 81; TEMP 36.8; O2SAT 91; BMI 38.3
[2024-09-21 04:00] VITALS: BP 142/69; PULSE 73; O2SAT 92
[2024-09-21] MEDS: BACLOFEN 10 MG TABLET PO (05:47)
[2024-09-21] MEDS: ACETAMINOPHEN 325 MG TABLET 650 MG PO (05:47)
[2024-09-21 06:45] LABS: Anion Gap 15.4; BUN Creatinine Ratio 18.1; Calcium 8.9 mg/dL (8.5-10.1); Chloride 107 mmol/L (98-107); Estimated GFR (African America >60 (>=60 mL/min/1.73m^2); Estimated GFR (Non-African Ame >60 (>=60 mL/min/1.73m^2); Glucose 131 mg/dL (74-106); Potassium 4.4 mmol/L (3.5-5.1); Sodium 143 mmol/L (136-145)
[2024-09-21] MEDS: FENOFIBRATE 54 MG TABLET 162 MG PO (08:45)
[2024-09-21] MEDS: DICLOFENAC SODIUM 25 MG TABLET.DR 75 MG PO (08:45)
[2024-09-21] MEDS: ASPIRIN 81 MG TABLET.DR PO (08:45)
[2024-09-21 08:50] VITALS: BP 171/97; PULSE 68; TEMP 36.7; O2SAT 93
--- NOTE | 2024-09-21 08:50 | PM.HP ---
HPI H&P: HPI History of Present Illness Chief complaint: Nausea/Vomiting Narrative: Patient is a 68 y.o white male with past medical history of IDDM type 2, HLD, and chronic back pain, Marijuana use, who presented to the ER last night with several episodes of nausea and vomiting after eating canned ravioli. Patient denies diarrhea or fevers/chills. Patient also found to be hyperglycemic with sugar 294. Patient was given IVF, antiemetics and insulin. Anion gap at presentation was 18, down to 15 with fluids. No ketones in urine. negative UA and chest X-ray. WBC's 15.8. Normal lipase and liver function tests. Patient was admitted for viral gastroenteritis. This morning patient feels much improved. Has remained afebrile overnight. N/V has resolved. He is ready to go home. Of note, he has been having a headache the last week or 2 and his blood pressure readings have been elevated. He denies being on blood pressure medication in the past. Opioid HPI Opioid Management Most Recent Pain and Opioid Data: Last Pain Scale 6 09/21/24 08:50 09/21/24 Last Pain Assessment 09/21/24 12:15 Last MAR Pain Assessment 09/21/24 06:57 Last ORT Total Score 8 09/21/24 00:47 09/21/24 Last ORT Risk Category High Risk 09/21/24 00:47 09/21/24 Ur Phencyclidine Scrn Negative (NEGATIVE) 09/20/24 19:45 09/20/24 Review of Systems ROS Narrative ROS: a complete review of systems were reviewed with patient and are positive as below or listed in History of Chief Complaint. General: no fever, chills, night sweats Head: no headache, trauma, visual changes, nausea or vomiting Skin: no reported rashes, itching or sores Eyes: no blurriness of vision Ears: no reported hearing loss, vertigo, earache, or tinnitus Throat: no sore throat, hoarseness, swelling of neck, or tongue pain Heart: no chest pain Lungs: no shortness of breath or cough GI: no diarrhea but vomiting/nausea Urinary: no urinary urgency, frequency or pain Neuro: no numbness or tingling HEM: no bleeding issues or bruising ENDO: no thyroid problems Psych: no anxiety or depression [facility] Medical History (Updated 09/21/24 @ 11:47 by Elli Carlin DO) Hyperlipidemia associated with type 2 diabetes mellitus ?E11.69 - Type 2 diabetes mellitus with other specified complication (ICD-10) ?E78.5 - Hyperlipidemia, unspecified (ICD-10) Osteoarthritis ?M19.90 - Unspecified osteoarthritis, unspecified site (ICD-10) Diabetes ?E11.9 - Type 2 diabetes mellitus without complications (ICD-10) Surgical History H/O neck surgery ?Z98.890 - Other specified postprocedural states (ICD-10) History of surgery on arm ?Z98.890 - Other specified postprocedural states (ICD-10) H/O total shoulder replacement ?Z96.619 - Presence of unspecified artificial shoulder joint (ICD-10) Social History Smoking status: Former smoker Highest level of school completed/degree received: high school graduate Meds Home Medications and Allergies Home Medications ?Medication ?Instructions ?Recorded ?Confirmed ?Type diclofenac sodium 75 mg 75 mg PO BID PRN pain 06/10/23 09/21/24 History tablet,delayed release fenofibrate 160 mg tablet 160 mg PO DAILY 06/10/23 09/20/24 History metformin 500 mg tablet 500 mg PO BID 06/10/23 09/20/24 History pioglitazone 30 mg tablet 30 mg PO BID 06/10/23 09/20/24 History aspirin 81 mg tablet,delayed 81 mg PO DAILY 06/25/24 09/20/24 History release baclofen 10 mg tablet 10 mg PO TID 06/25/24 09/20/24 History rosuvastatin 10 mg tablet 10 mg PO DAILY 09/20/24 09/20/24 History carvedilol 3.125 mg tablet 3.125 mg PO BID 15 days #30 tabs 09/21/24 Rx insulin glargine 100 unit/mL (3 22 unit subcut DAILY 09/21/24 09/21/24 History mL) subcutaneous pen (Lantus Solostar U-100 Insulin) Allergies Allergy/AdvReac Type Severity Reaction Status Date / Time No Known Drug Allergies Allergy Verified 07/14/24 08:58 Exam Narrative Exam Narrative: General: Patient is alert, and oriented to person, place and time with normal affect, proper hygiene Skin: no visible rashes, or ulcers Head: atraumatic, acephalic Eyes: PERRLA, no nystagmus present, conjunctiva clear, no scleral icterus Ears: normal gross auditory acuity Neck: no masses palpated, normal thyroid Heart: Normal rate and rhythm, no murmurs/rubs/gallops Lungs: no audible wheezes, crackles and normal breath sounds all lung lee Abdomen: Normal audible bowel sounds, no distension, palpable but reducible umbilical hernia, no organomegaly, no rebound/guarding/ or rigidity Musculoskeletal: ROM is limited due to being in hospital bed, no swelling bilateral lower extremities Neuro: CN II-X grossly intact Constitutional Vital Signs, click to edit/add: Last Vital Signs Temp 98.2 F 09/21/24 00:47 Pulse 73 09/21/24 04:00 Resp 18 09/21/24 04:00 BP 142/69 H 09/21/24 04:00 Pulse Ox 92 L 09/21/24 04:00 O2 Del Method Room Air 09/21/24 04:00 O2 Flow Rate 2 09/20/24 20:36 Results Labs Labs: Short CBC 09/20/24 Range/Units 19:50 WBC 15.8 H (4.0-11.0) 10^3/uL Hgb 14.9 (14.0-18.0) g/dL Hct 44.3 (42.0-54.0) % Plt Count 328 (150-450) 10^3/uL BMP 09/20/24 09/21/24 19:50 05:37 Sodium 139 143 Potassium 4.5 4.4 Chloride 103 107 Carbon Dioxide 22.5 25.0 BUN 24.0 H 17.0 Creatinine 1.20 0.94 Glucose 294 H 131 H Calcium 10.2 H 8.9 Liver Function 09/20/24 Range/Units 19:50 Total Bilirubin 0.3 (0.2-1.0) mg/dL Direct Bilirubin 0.1 (0.0-0.2) mg/dL AST 16 (15-37) U/L ALT 23 (16-63) U/L Alkaline Phosphatase 98 (46-116) U/L Albumin 3.8 (3.4-5.0) g/dL Urine 09/20/24 Range/Units 19:45 Urine Color Lt. yellow (YELLOW) Urine Clarity Clear (CLEAR) Urine pH 5.5 (5.0-9.0) Ur Specific [place] 1.025 (1.005-1.025) Urine Protein 100 A (NEG/TRACE) mg/dL Urine Glucose (UA) >=1000 A (NEGATIVE) mg/dL Assessment and Plan Assessment and Plan (1) Viral gastroenteritis: Assessment and Plan: continue with IVF and antiemetics. symptoms resolved, discharge home today. liver enzymes and lipase normal. Symptomatic treatment as needed only. (2) Diabetes: Assessment and Plan: hyperglycemia upon admission has also improved. Continue SSI. continue home meds at discharge. 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 (4) Osteoarthritis: Assessment and Plan: hold diclofenac and baclofen until tolerating PO Qualifiers: Osteoarthritis location: unspecified site Osteoarthritis type: unspecified Qualified Code(s): M19.90 - Unspecified osteoarthritis, unspecified site (5) Elevated blood pressure reading: Assessment and Plan: start coreg 3.125 BID, will discharge home on this, he will need close follow up with PCP to address or change medication further. Call tomorrow for appointment this week. Plan Patient is a full code SCD's for prophylaxis Patient is in observation status and is not expected to cross 2 midnights, hopeful discharge today. Urinary Catheter Management Urinary Catheter Management Urethral: Cath placed during this visit: yes Urethral indwelling: No Insertion date: 09/20/24 Insertion time: 20:00
[2024-09-21 11:23] LABS: Glucometer 185 mg/dL (74-106)
--- NOTE | 2024-09-21 11:49 | PM.DS1 ---
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 Diabetes mellitus complication status: with hyperglycemia Qualified Code(s): E11.65 - Type 2 diabetes mellitus with hyperglycemia; Z79.4 - [facility] (current) use of insulin (3) Hyperlipidemia associated with type 2 diabetes mellitus: (4) Osteoarthritis: Qualifiers: Osteoarthritis location: unspecified site Osteoarthritis type: unspecified Qualified Code(s): M19.90 - Unspecified osteoarthritis, unspecified site (5) Elevated blood pressure reading: DS: Summary Hospital Course Hospital Course: please see H&P dated 09/21/24 Status at Discharge Functional status at discharge: independent ambulation Overall status at discharge: patient is back to baseline Time Spent with Patient Time attestation: Total time spent providing and/or coordinating discharge services: Time spent: greater than 30 minutes Exam Narrative Exam Narrative: no changes to discharge exam from H&P exam dated 09/21/24 Constitutional Vital Signs, click to edit/add: Last Vital Signs Temp 98.0 F 09/21/24 08:50 Pulse 68 09/21/24 08:50 Resp 18 09/21/24 08:50 BP 171/97 H 09/21/24 08:50 Pulse Ox 93 L 09/21/24 08:50 O2 Del Method Room Air 09/21/24 08:50 O2 Flow Rate 2 09/20/24 20:36 DS: Data Data Completed and Pending Labs on day of discharge: Labs from last 24 hours 09/21/24 09/21/24 09/20/24 11:22 05:37 19:50 WBC 15.8 H RBC 4.91 Hgb 14.9 Hct 44.3 MCV 90.2 MCH 30.3 MCHC 33.6 RDW 12.7 Plt Count 328 MPV 9.9 Neut % (Auto) 83.0 H Lymph % (Auto) 10.9 L [place] % (Auto) 4.1 Eos % (Auto) 0.8 L Baso % (Auto) 0.8 Neut # (Auto) 13.2 H Lymph # (Auto) 1.7 [place] # (Auto) 0.7 Eos # (Auto) 0.1 Baso # (Auto) 0.1 Abs Immat Gran (auto) 0.07 H Imm/Tot Granulo (auto) 0.4 Sodium 143 139 Potassium 4.4 4.5 Chloride 107 103 Carbon Dioxide 25.0 22.5 Anion Gap 15.4 18.0 BUN 17.0 24.0 H Creatinine 0.94 1.20 Est GFR ( Amer) >60 >60 Est GFR (Non-Af Amer) >60 >60 BUN/Creatinine Ratio 18.1 20.0 Glucose 131 H 294 H Calcium 8.9 10.2 H Total Bilirubin 0.3 Direct Bilirubin 0.1 AST 16 ALT 23 Alkaline Phosphatase 98 Troponin I High Sens 10.0 Total Protein 7.6 Albumin 3.8 Globulin 3.8 Albumin/Globulin Ratio 1.0 Amylase 94 Lipase 40.0 Urine Color Urine Clarity Urine pH Ur Specific [place] Urine Protein Urine Glucose (UA) Urine Ketones Urine Occult Blood Urine Nitrite Urine Bilirubin Urine Urobilinogen Ur Leukocyte Esterase Urine RBC Urine WBC Ur Squamous Epith Cells Urine Crystals Calcium Oxalate Crystal Urine Bacteria Urine Casts Urine Mucus Ur Culture Indicated? Urine Opiates Screen Ur Buprenorphine Scrn Ur Oxycodone Screen Urine Methadone Screen Ur Barbiturates Screen U Tricyclic Antidepress Ur Phencyclidine Scrn Ur Amphetamines Screen U Methamphetamines Scrn U Benzodiazepines Scrn Urine Cocaine Screen U Cannabinoids Screen Ethanol Quant <3 Acetone, Qual Negative POC Glucose 185 H 09/20/24 09/20/24 19:45 19:27 WBC RBC Hgb Hct MCV MCH MCHC RDW Plt Count MPV Neut % (Auto) Lymph % (Auto) [place] % (Auto) Eos % (Auto) Baso % (Auto) Neut # (Auto) Lymph # (Auto) [place] # (Auto) Eos # (Auto) Baso # (Auto) Abs Immat Gran (auto) Imm/Tot Granulo (auto) Sodium Potassium Chloride Carbon Dioxide Anion Gap BUN Creatinine Est GFR ( Amer) Est GFR (Non-Af Amer) BUN/Creatinine Ratio Glucose Calcium Total Bilirubin Direct Bilirubin AST ALT Alkaline Phosphatase Troponin I High Sens Total Protein Albumin Globulin Albumin/Globulin Ratio Amylase Lipase Urine Color Lt. yellow Urine Clarity Clear Urine pH 5.5 Ur Specific [place] 1.025 Urine Protein 100 A Urine Glucose (UA) >=1000 A Urine Ketones Negative Urine Occult Blood Negative Urine Nitrite Negative Urine Bilirubin Negative Urine Urobilinogen 0.2 Ur Leukocyte Esterase Negative Urine RBC 0-2 Urine WBC 0-2 A Ur Squamous Epith Cells None seen Urine Crystals Seen A Calcium Oxalate Crystal Rare Urine Bacteria None seen Urine Casts None seen Urine Mucus None seen Ur Culture Indicated? No Urine Opiates Screen Negative Ur Buprenorphine Scrn Negative Ur Oxycodone Screen Negative Urine Methadone Screen Negative Ur Barbiturates Screen Negative U Tricyclic Antidepress Negative Ur Phencyclidine Scrn Negative Ur Amphetamines Screen Negative U Methamphetamines Scrn Negative U Benzodiazepines Scrn Negative Urine Cocaine Screen Negative U Cannabinoids Screen Positive A Ethanol Quant Acetone, Qual POC Glucose 310 H Discharge Plan Discharge Disposition: Home, Self-Care Condition: Good Discharge Medications: New carvedilol 3.125 mg Tablet 3.125 mg PO BID 15 Days Qty: 30 0RF Continued fenofibrate 160 mg tablet 160 mg PO DAILY metformin 500 mg tablet 500 mg PO BID pioglitazone 30 mg tablet 30 mg PO BID diclofenac sodium 75 mg tablet,delayed release (DR/EC) 75 mg PO BID PRN (Reason: pain) aspirin 81 mg tablet,delayed release (DR/EC) 81 mg PO DAILY baclofen 10 mg tablet 10 mg PO TID rosuvastatin 10 mg tablet 10 mg PO DAILY insulin glargine [Lantus Solostar U-100 Insulin] 100 unit/mL (3 mL) insulin pen 22 unit SUBCUT DAILY Activity: increase activity as tolerated Diet: advance to your usual diet Print Language: Palauan Forms: Portal Instructions Follow Up Appointments: Please Call Dr. Parish's office tomorrow for hospital follow up appointment to address Hypertension.
[2024-09-21 12:15] VITALS: BP 182/98; PULSE 74
[2024-09-21] MEDS: CARVEDILOL 3.125 MG TABLET PO (12:15)
--- NOTE | 2024-09-22 11:43 | CM.DCFOLLOWU ---
Person spoke with: patient How are you feeling? well How is your pain?none Did you understand your discharge instructions?yes Do you have any questions about your discharge instructions?no Were you given any prescriptions at discharge? yes Were you able to get your prescriptions filled? yes Do you understand how to take your medications as ordered?yes Do you have any questions about your follow up appointment and do you plan to keep your follow up appointment? no questions, has not called [facility]'s office yet, but will call to schedule follow up Is there anything else that you would like to discuss?no Questions/Comments/Concerns/Other:N/A
== END 2024-09-21 13:05 | disposition home or self-care (01) ==
LOC: ER 22:27 → MS 23:25
PROVIDERS: Registered Nurse; Admitting Provider Family Medicine; Emergency Provider Emergency Medicine; PCP Family Medicine; Visit Provider Family Medicine
DX: A08.4 Viral intestinal infection, unspecified (principal); E11.65 Type 2 diabetes mellitus with hyperglycemia; E11.69 Type 2 diabetes mellitus with other specified complication; E78.5 Hyperlipidemia, unspecified; M19.90 Unspecified osteoarthritis, unspecified site; I10 Essential (primary) hypertension; Z79.84 Long term (current) use of oral hypoglycemic drugs; Z79.4 Long term (current) use of insulin; Z87.891 Personal history of nicotine dependence; Z79.899 Other long term (current) drug therapy
CPT/HCPCS: 36415; 51702; 71045; 80048; 80076; 80307; 80320; 81001; 82009; 82150; 82948; 83690; 84484; 85025; 87040; 93005; 96361; 96374; 96376; 99285; G0378; J2405

== ENCOUNTER 2025-02-06 08:14 | Outpatient (OUT) | payer MEDICARE, SELFPAY ==
[2025-02-06 08:53] LABS: Basophils Absolute Auto 0.1 10^3/uL (0.0-0.1); Basophils Percent Auto 1.4 % (0.2-2.0); Eosinophils Absolute Auto 0.2 10^3/uL (0.0-0.7); Eosinophils Percent Auto 2.9 % (0.9-7.0); Hematocrit 44.2 % (42.0-54.0); Immature Granulocytes Abs Auto 0.04 10^3/uL (0.00-0.03); Immature Granulocytes Pct Auto 0.5 % (0.0-0.5); Lymphocytes Percent Auto 25.7 % (20.5-60.0); Mean Corpuscular HGB Conc 33.9 g/dL (29.9-35.2); Mean Corpuscular Hemoglobin 30.2 pg (25.9-34.0); Mean Corpuscular Volume 89.1 fL (80.0-94.0); Mean Platelet Volume 9.9 fL (9.5-13.5); Monocytes Absolute Auto 0.5 10^3/uL (0.3-0.8); Monocytes Percent Auto 6.1 % (1.7-12.0); Neutrophils Percent Auto 63.4 % (43.0-75.0); Platelet Count 286 10^3/uL (150-450); Red Blood Count 4.96 10^6/uL (4.70-6.10); Red Cell Distribution Width 12.5 % (11.0-15.0); White Blood Count 7.8 10^3/uL (4.0-11.0)
[2025-02-06 13:30] LABS: Alanine Aminotransferase 20 U/L (16-63); Albumin Globulin Ratio 0.9; Albumin Level 3.6 g/dL (3.4-5.0); Alkaline Phosphatase 134 U/L (46-116); Anion Gap 13.3; Aspartate Amino Transferase 13 U/L (15-37); BUN Creatinine Ratio 17.3; Bilirubin Total 0.3 mg/dL (0.2-1.0); Calcium 9.5 mg/dL (8.5-10.1); Carbon Dioxide 27.1 mmol/L (21.0-32.0); Chloride 104 mmol/L (98-107); Chol HDL Ratio 7.5; Cholesterol 263 mg/dL (<=200); Creatine Kinase 50 U/L (39-308); Estimated GFR (African America >60 (>=60 mL/min/1.73m^2); Estimated GFR (Non-African Ame >60 (>=60 mL/min/1.73m^2); Glucose 232 mg/dL (74-106); HDL Cholesterol 35 mg/dL (40-60); Potassium 4.4 mmol/L (3.5-5.1); Sodium 140 mmol/L (136-145); Total Protein 7.6 g/dL (6.4-8.2); Triglycerides 527 mg/dL (<=150); Uric Acid 5.2 mg/dL (3.5-7.2); VLDL CHOLESTEROL 105.4 mg/dL
[2025-02-06 13:57] LABS: LDL Cholesterol Direct 135 mg/dL
== END 2025-02-06 08:15 | disposition home or self-care (01) ==
PROVIDERS: PCP Family Medicine; Visit Provider Family Medicine
DX: E78.1 Pure hyperglyceridemia (principal); I10 Essential (primary) hypertension; E11.9 Type 2 diabetes mellitus without complications; E78.00 Pure hypercholesterolemia, unspecified; Z12.12 Encounter for screening for malignant neoplasm of rectum; Z12.5 Encounter for screening for malignant neoplasm of prostate
CPT/HCPCS: 36415; 80053; 80061; 82550; 83036; 83721; 84436; 84443; 84481; 84550; 85025; G0103

== ENCOUNTER 2025-02-18 13:52 | Outpatient (OUT) | payer MEDICARE, SELFPAY ==
--- NOTE | 2025-02-18 14:00 | CA_ITS ---
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 Interpretive Statements Summary of the findings: Right leg: JIMMIE= 1.38; TBI= 0.74. Doppler waveforms demonstrate multiphasic flow at the posterior tibial artery and monophasic flow at the dorsalis pedis arteries. Left leg: JIMMIE= 0.76; TBI= 0.41. Doppler waveforms demonstrate monophasic flow at the posterior tibial and dorsalis pedis arteries. Segmental pressures: Segmental pressures are normal on the right and show significant left sided inflow disease. Pulse volume recordings: PVRs at the high thigh, below knee, and ankle levels show normal waveforms on the right and dampened waveforms on the left. Conclusion: Right and left ankle-brachial indices are suggestive of normal overall right and reduced left arterial flow at rest. Toe-brachial indices are suggestive of left sided PAD. Segmental pressures show significant left sided inflow disease. The study shows evidence of PAD with reduced overall left sided arterial flow at rest due to significant inflow disease. Electronically Signed On 02-18-2025 21:11:51 EDT by LAINEY MOON M.D.
== END 2025-02-18 13:53 | disposition home or self-care (01) ==
LOC: CARD 13:52
PROVIDERS: PCP Family Medicine; Visit Provider Family Medicine
DX: E78.1 Pure hyperglyceridemia (principal); I73.9 Peripheral vascular disease, unspecified
CPT/HCPCS: 93923